=== PATIENT | male | born 1955 | race Caucasian/White ===

== ENCOUNTER 2020-11-07 10:09 | Outpatient (REF) | payer MEDICARE, SELFPAY ==
[2020-11-07 11:04] LABS: Estimated Average Glucose 117 mg/dL; Hemoglobin A1c % 5.7 %
[2020-11-07 11:20] LABS: Alanine Aminotransferase 52 U/L (0-40); Albumin Level 4.5 g/dL (3.5-5.0); Alkaline Phosphatase 103 U/L (39-117); Aspartate Amino Transferase 24 U/L (5-37); Bilirubin Direct 0.4 mg/dL (0.0-0.5); Bilirubin Total 1.2 mg/dL (0.0-1.0); Cholesterol 161 mg/dL; Glucose Fasting 117 mg/dL (60-99); HDL Cholesterol 60 mg/dL; LDL Cholesterol Calculated 69 mg/dl; Total Protein 7.1 g/dL (6.5-8.0); Triglycerides 162 mg/dL
[2020-11-07 11:32] LABS: Reflex LDLD? No
== END 2020-11-07 10:10 | disposition home or self-care (01) ==
LOC: HO.LNP 10:09
PROVIDERS: Visit Provider Internal Medicine
DX: E11.40 Type 2 diabetes mellitus with diabetic neuropathy, unspecified (principal); E78.00 Pure hypercholesterolemia, unspecified; R79.9 Abnormal finding of blood chemistry, unspecified; Z00.00 Encounter for general adult medical examination without abnormal findings
CPT/HCPCS: 80061; 80076; 82947; 83036

== ENCOUNTER 2021-05-09 11:36 | Outpatient (REF) | payer MEDICARE, SELFPAY ==
[2021-05-09 11:41] LABS: MANUAL DIFF FLAG NO
[2021-05-09 11:58] LABS: Basophils Percent Auto 0.5 % (0-2); Eosinophils Absolute Auto 0.2 X10*3/uL (0.0-0.4); Eosinophils Percent Auto 2.4 % (0-4); Hematocrit 41.3 % (42-52); Imm Gran Abs Auto 0.04 X10*3/uL (0.00-0.03); Imm Gran Pct Auto 0.5 % (0.0-0.4); Lymphocytes Absolute Auto 1.7 X10*3/uL (1.2-4.9); Lymphocytes Percent Auto 19.4 % (20-40); Mean Corpuscular HGB Conc 33.9 g/dl (31.0-36.0); Mean Corpuscular Hemoglobin 31.6 pg (27.0-33.0); Mean Corpuscular Volume 93.2 fL (80-98); Monocytes Absolute Auto 0.6 X10*3/uL (0.1-1.2); Monocytes Percent Auto 7.3 % (2-11); Neutrophils Percent Auto 69.9 % (45-73); Platelet Count 291 X10*3/uL (160-400); Red Blood Count 4.43 X10*6/uL (4.60-5.80); Red Cell Distribution Width 12.1 % (11.0-16.0); White Blood Count 8.6 X10*3/uL (4.8-10.8)
[2021-05-09 12:13] LABS: Estimated Average Glucose 114 mg/dL; Hemoglobin A1c % 5.6 %
[2021-05-09 12:24] LABS: Appearance Urine CLEAR; Color Urine YELLOW; Glucose Urine UA NEG (NEG); Leukocyte Esterase Urine NEG (NEG); Nitrite Urine NEG (NEG); Specific Gravity - Urine 1.015 (1.005-1.025); Urine Blood NEG (NEG); Urine Ketones NEG (NEG); Urine Protein NEG (NEG-TRACE)
[2021-05-09 13:35] LABS: Creatinine Urine 61.84 mg/dL; Microalbumin Urine < 5.0 mg/L
[2021-05-09 13:42] LABS: Alanine Aminotransferase 39 U/L (0-40); Albumin Level 4.3 g/dL (3.5-5.0); Alkaline Phosphatase 103 U/L (39-117); Anion Gap 18 (12-20); Aspartate Amino Transferase 21 U/L (5-37); Blood Urea Nitrogen 16 mg/dL (9-16); Calcium 9.2 mg/dL (8.4-10.2); Carbon Dioxide 23 mmol/L (22-29); Chloride 103 mmol/L (96-108); Cholesterol 161 mg/dL; Estimated Glomerular Filt Rate > 60; Glucose Fasting 122 mg/dL (60-99); HDL Cholesterol 58 mg/dL; LDL Cholesterol Calculated 81 mg/dl; Sodium 140 mmol/L (135-145); Total Protein 6.7 g/dL (6.5-8.0); Triglycerides 111 mg/dL
[2021-05-11 12:31] LABS: Free Prostate Spec Ag 1.2 ng/mL; Percent Free Prostate Spec Ag 16 % (calc) (>25); Prostate Specific Ag Total 7.4 ng/mL (< OR = 4.0)
== END 2021-05-09 11:37 | disposition home or self-care (01) ==
LOC: HO.LNP 11:36
PROVIDERS: Visit Provider Internal Medicine
DX: Z12.5 Encounter for screening for malignant neoplasm of prostate (principal); R97.20 Elevated prostate specific antigen [PSA]; I10 Essential (primary) hypertension; R73.03 Prediabetes; E87.6 Hypokalemia
CPT/HCPCS: 80053; 80061; 81003; 82043; 83036; 84153; 84154; 85025

== ENCOUNTER 2021-11-06 10:23 | Outpatient (REF) | payer MEDICARE, SELFPAY ==
[2021-11-06 11:14] LABS: Alanine Aminotransferase 47 U/L (0-40); Albumin Level 4.2 g/dL (3.5-5.0); Alkaline Phosphatase 106 U/L (39-117); Aspartate Amino Transferase 23 U/L (5-37); Bilirubin Direct 0.3 mg/dL (0.0-0.5); Bilirubin Total 0.7 mg/dL (0.0-1.0); Cholesterol 184 mg/dL; Glucose Fasting 117 mg/dL (60-99); HDL Cholesterol 58 mg/dL; LDL Cholesterol Calculated 88 mg/dl; Total Protein 6.8 g/dL (6.5-8.0); Triglycerides 193 mg/dL
[2021-11-06 11:16] LABS: Estimated Average Glucose 120 mg/dL; Hemoglobin A1c % 5.8 %
[2021-11-06 11:32] LABS: Reflex LDLD? No
== END 2021-11-06 10:24 | disposition home or self-care (01) ==
LOC: HO.LNP 10:23
PROVIDERS: PCP Internal Medicine; Visit Provider Internal Medicine
DX: R73.09 Other abnormal glucose (principal); E78.00 Pure hypercholesterolemia, unspecified
CPT/HCPCS: 80061; 80076; 82947; 83036

== ENCOUNTER 2022-04-10 09:43 | Emergency (ER) | payer MEDICARE, SELFPAY ==
--- NOTE | ~2022-04-10 | XR_ITS ---
EXAMINATION: XR FEMUR, RIGHT CLINICAL INFORMATION: Pain and bruising COMPARISON: None TECHNIQUE: AP and lateral views of the right femur were obtained. FINDINGS: No fracture or destructive process. There is degenerative change in the right hip and lateral right knee. XR/XR femur RT 2V IMPRESSION: Intact right femur
--- NOTE | ~2022-04-10 | US_ITS ---
EXAMINATION: US VENOUS ULTRASOUND WITH DOPPLER LOWER EXTREMITY, RIGHT CLINICAL INFORMATION: Atraumatic posterior leg bruising, pain. Assess for occult DVT. COMPARISON: None TECHNIQUE: Ultrasound of the deep veins is performed from the hip to the calf with compression sonography and color and pulse Doppler assessment. Spectral analysis with color-flow imaging is performed. FINDINGS: There is normal venous compression and respiratory variation and augmented flow. The visualized common femoral vein, superficial femoral vein, profunda femoral vein, popliteal vein, and the trifurcation region shows no evidence of deep venous thrombosis. No popliteal fossa cyst. No visible soft tissue hematoma. There is some mild edema in the subcutaneous space in the area of bruising. US/US venous duplex LE RT IMPRESSION: -No DVT demonstrated in the right lower extremity. -No popliteal fossa cyst or soft tissue hematoma.
[2022-04-10 09:51] VITALS: BP 128/77; PULSE 96; RESP 18; TEMP 36.1; O2SAT 98; BMI 29.5
--- NOTE | 2022-04-10 10:21 | PC.NURSE ---
pt c/o large area of bruising on the back of the upper leg that goes past behind the knee; pt denies any pain, pt denies any recent falls or injuries
[2022-04-10 10:31] LABS: MANUAL DIFF FLAG NO
[2022-04-10 10:34] LABS: Basophils Percent Auto 0.3 % (0-2); Eosinophils Absolute Auto 0.2 X10*3/uL (0.0-0.4); Eosinophils Percent Auto 2.2 % (0-4); Hemoglobin 14.4 g/dl (14.0-18.0); Imm Gran Abs Auto 0.05 X10*3/uL (0.00-0.03); Imm Gran Pct Auto 0.5 % (0.0-0.4); Lymphocytes Absolute Auto 1.3 X10*3/uL (1.2-4.9); Lymphocytes Percent Auto 13.9 % (20-40); Mean Corpuscular HGB Conc 34.3 g/dl (31.0-36.0); Mean Corpuscular Hemoglobin 31.6 pg (27.0-33.0); Mean Corpuscular Volume 92.1 fL (80.0-98.0); Mean Platelet Volume 8.8 fL (9.4-12.4); Monocytes Absolute Auto 0.7 X10*3/uL (0.1-1.2); Monocytes Percent Auto 7.6 % (2-11); Neutrophils Percent Auto 75.5 % (45-73); Platelet Count 324 X10*3/uL (160-400); Red Blood Count 4.56 X10*6/uL (4.60-5.80); Red Cell Distribution Width 11.7 % (11.0-16.0); White Blood Count 9.3 X10*3/uL (4.8-10.8)
[2022-04-10 10:42] LABS: Prothrombin Time 11.3 SEC (10.0-13.1)
[2022-04-10 10:53] LABS: Alanine Aminotransferase 57 U/L (0-40); Albumin Level 4.4 g/dL (3.5-5.0); Alkaline Phosphatase 117 U/L (39-117); Anion Gap 16 (12-20); Aspartate Amino Transferase 33 U/L (5-37); Blood Urea Nitrogen 27 mg/dL (9-16); Calcium 9.6 mg/dL (8.4-10.2); Carbon Dioxide 24 mmol/L (22-29); Chloride 100 mmol/L (96-108); Creatinine Clr Calc Pharmacy 62.8; Estimated Glomerular Filt Rate 47; Glucose Random 115 mg/dL (60-115); Magnesium 1.5 mg/dL (1.6-2.6); Potassium 5.2 mmol/L (3.3-5.1); Sodium 135 mmol/L (135-145); Total Protein 7.1 g/dL (6.5-8.0)
--- NOTE | 2022-04-10 11:24 | ED.SKABFB ---
HPI - Skin/Abscess/Foreign Bdy General Chief complaint: Skin/Abscess/Foreign Body Stated complaint: Rash/ bruising on R back leg Time Seen by Provider: 04/10/22 09:57 Source: patient Mode of arrival: ambulatory Limitations: no limitations History of Present Illness HPI narrative: 66-year-old male with a past medical history of hypertension, hyperlipidemia and GERD presenting to the ED with complaints of bruising to his right posterior leg/lower thigh area that he noticed . Reports on Saturday he was doing a lot of heavy lifting and moving things around although he does not recall any specific injury to that site. He reports that his posted the picture on ?[employer] and we got a lot a comments especially from nurses and they told us that we should come to the emergency department to rule out a blood clot?. He denies any fevers, chills, dizziness, headaches, neck pain/stiffness, trouble swallowing or breathing, chest pain or shortness of breath, dyspnea on exertion, orthopnea, palpitations, paresthesias, abdominal pain, nausea/vomiting/diarrhea constipation, black or bloody stools, recent travel or sick contacts, lower extremity edema or calf tenderness, recent falls or trauma that he can recall, history of hypercoagulation disorder, recent immobilization or surgery, any estrogen usage or any other symptoms complaints or concerns at this time. Patient denies being on any blood thinners and denies taking any aspirin. MD complaint: discoloration (bruising) Onset (ago): day(s) (6) Location: RLE (posterior lower thigh area) Severity: mild Quality: aching and constant Pain Consistency: constant Relieving factors: none Exacerbating factors: palpation and movement Context: other (See above) Associated symptoms: denies other symptoms Treatments prior to arrival: none Related Data Allergies Allergy/AdvReac Type Severity Reaction Status Date / Time No Known Allergies Allergy Verified 04/10/22 09:51 Review of Systems Review of Systems: Constitutional : No Weight loss, No Fever, No Chills, No Night Sweats, No Fatigue, No Malaise ENT/Mouth : No Hearing loss, No Ear Pain, No Nasal Congestion, No Sinus Pain, No Hoarseness, No sore throat, No Rhinorrhea, No Swallowing Difficulty Eyes: No Eye Pain, No Swelling, No Redness, No Foreign Body, No Discharge, No Vision Changes Cardiovascular : No Chest Pain, No SOB, No Dyspnea on Exertion, No Orthopnea, No Edema, No Palpitations Respiratory : No Cough, No Sputum, No Wheezing, No Smoke Exposure, No Dyspnea Gastrointestinal : No Nausea, No Vomiting, No Diarrhea, No Constipation, No abdominal Pain, No Hematochezia, No Melena Genitourinary : no irregular bleeding, No Dysuria, No Urinary Frequency, No Hematuria, No Urinary Incontinence, No Urgency, No Flank Pain, No Urinary Flow Changes, No Hesitancy Musculoskeletal : No joint pain, No Myalgias, No Joint Swelling Skin : No Skin Lesions, No rash Neuro : No Weakness, No Numbness, No Paresthesias, No Loss of Consciousness, No Dizziness, No Headache Psych : No Anxiety/Panic, No Depression, No SI/HI/AH/VH, No Social Issues, Heme/Lymph: + Bruising, No Bleeding,No Lymphadenopathy Endocrine : No Polyuria, No Polydipsia, No Temperature Intolerance Yes all other systems are reviewed and are negative [facility] Past Medical History Attestation statement: The following information was validated with the patient. Source: old records reviewed and nursing notes reviewed Surgical History H/O rotator cuff surgery Social History Social History Patient Tobacco Use Status: Never used Tobacco Use of substances other than those prescribed or required for medical reasons: No Advance Directives: Yes Advance Directives Information Provided: Yes Advance Directives on File: No Physical Exam Vital Signs: Vital Signs: Last Vital Signs Temp 98.5 F 04/10/22 11:46 Pulse 73 04/10/22 14:40 Resp 18 04/10/22 14:40 BP 127/56 L 04/10/22 14:40 Pulse Ox 97 04/10/22 14:40 O2 Del Method 04/10/22 14:40 BMI result Body Mass Index 29.5 vital signs have been reviewed as normal and appeared to be correct. Blood pressure normal. Heart rate normal. Respiration rate normal. Temperature normal. Oxygen saturation normal. Appearance: Alert. Oriented X3. No acute distress. Head: Normal external exam. Normocephalic. Atraumatic. Eyes: PERRLA. EOMI. Conjunctiva and sclera normal. Eyelids normal. ENT: Pharynx normal. Uvula midline. Moist mucous membranes. No lesions/ulcerations or masses noted on the tongue. Normal voice. No trismus noted. No drooling noted. No muffled voice noted. Neck: Normal inspection. Neck supple. FROM. No adenopathy. Thyroid Normal. No tracheal deviation noted. No crepitus is noted. No meningeal signs. No neck mass noted. No signs of trauma noted. CVS: Normal heart rate and rhythm. Heart sound normal. Pulses normal throughout. No murmurs/rales/gallops. Respiratory: No respiratory distress. Painless inspiration. Breath sounds normal. No wheezes/rales/rhonchi noted. Chest nontender. No crepitus is noted. No signs of trauma noted. No accessory muscle usage noted or decreased air movement noted. No signs of trauma. Abdomen: Soft and nontender. Bowel sounds normal in all 4 quadrants. No distention noted. No organomegaly noted. No visible injury noted. Back: Full range of motion noted. Skin: Skin warm and dry. Normal skin color. Normal skin turgor. Patient with large ecchymotic area to right posterior distal aspect of thigh with tenderness palpation. He has full range of motion of the right hip/knee joint no obvious ligamentous or tendon injury noted and no tenderness to the hip or knee joint. Otherwise no additional bruising/rashes/lesions/lacerations noted. Extremities: No lower extremity edema. No calf tenderness is noted. Patient only has tenderness to right posterior distal aspect of thigh. Otherwise no other extremity tenderness. In all other extremities exhibit normal range of motion nontender. Neuro: Oriented X 3. No motor deficit. No sensory deficit. Reflexes normal. Normal steady gait. No focal neuro deficits noted. CN's II-XII intact bilaterally? Vascular: + radial pulses/+ 2 distal pedal pulses/+2 dorsalis pedis b/l. Normal cap refill. No cyanosis noted to upper extremity nails and lower extremity toes nails. Course Course Course Narrative: 10:15am - 66-year-old male with a past medical history of hypertension, hyperlipidemia and GERD presenting to the ED with complaints of bruising to his right posterior leg/lower thigh area that he noticed . Reports on Saturday he was doing a lot of heavy lifting and moving things around although he does not recall any specific injury to that site. Requesting an ultrasound to rule out a blood clot. Plan: Will obtain labs, x-ray of right femur and venous duplex ultrasound of right lower extremity re-evaluate Reevaluation(s) Reevaluation #1: - labs return patient with the RBCs of 4.56 which is similar compared to prior. Potassium 5.2. BUN/creatinine 27/1.49 this is new for the patient. Magnesium 1.5. ALT 57. Total CPK 231. Otherwise all other labs are within normal limits. - therefore at this time will replace the patient's magnesium with 2 g of IV magnesium. Place an IV line and give 2 L of IV fluids for the patient BUN/creatinine that he is now and LILY. - still pending x-ray and ultrasound. Will re-evaluate. Time: 11:25 Reevaluation #2: - repeat BUN and creatinine now 23/1.26 which is improved when compared to prior. Therefore at this time will DC home with symptomatic treatment instructions return if any new or worsening symptoms repeat labs within 1 week and to follow up with primary care provider. Patient understands agrees with this plan. Time: 16:28 MDM - Skin/Abscess/Foreign Bdy Medical Records Attestation: I reviewed the patient's medical records. Lab Data Attestation: I reviewed the patient's lab results. Result diagrams: 04/10/22 10:24 04/10/22 15:47 Labs: Lab Results 04/10/22 04/10/22 04/10/22 Range/Units 10:24 10:24 10:24 WBC 9.3 (4.8-10.8) X10*3/uL RBC 4.56 L (4.60-5.80) X10*6/uL Hgb 14.4 (14.0-18.0) g/dl Hct 42.0 (42.0-52.0) % MCV 92.1 (80.0-98.0) fL MCH 31.6 (27.0-33.0) pg MCHC 34.3 (31.0-36.0) g/dl RDW 11.7 (11.0-16.0) % Plt Count 324 (160-400) X10*3/uL MPV 8.8 L (9.4-12.4) fL Immature Gran % (Auto) 0.5 H (0.0-0.4) % Neut % (Auto) 75.5 H (45-73) % Lymph % (Auto) 13.9 L (20-40) % [place] % (Auto) 7.6 (2-11) % Eos % (Auto) 2.2 (0-4) % Baso % (Auto) 0.3 (0-2) % Lymph # (Auto) 1.3 (1.2-4.9) X10*3/uL [place] # (Auto) 0.7 (0.1-1.2) X10*3/uL Eos # (Auto) 0.2 (0.0-0.4) X10*3/uL Baso # (Auto) 0.0 (0.0-0.2) X10*3/uL Abs Immat Gran (auto) 0.05 H (0.00-0.03) X10*3/uL Absolute Neuts (auto) 7.0 (2.0-8.3) x10*3/uL Absolute Nucleated RBC 0.000 (0.0-0.012) X10*3/uL Nucleated RBC % (auto) 0.0 (0.0-0.2) /100WBC PT 11.3 (10.0-13.1) SEC INR 1.0 (0.9-1.1) Sodium 135 (135-145) mmol/L Potassium 5.2 H D (3.3-5.1) mmol/L Chloride 100 (96-108) mmol/L Carbon Dioxide 24 (22-29) mmol/L Anion Gap 16 (12-20) BUN 27 H (9-16) mg/dL Creatinine 1.49 H (0.5-1.4) mg/dL Estim Creat Clear Calc 62.8 Estimated GFR 47 Random Glucose 115 (60-115) mg/dL Calcium 9.6 (8.4-10.2) mg/dL Magnesium 1.5 L (1.6-2.6) mg/dL Total Bilirubin 1.0 (0.0-1.0) mg/dL AST 33 D (5-37) U/L ALT 57 H (0-40) U/L Alkaline Phosphatase 117 (39-117) U/L Total Creatine Kinase 231 H (38-174) U/L Total Protein 7.1 (6.5-8.0) g/dL Albumin 4.4 (3.5-5.0) g/dL Urine Color Urine Appearance Urine pH (5.0-8.0) Ur Specific [place] (1.005-1.025) Urine Protein (Neg-Trace) mg/dL Urine Glucose (UA) (Negative) mg/dL Urine Ketones (Negative) mg/dL Urine Blood (Negative) Urine Nitrite (Negative) Ur Leukocyte Esterase (Negative) 04/10/22 04/10/22 Range/Units 11:54 15:47 WBC (4.8-10.8) X10*3/uL RBC (4.60-5.80) X10*6/uL Hgb (14.0-18.0) g/dl Hct (42.0-52.0) % MCV (80.0-98.0) fL MCH (27.0-33.0) pg MCHC (31.0-36.0) g/dl RDW (11.0-16.0) % Plt Count (160-400) X10*3/uL MPV (9.4-12.4) fL Immature Gran % (Auto) (0.0-0.4) % Neut % (Auto) (45-73) % Lymph % (Auto) (20-40) % [place] % (Auto) (2-11) % Eos % (Auto) (0-4) % Baso % (Auto) (0-2) % Lymph # (Auto) (1.2-4.9) X10*3/uL [place] # (Auto) (0.1-1.2) X10*3/uL Eos # (Auto) (0.0-0.4) X10*3/uL Baso # (Auto) (0.0-0.2) X10*3/uL Abs Immat Gran (auto) (0.00-0.03) X10*3/uL Absolute Neuts (auto) (2.0-8.3) x10*3/uL Absolute Nucleated RBC (0.0-0.012) X10*3/uL Nucleated RBC % (auto) (0.0-0.2) /100WBC PT (10.0-13.1) SEC INR (0.9-1.1) Sodium 136 (135-145) mmol/L Potassium 4.3 (3.3-5.1) mmol/L Chloride 106 (96-108) mmol/L Carbon Dioxide 22 (22-29) mmol/L Anion Gap 12 (12-20) BUN 23 H (9-16) mg/dL Creatinine 1.26 (0.5-1.4) mg/dL Estim Creat Clear Calc 74.2 Estimated GFR 57 Random Glucose 170 H D (60-115) mg/dL Calcium 8.4 D (8.4-10.2) mg/dL Magnesium (1.6-2.6) mg/dL Total Bilirubin (0.0-1.0) mg/dL AST (5-37) U/L ALT (0-40) U/L Alkaline Phosphatase (39-117) U/L Total Creatine Kinase (38-174) U/L Total Protein (6.5-8.0) g/dL Albumin (3.5-5.0) g/dL Urine Color Yellow Urine Appearance Clear Urine pH 5.5 (5.0-8.0) Ur Specific [place] 1.010 (1.005-1.025) Urine Protein Negative (Neg-Trace) mg/dL Urine Glucose (UA) Negative (Negative) mg/dL Urine Ketones Negative (Negative) mg/dL Urine Blood Negative (Negative) Urine Nitrite Negative (Negative) Ur Leukocyte Esterase Negative (Negative) Critical Care Time Critical Care Time Critical Care Time: Yes Total Critical Care Time: 60 Attestation: I personally attest to this time spent taking care of the patient Discharge Plan Discharge Clinical Impression: Traumatic ecchymosis of right thigh, LILY (acute kidney injury), Low blood magnesium level, Acute hyperkalemia Patient Disposition: Home, Self-Care Instructions: Acute Kidney Injury (DC), Hyperkalemia (ED), Contusion in Adults (ED) Referrals: Venancio Betancourt MD [Primary Care Provider] - 3 days (for repeat labs )
[2022-04-10 11:46] VITALS: BP 137/71; PULSE 65; RESP 18; TEMP 36.9; O2SAT 100
[2022-04-10 12:07] LABS: Appearance Urine Clear; Color Urine Yellow; Glucose Urine UA Negative (Negative); Leukocyte Esterase Urine Negative (Negative); Nitrite Urine Negative (Negative); PH 5.5 (5.0-8.0); Urine Blood Negative (Negative); Urine Ketones Negative (Negative); Urine Protein Negative (Neg-Trace)
[2022-04-10] MEDS: 0.9 % Sodium Chloride 1,000 ML 999 ML IVCONT ×2 (13:22→13:23)
[2022-04-10] MEDS: Magnesium Sulfate/H2O 2 GM/50 ML PIGGYBACK IV (13:22)
[2022-04-10 14:40] VITALS: BP 127/56; PULSE 73; RESP 18; O2SAT 97
[2022-04-10 16:15] LABS: Anion Gap 12 (12-20); Blood Urea Nitrogen 23 mg/dL (9-16); Calcium 8.4 mg/dL (8.4-10.2); Carbon Dioxide 22 mmol/L (22-29); Chloride 106 mmol/L (96-108); Creatinine Clr Calc Pharmacy 74.2; Estimated Glomerular Filt Rate 57; Glucose Random 170 mg/dL (60-115); Potassium 4.3 mmol/L (3.3-5.1); Sodium 136 mmol/L (135-145)
== END 2022-04-10 16:55 | disposition home or self-care (01) ==
PROVIDERS: Physician Assistant Medical; Emergency Provider Emergency Medicine; PCP Internal Medicine
DX: R21 Rash and other nonspecific skin eruption (principal); E87.5 Hyperkalemia; M79.651 Pain in right thigh; R79.89 Other specified abnormal findings of blood chemistry; I10 Essential (primary) hypertension; E78.5 Hyperlipidemia, unspecified; R60.0 Localized edema; Z79.899 Other long term (current) drug therapy
CPT/HCPCS: 36415; 73552; 80048; 80053; 81003; 82550; 83735; 85025; 85610; 93971; 96374; 99284; J3475

== ENCOUNTER 2022-04-13 15:54 | Outpatient (REF) | payer MEDICARE, SELFPAY ==
[2022-04-13 16:45] LABS: Blood Urea Nitrogen 23 mg/dL (9-16); Estimated Glomerular Filt Rate 53; Magnesium 1.6 mg/dL (1.6-2.6)
== END 2022-04-13 15:55 | disposition home or self-care (01) ==
LOC: HO.LNP 15:54
PROVIDERS: Visit Provider Internal Medicine
DX: R79.9 Abnormal finding of blood chemistry, unspecified (principal)
CPT/HCPCS: 82565; 83735; 84520

== ENCOUNTER 2022-05-11 06:38 | Outpatient (REF) | payer MEDICARE, SELFPAY ==
[2022-05-11 07:00] LABS: MANUAL DIFF FLAG NO
[2022-05-11 07:27] LABS: Basophils Percent Auto 0.4 % (0-2); Eosinophils Absolute Auto 0.2 X10*3/uL (0.0-0.4); Eosinophils Percent Auto 2.2 % (0-4); Hematocrit 40.1 % (42.0-52.0); Hemoglobin 13.6 g/dl (14.0-18.0); Imm Gran Abs Auto 0.05 X10*3/uL (0.00-0.03); Imm Gran Pct Auto 0.7 % (0.0-0.4); Lymphocytes Absolute Auto 1.3 X10*3/uL (1.2-4.9); Mean Corpuscular HGB Conc 33.9 g/dl (31.0-36.0); Mean Corpuscular Hemoglobin 31.9 pg (27.0-33.0); Mean Corpuscular Volume 94.1 fL (80.0-98.0); Mean Platelet Volume 9.5 fL (9.4-12.4); Monocytes Absolute Auto 0.5 X10*3/uL (0.1-1.2); Neutrophils Absolute Auto 5.5 x10*3/uL (2.0-8.3); Neutrophils Percent Auto 72.7 % (45-73); Platelet Count 258 X10*3/uL (160-400); Red Blood Count 4.26 X10*6/uL (4.60-5.80); Red Cell Distribution Width 12.1 % (11.0-16.0); White Blood Count 7.6 X10*3/uL (4.8-10.8)
[2022-05-11 07:30] LABS: Estimated Average Glucose 120 mg/dL; Hemoglobin A1c % 5.8 %
[2022-05-11 07:31] LABS: Appearance Urine Clear; Color Urine Yellow; Glucose Urine UA Negative (Negative); Leukocyte Esterase Urine Negative (Negative); Nitrite Urine Negative (Negative); PH 5.5 (5.0-9.0); Specific Gravity - Urine 1.015 (1.005-1.025); Urine Blood Negative (Negative); Urine Ketones Negative (Negative); Urine Protein Negative (Neg-Trace)
[2022-05-11 07:48] LABS: Creatinine Urine 102.32 mg/dL; Microalbumin Urine < 5.0 mg/L
[2022-05-11 07:51] LABS: Alanine Aminotransferase 38 U/L (0-40); Alkaline Phosphatase 98 U/L (39-117); Anion Gap 14 (12-20); Aspartate Amino Transferase 21 U/L (5-37); Bilirubin Total 0.6 mg/dL (0.0-1.0); Blood Urea Nitrogen 17 mg/dL (9-16); Calcium 8.7 mg/dL (8.4-10.2); Carbon Dioxide 26 mmol/L (22-29); Chloride 106 mmol/L (96-108); Cholesterol 149 mg/dL; Estimated Glomerular Filt Rate > 60; Glucose Fasting 121 mg/dL (60-99); HDL Cholesterol 49 mg/dL; LDL Cholesterol Calculated 81 mg/dl; Potassium 3.9 mmol/L (3.3-5.1); Sodium 142 mmol/L (135-145); Total Protein 6.4 g/dL (6.5-8.0); Triglycerides 99 mg/dL
[2022-05-11 08:15] LABS: PSA,Total (Free>4and<10) 7.61 ng/mL (0.00-4.00)
[2022-05-14 11:17] LABS: Free Prostate Spec Ag 1.7 ng/mL; Percent Free Prostate Spec Ag 23 % (calc) (>25); Prostate Specific Ag Total 7.4 ng/mL (< OR = 4.0)
== END 2022-05-11 06:39 | disposition home or self-care (01) ==
LOC: HO.LAB 06:38
PROVIDERS: PCP Internal Medicine; Visit Provider Internal Medicine
DX: Z12.5 Encounter for screening for malignant neoplasm of prostate (principal); R73.03 Prediabetes; I10 Essential (primary) hypertension; E87.6 Hypokalemia; E78.00 Pure hypercholesterolemia, unspecified; R97.20 Elevated prostate specific antigen [PSA]
CPT/HCPCS: 36415; 80053; 80061; 81003; 82043; 83036; 84153; 84154; 85025

== ENCOUNTER 2022-11-16 10:55 | Outpatient (REF) | payer MEDICARE, SELFPAY ==
[2022-11-16 12:00] LABS: Alanine Aminotransferase 41 U/L (0-40); Alkaline Phosphatase 106 U/L (39-117); Aspartate Amino Transferase 20 U/L (5-37); Bilirubin Direct 0.3 mg/dL (0.0-0.5); Bilirubin Total 0.9 mg/dL (0.0-1.0); Cholesterol 181 mg/dL; Glucose Fasting 123 mg/dL (60-99); HDL Cholesterol 53 mg/dL; LDL Cholesterol Calculated 96 mg/dl; Total Protein 6.4 g/dL (6.5-8.0); Triglycerides 161 mg/dL
[2022-11-16 12:08] LABS: Estimated Average Glucose 123 mg/dL; Hemoglobin A1C 149.5715 umol/L; Hemoglobin A1c % 5.9 %
== END 2022-11-16 10:56 | disposition home or self-care (01) ==
LOC: HO.LNP 10:55
PROVIDERS: Visit Provider Internal Medicine
DX: R73.09 Other abnormal glucose (principal); E78.00 Pure hypercholesterolemia, unspecified
CPT/HCPCS: 80061; 80076; 82947; 83036

== ENCOUNTER 2023-05-03 11:52 | Outpatient (REF) | payer MEDICARE, SELFPAY ==
[2023-05-03 12:10] LABS: Appearance Urine Clear; Color Urine Yellow; Glucose Urine UA Negative (Negative); Leukocyte Esterase Urine Negative (Negative); Nitrite Urine Negative (Negative); PH 5.5 (5.0-9.0); Specific Gravity - Urine 1.015 (1.005-1.025); Urine Blood Negative (Negative); Urine Ketones Negative (Negative); Urine Protein Negative (Neg-Trace)
[2023-05-03 12:13] LABS: Bacteria Urine None Seen (None Seen); Hyaline Casts Urine 0-2 /LPF (0-2); RBC Urine 0-2 /HPF (0-2); Squamous Epithelial Cell Urine 0-2 /HPF (0-2); WBC Urine 0-5 /HPF (0-5)
[2023-05-03 12:26] LABS: Alanine Aminotransferase 26 U/L (0-40); Albumin Level 3.8 g/dL (3.5-5.0); Alkaline Phosphatase 122 U/L (39-117); Anion Gap 12 (12-20); Aspartate Amino Transferase 23 U/L (5-37); Bilirubin Total 0.6 mg/dL (0.0-1.0); Blood Urea Nitrogen 15 mg/dL (9-16); Calcium 7.7 mg/dL (8.4-10.2); Carbon Dioxide 28 mmol/L (22-29); Chloride 103 mmol/L (96-108); Cholesterol 124 mg/dL (<200); Estimated Glomerular Filt Rate > 60; Glucose Fasting 128 mg/dL (60-99); HDL Cholesterol 44 mg/dL (>40); LDL Cholesterol Calculated 62 mg/dL (<100); Potassium 3.4 mmol/L (3.3-5.1); Sodium 140 mmol/L (135-145); Total Protein 6.5 g/dL (6.5-8.0); Triglycerides 94 mg/dL (<150)
[2023-05-03 12:45] LABS: PSA,Total (Free>4and<10) 15.47 ng/mL (0.00-4.00)
[2023-05-03 12:58] LABS: Creatinine Urine 66.74 mg/dL; Estimated Average Glucose 108 mg/dL; Hemoglobin A1c % 5.4 % (<6.0); Microalbumin Urine < 5.0 mg/L
== END 2023-05-03 11:53 | disposition home or self-care (01) ==
LOC: HO.LNP 11:52
PROVIDERS: Visit Provider Internal Medicine
DX: Z12.5 Encounter for screening for malignant neoplasm of prostate (principal); R73.03 Prediabetes; I10 Essential (primary) hypertension; E87.6 Hypokalemia; E78.00 Pure hypercholesterolemia, unspecified; R97.20 Elevated prostate specific antigen [PSA]
CPT/HCPCS: 80053; 80061; 81001; 82570; 83036; 84153

== ENCOUNTER 2023-06-18 09:04 | Outpatient (REF) | payer MEDICARE, SELFPAY ==
[2023-06-18 11:55] LABS: Albumin Level 4.3 g/dL (3.5-5.0); Calcium 8.2 mg/dL (8.4-10.2); Magnesium 0.8 mg/dL (1.6-2.6); Phosphorus 2.9 mg/dL (2.7-4.5)
[2023-06-22 18:53] LABS: Parathyroid Hormone Related Pr 10 pg/mL (11-20)
== END 2023-06-18 09:05 | disposition home or self-care (01) ==
LOC: HO.10HDL 09:04
PROVIDERS: Visit Provider Internal Medicine
DX: E83.51 Hypocalcemia (principal)
CPT/HCPCS: 36415; 82040; 82310; 83519; 83735; 84100

== ENCOUNTER 2023-08-20 06:39 | Outpatient (REF) | payer MEDICARE, SELFPAY ==
[2023-08-20 08:07] LABS: Calcium 9.7 mg/dL (8.4-10.2); Magnesium 1.5 mg/dL (1.6-2.6)
[2023-08-20 08:10] LABS: Parathyroid Hormone Intact 61.4 pg/mL (8.7-77.1)
== END 2023-08-20 06:40 | disposition home or self-care (01) ==
LOC: HO.LAB 06:39
PROVIDERS: PCP Internal Medicine; Visit Provider Internal Medicine
DX: E83.42 Hypomagnesemia (principal)
CPT/HCPCS: 36415; 82310; 83735; 83970

== ENCOUNTER 2023-11-11 11:09 | Outpatient (REF) | payer MEDICARE, SELFPAY ==
[2023-11-11 11:55] LABS: Estimated Average Glucose 128 mg/dL; Hemoglobin A1c % 6.1 % (<6.0)
[2023-11-11 12:02] LABS: Alanine Aminotransferase 39 U/L (0-40); Alkaline Phosphatase 107 U/L (39-117); Aspartate Amino Transferase 24 U/L (5-37); Bilirubin Direct 0.2 mg/dL (0.0-0.5); Bilirubin Total 0.8 mg/dL (0.0-1.0); Cholesterol 162 mg/dL (<200); Glucose Fasting 124 mg/dL (60-99); HDL Cholesterol 44 mg/dL (>40); LDL Cholesterol Calculated 78 mg/dL (<100); Total Protein 6.7 g/dL (6.5-8.0); Triglycerides 202 mg/dL (<150)
[2023-11-11 12:43] LABS: Reflex LDLD? No
== END 2023-11-11 11:10 | disposition home or self-care (01) ==
LOC: HO.LNP 11:09
PROVIDERS: Visit Provider Internal Medicine
DX: E78.00 Pure hypercholesterolemia, unspecified (principal); R73.09 Other abnormal glucose
CPT/HCPCS: 80061; 80076; 82947; 83036

== ENCOUNTER 2023-11-18 15:22 | Outpatient (REF) | payer MEDICARE, SELFPAY ==
[2023-11-18 15:55] LABS: Magnesium 1.2 mg/dL (1.6-2.6)
== END 2023-11-18 15:23 | disposition home or self-care (01) ==
LOC: HO.LNP 15:22
PROVIDERS: Visit Provider Internal Medicine
DX: E87.6 Hypokalemia (principal)
CPT/HCPCS: 82310; 83735

== ENCOUNTER 2023-12-19 11:54 | Outpatient (REF) | payer MEDICARE, SELFPAY ==
[2023-12-19 12:28] LABS: Magnesium 1.7 mg/dL (1.6-2.6)
== END 2023-12-19 11:55 | disposition home or self-care (01) ==
LOC: HO.LNP 11:54
PROVIDERS: Visit Provider Internal Medicine
DX: E83.42 Hypomagnesemia (principal)
CPT/HCPCS: 83735

== ENCOUNTER 2024-05-06 09:16 | Outpatient (REF) | payer MEDICARE, SELFPAY ==
[2024-05-06 11:06] LABS: Anion Gap 12 (12-20); Blood Urea Nitrogen 25 mg/dL (9-16); Calcium 9.5 mg/dL (8.4-10.2); Carbon Dioxide 25 mmol/L (22-29); Chloride 106 mmol/L (96-108); Estimated Glomerular Filt Rate 46; Potassium 4.4 mmol/L (3.3-5.1); Sodium 139 mmol/L (135-145)
== END 2024-05-06 09:17 | disposition home or self-care (01) ==
LOC: HO.LAB 09:16
PROVIDERS: PCP Internal Medicine; Visit Provider Internal Medicine Nephrology
DX: I10 Essential (primary) hypertension (principal); E87.6 Hypokalemia; I73.00 Raynaud's syndrome without gangrene
CPT/HCPCS: 36415; 80051; 82310; 82565; 84520; 99212

== ENCOUNTER 2024-05-06 09:16 | Outpatient (AMB) | payer MEDICARE, SELFPAY ==
--- NOTE | 2024-05-06 09:30 | HO.NEPHOV ---
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 He had Raynaud's disease without any systemic symptoms. Blood pressure at home is consistently well controlled. He denies any chest pain, shortness of breath, pedal edema, proximal nocturnal dyspnea,, orthostatic symptoms. He is compliant with medications. There were no new active complaints at the time of this office visit. [facility] Medical History (Updated 05/07/24 @ 12:06 by Rafael Crook MD) Hypertension Surgical History H/O rotator cuff surgery Social History Patient Tobacco Use Status: Never used Tobacco Review of Systems Const All systems reviewed & are unremarkable except as noted in HPI and below Physical Exam Vital Signs: Last Vital Signs BP 116/54 L 05/06/24 09:32 BMI result Body Mass Index 29.3 Const General: comfortable and no acute distress Orientation/consciousness: patient oriented x3 HEENT Head: Yes normocephalic Mouth: Normal oral and palatal mucosa present Eyes EOM: EOMs intact bilaterally Neck Neck: Yes supple Resp Auscultation: clear to auscultation bilaterally Cardio Jugular venous distension: no JVD Rate: regular rate GI Palpation (GI): Soft to palpation Auscultation: normal bowel sounds General: Yes no CVA tenderness Back/Spine/Pelvis Back: no CVA tenderness Skin General skin exam: no rashes or lesions noted Neuro General: patient oriented x3 and moves all extremities Extrem General: Yes no pedal edema Results Reviewed Nephrology Results: Hgb 13.6 g/dl (14.0-18.0) L 05/11/22 WBC 7.6 X10*3/uL (4.8-10.8) 05/11/22 Plt Count 258 X10*3/uL (160-400) 09/16/22 Sodium 139 mmol/L (135-145) 05/06/24 Potassium 4.4 mmol/L (3.3-5.1) 05/06/24 Chloride 106 mmol/L (96-108) 05/06/24 Carbon Dioxide 25 mmol/L (22-29) 05/06/24 BUN 25 mg/dL (9-16) H 05/06/24 Creatinine 1.51 mg/dL (0.5-1.4) H 05/06/24 Calcium 9.5 mg/dL (8.4-10.2) 05/06/24 Phosphorus 2.9 mg/dL (2.7-4.5) 06/18/23 PTH Intact 61.4 pg/mL (8.7-77.1) 08/20/23 Urine Protein Negative mg/dL (Neg-Trace) 05/03/23 Urine Creatinine 66.74 mg/dL 05/03/23 Assessment & Plan Assessment & Plan (1) Hypertension: Code(s): I10 - Essential (primary) hypertension Category: Medical Qualifiers: Hypertension type: primary hypertension Qualified Code(s): I10 - Essential (primary) hypertension Plan Jonathan has hypertension long time. He has been having Raynaud's disease without any systemic symptoms. His serum creatinine has gone up from baseline. He is on Irbesartan. I shall back off on ARB if his serum creatinine does not settle down. Doppler of his renal arteries along with extensive workup done in the past to delineate a secondary etiology for his hypertension had been negative. He was encouraged to increase his fluid intake and repeat lab work in 4 weeks. Answered all questions. Follow-up given Orders: Orders Electrolytes 05/06/24 I10 - Essential (primary) hypertension Protein Creatinine Ratio, Ur 05/06/24 I10 - Essential (primary) hypertension Creatinine 05/06/24 I10 - Essential (primary) hypertension Blood Urea Nitrogen 05/06/24 I10 - Essential (primary) hypertension Calcium 05/06/24 I10 - Essential (primary) hypertension Coding Level of Care Code Est Pt Level 4 (89537) Diagnoses Primary hypertension I10 Hypertension type: primary hypertension
[2024-05-06 09:32] VITALS: BP 116/54; BMI 29.3
== END 2024-05-06 09:57 | disposition home or self-care (01) ==
PROVIDERS: PCP Internal Medicine; Visit Provider Internal Medicine Nephrology
DX: I10 Essential (primary) hypertension (principal)
CPT/HCPCS: 99214

== ENCOUNTER 2024-05-14 10:51 | Outpatient (REF) | payer MEDICARE, SELFPAY ==
[2024-05-14 10:57] LABS: MANUAL DIFF FLAG NO
[2024-05-14 11:27] LABS: Appearance Urine Clear; Color Urine Yellow; Glucose Urine UA Negative (Negative); Leukocyte Esterase Urine Negative (Negative); Nitrite Urine Negative (Negative); PH 5.5 (5.0-9.0); Urine Blood Negative (Negative); Urine Ketones Negative (Negative); Urine Protein Negative (Neg-Trace)
[2024-05-14 11:35] LABS: Bacteria Urine None Seen (None Seen); Hyaline Casts Urine 0-2 /LPF (0-2); RBC Urine 0-2 /HPF (0-2); Squamous Epithelial Cell Urine 0-2 /HPF (0-2); WBC Urine 0-5 /HPF (0-5)
[2024-05-14 11:37] LABS: Basophils Percent Auto 0.3 % (0-2); Eosinophils Absolute Auto 0.2 X10*3/uL (0.0-0.4); Eosinophils Percent Auto 2.6 % (0-4); Hematocrit 41.1 % (42.0-52.0); Hemoglobin 13.9 g/dl (14.0-18.0); Imm Gran Abs Auto 0.03 X10*3/uL (0.00-0.03); Imm Gran Pct Auto 0.4 % (0.0-0.4); Lymphocytes Absolute Auto 1.3 X10*3/uL (1.2-4.9); Lymphocytes Percent Auto 16.8 % (20-40); Mean Corpuscular HGB Conc 33.8 g/dl (31.0-36.0); Mean Corpuscular Hemoglobin 32.5 pg (27.0-33.0); Mean Platelet Volume 9.5 fL (9.4-12.4); Monocytes Absolute Auto 0.7 X10*3/uL (0.1-1.2); Monocytes Percent Auto 8.9 % (2-11); Neutrophils Absolute Auto 5.7 x10*3/uL (2.0-8.3); Platelet Count 321 X10*3/uL (160-400); Red Blood Count 4.28 X10*6/uL (4.60-5.80); Red Cell Distribution Width 12.3 % (11.0-16.0)
[2024-05-14 11:47] LABS: Estimated Average Glucose 126 mg/dL
[2024-05-14 12:11] LABS: Alanine Aminotransferase 35 U/L (0-40); Albumin Level 4.3 g/dL (3.5-5.0); Alkaline Phosphatase 104 U/L (39-117); Anion Gap 13 (12-20); Aspartate Amino Transferase 31 U/L (5-37); Bilirubin Total 0.9 mg/dL (0.0-1.0); Blood Urea Nitrogen 18 mg/dL (9-16); Calcium 9.8 mg/dL (8.4-10.2); Carbon Dioxide 26 mmol/L (22-29); Chloride 104 mmol/L (96-108); Cholesterol 142 mg/dL (<200); Estimated Glomerular Filt Rate 52; Glucose Fasting 126 mg/dL (60-99); HDL Cholesterol 57 mg/dL (>40); LDL Cholesterol Calculated 68 mg/dL (<100); Potassium 4.1 mmol/L (3.3-5.1); Sodium 139 mmol/L (135-145); Total Protein 7.2 g/dL (6.5-8.0); Triglycerides 85 mg/dL (<150)
[2024-05-14 12:16] LABS: PSA,Total (Free>4and<10) 13.14 ng/mL (0.00-4.00)
[2024-05-14 12:27] LABS: Creatinine Urine 53.59 mg/dL; Microalbumin Urine < 5.0 mg/L
== END 2024-05-14 10:52 | disposition home or self-care (01) ==
LOC: HO.LNP 10:51
PROVIDERS: Visit Provider Internal Medicine
DX: R73.09 Other abnormal glucose (principal); E87.6 Hypokalemia; E78.00 Pure hypercholesterolemia, unspecified; Z12.5 Encounter for screening for malignant neoplasm of prostate
CPT/HCPCS: 80053; 80061; 81001; 82043; 82570; 83036; 84153; 85025

== ENCOUNTER 2024-05-21 15:39 | Outpatient (REF) | payer MEDICARE, SELFPAY ==
[2024-05-21 16:04] LABS: Magnesium 1.5 mg/dL (1.6-2.6)
== END 2024-05-21 15:40 | disposition home or self-care (01) ==
LOC: HO.LNP 15:39
PROVIDERS: Visit Provider Internal Medicine
DX: M54.50 Low back pain, unspecified (principal)
CPT/HCPCS: 83735

== ENCOUNTER 2024-06-15 06:57 | Outpatient (REF) | payer MEDICARE, SELFPAY ==
[2024-06-15 08:11] LABS: Anion Gap 12 (12-20); Blood Urea Nitrogen 32 mg/dL (9-16); Carbon Dioxide 26 mmol/L (22-29); Chloride 100 mmol/L (96-108); Estimated Glomerular Filt Rate 44; Sodium 133 mmol/L (135-145)
[2024-06-15 08:15] LABS: Creatinine Urine 51.89 mg/dL; Total Protein Urine Random < 7 mg/dL (<12)
== END 2024-06-15 06:58 | disposition home or self-care (01) ==
LOC: HO.LAB 06:57
PROVIDERS: PCP Internal Medicine; Visit Provider Internal Medicine Nephrology
DX: I10 Essential (primary) hypertension (principal)
CPT/HCPCS: 36415; 80051; 82565; 82570; 84156; 84520

== ENCOUNTER 2024-06-22 11:28 | Outpatient (REF) | payer MEDICARE, SELFPAY ==
[2024-06-22 12:30] LABS: Magnesium 1.9 mg/dL (1.6-2.6)
== END 2024-06-22 11:29 | disposition home or self-care (01) ==
LOC: HO.LNP 11:28
PROVIDERS: Visit Provider Internal Medicine
DX: E83.42 Hypomagnesemia (principal)
CPT/HCPCS: 83735

== ENCOUNTER 2024-07-29 09:18 | Outpatient (AMB) | payer MEDICARE, SELFPAY ==
--- NOTE | 2024-07-29 09:52 | HO.NEPHOV ---
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 He had Raynaud's disease without any systemic symptoms. He had been having LILY and low BP's intermittently. He denies any chest pain, shortness of breath, pedal edema, proximal nocturnal dyspnea,, orthostatic symptoms. There were no new active complaints at the time of this office visit. [facility] Medical History (Updated 05/07/24 @ 12:06 by Rafael Crook MD) Hypertension Surgical History H/O rotator cuff surgery Social History Patient Tobacco Use Status: Never used Tobacco Review of Systems Const All systems reviewed & are unremarkable except as noted in HPI and below Physical Exam Vital Signs: Last Vital Signs BP 84/50 L 07/29/24 09:54 BMI result Body Mass Index 29.3 Const General: comfortable and no acute distress Orientation/consciousness: patient oriented x3 HEENT Head: Yes normocephalic Mouth: Normal oral and palatal mucosa present Eyes EOM: EOMs intact bilaterally Neck Neck: Yes supple Resp Auscultation: clear to auscultation bilaterally Cardio Jugular venous distension: no JVD Rate: regular rate GI Palpation (GI): Soft to palpation Auscultation: normal bowel sounds General: Yes no CVA tenderness Back/Spine/Pelvis Back: no CVA tenderness Skin General skin exam: no rashes or lesions noted Neuro General: patient oriented x3 and moves all extremities Extrem General: Yes no pedal edema Results Reviewed Nephrology Results: Hgb 13.9 g/dl (14.0-18.0) L 05/14/24 WBC 8.0 X10*3/uL (4.8-10.8) 05/14/24 Plt Count 321 X10*3/uL (160-400) 05/14/24 Sodium 133 mmol/L (135-145) L 06/15/24 Potassium 5.0 mmol/L (3.3-5.1) 06/15/24 Chloride 100 mmol/L (96-108) 06/15/24 Carbon Dioxide 26 mmol/L (22-29) 06/15/24 BUN 32 mg/dL (9-16) H 06/15/24 Creatinine 1.57 mg/dL (0.5-1.4) H 06/15/24 Calcium 9.8 mg/dL (8.4-10.2) 05/14/24 Phosphorus 2.9 mg/dL (2.7-4.5) 06/18/23 PTH Intact 61.4 pg/mL (8.7-77.1) 08/20/23 Urine Protein Negative mg/dL (Neg-Trace) 05/14/24 Urine Creatinine 51.89 mg/dL 06/15/24 Protein/Creatinin Ratio TNP 06/15/24 Assessment & Plan Assessment & Plan (1) LILY (acute kidney injury): Code(s): N17.9 - Acute kidney failure, unspecified Category: Medical (2) Hypertension: Code(s): I10 - Essential (primary) hypertension Category: Medical Qualifiers: Hypertension type: primary hypertension Qualified Code(s): I10 - Essential (primary) hypertension Plan Jonathan has hypertension long time. He has been having Raynaud's disease without any systemic symptoms. His serum creatinine has gone up likely due to tubular injury from low BP. He is on Irbesartan which I backed off by 50 %. I shall hold off on ARB if his serum creatinine does not settle down. Doppler of his renal arteries along with extensive workup done in the past to delineate a secondary etiology for his hypertension had been negative. He was encouraged to increase his fluid intake. Lab work for today. Answered all questions. Follow-up given Orders: Orders Blood Urea Nitrogen Today N17.9 - Acute kidney failure, unspecified Creatinine Today N17.9 - Acute kidney failure, unspecified Electrolytes Today N17.9 - Acute kidney failure, unspecified Coding Level of Care Code Est Pt Level 4 (21783) Diagnoses LILY (acute kidney injury) N17.9 Primary hypertension I10 Hypertension type: primary hypertension
[2024-07-29 09:54] VITALS: BP 84/50; BMI 29.3
--- OUTSIDE RECORDS SUMMARY | 2024-08-04 17:02 | XMS_ITS ---
Author Organization Venancio Betancourt MD Address [address] [place], [place] [id number] Care Team Providers Care Vineyard Tender Name Role Phone Venancio Betancourt Primary Care Provider [phone] RESULTS Component Value Reference Range Notes Complete Blood Count Auto Di ff Reviewed date:05/14/2024 03:09:06 PM Interpretation: Performing Lab:[facility], [address] [place] [phone] Notes/Report: White Blood Count 8.0 4.8-10.8 X10*3/uL Red Blood Count 4.28 4.60-5.80 X10*6/uL Hemoglobin 13.9 14.0-18.0 g/dl Hematocrit 41.1 42.0-52.0 % Mean Corpuscular Volume 96.0 80.0-98.0 fL Mean Corpuscular Hemoglobin 32.5 27.0-33.0 pg Mean Corpuscular HGB Conc 33.8 31.0-36.0 g/dl Red Cell Distribution Width 12.3 11.0-16.0 % Platelet Count 321 160-400 X10*3/uL Mean Platelet Volume 9.5 9.4-12.4 fL Neutrophils Percent Auto 71.0 45-73 % Imm Gran Pct Auto 0.4 0.0-0.4 % Lymphocytes Percent Auto 16.8 20-40 % Monocytes Percent Auto 8.9 2-11 % Eosinophils Percent Auto 2.6 0-4 % Basophils Percent Auto 0.3 0-2 % NRBC Pct Auto 0.0 0.0-0.2 /100WBC Neutrophils Absolute Auto 5.7 2.0-8.3 x10*3/u L Imm Gran Abs Auto 0.03 0.00-0.03 X10*3/uL Lymphocytes Absolute Auto 1.3 1.2-4.9 X10*3/u L Monocytes Absolute Auto 0.7 0.1-1.2 X10*3/uL Eosinophils Absolute Auto 0.2 0.0-0.4 X10*3/u L Basophils Absolute Auto 0.0 0.0-0.2 X10*3/uL NRBC Abs Auto 0.000 0.0-0.012 X10*3/uL Comprehensive Clarks. Panel Fa st Reviewed date:05/14/2024 12:33:14 PM Interpretation: Performing Lab:[facility], [address] [place] [phone] Notes/Report: Sodium 139 135-145 mmol/L Potassium 4.1 3.3-5.1 mmol/L Chloride 104 96-108 mmol/L Carbon Dioxide 26 22-29 mmol/L Anion Gap 13 12-20 Blood Urea Nitrogen 18 9-16 mg/dL Creatinine 1.37 0.5-1.4 mg/dL Estimated Glomerular Filt Rate 52 NOTE: For -[place] individuals, multiply the result by 1.210. Chronic Kidney Disease: Estimated GFR < 60 mL/min/1.73m2 Severe Kidney Disease: Estimated GFR < 15 mL/min/1.73m2 Glucose Fasting 126 60-99 mg/dL A fasting glucose of 126 mg/dl or greater on more than one occasion is considered diagnostic of diabetes. Calcium 9.8 8.4-10.2 mg/dL Bilirubin Total 0.9 0.0-1.0 mg/dL Aspartate Amino Transferase 31 5-37 U/L Alanine Aminotransferase 35 0-40 U/L Total Protein 7.2 6.5-8.0 g/dL Albumin Level 4.3 3.5-5.0 g/dL Alkaline Phosphatase 104 39-117 U/L Lipid Panel Reviewed date:05/14/2024 12:15:33 PM Interpretation: Performing Lab:[address] [phone] Notes/Report: Triglycerides 85 <150 mg/dL Desirable Triglyceride: less than 150 mg/dL Borderline High Triglyceride 150-199 mg/dL High Triglyceride: 200-499 mg/dL Very High Triglyceride: greater than or equal to 5OO mg/dL Cholesterol 142 <200 mg/dL Desirable Cholesterol: less than 200 mg/dL Borderline High Cholesterol: 200-239 mg/dL High Cholesterol: greater than 239 mg/dL LDL Cholesterol Calculated 68 <100 mg/dL Desirable LDL: less than 100 mg/dL Near Optimal/Above Optimal LDL: 110-129 mg/dL Borderline High LDL: 130-159 mg/dL High LDL: 160-189 mg/dL Very High LDL: greater than or equal to 190 mg/dL HDL Cholesterol 57 >40 mg/dL Desirable HDL: greater than 40 mg/dL Note: This HDL assay may give artificially low results in patients with liver disease. PSA,Total (Free>4and<10) Reviewed date:05/14/2024 12:33:27 PM Interpretation: Performing Lab:[address] [phone] Notes/Report: PSA,Total (Free>4and<10) 13.14 0.00-4.00 ng/mL A Free PSA was not performed: The percentage of Free PSA can be used to enhance the differentiation of prostate cancer from benign prostatic disease in subjects whose PSA levels are between 4.0 and 10.0 ng/mL. For subjects whose PSA levels are below 4.0 or above 10.0 ng/mL, the risk of prostate cancer is determined on the basis of the PSA alone. Therefore the % Free PSA is recommended only for those subjects whose PSA levels are between 4.0 and 10.0 ng/mL. PSA methodology: [place] Alinity i Chemiluminescent Microparticle Immunoassay (CMIA) Microalbumin, Random Reviewed date:05/14/2024 12:32:37 PM Interpretation: Performing Lab:[address] [phone] Notes/Report: Creatinine Urine 53.59 Microalbumin Urine < 5.0 Microalbum/Creatinine Ratio Ur TNP <30 ug/mg cr Unable to calculate albumin/creatinine ratio due to low microalbumin or creatinine result. Hemoglobin A1c Reviewed date:05/14/2024 12:20:56 PM Interpretation: Performing Lab:[facility], [address] [place] [phone] Notes/Report: Hemoglobin A1c % 6.0 <6.0 % Hemoglobin A1C Reference Range Adults: 4.8 - 6.0 % Non diabetic: < 6.0 % Goal: < 7.0 % Additional Action Suggested: > 8.0 % Note: Hemoglobin A1c results are invalid for patients with abnormal amounts of HbF. Blood transfusions may impact the HbA1c concentration in the patient sample. Estimated Average Glucose 126 eAG = Estimated average glucose which is %A1C expressed as average glucose, using the formula of the [id number] Average Glucose study (ADAG), Diabetes Care, Vol.31,#8, Mar. 2007 UA ClnCatch+Micro w/rflx Cul t Reviewed date:05/14/2024 05:02:46 PM Interpretation: Performing Lab:[facility], [address] [place] [phone] Notes/Report: Urine, Clean Catch Color Urine Yellow Appearance Urine Clear PH 5.5 5.0-9.0 Glucose Urine UA Negative Negative mg/dL Urine Blood Negative Negative Specific [place] - Urine 1.010 1.005-1.025 Urine Protein Negative Neg-Trace mg/dL Urine Ketones Negative Negative mg/dL Nitrite Urine Negative Negative Leukocyte Esterase Urine Negative Negative RBC Urine 0-2 0-2 /HPF WBC Urine 0-5 0-5 /HPF Squamous Epithelial Cell Urine 0-2 0-2 /HPF Bacteria Urine None Seen None Seen Hyaline Casts Urine 0-2 0-2 /LPF REASON FOR VISIT fasting yearly labs IMMUNIZATIONS Vaccine Route Administration Date Status Comme nts Fluarix Quadrivalent - 150 IM Intramuscular 05/14/2024 Adm inistered Encounters Encounter Location Date Provider Diagnosis Venancio Betancourt MD [address] [place] [address] Drive [address] [place], [place] [id number] 05/14/2024 Venancio Betancourt Prediabetes R73.09 ; Encounter for immunization Z23 ; Hypokalemia E87.6 ; Pure hypercholesterolemia E78.00 and Elevated PSA R97.20 ASSESSMENTS Encounter Date Diagnosis Assessment Notes Treatment Notes Treatment Clinical Notes 05/14/2024 Prediabetes (ICD-10 - R73.09) 05/14/2024 Encounter for immuni zation (ICD-10 - Z23) 05/14/2024 Hypokalemia (ICD-10 - E87.6) 05/14/2024 Pure hypercholestero lemia (ICD-10 - E78.00) 05/14/2024 Elevated PSA (ICD-10 - R97.20) PLAN OF TREATMENT Next Appt Details Provider Name:Venancio quintana, 11/13/2024 07:00:00 AM, [address] [place] [address], Suite [facility], [place], [place], [phone], Provider Name:Venancio quintana, 11/20/2024 01:30:00 PM, [address] [place] [address], Suite [facility], [place], [place], [phone], Provider Name:Venancio quintana, 05/17/2025 07:00:00 AM, [address] [place] [address], [address], [place], [phone], Provider Name:Venancio quintana, 05/24/2025 03:30:00 PM, [address] [place] [address], Suite [facility], [place], [phone],
--- OUTSIDE RECORDS SUMMARY | 2024-08-04 17:02 | XMS_ITS | Patient Health Record ---
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 Name Role Phone Venancio Betancourt Primary Care Provider ALLERGIES No Known Allergies RESULTS Component Value Reference Range Notes Parathyroid Hormone Intact Reviewed date:08/21/2023 03:49:18 PM Interpretation: Performing Lab:[facility], [address] [place] [phone] Notes/Report: Parathyroid Hormone Intact 61.4 8.7-77.1 pg/mL Magnesium Reviewed date:08/21/2023 03:49:08 PM Interpretation: Performing Lab:[facility], [address] [place] [phone] Notes/Report: Magnesium 1.5 1.6-2.6 mg/dL Calcium Reviewed date:08/21/2023 03:49:00 PM Interpretation: Performing Lab:[facility], [address] [place] [phone] Notes/Report: Calcium 9.7 8.4-10.2 mg/dL Hold Gold Reviewed date:11/11/2023 12:31:18 PM Interpretation: Performing Lab:[facility], [address] [place] [phone] Notes/Report: Hold Gold See Note Specimen held untested for 24 hours; Call to request Chemistry testing. Liver Panel Reviewed date:11/11/2023 02:48:49 PM Interpretation: Performing Lab:[facility], [address] [place] [phone] Notes/Report: Bilirubin Total 0.8 0.0-1.0 mg/dL Bilirubin Direct 0.2 0.0-0.5 mg/dL Aspartate Amino Transferase 24 5-37 U/L Alanine Aminotransferase 39 0-40 U/L Total Protein 6.7 6.5-8.0 g/dL Albumin Level 4.0 3.5-5.0 g/dL Alkaline Phosphatase 107 39-117 U/L Glucose Fasting Reviewed date:11/11/2023 02:47:54 PM Interpretation: Performing Lab:[facility], [address] [place] [phone] Notes/Report: Glucose Fasting 124 60-99 mg/dL A fasting glucose from 100-125 mg/dl is considered impaired (pre-diabetes). Lipid Panel with Reflex Reviewed date:11/11/2023 05:15:19 PM Interpretation: Performing Lab:[facility], [address] [place] [phone] Notes/Report: Triglycerides 202 <150 mg/dL Desirable Triglyceride: less than 150 mg/dL Borderline High Triglyceride 150-199 mg/dL High Triglyceride: 200-499 mg/dL Very High Triglyceride: greater than or equal to 5OO mg/dL Cholesterol 162 <200 mg/dL Desirable Cholesterol: less than 200 mg/dL Borderline High Cholesterol: 200-239 mg/dL High Cholesterol: greater than 239 mg/dL LDL Cholesterol Calculated 78 <100 mg/dL Desirable LDL: less than 100 mg/dL Near Optimal/Above Optimal LDL: 110-129 mg/dL Borderline High LDL: 130-159 mg/dL High LDL: 160-189 mg/dL Very High LDL: greater than or equal to 190 mg/dL HDL Cholesterol 44 >40 mg/dL Desirable HDL: greater than 40 mg/dL Note: This HDL assay may give artificially low results in patients with liver disease. Hemoglobin A1c Reviewed date:11/11/2023 12:31:36 PM Interpretation: Performing Lab:[facility], [address] [place] [phone] Notes/Report: Hemoglobin A1c % 6.1 <6.0 % Hemoglobin A1C Reference Range Adults: 4.8 - 6.0 % Non diabetic: < 6.0 % Goal: < 7.0 % Additional Action Suggested: > 8.0 % Note: Hemoglobin A1c results are invalid for patients with abnormal amounts of HbF. Blood transfusions may impact the HbA1c concentration in the patient sample. Estimated Average Glucose 128 eAG = Estimated average glucose which is %A1C expressed as average glucose, using the formula of the S4Q-Pughpiq Average Glucose study (ADAG), Diabetes Care, Vol.31,#8, 2007 Timbo Lewis Reviewed date:11/18/2023 05:17:06 PM Interpretation: Performing Lab:[facility], [address] [place] [phone] Notes/Report: Timbo Lewis See Note Specimen held untested for 24 hours; Call to request Chemistry testing. Calcium Reviewed date:11/18/2023 05:16:48 PM Interpretation: Performing Lab:[facility], [address] [place] [phone] Notes/Report: Calcium 9.0 8.4-10.2 mg/dL Magnesium Reviewed date:11/18/2023 05:16:57 PM Interpretation: Performing Lab:[facility], [address] [place] [phone] Notes/Report: Magnesium 1.2 1.6-2.6 mg/dL Critical value for test(s): MAGS Results called to and read back by:DARCY Smith calling:IZABELLA Date:11/18/2023 Time:1554 Timbo Lewis Reviewed date:12/19/2023 12:22:44 PM Interpretation: Performing Lab:[facility], [address] [place] [phone] Notes/Report: Timbo Lewis See Note Specimen held untested for 24 hours; Call to request Chemistry testing. Magnesium Reviewed date:12/19/2023 12:55:03 PM Interpretation: Performing Lab:[facility], [address] [place] [phone] Notes/Report: Magnesium 1.7 1.6-2.6 mg/dL Electrolytes Reviewed date:05/06/2024 04:42:14 PM Interpretation: Performing Lab:[facility], [address] [place] [phone] Notes/Report: Sodium 139 135-145 mmol/L Potassium 4.4 3.3-5.1 mmol/L Chloride 106 96-108 mmol/L Carbon Dioxide 25 22-29 mmol/L Anion Gap 12 12-20 Blood Urea Nitrogen Reviewed date:05/06/2024 04:42:24 PM Interpretation: Performing Lab:[facility], [address] [place] [phone] Notes/Report: Blood Urea Nitrogen 25 9-16 mg/dL Creatinine Reviewed date:05/06/2024 04:42:39 PM Interpretation: Performing Lab:[facility], [address] [place] [phone] Notes/Report: Creatinine 1.51 0.5-1.4 mg/dL Estimated Glomerular Filt Rate 46 NOTE: For -Lao individuals, multiply the result by 1.210. Chronic Kidney Disease: Estimated GFR < 60 mL/min/1.73m2 Severe Kidney Disease: Estimated GFR < 15 mL/min/1.73m2 Calcium Reviewed date:05/06/2024 04:42:02 PM Interpretation: Performing Lab:[facility], [address] [place] [phone] Notes/Report: Calcium 9.5 8.4-10.2 mg/dL Complete Blood Count Auto Di ff Reviewed date:05/14/2024 03:09:06 PM Interpretation: Performing Lab:[facility], [address] [place] [phone] Notes/Report: White Blood Count 8.0 4.8-10.8 X10*3/uL [...] NRBC Abs Auto 0.000 0.0-0.012 X10*3/uL Comprehensive [place]. Panel Fa st Reviewed date:05/14/2024 12:33:14 PM Interpretation: Performing Lab:[facility], [address] [place] [phone] Notes/Report: Sodium 139 135-145 mmol/L Potassium 4.1 3.3-5.1 mmol/L Chloride 104 96-108 mmol/L Carbon Dioxide 26 22-29 mmol/L Anion Gap 13 12-20 Blood Urea Nitrogen 18 9-16 mg/dL Creatinine 1.37 0.5-1.4 mg/dL Estimated Glomerular Filt Rate 52 NOTE: For -Lao individuals, multiply the result by 1.210. Chronic [...] Panel Reviewed date:05/14/2024 12:15:33 PM Interpretation: Performing Lab:[address] [phone] Notes/Report: Triglycerides 85 <150 mg/dL Desirable Triglyceride: [...] (Free>4and<10) Reviewed date:05/14/2024 12:33:27 PM Interpretation: Performing Lab:[address] [phone] Notes/Report: PSA,Total (Free>4and<10) 13.14 0.00-4.00 ng/mL A [...] Random Reviewed date:05/14/2024 12:32:37 PM Interpretation: Performing Lab:[facility], [address] [place] [phone] Notes/Report: Creatinine Urine 53.59 Microalbumin Urine < 5.0 Microalbum/Creatinine Ratio Ur TNP <30 ug/mg cr Unable to calculate albumin/creatinine ratio due to low microalbumin or creatinine result. Hemoglobin A1c Reviewed date:05/14/2024 12:20:56 PM Interpretation: Performing Lab:[facility], [address] [place] [phone] Notes/Report: Hemoglobin A1c % 6.0 <6.0 % [...] average glucose, using the formula of the P1Q-Lrjlypy Average Glucose study (ADAG), Diabetes Care, Vol.31,#8, Mar. 2007 UA ClnCatch+Micro w/rflx Cul t Reviewed date:05/14/2024 05:02:46 PM Interpretation: Performing Lab:[facility], [address] [place] [phone] Notes/Report: Urine, Clean Catch Color Urine Yellow Appearance Urine Clear PH 5.5 5.0-9.0 Glucose Urine UA Negative Negative mg/dL Urine Blood Negative Negative Specific [place] - Urine 1.010 1.005-1.025 Urine Protein Negative Neg-Trace mg/dL Urine Ketones Negative Negative mg/dL Nitrite Urine Negative Negative Leukocyte Esterase Urine Negative Negative RBC Urine 0-2 0-2 /HPF WBC Urine 0-5 0-5 /HPF Squamous Epithelial Cell Urine 0-2 0-2 /HPF Bacteria Urine None Seen None Seen Hyaline Casts Urine 0-2 0-2 /LPF Magnesium Reviewed date:05/22/2024 07:28:07 AM Interpretation: Performing Lab:[facility], [address] [place] [phone] Notes/Report: Magnesium 1.5 1.6-2.6 mg/dL Electrolytes Reviewed date:06/15/2024 01:01:08 PM Interpretation: Performing Lab:[facility], [address] [place] [phone] Notes/Report: Sodium 133 135-145 mmol/L Potassium 5.0 3.3-5.1 mmol/L Chloride 100 96-108 mmol/L Carbon Dioxide 26 22-29 mmol/L Anion Gap 12 12-20 Blood Urea Nitrogen Reviewed date:07/21/2024 02:00:20 PM Interpretation:High Performing Lab:[facility], [address] [place] [phone] Notes/Report: Blood Urea Nitrogen 32 9-16 mg/dL Creatinine Reviewed date:06/15/2024 12:58:50 PM Interpretation: Performing Lab:[facility], [address] [place] [phone] Notes/Report: Creatinine 1.57 0.5-1.4 mg/dL Estimated Glomerular Filt Rate 44 NOTE: For -Lao individuals, multiply the result by 1.210. Chronic Kidney Disease: Estimated GFR < 60 mL/min/1.73m2 Severe Kidney Disease: Estimated GFR < 15 mL/min/1.73m2 Protein Creatinine Ratio, Ur Reviewed date:06/15/2024 01:01:53 PM Interpretation: Performing Lab:[facility], [address] [place] [phone] Notes/Report: Creatinine Urine 51.89 Total Protein Urine Random < 7 <12 mg/dL Protein/Creatinine Ratio, Ur TNP <0.2 Unable to calculate urine protein creatinine ratio due to low creatinine or protein result. Magnesium Reviewed date:06/22/2024 12:57:26 PM Interpretation: Performing Lab:[facility], [address] [place] [phone] Notes/Report: Magnesium 1.9 1.6-2.6 mg/dL Electrolytes Reviewed date:07/29/2024 07:16:34 PM Interpretation: Performing Lab:[facility], [address] [place] [phone] Notes/Report: Sodium 134 135-145 mmol/L Potassium 5.3 3.3-5.1 mmol/L Chloride 101 96-108 mmol/L Carbon Dioxide 25 22-29 mmol/L Anion Gap 13 12-20 Blood Urea Nitrogen Reviewed date:07/29/2024 07:16:10 PM Interpretation: Performing Lab:[facility], [address] [place] [phone] Notes/Report: Blood Urea Nitrogen 32 9-16 mg/dL Creatinine Reviewed date:07/29/2024 07:16:00 PM Interpretation: Performing Lab:[facility], [address] [place] [phone] Notes/Report: Creatinine 1.88 0.5-1.4 mg/dL Estimated Glomerular Filt Rate 36 Chronic Kidney Disease: Estimated GFR < 60 mL/min/1.73m2 Severe Kidney Disease: Estimated GFR < 15 mL/min/1.73m2 REASON FOR REFERRAL Reason elevated BUN and cre atine Diagnosis 1 Elevated BUN (R79.9) Referral Organization Venancio Betancourt MD Referring Provider First Name Venancio Referring Provider Last Name [place] Referring Provider Speciality Internal M edicine Referred Provider LILLIAM ANDREWS Referred Provider Specialty Nephrology General Notes Collette Campbell 02:10:30 PM EST > patient is aware of appt Referral Priority Routine Referral Appointment Date 07/29/2024 MEDICATIONS Medication SIG (Take, Route, Frequency, Duration) Notes Start Date End Date Status Omeprazole 20 MG TAKE 1 CAPSULE ONCE DAILY 30 MINUTES BEFORE MORNING MEAL for 90 Active Irbesartan 300 MG 1 tablet Orally Once a day Active Nystatin-Triamcinolone 590700-6.1 UNIT/GM 1 application to affected area Externally Twice a day for 14 days 04/23/2019 Not-Taking amLODIPine Besylate 10 MG 1 tab Orally O nce a day Active LORazepam 0.5 MG 1or 2 tablet Orally once a day for 30 days 06/11/2011 Not-Takin g Spironolactone 50 MG 1tablet Orally Once a day Active Symbicort 160-4.5 MCG/ACT 2 puffs Inhala tion Twice a day for 90 days Not-Taking Atorvastatin Calcium 40 MG TAKE 1 TABLET ONCE DAILY for 90 Active ProAir HFA 108 (90 Base) MCG/ACT INHALE 2 PUFFS ORALLY FOUR TIMES DAILY NEEDED ( EVERY FOUR HOURS ) Inhalation every 6 hrs for 90 Not-Taking EpiPen 2-Epifanio 0.3 MG/0.3ML as directed In jection once for 1 dose 04/12/2017 Active Viagra 100 MG 1 tablet as needed Orally Once a day for 30 days 07/13/2013 Not-Taking Spironolactone 25 MG 1 tablet Orally for 30 day(s) Active valACYclovir HCl 1 GM TAKE 2 TABLETS PARAM RY 12 HOURS FOR 3 DAYS. for 90 Not-Taking Naproxen 500 MG 1 tablet with food o r milk as needed Orally every 12 hrs for 30 days 05/21/2024 Active Fluticasone Propionate 50 MCG/ACT 1 spray in each nostril Nasally Once a day for 30 day(s) 11/22/2022 Not-Taking Cyclobenzaprine HCl 5 MG 1 tablet at bed time as needed Orally Once a day for 30 day(s) 05/20/2023 Active Montelukast Sodium 10 MG TAKE 1 TABLET O NCE DAILY for 90 Active MagOx 400 400 (240 Mg) MG 1 tablet with food Orally twice a day for 30 day(s) 11/18/2023 Active ProAir HFA 90MCG INHALE 2 PUFFS FOUR TIMES DAILY NEEDED Inhalation every 4 hrs for 90 days Not-Taking IMMUNIZATIONS Vaccine Route Administration Date Status Comme nts Flu Vaccine IM Intramuscular 07/26/2014 Administered Fluarix Quadrivalent IM Intramuscular 10/19/2016 Administe red Fluarix Quadrivalent IM Intramuscular 06/17/2017 Administe red PPSV23 (Pnemovax) IM Intramuscular 10/15/2017 Administered TDaP Unknown 08/13/2017 Administered Pharmacy Shingrix IM Intramuscular 05/01/2018 Administered Shingrix IM Intramuscular 09/09/2018 Administered Prevnar 13 IM Intramuscular 10/27/2018 Administered Fluarix Quadrivalent IM Intramuscular 04/28/2019 Administe red Shingles Unknown 09/09/2018 Administered Fluarix Quadrivalent IM Intramuscular 05/11/2020 Administe red Covid Vaccine Unknown 11/08/2020 Administered Pfizer Influenza High Dose IM Intramuscular 05/09/2021 Administer ed SARS-COV-2 Pfizer Unknown 12/02/2020 Administered SARS-COV-2 Pfizer Unknown 08/17/2021 Administered SARS-COV-2 Pfizer IM Intramuscular 04/27/2022 Administered Influenza High Dose Unknown 04/27/2022 Administered PPSV23 (Pnemovax) IM Intramuscular 11/22/2022 Administered Fluarix Quadrivalent IM Intramuscular 05/03/2023 Administe red Fluarix Quadrivalent - 150 IM Intramuscular 05/14/2024 Adm inistered Fluarix Quadrivalent Unknown 10/27/2018 Refused Tetanus Unknown 08/13/2017 Pending SOCIAL HISTORY Tobacco Use: Social History Observation Description Date Details (start date - stop date) Never Smoker NA - NA Sex Assigned At : Social History Observation Description Sex Assigned At Unknown Tobacco Use/Smoking Question Answer Notes Patient is a nonsmoker Additional Findings: Tobacco Non-User Cu rrent non-smoker, currently using no form of tobacco Alcohol Screen Question Answer Notes Did you have a drink contain ing alcohol in the past year? Yes How often did you have a dri nk containing alcohol in the past year? 2 to 3 times a week (3 points) How many drinks did you have on a typical day when you were drinking in the past year? 1 or 2 drinks (0 point) How often did you have 6 or more drinks on one occasion in the past year? Never (0 point) Points 3 Interpretation Negative PROBLEMS Problem Type ICD Code Onset Dates Problem Status W/U Status Risk SNOMED Code Notes Problem Hypokalemia (E87.6) Active confirmed 43 418529 Problem Anxiety (F41.9) Active confirmed 322972 02 Problem Disorder of parathyroid gland, unspecified (E21.5) Active confirmed Disorder of parathyroid gland (51916693) Problem Hypomagnesemia (E83.42) Active confirmed 848722164 Problem Hypocalcemia (E83.51) Active confirmed 4575137 Problem Lumbar disc disease (M51.9) Active confirmed 79672359 Problem Essential hypertensi on (I10) Active confirmed 59932732 Problem Mild intermittent asthma without complication (J45.20) Active confirmed 640371584 Problem Prediabetes (R73.09) Active confirmed 9 415426 Problem Erectile dysfunction , unspecified erectile dysfunction type (N52.9) Active confirmed 254335986 Problem Environmental allergies (Z91.09) Active confirmed 952314118 Problem Carpal tunnel syndro me of left wrist (G56.02) Active confirmed 1475480067593 02 Problem Anxiety disorder, unspecified type (F41.9) Active confirmed 639631828 Problem History of cold sore s (Z86.19) Active confirmed 768355276 Problem Pure hypercholesterolemia (E78.00) Active confirmed 156543256 Problem Elevated PSA (R97.20) Active confirmed 758471753 Problem BMI 30.0-30.9,adult (Z68.30) Active confirmed Body mass index 30+ - obesity (094184346) Problem Low calcium levels (E83.51) Active confirmed Hypocalcemia (3479155) Problem Low blood magnesium (R79.0) Active confirmed Abnormal level of blood mineral (460692255) Problem Bee sting allergy (Z91.030) Active confirmed 349725077 VITAL SIGNS Blood pressure diastolic 60 mm Hg 05/21/2024 qasim ght is down 13 pounds since 11-18-23 Height 73 in 05/21/2024 weight is down 13 pounds since 11-18-23 Blood pressure systolic 118 mm Hg 05/21/2024 weig ht is down 13 pounds since 11-18-23 Weight 224 lbs 05/21/2024 weight is down 13 pounds since 11-18-23 BMI 29.55 kg/m2 05/21/2024 weight is down 13 pounds since 11-18-23 Encounters Encounter Location Date Provider Diagnosis Venancio Betancourt MD [address] [place] [id number] 05/21/2024 Venancio Betancourt Low back pain, unspe cified M54.50 ; Essential hypertension I10 ; Pure hypercholesterolemia E78.00 ; Hypomagnesemia E83.42 ; Prediabetes R73.09 and Elevated PSA R97.20 Venancio Betancourt MD [address] [place] [id number] 11/11/2023 Venancio Betancourt Pure hypercholestero lemia E78.00 and Prediabetes R73.09 Venancio Betancourt MD [address] [place] [id number] 05/14/2024 Venancio Betancourt Prediabetes R73.09 ; Encounter for immunization Z23 ; Hypokalemia E87.6 ; Pure hypercholesterolemia E78.00 and Elevated PSA R97.20 Venancio Betancourt MD [address] [place] [id number] 08/20/2023 Venancio Betancourt MD [address] [place] [id number] 12/19/2023 Venancio Betancourt Hypomagnesemia E83.4 2 Venancio Betancourt MD [address] [place] [id number] 06/22/2024 Venancio Betancourt Hypomagnesemia E83.4 2 Venancio Betancourt MD [address] [place] [id number] 11/18/2023 Venancio Betancourt Hypokalemia E87.6 ; Staph infection B95.8 ; Essential hypertension I10 and Pure hypercholesterolemia E78.00 Venancio Betancourt MD [address] [place] [id number] 09/02/2023 Venancio Betancourt Essential hypertensi on I10 ; Hypocalcemia E83.51 and Hypomagnesemia E83.42 Venancio Betancourt MD [address] [place] [id number] 11/18/2023 Venancio Betancourt MD [address] [id number] 11/19/2023 Venancio Betancourt MD [address] [place] [id number] 01/10/2024 Venancio Betancourt Staph infection B95. 8 ASSESSMENTS Encounter Date Diagnosis Assessment Notes Treatment Notes Treatment Clinical Notes 05/21/2024 Essential hypertensi on (ICD-10 - I10) doing well on meds, will contiue current regiment 05/21/2024 Low back pain, unspecified (ICD-10 - M54.50) patent verbalized understanding og medication and directions for use 11/11/2023 Prediabetes (ICD-10 - R73.09) 11/11/2023 Pure hypercholestero lemia (ICD-10 - E78.00) 05/14/2024 Encounter for immunization (ICD-10 - Z23) 05/14/2024 Prediabetes (ICD-10 - R73.09) 12/19/2023 Hypomagnesemia (ICD- 10 - E83.42) 06/22/2024 Hypomagnesemia (ICD- 10 - E83.42) 11/18/2023 Hypokalemia (ICD-10 - E87.6) pending labs tests, send to [facility] for notes/ REQUEST FAXED TO HIM @ [facility] FOR ENDOCRINE NOTES 11/18/2023 Staph infection (ICD -10 - B95.8) patient verbalized medication and diretions for use. 09/02/2023 Hypocalcemia (ICD-10 - E83.51) going to see endocrine 09/02/2023 Essential hypertensi on (ICD-10 - I10) doing well on meds, will continue current regiment 01/10/2024 Staph infection (ICD -10 - B95.8) 05/21/2024 Pure hypercholestero lemia (ICD-10 - E78.00) doing well on meds, will continue current regiment 05/14/2024 Hypokalemia (ICD-10 - E87.6) 11/18/2023 Essential hypertensi on (ICD-10 - I10) stable, will continue current regiment 09/02/2023 Hypomagnesemia (ICD- 10 - E83.42) doing well, will continue current regiment 05/21/2024 Hypomagnesemia (ICD- 10 - E83.42) 05/14/2024 Pure hypercholestero lemia (ICD-10 - E78.00) 11/18/2023 Pure hypercholestero lemia (ICD-10 - E78.00) stable, will continue current regiment 05/21/2024 Prediabetes (ICD-10 - R73.09) stable, no need for medication at this time 05/14/2024 Elevated PSA (ICD-10 - R97.20) 05/21/2024 Elevated PSA (ICD-10 - R97.20) will continue to monitor, followed bu Urology PLAN OF TREATMENT Pending Test Test Name Order Date Electrocardiogram (EKG) 05/08/2019 Electrocardiogram (EKG) 03/30/2016 Electrocardiogram (EKG) 04/12/2017 Electrocardiogram (EKG) 04/24/2018 [facility]20 [facility] 018 Next Appt Details Provider Name:Venancio quintana, 11/13/2024 07:00:00 AM, [address] [place] [address], [address], [place], [place], [phone], Provider Name:Venancio Ritter ier, 11/20/2024 01:30:00 PM, [address] [place] [address], [address], [place], [place], [phone], Provider Name:Venancio Ritter ier, 05/17/2025 07:00:00 AM, [address] [place] [address], [address], [place], [place], [phone], Provider Name:Venancio Ritter ier, 05/24/2025 03:30:00 PM, [address] [place] [address], [address], [place], [phone], Insurance Providers Payer Name Payer Address Payer Phone Subscriber Number Group Number Insured Name Patient Relationship to Insured Coverage Start Date Coverage End Date MEDICARE NHIC [address] [place] [address] [id number] Floyd Lama Self - patient is the insured MED[employer] BCBS OF [facility] [address] [place] [phone] [id number] Floyd Lama Self - patient is the insured MEDICAL (GENERAL) HISTORY Medical History History ICD Code colonoscopy 2008 due in 10; colonoscopy done 03/02/[address] Avila - repeat due 02/2024
--- OUTSIDE RECORDS SUMMARY | 2024-08-04 17:02 | XMS_ITS ---
Author Organization Venancio Betancourt MD Address [address] [place], [place] [phone] Care Team Providers Care Cartography Teacher Name Role Phone Venancio Betancourt Primary Care Provider ALLERGIES No Known Allergies RESULTS Component Value Reference Range Notes Magnesium Reviewed date:05/22/2024 07:28:07 AM Interpretation: Performing Lab:[facility], [address] [place] [phone] Notes/Report: Magnesium 1.5 1.6-2.6 mg/dL REASON FOR VISIT review labs, would like a refill Naproxen 500mg MEDICATIONS Medication SIG (Take, Route, Frequency, Duration) Notes Start Date End Date Status ProAir HFA 90MCG INHALE 2 PUFFS FOUR TIMES DAILY NEEDED Inhalation every 4 hrs for 90 days Not-Taking Nystatin-Triamcinolone 578882-5.1 UNIT/GM 1 application to affected area Externally Twice a day for 14 days 04/23/2019 Not-Taking LORazepam 0.5 MG 1or 2 tablet Orally once a day for 30 days 06/11/2011 Not-Takin g Naproxen 500 MG 1 tablet with food o r milk as needed Orally every 12 hrs for 30 days 05/21/2024 Active Cyclobenzaprine HCl 5 MG 1 tablet at bed time as needed Orally Once a day for 30 day(s) 05/20/2023 Active Symbicort 160-4.5 MCG/ACT 2 puffs Inhala tion Twice a day for 90 days Not-Taking ProAir HFA 108 (90 Base) MCG/ACT INHALE 2 PUFFS ORALLY FOUR TIMES DAILY NEEDED ( EVERY FOUR HOURS ) Inhalation every 6 hrs for 90 Not-Taking Viagra 100 MG 1 tablet as needed Orally Once a day for 30 days 07/13/2013 Not-Taking valACYclovir HCl 1 GM TAKE 2 TABLETS PARAM RY 12 HOURS FOR 3 DAYS. for 90 Not-Taking Fluticasone Propionate 50 MCG/ACT 1 spray in each nostril Nasally Once a day for 30 day(s) 11/22/2022 Not-Taking Montelukast Sodium 10 MG TAKE 1 TABLET O NCE DAILY for 90 Active MagOx 400 400 (240 Mg) MG 1 tablet with food Orally twice a day for 30 day(s) 11/18/2023 Active Omeprazole 20 MG TAKE 1 CAPSULE ONCE DAILY 30 MINUTES BEFORE MORNING MEAL for 90 Active Irbesartan 300 MG 1 tablet Orally Once a day Active amLODIPine Besylate 10 MG 1 tab Orally O nce a day Active Spironolactone 50 MG 1tablet Orally Once a day Active Atorvastatin Calcium 40 MG TAKE 1 TABLET ONCE DAILY for 90 Active EpiPen 2-Epifanio 0.3 MG/0.3ML as directed In jection once for 1 dose 04/12/2017 Active Spironolactone 25 MG 1 tablet Orally for 30 day(s) Active SOCIAL HISTORY Tobacco Use: Social History Observation [...] Never (0 point) Points 3 Interpretation Negative VITAL SIGNS BMI 29.55 kg/m2 05/21/2024 Blood pressure systolic 118 mm Hg 05/21/20 Blood pressure diastolic 60 mm Hg 024 Height 73 in 05/21/2024 Weight 224 lbs 05/21/2024 weight is down 13 pounds sin ce 11-18-23 Encounters Encounter Location Date Provider Diagnosis Venancio Betancourt MD [address] [place] [address] [place] [phone] 05/21/2024 Venancio Betancourt Low back pain, unspe cified M54.50 ; Essential hypertension I10 ; Pure hypercholesterolemia E78.00 ; Hypomagnesemia E83.42 ; Prediabetes R73.09 and Elevated PSA R97.20 ASSESSMENTS Encounter Date Diagnosis Assessment Notes Treatment Notes Treatment Clinical Notes 05/21/2024 Low back pain, unspecified (ICD-10 - M54.50) patent verbalized understanding og medication and directions for use 05/21/2024 Essential hypertensi on (ICD-10 - I10) doing well on meds, will contiue current regiment 05/21/2024 Pure hypercholestero lemia (ICD-10 - E78.00) doing well on meds, will continue current regiment 05/21/2024 Hypomagnesemia (ICD- 10 - E83.42) 05/21/2024 Prediabetes (ICD-10 - R73.09) stable, no need for medication at this time 05/21/2024 Elevated PSA (ICD-10 - R97.20) will continue to monitor, followed Urology PLAN OF TREATMENT Medication Medication Name Sig Start Date Stop Date Notes Naproxen 500 MG 1 tablet with food o r milk as needed Orally every 12 hrs for 30 days 05/21/2024 Cyclobenzaprine HCl 5 MG 1 tablet at bed time as needed Orally Once a day for 30 day(s) 05/20/2023 Treatment Notes Assessment Notes Low back pain, unspecified patent verbal ized understanding og medication and directions for use Essential hypertension doing well on med s, will contiue current regiment Pure hypercholesterolemia doing well on meds, will continue current regiment Prediabetes stable, no need for medication at this time Elevated PSA will continue to mon itor, followed Urology Next Appt Details Follow Up: 6 Months, Reason: Provider Name:Venancio Ritter beatrizr, 11/13/2024 07:00:00 AM, [address], [address], [place], [phone], Provider Name:Venancio Ritter beatrizr, 11/20/2024 01:30:00 PM, [address] [place] [address] Drive, [address], [place], [place], [phone], Provider Name:Venancio Ritter beatrizr, 05/17/2025 07:00:00 AM, [address], [address], [place], [place], [phone], Provider Name:Venancio Ritter beatrizr, 05/24/2025 03:30:00 PM, [address] [place] [address], [address], [place], [phone], Progress Notes * Examination Category Sub-Category Detail Notes General Examination GENERAL APPEARANCE: alert, w ell hydrated, in no distress , male HEAD: normocephalic EYES: BOTH EYES, normal EARS: BOTH EARS, normal THROAT: no erythema, no exud ate, pharynx normal NECK/THYROID: no cervical lymphade nopathy, no carotid bruit HEART: no murmurs, rubs, ga llops, regular rate and rhythm LUNGS: no wheezes, rales, r honchi, good air movement, clear to auscultation bilaterally ABDOMEN: no hepatosplenomegal y, soft, nontender, nondistended SKIN: no rashes, good turg or, no suspicious lesions, abnormal has a small plaque on upper back about 3/4 inch BREASTS: abnormal bilateral g ynecomastia no masses MALE GENITOURINARY: circumcised, no test icular mass, testes descended bilaterally RECTAL EXAM: no masses palpable, prostate normal, stool guaiac negative ORAL CAVITY: normal History and Physical Notes * HPI (History of Present Illness) Category Sub-Category Detail Notes Depression Screening PHQ-9 Little inte rest or pleasure in doing things: Not at all Feeling down, depressed, or hopeless: No t at all Trouble falling or staying asleep, or sl eeping too much: Not at all Feeling tired or having little energy: N ot at all Poor appetite or overeating: Not at all Feeling bad about yourself o r that you are a failure, or have let yourself or your family down: Not at all Trouble concentrating on thi ngs, such as reading the newspaper or watching television: Not at all Moving or speaking so slowly that other people could have noticed; or the opposite, being so fidgety or restless that you have been moving around a lot more than usual: Not at all Thoughts that you would be b chelsie off or of hurting yourself in some way: Not at all Total Score: 0 Interpretation and Intervention Depression Allan cullen Findings: Negative Follow-Up for Depression: : review of PH Q-9 found negative result, no follow-up needed SDOH Questions SDOH Questions In the past year have you been worried about losing housing?: No In the past year have you or any family members you live with been unable to get any of the following when it was really needed? Check all that apply:: None Fall Risk History Have you had any falls with injury in the past year?: No Have you had two or more falls in the st year?: No Communication Needs Communication Needs Does the patient have a hearing impairment: No Does the patient have a vision impairmen t?: Yes ?If yes, what is the vision impairment?: Glasses Does the patient have a cognition impair ment?: No
--- OUTSIDE RECORDS SUMMARY | 2024-08-04 17:02 | XMS_ITS ---
Author Organization Venancio Betancourt MD Address [address] [place], [place] [phone] Care Team Providers Care Vp Emerging Media Name Role Phone Venancio Betancourt Primary Care Provider RESULTS Component Value Reference Range Notes Magnesium Reviewed date:06/22/2024 12:57:26 PM Interpretation: Performing Lab:[facility], [address] [place] [phone] Notes/Report: Magnesium 1.9 1.6-2.6 mg/dL REASON FOR VISIT Magnesium Encounters Encounter Location Date Provider Diagnosis Venancio Betancourt MD [address] [place] [phone] 06/22/2024 Venancio Betancourt Hypomagnesemia E83.4 2 ASSESSMENTS Encounter Date Diagnosis Assessment Notes Treatment Notes Treatment Clinical Notes 06/22/2024 Hypomagnesemia (ICD-10 - E83.42) PLAN OF TREATMENT Next Appt Details Provider Name:Venancio quintana, 11/13/2024 07:00:00 AM, [address], Suite [facility], [place], [place], [phone], Provider Name:Venancio quintana, 11/20/2024 01:30:00 PM, [address] [place] [address], [address], [place], [phone], Provider Name:Venancio quintana, 05/17/2025 07:00:00 AM, [address] [place] [address], [address], [place], [phone], Provider Name:Venancio quintana, 05/24/2025 03:30:00 PM, [address] [place] [address], [address], [place], [phone],
== END 2024-07-29 10:10 | disposition home or self-care (01) ==
PROVIDERS: PCP Internal Medicine; Visit Provider Internal Medicine Nephrology
DX: N17.9 Acute kidney failure, unspecified (principal); I10 Essential (primary) hypertension
CPT/HCPCS: 99214

== ENCOUNTER 2024-07-29 09:18 | Outpatient (REF) | payer MEDICARE, SELFPAY ==
[2024-07-29 11:58] LABS: Anion Gap 13 (12-20); Blood Urea Nitrogen 32 mg/dL (9-16); Carbon Dioxide 25 mmol/L (22-29); Chloride 101 mmol/L (96-108); Estimated Glomerular Filt Rate 36; Potassium 5.3 mmol/L (3.3-5.1); Sodium 134 mmol/L (135-145)
== END 2024-07-29 09:19 | disposition home or self-care (01) ==
LOC: HO.LAB 09:18
PROVIDERS: PCP Internal Medicine; Visit Provider Internal Medicine Nephrology
DX: N17.9 Acute kidney failure, unspecified (principal); I10 Essential (primary) hypertension
CPT/HCPCS: 36415; 80051; 82565; 84520; 99212

== ENCOUNTER 2024-08-12 06:24 | Outpatient (REF) | payer MEDICARE, SELFPAY ==
--- OUTSIDE RECORDS SUMMARY | 2024-08-12 06:26 | XMS_ITS ---
Author Organization Venancio Betancourt MD Address [address] [place] [phone] Care Team Providers Care Motor Runner Name Role Phone Venancio Betancourt Primary Care Provider RESULTS Component Value Reference Range Notes Magnesium Reviewed date:06/22/2024 12:57:26 PM Interpretation: Performing Lab:[facility], [address] [place] [phone] Notes/Report: Magnesium 1.9 1.6-2.6 mg/dL REASON FOR VISIT Magnesium Encounters Encounter Location Date Provider Diagnosis Venancio Betancourt MD [address] [place] [phone] 06/22/2024 Venancio Betancourt Hypomagnesemia E83.4 2 ASSESSMENTS Encounter Date Diagnosis Assessment Notes Treatment Notes Treatment Clinical Notes 06/22/2024 Hypomagnesemia (ICD-10 - E83.42) PLAN OF TREATMENT Next Appt Details Provider Name:Venancio quintana, 11/13/2024 07:00:00 AM, [address], Suite [facility], [place], [place], [phone], Provider Name:Venancio quintana, 11/20/2024 01:30:00 PM, [address] [place] [address], [address], [place], [phone], Provider Name:Venancio quintana, 05/17/2025 07:00:00 AM, [address] [place] [address], [address], [place], [phone], Provider Name:Venancio quintana, 05/24/2025 03:30:00 PM, [address] [place] [address], [address], [place], [phone],
--- OUTSIDE RECORDS SUMMARY | 2024-08-12 06:26 | XMS_ITS ---
Author Organization Venancio Betancourt MD Address [address] [place], [place] [phone] Care Team Providers Care Tractor Trailer Operator Name Role Phone Venancio Betancourt Primary Care Provider RESULTS Component Value Reference Range Notes Complete Blood Count Auto Di ff Reviewed date:05/14/2024 03:09:06 PM Interpretation: Performing Lab:[facility], [address] [place] [phone] Notes/Report: White Blood Count 8.0 4.8-10.8 X10*3/uL [...] NRBC Abs Auto 0.000 0.0-0.012 X10*3/uL Comprehensive Mcdermitt. Panel Fa st Reviewed date:05/14/2024 12:33:14 PM Interpretation: Performing Lab:[facility], [address] [place] [phone] Notes/Report: Sodium 139 135-145 mmol/L Potassium 4.1 3.3-5.1 mmol/L Chloride 104 96-108 mmol/L Carbon Dioxide 26 22-29 mmol/L Anion Gap 13 12-20 Blood Urea Nitrogen 18 9-16 mg/dL Creatinine 1.37 0.5-1.4 mg/dL Estimated Glomerular Filt Rate 52 NOTE: For -Hungarian individuals, multiply the result by 1.210. Chronic [...] Panel Reviewed date:05/14/2024 12:15:33 PM Interpretation: Performing Lab:[address] [phone] Notes/Report: Triglycerides 85 <150 mg/dL Desirable Triglyceride: [...] (Free>4and<10) Reviewed date:05/14/2024 12:33:27 PM Interpretation: Performing Lab:[address] [phone] Notes/Report: PSA,Total (Free>4and<10) 13.14 0.00-4.00 ng/mL A [...] Random Reviewed date:05/14/2024 12:32:37 PM Interpretation: Performing Lab:[address] [phone] Notes/Report: Creatinine Urine 53.59 Microalbumin Urine < 5.0 Microalbum/Creatinine Ratio Ur TNP <30 ug/mg cr Unable to calculate albumin/creatinine ratio due to low microalbumin or creatinine result. Hemoglobin A1c Reviewed date:05/14/2024 12:20:56 PM Interpretation: Performing Lab:[facility], [address] [place] [phone] Notes/Report: Hemoglobin A1c % 6.0 <6.0 % [...] average glucose, using the formula of the I1Z-[place] Average Glucose study (ADAG), Diabetes Care, Vol.31,#8, Mar. 2007 UA ClnCatch+Micro w/rflx Cul t Reviewed date:05/14/2024 05:02:46 PM Interpretation: Performing Lab:[facility], [address] [place] [phone] Notes/Report: Urine, Clean Catch Color Urine Yellow Appearance Urine Clear PH 5.5 5.0-9.0 Glucose Urine UA Negative Negative mg/dL Urine Blood Negative Negative Specific [place] - Urine 1.010 1.005-1.025 Urine Protein Negative [...] Location Date Provider Diagnosis Venancio Betancourt MD [address] [place] [address] Drive [address] [place], [place] [phone] 05/14/2024 Venancio Betancourt Prediabetes R73.09 ; Encounter [...] Details Provider Name:Venancio quintana, 11/13/2024 07:00:00 AM, [address] [place] [address], Suite [facility], [place], [place], [phone], Provider Name:Venancio quintana, 11/20/2024 01:30:00 PM, [address] [place] [address], Suite [facility], [place], [place], [phone], Provider Name:Venancio quintana, 05/17/2025 07:00:00 AM, [address] [place] [address], [address], [place], [phone], Provider Name:Venancio quintana, 05/24/2025 03:30:00 PM, [address] [place] [address], Suite [facility], [place], [phone],
--- OUTSIDE RECORDS SUMMARY | 2024-08-12 06:26 | XMS_ITS ---
Author Organization Venancio Betancourt MD Address [address] [place], [place] [phone] Care Team Providers Care Clay Hoister Name Role Phone Venancio Betancourt Primary Care Provider [phone] ALLERGIES No Known Allergies RESULTS Component Value Reference Range Notes Magnesium Reviewed date:05/22/2024 07:28:07 AM Interpretation: Performing Lab:[facility], [address] [place] [phone] Notes/Report: Magnesium 1.5 1.6-2.6 mg/dL REASON FOR VISIT review labs, would like a refill Naproxen 500mg MEDICATIONS Medication SIG (Take, Route, Frequency, Duration) Notes Start Date End Date Status ProAir HFA 90MCG INHALE 2 PUFFS FOUR TIMES DAILY NEEDED Inhalation every 4 hrs for 90 days Not-Taking Nystatin-Triamcinolone 194007-2.1 UNIT/GM 1 application to affected area Externally [...] Date Provider Diagnosis Venancio Betancourt MD [address] [place] [address] [place] [phone] 05/21/2024 Venancio Betancourt Low back pain, unspe [...] 07:00:00 AM, [address], [address], [place], [phone], Provider Name:Venancio Ritter beatrizr, 11/20/2024 01:30:00 PM, [address] [place] [address] Drive, [address], [place], [place], [phone], Provider Name:Venancio Ritter beatrizr, 05/17/2025 07:00:00 AM, [address], [address], [place], [place], [phone], Provider Name:Venancio Ritter beatrizr, 05/24/2025 03:30:00 PM, [address] [place] [address], [address], [place], [phone], Progress Notes * Examination Category Sub-Category Detail [...]
--- OUTSIDE RECORDS SUMMARY | 2024-08-12 06:27 | XMS_ITS | Patient Health Record ---
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 Name Role Phone Venancio Betancourt Primary Care Provider [phone] ALLERGIES No Known Allergies RESULTS Component Value Reference Range Notes Parathyroid Hormone Intact Reviewed date:08/21/2023 03:49:18 PM Interpretation: Performing Lab:[facility], [address] [place] [phone] Notes/Report: Parathyroid Hormone Intact 61.4 8.7-77.1 pg/mL Magnesium Reviewed date:08/21/2023 03:49:08 PM Interpretation: Performing Lab:[facility], [address] [place] [phone] Notes/Report: Magnesium 1.5 1.6-2.6 mg/dL Calcium Reviewed date:08/21/2023 03:49:00 PM Interpretation: Performing Lab:[facility], [address] [place] [phone] Notes/Report: Calcium 9.7 8.4-10.2 mg/dL Hold Gold Reviewed date:11/11/2023 12:31:18 PM Interpretation: Performing Lab:[facility], [address] [place] [phone] Notes/Report: Hold Gold See Note Specimen held untested for 24 hours; Call to request Chemistry testing. Liver Panel Reviewed date:11/11/2023 02:48:49 PM Interpretation: Performing Lab:[facility], [address] [place] [phone] Notes/Report: Bilirubin Total 0.8 0.0-1.0 mg/dL Bilirubin Direct 0.2 0.0-0.5 mg/dL Aspartate Amino Transferase 24 5-37 U/L Alanine Aminotransferase 39 0-40 U/L Total Protein 6.7 6.5-8.0 g/dL Albumin Level 4.0 3.5-5.0 g/dL Alkaline Phosphatase 107 39-117 U/L Glucose Fasting Reviewed date:11/11/2023 02:47:54 PM Interpretation: Performing Lab:[facility], [address] [place] [phone] Notes/Report: Glucose Fasting 124 60-99 mg/dL A fasting glucose from 100-125 mg/dl is considered impaired (pre-diabetes). Lipid Panel with Reflex Reviewed date:11/11/2023 05:15:19 PM Interpretation: Performing Lab:[facility], [address] [place] [phone] Notes/Report: Triglycerides 202 <150 mg/dL Desirable Triglyceride: [...] A1c Reviewed date:11/11/2023 12:31:36 PM Interpretation: Performing Lab:[facility], [address] [place] [phone] Notes/Report: Hemoglobin A1c % 6.1 <6.0 % [...] average glucose, using the formula of the T2J-Josyutn Average Glucose study (ADAG), Diabetes Care, Vol.31,#8, 2007 Timbo Lewis Reviewed date:11/18/2023 05:17:06 PM Interpretation: Performing Lab:[facility], [address] [place] [phone] Notes/Report: Timbo Lewis See Note Specimen held untested for 24 hours; Call to request Chemistry testing. Calcium Reviewed date:11/18/2023 05:16:48 PM Interpretation: Performing Lab:[facility], [address] [place] [phone] Notes/Report: Calcium 9.0 8.4-10.2 mg/dL Magnesium Reviewed date:11/18/2023 05:16:57 PM Interpretation: Performing Lab:[facility], [address] [place] [phone] Notes/Report: Magnesium 1.2 1.6-2.6 mg/dL Critical value for test(s): MAGS Results called to and read back by:DARCY Smith calling:[email or web address] Date:11/18/2023 Time:1554 Timbo Lewis Reviewed date:12/19/2023 12:22:44 PM Interpretation: Performing Lab:[facility], [address] [place] [phone] Notes/Report: Timbo Lewis See Note Specimen held untested for 24 hours; Call to request Chemistry testing. Magnesium Reviewed date:12/19/2023 12:55:03 PM Interpretation: Performing Lab:[facility], [address] [place] [phone] Notes/Report: Magnesium 1.7 1.6-2.6 mg/dL Electrolytes Reviewed date:05/06/2024 04:42:14 PM Interpretation: Performing Lab:[facility], [address] [place] [phone] Notes/Report: Sodium 139 135-145 mmol/L Potassium 4.4 3.3-5.1 mmol/L Chloride 106 96-108 mmol/L Carbon Dioxide 25 22-29 mmol/L Anion Gap 12 12-20 Blood Urea Nitrogen Reviewed date:05/06/2024 04:42:24 PM Interpretation: Performing Lab:[facility], [address] [place] [phone] Notes/Report: Blood Urea Nitrogen 25 9-16 mg/dL Creatinine Reviewed date:05/06/2024 04:42:39 PM Interpretation: Performing Lab:[facility], [address] [place] [phone] Notes/Report: Creatinine 1.51 0.5-1.4 mg/dL Estimated Glomerular Filt Rate 46 NOTE: For -[place] individuals, multiply the result by 1.210. Chronic Kidney Disease: Estimated GFR < 60 mL/min/1.73m2 Severe Kidney Disease: Estimated GFR < 15 mL/min/1.73m2 Calcium Reviewed date:05/06/2024 04:42:02 PM Interpretation: Performing Lab:[facility], [address] [place] [phone] Notes/Report: Calcium 9.5 8.4-10.2 mg/dL Complete Blood Count Auto Di ff Reviewed date:05/14/2024 03:09:06 PM Interpretation: Performing Lab:[facility], [address] [place] [phone] Notes/Report: White Blood Count 8.0 4.8-10.8 X10*3/uL [...] NRBC Abs Auto 0.000 0.0-0.012 X10*3/uL Comprehensive [place]. Panel Fa st Reviewed date:05/14/2024 12:33:14 PM Interpretation: Performing Lab:[facility], [address] [place] [phone] Notes/Report: Sodium 139 135-145 mmol/L Potassium 4.1 3.3-5.1 mmol/L Chloride 104 96-108 mmol/L Carbon Dioxide 26 22-29 mmol/L Anion Gap 13 12-20 Blood Urea Nitrogen 18 9-16 mg/dL Creatinine 1.37 0.5-1.4 mg/dL Estimated Glomerular Filt Rate 52 NOTE: For -[place] individuals, multiply the result by 1.210. Chronic [...] Panel Reviewed date:05/14/2024 12:15:33 PM Interpretation: Performing Lab:[address] [phone] Notes/Report: Triglycerides 85 <150 mg/dL Desirable Triglyceride: [...] (Free>4and<10) Reviewed date:05/14/2024 12:33:27 PM Interpretation: Performing Lab:[address] [phone] Notes/Report: PSA,Total (Free>4and<10) 13.14 0.00-4.00 ng/mL A [...] Random Reviewed date:05/14/2024 12:32:37 PM Interpretation: Performing Lab:[facility], [address] [place] [phone] Notes/Report: Creatinine Urine 53.59 Microalbumin Urine < 5.0 Microalbum/Creatinine Ratio Ur TNP <30 ug/mg cr Unable to calculate albumin/creatinine ratio due to low microalbumin or creatinine result. Hemoglobin A1c Reviewed date:05/14/2024 12:20:56 PM Interpretation: Performing Lab:[facility], [address] [place] [phone] Notes/Report: Hemoglobin A1c % 6.0 <6.0 % [...] average glucose, using the formula of the K2G-[place] Average Glucose study (ADAG), Diabetes Care, Vol.31,#8, Mar. 2007 UA ClnCatch+Micro w/rflx Cul t Reviewed date:05/14/2024 05:02:46 PM Interpretation: Performing Lab:[facility], [address] [place] [phone] Notes/Report: Urine, Clean Catch Color Urine Yellow Appearance Urine Clear PH 5.5 5.0-9.0 Glucose Urine UA Negative Negative mg/dL Urine Blood Negative Negative Specific [place] - Urine 1.010 1.005-1.025 Urine Protein Negative Neg-Trace mg/dL Urine Ketones Negative Negative mg/dL Nitrite Urine Negative Negative Leukocyte Esterase Urine Negative Negative RBC Urine 0-2 0-2 /HPF WBC Urine 0-5 0-5 /HPF Squamous Epithelial Cell Urine 0-2 0-2 /HPF Bacteria Urine None Seen None Seen Hyaline Casts Urine 0-2 0-2 /LPF Magnesium Reviewed date:05/22/2024 07:28:07 AM Interpretation: Performing Lab:[facility], [address] [place] [phone] Notes/Report: Magnesium 1.5 1.6-2.6 mg/dL Electrolytes Reviewed date:06/15/2024 01:01:08 PM Interpretation: Performing Lab:[facility], [address] [place] [phone] Notes/Report: Sodium 133 135-145 mmol/L Potassium 5.0 3.3-5.1 mmol/L Chloride 100 96-108 mmol/L Carbon Dioxide 26 22-29 mmol/L Anion Gap 12 12-20 Blood Urea Nitrogen Reviewed date:07/21/2024 02:00:20 PM Interpretation:High Performing Lab:[facility], [address] [place] [phone] Notes/Report: Blood Urea Nitrogen 32 9-16 mg/dL Creatinine Reviewed date:06/15/2024 12:58:50 PM Interpretation: Performing Lab:[facility], [address] [place] [phone] Notes/Report: Creatinine 1.57 0.5-1.4 mg/dL Estimated Glomerular Filt Rate 44 NOTE: For -[place] individuals, multiply the result by 1.210. Chronic Kidney Disease: Estimated GFR < 60 mL/min/1.73m2 Severe Kidney Disease: Estimated GFR < 15 mL/min/1.73m2 Protein Creatinine Ratio, Ur Reviewed date:06/15/2024 01:01:53 PM Interpretation: Performing Lab:[facility], [address] [place] [phone] Notes/Report: Creatinine Urine 51.89 Total Protein Urine Random < 7 <12 mg/dL Protein/Creatinine Ratio, Ur TNP <0.2 Unable to calculate urine protein creatinine ratio due to low creatinine or protein result. Magnesium Reviewed date:06/22/2024 12:57:26 PM Interpretation: Performing Lab:[facility], [address] [place] [phone] Notes/Report: Magnesium 1.9 1.6-2.6 mg/dL Electrolytes Reviewed date:07/29/2024 07:16:34 PM Interpretation: Performing Lab:[facility], [address] [place] [phone] Notes/Report: Sodium 134 135-145 mmol/L Potassium 5.3 3.3-5.1 mmol/L Chloride 101 96-108 mmol/L Carbon Dioxide 25 22-29 mmol/L Anion Gap 13 12-20 Blood Urea Nitrogen Reviewed date:07/29/2024 07:16:10 PM Interpretation: Performing Lab:[facility], [address] [place] [phone] Notes/Report: Blood Urea Nitrogen 32 9-16 mg/dL Creatinine Reviewed date:07/29/2024 07:16:00 PM Interpretation: Performing Lab:[facility], [address] [place] [phone] Notes/Report: Creatinine 1.88 0.5-1.4 mg/dL Estimated Glomerular [...] Duration) Notes Start Date End Date Status Magnesium Oxide -Mg Supplement 400 (240 Mg) MG TAKE 1 TABLET BY MOUTH EVERY DAY WITH FOOD FOR 90 DAYS for 90 Active Atorvastatin Calcium 40 MG TAKE 1 TABLET ONCE DAILY for 90 Active Omeprazole 20 MG TAKE 1 CAPSULE ONCE DAILY 30 MINUTES BEFORE MORNING MEAL for 90 Active Irbesartan 300 MG 1 tablet Orally Once a day Active Nystatin-Triamcinolone 561339-7.1 UNIT/GM 1 application to affected area Externally [...] TABLET O NCE DAILY for 90 Active ProAir HFA 90MCG INHALE 2 PUFFS [...] Notes Problem Hypokalemia (E87.6) Active confirmed 43 744923 Problem Anxiety (F41.9) Active confirmed 251300 02 Problem Disorder of parathyroid gland, unspecified (E21.5) Active confirmed Disorder of parathyroid gland (83620991) Problem Hypomagnesemia (E83.42) Active confirmed 347192301 Problem Hypocalcemia (E83.51) Active confirmed 4852490 Problem Lumbar disc disease (M51.9) Active confirmed 17010971 Problem Essential hypertensi on (I10) Active confirmed 80157083 Problem Mild intermittent asthma without complication (J45.20) Active confirmed 768015818 Problem Prediabetes (R73.09) Active confirmed 9 142962 Problem Erectile dysfunction , unspecified erectile dysfunction type (N52.9) Active confirmed 337563497 Problem Environmental allergies (Z91.09) Active confirmed 949475521 Problem Carpal tunnel syndro me of left wrist (G56.02) Active confirmed 2861993356370 02 Problem Anxiety disorder, unspecified type (F41.9) Active confirmed 067992024 Problem History of cold sore s (Z86.19) Active confirmed 409196446 Problem Pure hypercholesterolemia (E78.00) Active confirmed 571918699 Problem Elevated PSA (R97.20) Active confirmed 422740820 Problem BMI 30.0-30.9,adult (Z68.30) Active confirmed Body mass index 30+ - obesity (688583073) Problem Low calcium levels (E83.51) Active confirmed Hypocalcemia (8027593) Problem Low blood magnesium (R79.0) Active confirmed Abnormal level of blood mineral (970572776) Problem Bee sting allergy (Z91.030) Active confirmed 633062087 VITAL SIGNS Blood pressure diastolic 60 mm [...] Venancio Betancourt MD [address] [place] [id number] 05/21/2024 Venancio Betancourt Low back pain, unspe cified M54.50 ; Essential hypertension I10 ; Pure hypercholesterolemia E78.00 ; Hypomagnesemia E83.42 ; Prediabetes R73.09 and Elevated PSA R97.20 Venancio Betancourt MD [address] [place] [id number] 11/11/2023 Venancio Betancourt Pure hypercholestero lemia E78.00 and Prediabetes R73.09 Venancio Betancourt MD [address] [place] [id number] 05/14/2024 Venancio Betancourt Prediabetes R73.09 ; Encounter for immunization Z23 ; Hypokalemia E87.6 ; Pure hypercholesterolemia E78.00 and Elevated PSA R97.20 Venancio Betancourt MD [address] [place] [id number] 08/20/2023 Venancio Betancourt MD [address] [place] [id number] 12/19/2023 Venancio Bombardier Hypomagnesemia E83.4 2 Venancio Betancourt MD [address] [place] [id number] 06/22/2024 Venancio Betancourt Hypomagnesemia E83.4 2 Venancio Betancourt MD [address] [place] [address] [id number] 11/18/2023 Venancio Betancourt Hypokalemia E87.6 ; Staph infection B95.8 ; Essential hypertension I10 and Pure hypercholesterolemia E78.00 Venancio Betancourt MD [address] [place] [id number] 09/02/2023 Venancio Betancourt Essential hypertensi on I10 ; Hypocalcemia E83.51 and Hypomagnesemia E83.42 Venancio Betancourt MD [address] [place] [address] [id number] 11/18/2023 Venancio Betancourt MD [address] [id number] 11/19/2023 Venancio Betancourt MD [address] [place] [address] [id number] 01/10/2024 Venancio Betancourt Staph infection B95. 8 [...] - E87.6) pending labs tests, send to [facility] for notes/ REQUEST FAXED TO HIM @ [facility] ENDOCRINE NOTES 11/18/2023 Staph infection (ICD [...] Details Provider Name:Venancio quintana, 11/13/2024 07:00:00 AM, [address] [place] [address], [address], [place], [place], [id number], Provider Name:Venancio Ritter ier, 11/20/2024 01:30:00 PM, [address] [place] [address] Drive, [address], [place], [place], [phone], Provider Name:Venancio Ritter ier, 05/17/2025 07:00:00 AM, [address] [facility], [address], [place], [place], [phone], Provider Name:Venancio Ritter ier, 05/24/2025 03:30:00 PM, [address] [place] [address], [address], [place], [place], [id number], Insurance Providers Payer Name Payer Address Payer Phone Subscriber Number Group Number Insured Name Patient Relationship to Insured Coverage Start Date Coverage End Date [employer] [address] [place] [address] [id number] Floyd Lama Self - patient is the insured [employer] [place] [address] [place] [address] [id number] Floyd Lama Self - patient is the insured MEDICAL (GENERAL) HISTORY Medical History History ICD Code colonoscopy 2008 due in 10; colonoscopy done 03/02/[address] Avila - repeat due 02/2024
[2024-08-12 07:39] LABS: Anion Gap 14 (12-20); Blood Urea Nitrogen 27 mg/dL (9-16); Carbon Dioxide 25 mmol/L (22-29); Chloride 101 mmol/L (96-108); Estimated Glomerular Filt Rate 43; Potassium 4.7 mmol/L (3.3-5.1); Sodium 135 mmol/L (135-145)
== END 2024-08-12 06:25 | disposition home or self-care (01) ==
LOC: HO.LAB 06:24
PROVIDERS: PCP Internal Medicine; Visit Provider Internal Medicine Nephrology
DX: N17.9 Acute kidney failure, unspecified (principal)
CPT/HCPCS: 36415; 80051; 82565; 84520

== ENCOUNTER 2024-08-14 15:24 | Outpatient (AMB) | payer MEDICARE, SELFPAY ==
--- OUTSIDE RECORDS SUMMARY | 2024-08-14 15:27 | XMS_ITS | Patient Health Record ---
Author Organization Venancio Betancourt MD Address [address] [place], [place] [id number] Care Team Providers Care Gear Keeper Name Role Phone Venancio Betancourt Primary Care Provider ALLERGIES No Known Allergies RESULTS Component Value Reference Range Notes Parathyroid Hormone Intact Reviewed date:08/21/2023 03:49:18 PM Interpretation: Performing Lab:[facility], [address] [place] [phone] Notes/Report: Parathyroid Hormone Intact 61.4 8.7-77.1 pg/mL Magnesium Reviewed date:08/21/2023 03:49:08 PM Interpretation: Performing Lab:[facility], [address] [place] [phone] Notes/Report: Magnesium 1.5 1.6-2.6 mg/dL Calcium Reviewed date:08/21/2023 03:49:00 PM Interpretation: Performing Lab:[facility], [address] [place] [phone] Notes/Report: Calcium 9.7 8.4-10.2 mg/dL Hold Gold Reviewed date:11/11/2023 12:31:18 PM Interpretation: Performing Lab:[facility], [address] [place] [phone] Notes/Report: Hold Gold See Note Specimen held untested for 24 hours; Call to request Chemistry testing. Liver Panel Reviewed date:11/11/2023 02:48:49 PM Interpretation: Performing Lab:[facility], [address] [place] [phone] Notes/Report: Bilirubin Total 0.8 0.0-1.0 mg/dL Bilirubin Direct 0.2 0.0-0.5 mg/dL Aspartate Amino Transferase 24 5-37 U/L Alanine Aminotransferase 39 0-40 U/L Total Protein 6.7 6.5-8.0 g/dL Albumin Level 4.0 3.5-5.0 g/dL Alkaline Phosphatase 107 39-117 U/L Glucose Fasting Reviewed date:11/11/2023 02:47:54 PM Interpretation: Performing Lab:[facility], [address] [place] [phone] Notes/Report: Glucose Fasting 124 60-99 mg/dL A fasting glucose from 100-125 mg/dl is considered impaired (pre-diabetes). Lipid Panel with Reflex Reviewed date:11/11/2023 05:15:19 PM Interpretation: Performing Lab:[facility], [address] [place] [phone] Notes/Report: Triglycerides 202 <150 mg/dL Desirable Triglyceride: [...] A1c Reviewed date:11/11/2023 12:31:36 PM Interpretation: Performing Lab:[facility], [address] [place] [phone] Notes/Report: Hemoglobin A1c % 6.1 <6.0 % [...] average glucose, using the formula of the D3H-Ackbotp Average Glucose study (ADAG), Diabetes Care, Vol.31,#8, 2007 Timbo Lewis Reviewed date:11/18/2023 05:17:06 PM Interpretation: Performing Lab:[facility], [address] [place] [phone] Notes/Report: Timbo Lewis See Note Specimen held untested for 24 hours; Call to request Chemistry testing. Calcium Reviewed date:11/18/2023 05:16:48 PM Interpretation: Performing Lab:[facility], [address] [place] [phone] Notes/Report: Calcium 9.0 8.4-10.2 mg/dL Magnesium Reviewed date:11/18/2023 05:16:57 PM Interpretation: Performing Lab:[facility], [address] [place] [phone] Notes/Report: Magnesium 1.2 1.6-2.6 mg/dL Critical value for test(s): MAGS Results called to and read back by:DARCY Smith calling:IZABELLA Date:11/18/2023 Time:1554 Timbo Lewis Reviewed date:12/19/2023 12:22:44 PM Interpretation: Performing Lab:[facility], [address] [place] [phone] Notes/Report: Timbo Lewis See Note Specimen held untested for 24 hours; Call to request Chemistry testing. Magnesium Reviewed date:12/19/2023 12:55:03 PM Interpretation: Performing Lab:[facility], [address] [place] [phone] Notes/Report: Magnesium 1.7 1.6-2.6 mg/dL Electrolytes Reviewed date:05/06/2024 04:42:14 PM Interpretation: Performing Lab:[facility], [address] [place] [phone] Notes/Report: Sodium 139 135-145 mmol/L Potassium 4.4 3.3-5.1 mmol/L Chloride 106 96-108 mmol/L Carbon Dioxide 25 22-29 mmol/L Anion Gap 12 12-20 Blood Urea Nitrogen Reviewed date:05/06/2024 04:42:24 PM Interpretation: Performing Lab:[facility], [address] [place] [phone] Notes/Report: Blood Urea Nitrogen 25 9-16 mg/dL Creatinine Reviewed date:05/06/2024 04:42:39 PM Interpretation: Performing Lab:[facility], [address] [place] [phone] Notes/Report: Creatinine 1.51 0.5-1.4 mg/dL Estimated Glomerular Filt Rate 46 NOTE: For -[place] individuals, multiply the result by 1.210. Chronic Kidney Disease: Estimated GFR < 60 mL/min/1.73m2 Severe Kidney Disease: Estimated GFR < 15 mL/min/1.73m2 Calcium Reviewed date:05/06/2024 04:42:02 PM Interpretation: Performing Lab:[facility], [address] [place] [phone] Notes/Report: Calcium 9.5 8.4-10.2 mg/dL Complete Blood Count Auto Di ff Reviewed date:05/14/2024 03:09:06 PM Interpretation: Performing Lab:[facility], [address] [place] [phone] Notes/Report: White Blood Count 8.0 4.8-10.8 X10*3/uL [...] NRBC Abs Auto 0.000 0.0-0.012 X10*3/uL Comprehensive [place]. Panel Fa st Reviewed date:05/14/2024 12:33:14 PM Interpretation: Performing Lab:[facility], [address] [place] [phone] Notes/Report: Sodium 139 135-145 mmol/L Potassium 4.1 3.3-5.1 mmol/L Chloride 104 96-108 mmol/L Carbon Dioxide 26 22-29 mmol/L Anion Gap 13 12-20 Blood Urea Nitrogen 18 9-16 mg/dL Creatinine 1.37 0.5-1.4 mg/dL Estimated Glomerular Filt Rate 52 NOTE: For -[place] individuals, multiply the result by 1.210. Chronic [...] Panel Reviewed date:05/14/2024 12:15:33 PM Interpretation: Performing Lab:[address] [phone] Notes/Report: Triglycerides 85 <150 mg/dL Desirable Triglyceride: [...] (Free>4and<10) Reviewed date:05/14/2024 12:33:27 PM Interpretation: Performing Lab:[address] [phone] Notes/Report: PSA,Total (Free>4and<10) 13.14 0.00-4.00 ng/mL A [...] Random Reviewed date:05/14/2024 12:32:37 PM Interpretation: Performing Lab:[facility], [address] [place] [phone] Notes/Report: Creatinine Urine 53.59 Microalbumin Urine < 5.0 Microalbum/Creatinine Ratio Ur TNP <30 ug/mg cr Unable to calculate albumin/creatinine ratio due to low microalbumin or creatinine result. Hemoglobin A1c Reviewed date:05/14/2024 12:20:56 PM Interpretation: Performing Lab:[facility], [address] [place] [phone] Notes/Report: Hemoglobin A1c % 6.0 <6.0 % [...] average glucose, using the formula of the Y1F-Qhaljic Average Glucose study (ADAG), Diabetes Care, Vol.31,#8, Mar. 2007 UA ClnCatch+Micro w/rflx Cul t Reviewed date:05/14/2024 05:02:46 PM Interpretation: Performing Lab:[facility], [address] [place] [phone] Notes/Report: Urine, Clean Catch Color Urine Yellow Appearance Urine Clear PH 5.5 5.0-9.0 Glucose Urine UA Negative Negative mg/dL Urine Blood Negative Negative Specific [place] - Urine 1.010 1.005-1.025 Urine Protein Negative Neg-Trace mg/dL Urine Ketones Negative Negative mg/dL Nitrite Urine Negative Negative Leukocyte Esterase Urine Negative Negative RBC Urine 0-2 0-2 /HPF WBC Urine 0-5 0-5 /HPF Squamous Epithelial Cell Urine 0-2 0-2 /HPF Bacteria Urine None Seen None Seen Hyaline Casts Urine 0-2 0-2 /LPF Magnesium Reviewed date:05/22/2024 07:28:07 AM Interpretation: Performing Lab:[facility], [address] [place] [phone] Notes/Report: Magnesium 1.5 1.6-2.6 mg/dL Electrolytes Reviewed date:06/15/2024 01:01:08 PM Interpretation: Performing Lab:[facility], [address] [place] [phone] Notes/Report: Sodium 133 135-145 mmol/L Potassium 5.0 3.3-5.1 mmol/L Chloride 100 96-108 mmol/L Carbon Dioxide 26 22-29 mmol/L Anion Gap 12 12-20 Blood Urea Nitrogen Reviewed date:07/21/2024 02:00:20 PM Interpretation:High Performing Lab:[facility], [address] [place] [phone] Notes/Report: Blood Urea Nitrogen 32 9-16 mg/dL Creatinine Reviewed date:06/15/2024 12:58:50 PM Interpretation: Performing Lab:[facility], [address] [place] [phone] Notes/Report: Creatinine 1.57 0.5-1.4 mg/dL Estimated Glomerular Filt Rate 44 NOTE: For -[place] individuals, multiply the result by 1.210. Chronic Kidney Disease: Estimated GFR < 60 mL/min/1.73m2 Severe Kidney Disease: Estimated GFR < 15 mL/min/1.73m2 Protein Creatinine Ratio, Ur Reviewed date:06/15/2024 01:01:53 PM Interpretation: Performing Lab:[facility], [address] [place] [phone] Notes/Report: Creatinine Urine 51.89 Total Protein Urine Random < 7 <12 mg/dL Protein/Creatinine Ratio, Ur TNP <0.2 Unable to calculate urine protein creatinine ratio due to low creatinine or protein result. Magnesium Reviewed date:06/22/2024 12:57:26 PM Interpretation: Performing Lab:[facility], [address] [place] [phone] Notes/Report: Magnesium 1.9 1.6-2.6 mg/dL Electrolytes Reviewed date:07/29/2024 07:16:34 PM Interpretation: Performing Lab:[facility], [address] [place] [phone] Notes/Report: Sodium 134 135-145 mmol/L Potassium 5.3 3.3-5.1 mmol/L Chloride 101 96-108 mmol/L Carbon Dioxide 25 22-29 mmol/L Anion Gap 13 12-20 Blood Urea Nitrogen Reviewed date:07/29/2024 07:16:10 PM Interpretation: Performing Lab:[facility], [address] [place] [phone] Notes/Report: Blood Urea Nitrogen 32 9-16 mg/dL Creatinine Reviewed date:07/29/2024 07:16:00 PM Interpretation: Performing Lab:[facility], [address] [place] [phone] Notes/Report: Creatinine 1.88 0.5-1.4 mg/dL Estimated Glomerular Filt Rate 36 Chronic Kidney Disease: Estimated GFR < 60 mL/min/1.73m2 Severe Kidney Disease: Estimated GFR < 15 mL/min/1.73m2 Electrolytes Reviewed date:08/13/2024 12:21:46 PM Interpretation: Performing Lab:[facility], [address] [place] [phone] Notes/Report: Sodium 135 135-145 mmol/L Potassium 4.7 3.3-5.1 mmol/L Chloride 101 96-108 mmol/L Carbon Dioxide 25 22-29 mmol/L Anion Gap 14 12-20 Blood Urea Nitrogen Reviewed date:08/13/2024 12:21:11 PM Interpretation: Performing Lab:[facility], [address] [place] [phone] Notes/Report: Blood Urea Nitrogen 27 9-16 mg/dL Creatinine Reviewed date:08/13/2024 12:21:23 PM Interpretation: Performing Lab:[facility], [address] [place] [phone] Notes/Report: Creatinine 1.62 0.5-1.4 mg/dL Estimated Glomerular Filt Rate 43 Chronic Kidney Disease: Estimated GFR < 60 [...] tablet Orally Once a day Active Nystatin-Triamcinolone 347033-6.1 UNIT/GM 1 application to affected area Externally [...] Notes Problem Hypokalemia (E87.6) Active confirmed 43 531110 Problem Anxiety (F41.9) Active confirmed 029263 02 Problem Disorder of parathyroid gland, unspecified (E21.5) Active confirmed Disorder of parathyroid gland (76330417) Problem Hypomagnesemia (E83.42) Active confirmed 958185778 Problem Hypocalcemia (E83.51) Active confirmed 9639289 Problem Lumbar disc disease (M51.9) Active confirmed 24199077 Problem Essential hypertensi on (I10) Active confirmed 75544294 Problem Mild intermittent asthma without complication (J45.20) Active confirmed 454820547 Problem Prediabetes (R73.09) Active confirmed 9 589422 Problem Erectile dysfunction , unspecified erectile dysfunction type (N52.9) Active confirmed 571088853 Problem Environmental allergies (Z91.09) Active confirmed 116571389 Problem Carpal tunnel syndro me of left wrist (G56.02) Active confirmed 3429127322673 02 Problem Anxiety disorder, unspecified type (F41.9) Active confirmed 550083852 Problem History of cold sore s (Z86.19) Active confirmed 900885449 Problem Pure hypercholesterolemia (E78.00) Active confirmed 442795565 Problem Elevated PSA (R97.20) Active confirmed 620013006 Problem BMI 30.0-30.9,adult (Z68.30) Active confirmed Body mass index 30+ - obesity (955584283) Problem Low calcium levels (E83.51) Active confirmed Hypocalcemia (2210315) Problem Low blood magnesium (R79.0) Active confirmed Abnormal level of blood mineral (981772287) Problem Bee sting allergy (Z91.030) Active confirmed 763762709 VITAL SIGNS Blood pressure diastolic 60 mm [...] Venancio Betancourt MD [address] [place] [id number] 05/21/2024 Venancio Betancourt Low back pain, unspe cified M54.50 ; Essential hypertension I10 ; Pure hypercholesterolemia E78.00 ; Hypomagnesemia E83.42 ; Prediabetes R73.09 and Elevated PSA R97.20 Venancio Betancourt MD [address] [place] [id number] 11/11/2023 Venancio Betancourt Pure hypercholestero lemia E78.00 and Prediabetes R73.09 Venancio Betancourt MD [address] [place] [id number] 05/14/2024 Venancio Betancourt Prediabetes R73.09 ; Encounter for immunization Z23 ; Hypokalemia E87.6 ; Pure hypercholesterolemia E78.00 and Elevated PSA R97.20 Venancio Betancourt MD [address] [place] [id number] 08/20/2023 Venancio Betancourt MD [address] [place] [address] [id number] 12/19/2023 Venancio Betancourt Hypomagnesemia E83.4 2 Venancio Betancourt MD [address] [place] [address] [id number] 06/22/2024 Venancio Betancourt Hypomagnesemia E83.4 2 Venancio Betancourt MD [address] [place] [id number] 11/18/2023 Venancio Betancourt Hypokalemia E87.6 ; Staph infection B95.8 ; Essential hypertension I10 and Pure hypercholesterolemia E78.00 Venancio Betancourt MD [address] [place] [address] [id number] 09/02/2023 Vneancio Betancourt Essential hypertensi on I10 ; Hypocalcemia E83.51 and Hypomagnesemia E83.42 Venancio Betancourt MD [address] [place] [address] [id number] 11/18/2023 Venancio Betancourt MD [address] [place] [address] [id number] 11/19/2023 Venancio Betancourt MD [address] [place] [address] [id number] 01/10/2024 Venancio Betancourt Staph infection B95. 8 [...] for notes/ REQUEST FAXED TO HIM @ [facility] FOR ENDOCRINE NOTES 11/18/2023 Staph infection (ICD [...] 04/12/2017 Electrocardiogram (EKG) 04/24/2018 US BREAST LEFT ([facility] [place]) 02/11/20 18 US BREAST RIGHT ([facility] [place]) 018 Next Appt Details Provider Name:Venancio Ritter ier, 11/13/2024 07:00:00 AM, [address] [place] [address], [address], [phone], Provider Name:Venancio Ritter ier, 11/20/2024 01:30:00 PM, [address] [place] [address], [address], [phone], Provider Name:Venancio Ritter ier, 05/17/2025 07:00:00 AM, [address] [place] [address], [address], [phone], Provider Name:Venancio Ritter ier, 05/24/2025 03:30:00 PM, [address] [place] [address], [address], [phone], Insurance Providers Payer Name Payer Address Payer Phone Subscriber Number Group Number Insured Name Patient Relationship to Insured Coverage Start Date Coverage End Date [employer] [address] [place] [address] [id number] Floyd Lama Self - patient is the insured MEDEX BC OF [facility] [address] [place] [address] [phone] [id number] Floyd Lama Self - patient is the insured MEDICAL (GENERAL) HISTORY Medical History History ICD Code colonoscopy 2008 due in 10; colonoscopy done 03/02/[address] Avila - repeat due 02/2024
--- OUTSIDE RECORDS SUMMARY | 2024-08-14 15:27 | XMS_ITS ---
Author Organization Venancio Betancourt MD Address [address] [place], [place] [id number] Care Team Providers Care Cnc Milling Machine Operator Name Role Phone Venancio Betancourt Primary Care Provider RESULTS Component Value Reference Range Notes Complete Blood Count Auto Di ff Reviewed date:05/14/2024 03:09:06 PM Interpretation: Performing Lab:, [address] [place] [phone] Notes/Report: White Blood Count 8.0 4.8-10.8 X10*3/uL [...] NRBC Abs Auto 0.000 0.0-0.012 X10*3/uL Comprehensive [place]. Panel Fa st Reviewed date:05/14/2024 12:33:14 PM Interpretation: Performing Lab:, [address] [place] [phone] Notes/Report: Sodium 139 135-145 mmol/L Potassium 4.1 3.3-5.1 mmol/L Chloride 104 96-108 mmol/L Carbon Dioxide 26 22-29 mmol/L Anion Gap 13 12-20 Blood Urea Nitrogen 18 9-16 mg/dL Creatinine 1.37 0.5-1.4 mg/dL Estimated Glomerular Filt Rate 52 NOTE: For -[place] individuals, multiply the result by 1.210. Chronic [...] Panel Reviewed date:05/14/2024 12:15:33 PM Interpretation: Performing Lab:[address] [phone] Notes/Report: Triglycerides 85 <150 mg/dL Desirable Triglyceride: [...] (Free>4and<10) Reviewed date:05/14/2024 12:33:27 PM Interpretation: Performing Lab:[address] [phone] Notes/Report: PSA,Total (Free>4and<10) 13.14 0.00-4.00 ng/mL A [...] Random Reviewed date:05/14/2024 12:32:37 PM Interpretation: Performing Lab:[address] [phone] Notes/Report: Creatinine Urine 53.59 Microalbumin Urine < 5.0 Microalbum/Creatinine Ratio Ur TNP <30 ug/mg cr Unable to calculate albumin/creatinine ratio due to low microalbumin or creatinine result. Hemoglobin A1c Reviewed date:05/14/2024 12:20:56 PM Interpretation: Performing Lab:, [address] [place] [phone] Notes/Report: Hemoglobin A1c % 6.0 <6.0 % [...] average glucose, using the formula of the L6I-Alcjsdi Average Glucose study (ADAG), Diabetes Care, Vol.31,#8, Mar. 2007 UA ClnCatch+Micro w/rflx Cul t Reviewed date:05/14/2024 05:02:46 PM Interpretation: Performing Lab:, [address] [place] [phone] Notes/Report: Urine, Clean Catch Color Urine Yellow Appearance Urine Clear PH 5.5 5.0-9.0 Glucose Urine UA Negative Negative mg/dL Urine Blood Negative Negative Specific [place] - Urine 1.010 1.005-1.025 Urine Protein Negative [...] Location Date Provider Diagnosis Venancio Betancourt MD [address] [place] [address] Drive [address] [place], [place] [id number] 05/14/2024 Venancio Betancourt Prediabetes R73.09 ; Encounter [...] Details Provider Name:Venancio quintana, 11/13/2024 07:00:00 AM, [address] [place] [address], Suite [facility], [place], [place], [phone], Provider Name:Venancio quintana, 11/20/2024 01:30:00 PM, [address] [place] [address], Suite [facility], [place], [place], [phone], Provider Name:Venancio quintana, 05/17/2025 07:00:00 AM, [address] [place] [address], [address], [place], [phone], Provider Name:Venancio quintana, 05/24/2025 03:30:00 PM, [address] [place] [address], Suite [facility], [place], [phone],
--- OUTSIDE RECORDS SUMMARY | 2024-08-14 15:27 | XMS_ITS ---
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 Generator Brush Maker Name Role Phone Venancio Betancourt Primary Care Provider [phone] ALLERGIES No Known Allergies RESULTS Component Value Reference Range Notes Magnesium Reviewed date:05/22/2024 07:28:07 AM Interpretation: Performing Lab:[facility], [address] [place] [phone] Notes/Report: Magnesium 1.5 1.6-2.6 mg/dL REASON FOR VISIT review labs, would like a refill Naproxen 500mg MEDICATIONS Medication SIG (Take, Route, Frequency, Duration) Notes Start Date End Date Status ProAir HFA 90MCG INHALE 2 PUFFS FOUR TIMES DAILY NEEDED Inhalation every 4 hrs for 90 days Not-Taking Nystatin-Triamcinolone 962537-8.1 UNIT/GM 1 application to affected area Externally [...] Location Date Provider Diagnosis Venancio Betancourt MD [address] [place] [address] [place] [phone] 05/21/2024 Venancio Betancourt Low back pain, unspe [...] 07:00:00 AM, [address], [address], [place], [phone], Provider Name:Venancio Ritter beatrizr, 11/20/2024 01:30:00 PM, [address] [place] [address] Drive, [address], [place], [place], [phone], Provider Name:Venancio Ritter beatrizr, 05/17/2025 07:00:00 AM, [address], [address], [place], [place], [phone], Provider Name:Venancio Ritter beatrizr, 05/24/2025 03:30:00 PM, [address] [place] [address], [address], [place], [phone], Progress Notes * Examination Category Sub-Category Detail [...]
--- NOTE | 2024-08-14 15:29 | HO.NEPHOV ---
Vital Signs 08/14/24 15:30 Height 6 ft 1 in Weight 227 lb 4 oz BMI 30.0 BP 128/70 Blood Pressure Location Rt brachial Position Sitting Pulse 85 Pulse Source Pulse Oximeter Pulse Oximetry (%) 98 Oxygen Delivery Method Room Air Intake Visit Reasons: LILY Proof Coins Inspector Required: No Accompanied by: Self / Same As Patient Allergies No Known Allergies Allergy (Verified 08/14/24 15:30) HPI Comments Details: Jonathan was seen in follow-up of his recent LILY as well as hypertension and hypokalemia. He had Raynaud's disease without any systemic symptoms. His ARB has been on hold since last visit. He does not have any orthostatic symptoms. He denies any chest pain, shortness of breath, pedal edema, proximal nocturnal dyspnea or urinary symptoms. There were no new active complaints at the time of this office visit [facility] Medical History (Updated 05/07/24 @ 12:06 by Rafael Crook MD) Hypertension Surgical History H/O rotator cuff surgery Social History Patient Tobacco Use Status: Never used Tobacco Review of Systems Const All systems reviewed & are unremarkable except as noted in HPI and below Physical Exam Vital Signs: Last Vital Signs Pulse 85 08/14/24 15:30 BP 128/70 08/14/24 15:30 Pulse Ox 98 08/14/24 15:30 Oxygen Delivery Method Room Air 08/14/24 15:30 BMI result Body Mass Index 30.0 Const General: comfortable and no acute distress Orientation/consciousness: patient oriented x3 HEENT Head: Yes normocephalic Mouth: Normal oral and palatal mucosa present Eyes EOM: EOMs intact bilaterally Neck Neck: Yes supple Resp Auscultation: clear to auscultation bilaterally Cardio Jugular venous distension: no JVD Rate: regular rate GI Palpation (GI): Soft to palpation Auscultation: normal bowel sounds General: Yes no CVA tenderness Back/Spine/Pelvis Back: no CVA tenderness Skin General skin exam: no rashes or lesions noted Neuro General: patient oriented x3 and moves all extremities Extrem General: Yes no pedal edema Results Reviewed Nephrology Results: Hgb 13.9 g/dl (14.0-18.0) L 05/14/24 WBC 8.0 X10*3/uL (4.8-10.8) 05/14/24 Plt Count 321 X10*3/uL (160-400) 05/14/24 Sodium 135 mmol/L (135-145) 08/12/24 Potassium 4.7 mmol/L (3.3-5.1) 08/12/24 Chloride 101 mmol/L (96-108) 08/12/24 Carbon Dioxide 25 mmol/L (22-29) 08/12/24 BUN 27 mg/dL (9-16) H 08/12/24 Creatinine 1.62 mg/dL (0.5-1.4) H 08/12/24 Calcium 9.8 mg/dL (8.4-10.2) 05/14/24 PTH Intact 61.4 pg/mL (8.7-77.1) 08/20/23 Urine Protein Negative mg/dL (Neg-Trace) 05/14/24 Urine Creatinine 51.89 mg/dL 06/15/24 Protein/Creatinin Ratio TNP 06/15/24 Assessment & Plan Assessment & Plan (1) LILY (acute kidney injury): Code(s): N17.9 - Acute kidney failure, unspecified Category: Medical (2) Hypertension: Code(s): I10 - Essential (primary) hypertension Category: Medical Qualifiers: Hypertension type: primary hypertension Qualified Code(s): I10 - Essential (primary) hypertension Plan Jonathan has hypertension long time. He has been having Raynaud's disease without any systemic symptoms. His serum creatinine has gone up likely due to tubular injury from low BP. His BP and serum creatinine is better after holding Irbesartan. Doppler of his renal arteries along with extensive workup done in the past to delineate a secondary etiology for his hypertension had been negative. He was encouraged to increase his fluid intake.Answered all questions. Follow-up given Orders: Orders Creatinine 08/12/24 N17.9 - Acute kidney failure, unspecified Electrolytes 1 Month N17.9 - Acute kidney failure, unspecified Blood Urea Nitrogen 08/12/24 N17.9 - Acute kidney failure, unspecified Electrolytes 08/12/24 N17.9 - Acute kidney failure, unspecified Creatinine 1 Month N17.9 - Acute kidney failure, unspecified Blood Urea Nitrogen 1 Month N17.9 - Acute kidney failure, unspecified Medications: Discontinued irbesartan Discontinued Reason: Doctor's Order 300 mg PO DAILY 90 tabs 3RF Coding Level of Care Code Est Pt Level 4 (38117) Diagnoses LILY (acute kidney injury) N17.9 Primary hypertension I10 Hypertension type: primary hypertension
[2024-08-14 15:30] VITALS: BP 128/70; PULSE 85; O2SAT 98
== END 2024-08-14 15:53 | disposition home or self-care (01) ==
PROVIDERS: PCP Internal Medicine; Visit Provider Internal Medicine Nephrology
DX: N17.9 Acute kidney failure, unspecified (principal); I10 Essential (primary) hypertension; I73.00 Raynaud's syndrome without gangrene
CPT/HCPCS: 99214

== ENCOUNTER → 2024-08-14 15:24 | Outpatient (BNVA) | payer MEDICARE, SELFPAY | PROVIDERS: PCP Internal Medicine; Visit Provider Internal Medicine Nephrology | DX: I10 Essential (primary) hypertension (principal); N17.9 Acute kidney failure, unspecified; E87.6 Hypokalemia | CPT/HCPCS: 99212 ==

== ENCOUNTER 2024-09-22 12:43 | Outpatient (REF) | payer MEDICARE, SELFPAY ==
--- OUTSIDE RECORDS SUMMARY | 2024-09-22 13:34 | XMS_ITS ---
Author Organization Venancio Betancourt MD Address [address] [place] [phone] Care Team Providers Care Trauma Director Name Role Phone Venancio Betancourt Primary Care Provider REASON FOR VISIT RF Medications Medication SIG (Take, Route, Frequency, Duration) Notes Start Date End Date Status Magnesium Oxide -Mg Supplement 400 (240 Mg) MG TAKE 1 TABLET BY MOUTH EVERY DAY WITH FOOD FOR 90 DAYS Orally twice a day for 90 days Active Encounters Encounter Location Date Provider Diagnosis Venancio Betancourt MD [address] [place], [place] [phone] 08/28/2024 Venancio Betancourt Plan Of Treatment Medication Medication Name Sig Start Date Stop Date Notes Magnesium Oxide -Mg Suppleme nt 400 (240 Mg) MG TAKE 1 TABLET BY MOUTH EVERY DAY WITH FOOD FOR 90 DAYS Orally twice a day for 90 days Next Appt Details Provider Name:Venancio quintana, 11/13/2024 07:00:00 AM, [address], [address], [place], [place], [phone], Provider Name:Venancio Ritter ier, 11/20/2024 01:30:00 PM, [address], [address], [place], [place], [phone], Provider Name:Venancio Ritter ier, 05/17/2025 07:00:00 AM, [address], [address], [place], [place], [phone], Provider Name:Venancio Ritter ier, 05/24/2025 03:30:00 PM, [address] [place] [address] Drive, [address], [place], [phone], Progress Notes * Floyd WILLIAM SDOB:1955 (68 yo M)Acc No.[id number]:08/28/2024 Patient:?Floyd William S :1955???Age:68 Y???Sex:Male Address:[address] [place] [phone] * Refills? Refill Magnesium Oxide -Mg Supplement Tablet, 400 (240 Mg) MG, Orally, 180, TAKE 1 TABLET BY MOUTH EVERY DAY WITH FOOD FOR 90 DAYS, twice a day, 90 days, Refills=4 * true * Date:? Generated for Reilly guerra/Aston/Sumeetsmitting on:?09/22/2024 01:33 PM EST
--- OUTSIDE RECORDS SUMMARY | 2024-09-22 13:34 | XMS_ITS | Clinical Summary ---
Author Organization [facility] Address [address] [facility] [address] [place] [address] Phone Care Team Providers Care Ui Programmer Name Role Phone Venancio Betancourt MD Primary Care Provider Allergies No known active allergies Medications atorvastatin (LIPITOR) 40 MG tablet Take 1 tablet by mouth 1 (one) time each day Active loratadine (CLARITIN) 10 MG tablet Take 1 tablet by mouth 1 (one) time each day Active omeprazole (PriLOSEC) [address] capsule Take 1 capsule by mouth 1 (one) time each day Active montelukast (SINGULAIR) 10 MG tablet Take 1 tablet by mouth 1 (one) time each day 06/11/2022 Active amLODIPine (NORVASC) 10 MG tablet Take 0.5 tablets (5 mg total) by mouth 1 (one) time each day 90 tablet 3 08/02/2022 Active irbesartan (AVAPRO) 300 MG tablet TAKE 1 TABLET ONCE DAILY 90 tablet 3 08/22/2022 Active spironolactone (ALDACTONE) 25 MG tablet TAKE 1 TABLET ONCE DAILY 90 tablet 3 08/22/2022 Active spironolactone (ALDACTONE) 50 MG tablet TAKE 1 TABLET ONCE DAILY 90 tablet 3 08/22/2022 Active Active Problems Problem Noted Date Diagnosed Date Allergic reaction to bee sting 11/05/2022 Anxiety state 11/05/2022 Body mass index 30+ - obesity 11/05/2022 Disorder of lumbar disc 11/05/2022 Environmental allergy 11/05/2022 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/05/2022 H/O: infectious disease 11/05/2022 Mild intermittent asthma 11/05/2022 Prediabetes 11/05/2022 Pure hypercholesterolemia 11/05/2022 Prostate specific antigen above reference range 11/05/2022 Other acute kidney failure 08/02/2022 Hypertension 07/24/2021 Benign essential hypertension 10/05/2020 Hypokalemia 10/05/2020 Immunizations Name Administration Dates Next Due Influenza (IM) Preservative Free 020,04/28/2019,06/17/2017,10/19 Influenza Split 07/26/2014 Influenza Split High Dose Pr eservative Free IM 04/27/2022,05/09/2021 Pfizer SARS-COV-2 04/27/2022,,12/02/2020,11/08 Pneumococcal Conjugate 13-Valent 10/27/2018 Pneumococcal Polysaccharide 10/15/2017 Shingrix 09/09/2018,05/01/2018 Tdap 08/13/2017 Family History Medical History Relation Comments Cancer Father Prostate Cancer Dementia Father Heart disease Father Hypertension Father Cancer Mother Breast Cancer Hypertension Mother Relation Status Comments Father Alive Mother Alive Social History Tobacco Use Types Packs/Day Years Used Date Smoking Tobacco: Never Smokeless Tobacco: Never Tobacco Cessation:Counseling Given: Not Answered Alcohol Use Standard Drinks/Week Comments Yes 0 (1 standard drink = 0.6 oz pure alcohol) Alcoholic Drinks/day: Occasional social drink Sex and Gender Information Value Date Recorded Sex Assigned at Not on file Legal Sex Male 5:11 PM EST Gender Identity Not on file Sexual Orientation Not on file Last Filed Vital Signs Vital Sign Reading Time Taken Comments Blood Pressure 150/80 05/02/2023 3:20 PM EDT Pulse 79 05/02/2023 3:20 PM EDT Temperature - - Respiratory Rate - - Oxygen Saturation - - Inhaled Oxygen Concentration - - Weight 102 kg (225 lb 6.4 oz) 05/02/2023 3:20 PM EDT Height 188 cm (6' 2 ) 04/18/2020 12:00 PM EDT Body Mass Index 28.94 04/18/2020 12:00 PM EDT Plan of Treatment Health Maintenance Due Date Last Done Comments Colorectal Cancer Screening: Annual FOBT 2004 Colorectal Cancer Screening: Colonoscopy 2004 Colorectal Cancer Screening: Sigmoidoscopy 2004 Pneumococcal Vaccine: 65+ Years (3 of 3 - PPSV23 or PCV20) 10/15/2022 10/27/2018, 10/15/2017 Influenza Vaccine (#1) 2024 2, 05/09/2021, 05/11/2020, Additional history exists Hepatitis B Vaccine Aged Out No longe r eligible based on patient's age to complete this topic Insurance MEDICARE [facility] MEDICARE [facility] Care Teams Ui Programmer Relationship Specialty Start Date End Date Venancio Betancourt MD [address] [place] [address] [address] [place], [place] PCP - General 09/05/20
--- OUTSIDE RECORDS SUMMARY | 2024-09-22 13:34 | XMS_ITS ---
Author Organization Venancio Betancourt MD Address [address] [place] [phone] Care Team Providers Care Licensed Investment Sales Assistant Name Role Phone Venancio Betancourt Primary Care Provider Medications Medication SIG (Take, Route, Frequency, Duration) Notes Start Date End Date Status Magnesium Oxide -Mg Supplement 400 (240 Mg) MG 1 tablet with food Orally twice a day for 90 days Active Encounters Encounter Location Date Provider Diagnosis Venancio Betancourt MD [address] [place] [phone] 09/07/2024 Venancio Betancourt Plan Of Treatment Medication Medication Name Sig Start Date Stop Date Notes Magnesium Oxide -Mg Suppleme nt 400 (240 Mg) MG 1 tablet with food Orally twice a day for 90 days Next Appt Details Provider Name:Venancio quintana, 11/13/2024 07:00:00 AM, [address], Suite [facility], [place], [place], [phone], Provider Name:Venancio quintana, 11/20/2024 01:30:00 PM, [address], [address], [place], [place], [phone], Provider Name:Venancio Ritter ier, 05/17/2025 07:00:00 AM, [address], [address], [place], [phone], Provider Name:Venancio Ritter ier, 05/24/2025 03:30:00 PM, [address] [facility], [address], [place], [phone], Progress Notes * Floyd WILLIAM SDOB:1955 (68 yo M)Acc No.[id number]:09/07/2024 Patient:?Floyd William S :1955???Age:68 Y???Sex:Male Address:[address] [place] [phone] * Refills? Refill Magnesium Oxide -Mg Supplement Tablet, 400 (240 Mg) MG, Orally, 180, 1 tablet with food, twice a day, 90 days, Refills=0 * true * Date:? Generated for Reilly guerra/Aston/Sumeetsmitting on:?09/22/2024 01:34 PM EST
--- OUTSIDE RECORDS SUMMARY | 2024-09-22 13:34 | XMS_ITS ---
Author Organization Venancio Betancourt MD Address [address] [place] [phone] Care Team Providers Care Nail Technician Teacher Name Role Phone Venancio Betancourt Primary Care Provider REASON FOR VISIT medication directions Medications Medication SIG (Take, Route, Frequency, Duration) Notes Start Date End Date Status Magnesium Oxide -Mg Supplement 400 (240 Mg) MG 1 tablet with food Orally twice a day for 90 days Active Encounters Encounter Location Date Provider Diagnosis Venancio Betancourt MD [address] [facility] [address] [place] [phone] 09/03/2024 Venancio Betancuort Plan Of Treatment Medication Medication Name Sig Start Date Stop Date Notes Magnesium Oxide -Mg Suppleme nt 400 (240 Mg) MG 1 tablet with food Orally twice a day for 90 days Next Appt Details Provider Name:Venancio quintana, 11/13/2024 07:00:00 AM, [address] [facility], [address], [place], [place], [phone], Provider Name:Venancio quintana, 11/20/2024 01:30:00 PM, [address] [facility] [address], [address], [place], [place], [phone], Provider Name:Venancio Ritter mariano, 05/17/2025 07:00:00 AM, [address] [facility], [address], [place], [phone], Provider Name:Venancio Ritter beatrizr, 05/24/2025 03:30:00 PM, [address] [facility], [address], [place], [phone], Progress Notes * Floyd WILLIAM SDOB:1955 (68 yo M)Acc No.[id number]:09/03/2024 Patient:?Floyd William S :1955???Age:68 Y???Sex:Male Address:[address] [place] [phone] * Refills? Continue Magnesium Oxide -Mg Supplement Tablet, 400 (240 Mg) MG, Orally, 180 Tablet, 1 tablet with food, twice a day, 90 days, Refills=4 * true * Date:? Generated for Reilly guerra/Aston/Kierraitting on:?09/22/2024 01:34 PM EST
[2024-09-22 13:54] LABS: Anion Gap 14 (12-20); Blood Urea Nitrogen 23 mg/dL (9-16); Carbon Dioxide 25 mmol/L (22-29); Chloride 102 mmol/L (96-108); Estimated Glomerular Filt Rate 49; Potassium 4.9 mmol/L (3.3-5.1); Sodium 136 mmol/L (135-145)
== END 2024-09-22 12:44 | disposition home or self-care (01) ==
LOC: HO.LAB 12:43
PROVIDERS: PCP Internal Medicine; Visit Provider Internal Medicine Nephrology
DX: N17.9 Acute kidney failure, unspecified (principal)
CPT/HCPCS: 36415; 80051; 82565; 84520

== ENCOUNTER 2024-09-30 14:33 | Outpatient (AMB) | payer MEDICARE, SELFPAY ==
--- NOTE | 2024-09-30 14:43 | HO.NEPHOV_ITS ---
Vital Signs 09/30/24 14:44 Height 6 ft 1 in Weight 227 lb 2 oz BMI 30.0 BP 124/62 Blood Pressure Location Rt brachial Position Sitting Pulse 83 Pulse Source Pulse Oximeter Pulse Oximetry (%) 96 Oxygen Delivery Method Room Air Intake Visit Reasons: LILY-Conf Mortgage Consultant Required: No Accompanied by: Self / Same As Patient Allergies No Known Allergies Allergy (Verified 09/30/24 14:43) HPI Comments Details: Jonathan was seen in follow-up of his recent LILY as well as hypertension and hypokalemia. He had Raynaud's disease without any systemic symptoms. His ARB has been on hold . He does not have any orthostatic symptoms. He denies any chest pain, shortness of breath, pedal edema, proximal nocturnal dyspnea or urinary symptoms. There were no new active complaints at the time of this office visit [facility] Medical History (Updated 05/07/24 @ 12:06 by Rafael Crook MD) Hypertension Surgical History H/O rotator cuff surgery Social History Patient Tobacco Use Status: Never used Tobacco Review of Systems Const All systems reviewed & are unremarkable except as noted in HPI and below Physical Exam Vital Signs: Last Vital Signs Pulse 83 09/30/24 14:44 BP 124/62 09/30/24 14:44 Pulse Ox 96 09/30/24 14:44 Oxygen Delivery Method Room Air 09/30/24 14:44 BMI result Body Mass Index 30.0 Const General: comfortable and no acute distress Orientation/consciousness: patient oriented x3 HEENT Head: Yes normocephalic Mouth: Normal oral and palatal mucosa present Eyes EOM: EOMs intact bilaterally Neck Neck: Yes supple Resp Auscultation: clear to auscultation bilaterally Cardio Jugular venous distension: no JVD Rate: regular rate GI Palpation (GI): Soft to palpation Auscultation: normal bowel sounds General: Yes no CVA tenderness Back/Spine/Pelvis Back: no CVA tenderness Skin General skin exam: no rashes or lesions noted Neuro General: patient oriented x3 and moves all extremities Extrem General: Yes no pedal edema Results Reviewed Nephrology Results: Hgb 13.9 g/dl (14.0-18.0) L 05/14/24 WBC 8.0 X10*3/uL (4.8-10.8) 05/14/24 Plt Count 321 X10*3/uL (160-400) 05/14/24 Sodium 136 mmol/L (135-145) 09/22/24 Potassium 4.9 mmol/L (3.3-5.1) 09/22/24 Chloride 102 mmol/L (96-108) 09/22/24 Carbon Dioxide 25 mmol/L (22-29) 09/22/24 BUN 23 mg/dL (9-16) H 09/22/24 Creatinine 1.43 mg/dL (0.5-1.4) H 09/22/24 Calcium 9.8 mg/dL (8.4-10.2) 05/14/24 Urine Protein Negative mg/dL (Neg-Trace) 05/14/24 Urine Creatinine 51.89 mg/dL 06/15/24 Protein/Creatinin Ratio TNP 06/15/24 Assessment & Plan Assessment & Plan (1) LILY (acute kidney injury): Code(s): N17.9 - Acute kidney failure, unspecified Category: Medical (2) Hypertension: Code(s): I10 - Essential (primary) hypertension Category: Medical Qualifiers: Hypertension type: primary hypertension Qualified Code(s): I10 - Essential (primary) hypertension Plan Jonathan has hypertension long time. He has been having Raynaud's disease without any systemic symptoms. His serum creatinine had gone up likely due to tubular injury from low BP which has improved . (His BP and serum creatinine is better after holding Irbesartan). Doppler of his renal arteries along with extensive workup done in the past to delineate a secondary etiology for his hypertension had been negative. He was encouraged to increase his fluid intake.Answered all questions. Follow-up given Orders: Orders Electrolytes 3 Months I10 - Essential (primary) hypertension Creatinine 3 Months I10 - Essential (primary) hypertension Blood Urea Nitrogen 3 Months I10 - Essential (primary) hypertension Coding Level of Care Code Est Pt Level 4 (51665) Diagnoses LILY (acute kidney injury) N17.9 Primary hypertension I10 Hypertension type: primary hypertension
[2024-09-30 14:44] VITALS: BP 124/62; PULSE 83; O2SAT 96
--- OUTSIDE RECORDS SUMMARY | 2024-09-30 15:44 | XMS_ITS | Clinical Summary ---
Author Organization [facility] Address [address] [facility] [address] [place] [phone] Phone Care Team Providers Care Beamer Helper Name Role Phone Venancio Betancourt MD Primary [...] age to complete this topic Insurance MEDICARE [facility] MEDICARE [facility] Care Teams Beamer Helper Relationship Specialty Start Date End Date Venancio Betancourt MD [address] [place] [address] [address] [place], [place] PCP - General 09/05/20
== END 2024-09-30 15:03 | disposition home or self-care (01) ==
PROVIDERS: PCP Internal Medicine; Visit Provider Internal Medicine Nephrology
DX: N17.9 Acute kidney failure, unspecified (principal); I10 Essential (primary) hypertension
CPT/HCPCS: 99214

== ENCOUNTER → 2024-09-30 14:33 | Outpatient (BNVA) | payer MEDICARE, SELFPAY | PROVIDERS: PCP Internal Medicine; Visit Provider Internal Medicine Nephrology | DX: N17.9 Acute kidney failure, unspecified (principal); I10 Essential (primary) hypertension | CPT/HCPCS: 99212 ==

== ENCOUNTER 2024-10-29 08:52 | Outpatient (REF) | payer MEDICARE, SELFPAY ==
--- OUTSIDE RECORDS SUMMARY | 2024-10-29 09:41 | XMS_ITS ---
Author Organization Venancio Betancourt MD Address [address] [place] [phone] Care Team Providers Care Envelope Press Operator Name Role Phone Venancio Betancourt Primary Care Provider Medications Medication SIG (Take, Route, Frequency, Duration) Notes Start Date End Date Status Magnesium Oxide -Mg Supplement 400 (240 Mg) MG 1 tablet with food Orally twice a day for 90 days Active Encounters Encounter Location Date Provider Diagnosis Venancio Betancourt MD [address] [facility] [address] [place] [phone] 09/07/2024 Venancio Betancourt Plan Of Treatment Medication Medication Name Sig Start Date Stop Date Notes Magnesium Oxide -Mg Suppleme nt 400 (240 Mg) MG 1 tablet with food Orally twice a day for 90 days Next Appt Details Provider Name:Venancio quintana, 11/13/2024 07:00:00 AM, [address] [facility] [address], Suite [facility], [place], [place], [phone], Provider Name:Venancio quintana, 11/20/2024 09:00:00 AM, [address] [facility], [address], [place], [place], [phone], Provider Name:Venancio Ritter ier, 05/17/2025 07:00:00 AM, [address] [facility], [address], [place], [place], [phone], Provider Name:Venancio Ritter ier, 05/24/2025 03:30:00 PM, [address] [place] [address], [address], [place], [phone], Progress Notes * Floyd WILLIAM SDOB:1955 (68 yo M)Acc No.[id number]:09/07/2024 Patient:?Floyd William S :1955???Age:68 Y???Sex:Male Address:[address] [place] [phone] * Refills? Refill Magnesium Oxide -Mg Supplement Tablet, 400 (240 Mg) MG, Orally, 180, 1 tablet with food, twice a day, 90 days, Refills=0 * true * Date:? Generated for Reilly guerra/Aston/Sumeetsmitting on:?10/29/2024 09:40 AM EST
--- OUTSIDE RECORDS SUMMARY | 2024-10-29 09:41 | XMS_ITS ---
Author Organization Venancio Betancourt MD Address [address] [place] [phone] Care Team Providers Care Forestry Supervisor Name Role Phone Venancio Betancourt Primary Care Provider REASON FOR VISIT RF Medications Medication SIG (Take, Route, Frequency, Duration) Notes Start Date End Date Status Magnesium Oxide -Mg Supplement 400 (240 Mg) MG TAKE 1 TABLET BY MOUTH EVERY DAY WITH FOOD FOR 90 DAYS Orally twice a day for 90 days Active Encounters Encounter Location Date Provider Diagnosis Venancio Betancourt MD [address] [facility] [address] [place], [place] [phone] 08/28/2024 Venancio Betancourt Plan Of Treatment Medication Medication Name Sig Start Date Stop Date Notes Magnesium Oxide -Mg Suppleme nt 400 (240 Mg) MG TAKE 1 TABLET BY MOUTH EVERY DAY WITH FOOD FOR 90 DAYS Orally twice a day for 90 days Next Appt Details Provider Name:Venancio quintana, 11/13/2024 07:00:00 AM, [address] [facility] [address], [address], [place], [place], [phone], Provider Name:Venancio Ritter ier, 11/20/2024 09:00:00 AM, [address] [facility], [address], [place], [phone], Provider Name:Venancio Ritter ier, 05/17/2025 07:00:00 AM, [address] [facility], [address], [place], [place], [phone], Provider Name:Venancio Ritter ier, 05/24/2025 03:30:00 PM, [address] [place] [address] Drive, [address], [place], [phone], Progress Notes * Floyd WILLIAM SDOB:1955 (68 yo M)Acc No.[id number]:08/28/2024 Patient:?Floyd William S :1955???Age:68 Y???Sex:Male Address:[address] [place] [phone] * Refills? Refill Magnesium Oxide -Mg Supplement Tablet, 400 (240 Mg) MG, Orally, 180, TAKE 1 TABLET BY MOUTH EVERY DAY WITH FOOD FOR 90 DAYS, twice a day, 90 days, Refills=4 * true * Date:? Generated for Reilly guerra/Aston/Sumeetsmitting on:?10/29/2024 09:40 AM EST
--- OUTSIDE RECORDS SUMMARY | 2024-10-29 09:41 | XMS_ITS | Patient Health Record ---
Author Organization [facility] Address [address] [place] [address] Care Team Providers Care Group Fitness Manager Name Role Phone Asia RODRIGUEZ, Venancio Primary Care Provider Juan Daniel Rdz Unavailable [phone] Allergies Allergen (clinical drug ingredient) Drug/Non Drug Allergy documented on EMR Reaction Allergy Type Onset Date Status pets,perfumes,pollen s, dust,grasses,arias hayfever (uncoded) Unknown Allergy Active Reason For Referral No Information Medications Medication SIG (Take, Route, Frequency, Duration) Notes Start Date End Date Status Osteo Bi-Flex Adv Double St - as directed Orally Active Saw [place] 450 MG as directed Orally Active Singulair 10 MG 1 tablet Orally Once a day for 30 day(s) Active Atorvastatin Calcium 40 MG 1 tablet Oral ly Once a day for 30 day(s) Active Symbicort 160-4.5 MCG/ACT 2 puffs Inhala tion Twice a day Active amLODIPine Besylate 10 MG 1 tablet Orall y Once a day for 30 day(s) Active ProAir HFA 108 (90 Base) MCG/ACT 2 puffs as needed Inhalation every 6 hrs Active Viagra 100 MG 1 tablet as needed Orally Once a day for 30 day(s) Active Valsartan 320 MG 1 tablet Orally Once a day for 30 day(s) Active Omeprazole 20 MG 1 capsule Orally Onc e a day for 30 day(s) Active Omeprazole 20 MG 1 capsule Orally Onc e a day Active Spironolactone 7 mg 1 tablet Orally Once a day Active Mens 50+ Advanced - as directed Orally Active Immunizations Vaccine Route Administration Date Status Comme nts Influenza Unknown 01/16/2019 Administered Social History Tobacco Use: Social History Observation Description Date Details (start date - stop date) Never Smoker NA - NA Tobacco Use/Smoking Question Answer Notes Patient is a nonsmoker Alcohol Screen Question Answer Notes Did you have a drink contain ing alcohol in the past year? Yes How often did you have a dri nk containing alcohol in the past year? 2 to 3 times a week (3 points) How many drinks did you have on a typical day when you were drinking in the past year? 3 or 4 drinks (1 point) Points 4 Interpretation Positive Section Notes: Nonsmoker; no sig alcohol Problems Problem Type SNOMED Code ICD Code Onset Dates Problem Status W/U Status Risk Notes Problem 221127410 Encounter for screening for malignant neoplasm of colon (Z12.11) Active confirmed Problem 847834210671859 Pre-procedural examination (Z01.818) Active confirmed Plan Of Treatment Future Test Test Name Order Date COLONOSCOPY 01/16/2019 Next Appt Details Provider Name:Juan Daniel Avila , 11/03/2024 09:30:00 AM, [address] [place] [address], [facility] [address], [place], [address], Insurance Providers Payer Name Payer Address Payer Phone Subscriber Number Group Number Insured Name Patient Relationship to Insured Coverage Start Date Coverage End Date MEDICARE OF [place] [address] [facility] [address] [id number] PRETTY WILLIAM Self - patient is the insured MED[employer] ATT[employer] CLAIMS [address] [place] [address] [id number] PRETTY WILLIAM Self - patient is the insured Medical (General) History Medical History History ICD Code Asthma Hypertension Hypercholesterolemia Anxiety Denies [place],DM,CVA,,renal disease Neg. colonoscopy in 08/2008 except for an inflammatory polyp GERD-Neg. EGD in 08/2008 except for gastr itis-bx neg for Hpylori Surgical History Surgery Date(Month/Year) Left shoulder
--- OUTSIDE RECORDS SUMMARY | 2024-10-29 09:41 | XMS_ITS | Clinical Summary ---
Author Organization [facility] Address [address] [facility] [address] [place] [address] Phone Care Team Providers Care Booking Supervisor Name Role Phone Venancio Betancourt MD Primary Care Provider [phone] Allergies No known active allergies Medications atorvastatin [...] age to complete this topic Insurance MEDICARE [facility]ICARE [facility] Care Teams Booking Supervisor Relationship Specialty Start Date End Date Venancio Betancourt MD [address] [place] [address] [address] [place], [place] PCP - General 09/05/20
--- OUTSIDE RECORDS SUMMARY | 2024-10-29 09:41 | XMS_ITS ---
Author Organization Venancio Betancourt MD Address [address] [place] [phone] Care Team Providers Care Printed Forms Proofreader Name Role Phone Venancio Betancourt Primary Care Provider REASON FOR VISIT medication directions Medications Medication SIG (Take, Route, Frequency, Duration) Notes Start Date End Date Status Magnesium Oxide -Mg Supplement 400 (240 Mg) MG 1 tablet with food Orally twice a day for 90 days Active Encounters Encounter Location Date Provider Diagnosis Venancio Betancourt MD [address] [facility] [address] [place] [phone] 09/03/2024 Venancio Betancourt Plan Of Treatment Medication Medication Name Sig Start Date Stop Date Notes Magnesium Oxide -Mg Suppleme nt 400 (240 Mg) MG 1 tablet with food Orally twice a day for 90 days Next Appt Details Provider Name:Venancio quintana, 11/13/2024 07:00:00 AM, [address] [facility], [address], [place], [place], [phone], Provider Name:Venancio quintana, 11/20/2024 09:00:00 AM, [address], [address], [place], [place], [phone], Provider Name:Venancio Ritter mariano, 05/17/2025 07:00:00 AM, [address] [facility], [address], [place], [phone], Provider Name:Venancio Ritter mariano, 05/24/2025 03:30:00 PM, [address] [facility], [address], [place], [phone], Progress Notes * Floyd WILLIAM SDOB:1955 (68 yo M)Acc No.[id number]:09/03/2024 Patient:?Floyd William S :1955???Age:68 Y???Sex:Male Address:[address] [place] [address] * Refills? Continue Magnesium Oxide -Mg Supplement Tablet, 400 (240 Mg) MG, Orally, 180 Tablet, 1 tablet with food, twice a day, 90 days, Refills=4 * true * Date:? Generated for Reilly guerra/Aston/Kierraitting on:?10/29/2024 09:40 AM EST
[2024-10-29 11:02] LABS: Anion Gap 15 (12-20); Blood Urea Nitrogen 24 mg/dL (9-16); Carbon Dioxide 23 mmol/L (22-29); Chloride 102 mmol/L (96-108); Estimated Glomerular Filt Rate 47; Sodium 135 mmol/L (135-145)
== END 2024-10-29 08:53 | disposition home or self-care (01) ==
LOC: HO.LAB 08:52
PROVIDERS: PCP Internal Medicine; Visit Provider Internal Medicine Nephrology
DX: I10 Essential (primary) hypertension (principal)
CPT/HCPCS: 36415; 80051; 82565; 84520

== ENCOUNTER 2024-11-06 10:31 | Outpatient (AMB) | payer MEDICARE, SELFPAY ==
--- NOTE | 2024-11-06 10:56 | HO.NEPHOV ---
Vital Signs 11/06/24 10:57 Height 6 ft 1 in Weight 229 lb 8 oz BMI 30.3 BP 126/80 Blood Pressure Location Lt brachial Position Sitting Pulse 76 Pulse Source Pulse Oximeter Pulse Oximetry (%) 96 Oxygen Delivery Method Room Air Intake Visit Reasons: CKD-Conf Extension Service Specialist Required: No Accompanied by: Self / Same As Patient Allergies No Known Allergies Allergy (Verified 11/06/24 10:57) HPI Comments Details: Jonathan was seen in follow-up of his CKD as well as hypertension. He had Raynaud's disease without any systemic symptoms. His ARB has been on hold . He does not have any orthostatic symptoms. He denies any chest pain, shortness of breath, pedal edema, proximal nocturnal dyspnea or urinary symptoms. There were no new active complaints at the time of this office visit [facility], [facility] Medical History (Updated 11/06/24 @ 14:10 by Rafael Crook MD) Hypertension Surgical History H/O rotator cuff surgery Social History Patient Tobacco Use Status: Never used Tobacco Review of Systems Const All systems reviewed & are unremarkable except as noted in HPI and below Physical Exam Vital Signs: Last Vital Signs Pulse 76 11/06/24 10:57 BP 126/80 11/06/24 10:57 Pulse Ox 96 11/06/24 10:57 Oxygen Delivery Method Room Air 11/06/24 10:57 BMI result Body Mass Index 30.3 Const General: comfortable and no acute distress Orientation/consciousness: patient oriented x3 HEENT Head: Yes normocephalic Mouth: Normal oral and palatal mucosa present Eyes EOM: EOMs intact bilaterally Neck Neck: Yes supple Resp Auscultation: clear to auscultation bilaterally Cardio Jugular venous distension: no JVD Rate: regular rate GI Palpation (GI): Soft to palpation Auscultation: normal bowel sounds Skin General skin exam: no rashes or lesions noted Neuro General: patient oriented x3 and moves all extremities Extrem General: Yes no pedal edema Results Reviewed Nephrology Results: Hgb 13.9 g/dl (14.0-18.0) L 05/14/24 WBC 8.0 X10*3/uL (4.8-10.8) 05/14/24 Plt Count 321 X10*3/uL (160-400) 05/14/24 Sodium 135 mmol/L (135-145) 10/29/24 Potassium 5.0 mmol/L (3.3-5.1) 10/29/24 Chloride 102 mmol/L (96-108) 10/29/24 Carbon Dioxide 23 mmol/L (22-29) 10/29/24 BUN 24 mg/dL (9-16) H 10/29/24 Creatinine 1.48 mg/dL (0.5-1.4) H 10/29/24 Calcium 9.8 mg/dL (8.4-10.2) 05/14/24 Urine Protein Negative mg/dL (Neg-Trace) 05/14/24 Urine Creatinine 51.89 mg/dL 06/15/24 Protein/Creatinin Ratio TNP 06/15/24 Assessment & Plan Assessment & Plan (1) Hypertension: Code(s): I10 - Essential (primary) hypertension Category: Medical Qualifiers: Hypertension type: primary hypertension Qualified Code(s): I10 - Essential (primary) hypertension (2) CKD stage 3a, GFR 45-59 ml/min: Code(s): N18.31 - Chronic kidney disease, stage 3a Category: Medical Plan Jonathan has hypertension long time. He has been having Raynaud's disease without any systemic symptoms. His serum creatinine had gone up likely due to tubular injury from low BP which has improved . (His BP and serum creatinine is better after holding Irbesartan). Doppler of his renal arteries along with extensive workup done in the past to delineate a secondary etiology for his hypertension had been negative. He was encouraged to increase his fluid intake.Answered all questions. Follow-up given Orders: Orders Blood Urea Nitrogen 6 Months I10 - Essential (primary) hypertension Creatinine 6 Months I10 - Essential (primary) hypertension Electrolytes 6 Months I10 - Essential (primary) hypertension Coding Level of Care Code Est Pt Level 4 (10660) Diagnoses Primary hypertension I10 Hypertension type: primary hypertension CKD stage 3a, GFR 45-59 ml/min N18.31
[2024-11-06 10:57] VITALS: BP 126/80; PULSE 76; O2SAT 96; BMI 30.3
--- OUTSIDE RECORDS SUMMARY | 2024-11-06 11:56 | XMS_ITS ---
Author Organization Venancio Betancourt MD Address [address] [place] [phone] Care Team Providers Care Solutions Sales Consultant Name Role Phone Venancio Betancourt Primary Care Provider REASON FOR VISIT RF Medications Medication SIG (Take, Route, Frequency, Duration) Notes Start Date End Date Status Magnesium Oxide -Mg Supplement 400 (240 Mg) MG TAKE 1 TABLET BY MOUTH EVERY DAY WITH FOOD FOR 90 DAYS Orally twice a day for 90 days Active Encounters Encounter Location Date Provider Diagnosis Venancio Betancourt MD [address] [place], [place] [phone] 08/28/2024 Venancio Betancourt Plan Of Treatment Medication Medication Name Sig Start Date Stop Date Notes Magnesium Oxide -Mg Suppleme nt 400 (240 Mg) MG TAKE 1 TABLET BY MOUTH EVERY DAY WITH FOOD FOR 90 DAYS Orally twice a day for 90 days Next Appt Details Provider Name:Venancio quintana, 11/13/2024 07:00:00 AM, [address], [address], [place], [place], [phone], Provider Name:Venancio Ritter ier, 11/20/2024 09:00:00 AM, [address], [address], [place], [phone], Provider Name:Venancio Ritter ier, 05/17/2025 07:00:00 AM, [address] [place] [address], [address], [place], [phone], Provider Name:Venancio Ritter ier, 05/24/2025 03:30:00 PM, [address] [place] [address], [address], [place], [phone], Progress Notes * Floyd WILLIAM SDOB:1955 (68 yo M)Acc No.[id number]:08/28/2024 Patient:?Floyd William S :1955???Age:68 Y???Sex:Male Address:[address] [place] [id number] * Refills? Refill Magnesium Oxide -Mg Supplement Tablet, 400 (240 Mg) MG, Orally, 180, TAKE 1 TABLET BY MOUTH EVERY DAY WITH FOOD FOR 90 DAYS, twice a day, 90 days, Refills=4 * true * Date:? Generated for Reilly guerra/Aston/Sumeetsmitting on:?11/06/2024 11:55 AM EDT
--- OUTSIDE RECORDS SUMMARY | 2024-11-06 11:56 | XMS_ITS | Clinical Summary ---
Author Organization [facility] Address [address] [facility] [address] [place] [address] Phone Care Team Providers Care Pot Reliner Name Role Phone Venancio Betancourt MD Primary Care Provider [phone] Allergies No known active allergies Medications atorvastatin [...] age to complete this topic Insurance MEDICARE [facility] MEDICARE [facility] Care Teams Pot Reliner Relationship Specialty Start Date End Date Venancio Betancourt MD [address] [place] [address] [address] [place], [place] PCP - General 09/05/20
--- OUTSIDE RECORDS SUMMARY | 2024-11-06 11:56 | XMS_ITS ---
Author Organization [facility] Address [address] [place] [address] Care Team Providers Care General Production Worker Name Role Phone Venancio Betancourt MD Primary Care Provider Juan Daniel Rdz Unavailable [phone] Allergies Allergen (clinical drug ingredient) Drug/Non Drug Allergy documented on EMR Reaction Allergy Type Onset Date Status pets,perfumes,pollen s, dust,grasses,arias hayfever (uncoded) Unknown Allergy Active REASON FOR [...] St - as directed Orally Active Saw [place] 450 MG as directed Orally Active Mens [...] Problem History of polyp of colon (situation) (027378172) Personal history of colonic polyps (Z86.010) Active confirmed Problem Colon cancer screening (001716465) Colon cancer screening (Z12.11) Active confirmed Problem Gastroesophageal reflux disease (577261009) GERD (gastroesopha geal reflux disease) (K21.9) Active confirmed Vital Signs Blood pressure systolic 111 mm Hg 11/04/19 25 Blood pressure diastolic 11 mm Hg 025 Height 73 in 11/03/2024 Weight 223 lbs 11/03/2024 BMI 29.42 kg/m2 11/03/2024 Procedures Procedure Date Ordered Date Performed Result Body Sit e COLONOSCOPY 11/03/2024 N/A Encounters Encounter Location Date Provider Diagnosis [facility] [address] [place] [address] 11/03/2024 Juan Daniel Avila Personal history of [...] Daniel Duarte Margarita , 12/07/2024 02:40:00 PM, [address] [place] [address] , [place], [place], [phone], Progress Notes * BUDDYPRETTY SANTOS SCOTTDOB: (69 yo M)Acc No.[id number]:11/03/2024 Progress Notes Patient:?[facility] Provider:?Juan Daniel Avila MD :1955???Age:69 Y???Sex:Male Bayron e:11/03/2024 Address:[address] [place], [place] [phone] Pcp:Venancio Betancourt MD Subjective: * Chief Complaints: [...] Medical History:?Asthma, Hyp ertension, Hypercholesterolemia, Anxiety, Denies NH,DM,CVA,,renal disease, Neg. colonoscopy in 08/2008 except for [...] 4 drinks (1 point),?Points?4,?Interpretation?Positive.?Miscellaneous:?Marital status: . 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 ???Nonsmoker; no sig alcohol. * [...] Capsule as directed Orally , Taking Saw [place] 450 MG Capsule as directed Orally , [...] for 12/07/24 at 2:40 pmmiralax * Procedure Codes:?61441 DIAGN OSTIC COLONOSCOPY * Preventive Medicine:? ??Counseling:?Care [...] MD Date:? 025 Generated for Reilly guerra/Aston/Ronan on:?11/06/2024 11:56 AM EDT
--- OUTSIDE RECORDS SUMMARY | 2024-11-06 11:56 | XMS_ITS ---
Author Organization Venancio Betancourt MD Address [address] [place] [phone] Care Team Providers Care Maintenance Construction Helper Name Role Phone Venancio Betancourt Primary Care Provider Medications Medication SIG (Take, Route, Frequency, Duration) Notes Start Date End Date Status Magnesium Oxide -Mg Supplement 400 (240 Mg) MG 1 tablet with food Orally twice a day for 90 days Active Encounters Encounter Location Date Provider Diagnosis Venancio Betancourt MD [address] [place] [phone] 09/07/2024 Venancio Betancourt Plan Of Treatment Medication Medication Name Sig Start Date Stop Date Notes Magnesium Oxide -Mg Suppleme nt 400 (240 Mg) MG 1 tablet with food Orally twice a day for 90 days Next Appt Details Provider Name:Venancio quintana, 11/13/2024 07:00:00 AM, [address], [address] [facility], [place], [place], [phone], Provider Name:Venancio quintana, 11/20/2024 09:00:00 AM, [address] [facility], [address], [place], [place], [phone], Provider Name:Venancio Ritter ier, 05/17/2025 07:00:00 AM, [address] [facility], [address], [place], [place], [phone], Provider Name:Venancio Ritter ier, 05/24/2025 03:30:00 PM, [address] [place] [address], [address], [place], [phone], Progress Notes * Floyd WILLIAM SDOB:1955 (68 yo M)Acc No.[id number]:09/07/2024 Patient:?Floyd William S :1955???Age:68 Y???Sex:Male Address:[address] [place] [phone] * Refills? Refill Magnesium Oxide -Mg Supplement Tablet, 400 (240 Mg) MG, Orally, 180, 1 tablet with food, twice a day, 90 days, Refills=0 * true * Date:? Generated for Reilly guerra/Aston/Sumeetsmitting on:?11/06/2024 11:56 AM EDT
--- OUTSIDE RECORDS SUMMARY | 2024-11-06 11:56 | XMS_ITS ---
Author Organization Venancio Betancourt MD Address [address] [place] [phone] Care Team Providers Care It Program Manager Name Role Phone Venancio Betancourt Primary Care Provider [phone] REASON FOR VISIT medication directions Medications Medication SIG (Take, Route, Frequency, Duration) Notes Start Date End Date Status Magnesium Oxide -Mg Supplement 400 (240 Mg) MG 1 tablet with food Orally twice a day for 90 days Active Encounters Encounter Location Date Provider Diagnosis Venancio Betancourt MD [address] [facility] [address] [place] [phone] 09/03/2024 Venancio Betancourt Plan Of Treatment Medication Medication Name Sig Start Date Stop Date Notes Magnesium Oxide -Mg Suppleme nt 400 (240 Mg) MG 1 tablet with food Orally twice a day for 90 days Next Appt Details Provider Name:Venancio quintana, 11/13/2024 07:00:00 AM, [address] [facility], [address], [place], [place], [phone], Provider Name:Venancio quintana, 11/20/2024 09:00:00 AM, [address], [address], [place], [place], [phone], Provider Name:Venancio Ritter mariano, 05/17/2025 07:00:00 AM, [address] [facility], [address], [place], [phone], Provider Name:Venancio Ritter mraiano, 05/24/2025 03:30:00 PM, [address] [place] [address], [address], [place], [place], [phone], Progress Notes * Floyd WILLIAM SDOB:1955 (68 yo M)Acc No.[id number]:09/03/2024 Patient:?Floyd William S :1955???Age:68 Y???Sex:Male Address:[address] [place] [phone] * Refills? Continue Magnesium Oxide -Mg Supplement Tablet, 400 (240 Mg) MG, Orally, 180 Tablet, 1 tablet with food, twice a day, 90 days, Refills=4 * true * Date:? Generated for Reilly guerra/Aston/Kierraitting on:?11/06/2024 11:56 AM EDT
--- OUTSIDE RECORDS SUMMARY | 2024-11-06 11:56 | XMS_ITS | Patient Health Record ---
Author Organization [facility] Address [address] [place] [address] Care Team Providers Care Mold Maintenance Technician Name Role Phone Venancio Betancourt MD Primary Care Provider Juan Daniel Rdz Unavailable [phone] Allergies Allergen (clinical drug ingredient) Drug/Non Drug [...] St - as directed Orally Active Saw [place] 450 MG as directed Orally Active Mens [...] Status Risk Notes Problem Colon cancer screening (370034102) Colon cancer screening (Z12.11) Active confirmed Problem 247610963 Encounter for screening for malignant neoplasm of colon (Z12.11) Active confirmed Problem History of polyp of colon (situation) (877627250) Personal history of colonic polyps (Z86.010) Active confirmed Problem Gastroesophageal reflux disease (014677705) GERD (gastroesophag eal reflux disease) (K21.9) Active confirmed Problem 302226043137709 Pre-procedural examination (Z01.818) Active confirmed Vital Signs Blood pressure diastolic 11 mm Hg 11/03/2024 Height 73 in 11/03/2024 Blood pressure systolic 111 mm Hg 11/03/2024 Weight 223 lbs 11/03/2024 BMI 29.42 kg/m2 11/03/2024 Procedures Procedure Date Ordered Date Performed Result Body Sit e COLONOSCOPY 11/03/2024 N/A Encounters Encounter Location Date Provider Diagnosis [facility] [address] [place] [address] 11/03/2024 Juan Daniel Avila Personal history of [...] Name:Juan Daniel Avila , 12/07/2024 02:40:00 PM, [address] [place] [address], [phone], Insurance Providers Payer Name Payer Address Payer Phone Subscriber Number Group Number Insured Name Patient Relationship to Insured Coverage Start Date Coverage End Date MEDICARE OF [place] [address] [place] [address] [phone] [id number] PRETTY WILLIAM Self - patient is the insured 1 [employer] ATT[employer] CLAIMS [address] [place] [address] [id number] PRETTY WILLIAM Self - patient is the insured Medical (General) History Medical History History ICD Code Asthma Hypertension Hypercholesterolemia Anxiety Denies ID,DM,CVA,,renal disease Neg. colonoscopy in 08/2008 except for an inflammatory polyp GERD-Neg. EGD in 08/2008 except for gastr itis-bx neg for Hpylori Screening colonoscopy 2018 with removal of a small tubular adenoma Surgical History Surgery Date(Month/Year) Left shoulder
== END 2024-11-06 11:17 | disposition home or self-care (01) ==
LOC: HO.HKA 10:31
PROVIDERS: PCP Internal Medicine; Visit Provider Internal Medicine Nephrology
DX: I10 Essential (primary) hypertension (principal); N18.31 Chronic kidney disease, stage 3a
CPT/HCPCS: 99214

== ENCOUNTER → 2024-11-06 10:31 | Outpatient (BNVA) | payer MEDICARE, SELFPAY | PROVIDERS: PCP Internal Medicine; Visit Provider Internal Medicine Nephrology | DX: I12.9 Hypertensive chronic kidney disease with stage 1 through stage 4 chronic kidney disease, or unspecified chronic kidney disease (principal); I73.00 Raynaud's syndrome without gangrene; N18.31 Chronic kidney disease, stage 3a | CPT/HCPCS: 99212 ==

== ENCOUNTER 2024-11-13 11:43 | Outpatient (REF) | payer MEDICARE, SELFPAY ==
[2024-11-13 12:37] LABS: Alanine Aminotransferase 67 U/L (0-40); Albumin Level 4.4 g/dL (3.5-5.0); Alkaline Phosphatase 134 U/L (39-117); Aspartate Amino Transferase 31 U/L (5-37); Bilirubin Direct 0.2 mg/dL (0.0-0.5); Bilirubin Total 0.6 mg/dL (0.0-1.0); Cholesterol 178 mg/dL (<200); Glucose Fasting 131 mg/dL (60-99); HDL Cholesterol 56 mg/dL (>40); LDL Cholesterol Calculated 87 mg/dL (<100); Total Protein 7.8 g/dL (6.5-8.0); Triglycerides 179 mg/dL (<150)
[2024-11-13 13:23] LABS: Estimated Average Glucose 140 mg/dL; Hemoglobin A1c % 6.5 % (<6.0); Total Hemoglobin (HGBA1C) 4196.4341 umol/L
[2024-11-13 14:46] LABS: Reflex LDLD? No
== END 2024-11-13 11:44 | disposition home or self-care (01) ==
LOC: HO.LNP 11:43
PROVIDERS: Visit Provider Internal Medicine
DX: R73.03 Prediabetes (principal); E78.00 Pure hypercholesterolemia, unspecified
CPT/HCPCS: 80061; 80076; 82947; 83036

== ENCOUNTER 2024-12-07 12:37 | Day surgery (SDC) | payer MEDICARE, SELFPAY ==
--- OUTSIDE RECORDS SUMMARY | 2024-11-03 13:25 | XMS_ITS | Patient Health Record ---
Author Organization [facility] Address [address] [place] [address] Care Team Providers Care Software Deployment Engineer Name Role Phone Venancio Betancourt MD Primary Care Provider Juan Daniel Rdz Unavailable [phone] Allergies Allergen (clinical drug ingredient) Drug/Non Drug Allergy documented on EMR Reaction Allergy Type Onset Date Status pets,perfumes,pollen s, dust,grasses,arias hayfever (uncoded) Unknown Allergy Active Reason For Referral No Information Medications Medication SIG (Take, Route, Frequency, Duration) Notes Start Date End Date Status Atorvastatin Calcium 40 MG 1 tablet Oral ly Once a day for 30 day(s) Active amLODIPine Besylate 10 MG 1 tablet Orall y Once a day for 30 day(s) Active Symbicort 160-4.5 MCG/ACT 2 puffs Inhala tion Twice a day Not-Taking ProAir HFA 108 (90 Base) MCG/ACT 2 puffs as needed Inhalation every 6 hrs Not-Takin g Viagra 100 MG 1 tablet as needed Orally Once a day for 30 day(s) Active Osteo Bi-Flex Adv Double St - as directed Orally Active Saw Happy 450 MG as directed Orally Active Mens 50+ Advanced - as directed Orally Active Omeprazole 20 MG 1 capsule Orally Onc e a day Active Spironolactone 50 MG Takes 75 mg Orally Once a day Active Singulair 10 MG 1 tablet Orally Once a day for 30 day(s) Active Immunizations Vaccine Route Administration Date Status [...] Positive Section Notes: Nonsmoker; no sig alcohol Nonsmoker; no sig alcohol Problems Problem Type SNOMED Code ICD Code Onset Dates Problem Status W/U Status Risk Notes Problem Colon cancer screening (597509266) Colon cancer screening (Z12.11) Active confirmed Problem 996694886 Encounter for screening for malignant neoplasm of colon (Z12.11) Active confirmed Problem History of polyp of colon (situation) (723390644) Personal history of colonic polyps (Z86.010) Active confirmed Problem Gastroesophageal reflux disease (464974772) GERD (gastroesophag eal reflux disease) (K21.9) Active confirmed Problem 914480781223755 Pre-procedural examination (Z01.818) Active confirmed Vital Signs Blood pressure diastolic 11 mm Hg 11/03/2024 Height 73 in 11/03/2024 Blood pressure systolic 111 mm Hg 11/03/2024 Weight 223 lbs 11/03/2024 BMI 29.42 kg/m2 11/03/2024 Procedures Procedure Date Ordered Date Performed Result Body Sit e COLONOSCOPY 11/03/2024 N/A Encounters Encounter Location Date Provider Diagnosis [facility] [address] [place] [address] 11/03/2024 Juan Daniel Avila Personal history of colonic polyps Z86.010 ; Colon cancer screening Z12.11 and GERD (gastroesophageal reflux disease) K21.9 Assessments Encounter Date Diagnosis (ICD Code) Assessment Notes Treatment Notes Treatment Clinical Notes Section Notes 11/03/2024 Personal history of colonic polyps (ICD-10 - Z86.010) Overall, Jonathan appears quite well. I did recommend a follow-up colonoscopy for further screening purposes given the history of a tubular adenoma removed over 5 years ago. We did review the rationale for this in regard to colorectal cancer prevention. Full consent has been obtained for this, including risks of bleeding and perforation. The procedure will be done with monitored anesthesia care. He was given the below instructions regarding adjustment of his medication for the procedure. In regard to his reflux this seems to be quite stable on his omeprazole. However, I did advise him that he can certainly try to use the omeprazole on a as needed basis or perhaps just every other day rather than daily. However, I did advise him that he could certainly go back to a daily regimen if his symptoms require. Given his negative upper endoscopy in the past and his current clinical history I do not think a repeat upper endoscopy is required. Jonathan was comfortable with this plan. Thank you again for allowing me to participate in Jonathan's care. I shall continue to keep you advised of his progress. 11/03/2024 Colon cancer screening (ICD-10 - Z12.11) Overall, Jonathan appears quite well. I did recommend a follow-up colonoscopy for further screening purposes given the history of a tubular adenoma removed over 5 years ago. We did review the rationale for this in regard to colorectal cancer prevention. Full consent has been obtained for this, including risks of bleeding and perforation. The procedure will be done with monitored anesthesia care. He was given the below instructions regarding adjustment of his medication for the procedure. In regard to his reflux this seems to be quite stable on his omeprazole. However, I did advise him that he can certainly try to use the omeprazole on a as needed basis or perhaps just every other day rather than daily. However, I did advise him that he could certainly go back to a daily regimen if his symptoms require. Given his negative upper endoscopy in the past and his current clinical history I do not think a repeat upper endoscopy is required. Jonathan was comfortable with this plan. Thank you again for allowing me to participate in Jonathan's care. I shall continue to keep you advised of his progress. 11/03/2024 GERD (gastroesophag eal reflux disease) (ICD-10 - K21.9) Overall, Jonathan appears quite well. I did recommend a follow-up colonoscopy for further screening purposes given the history of a tubular adenoma removed over 5 years ago. We did review the rationale for this in regard to colorectal cancer prevention. Full consent has been obtained for this, including risks of bleeding and perforation. The procedure will be done with monitored anesthesia care. He was given the below instructions regarding adjustment of his medication for the procedure. In regard to his reflux this seems to be quite stable on his omeprazole. However, I did advise him that he can certainly try to use the omeprazole on a as needed basis or perhaps just every other day rather than daily. However, I did advise him that he could certainly go back to a daily regimen if his symptoms require. Given his negative upper endoscopy in the past and his current clinical history I do not think a repeat upper endoscopy is required. Jonathan was comfortable with this plan. Thank you again for allowing me to participate in Jonathan's care. I shall continue to keep you advised of his progress. Plan Of Treatment Pending Test Test Name Order Date COLONOSCOPY 11/03/2024 Future Test Test Name Order Date COLONOSCOPY 01/16/2019 Next Appt Details Provider Name:Juan Daniel Avila , 12/07/2024 02:40:00 PM, [address] [place] [address], [phone], Insurance Providers Payer Name Payer Address Payer Phone Subscriber Number Group Number Insured Name Patient Relationship to Insured Coverage Start Date Coverage End Date MEDICARE OF [place] [address] [place] [address] [phone] [id number] PRETTY WILLIAM Self - patient is the insured 1 MEDEX ATTN CLAIMS [address] [place] [address] [id number] PRETTY WILLIAM Self - patient is the insured Medical (General) History Medical History History ICD Code Asthma Hypertension Hypercholesterolemia Anxiety Denies [place],DM,CVA,,renal disease Neg. colonoscopy in 08/2008 except for an inflammatory polyp GERD-Neg. EGD in 08/2008 except for gastr itis-bx neg for Hpylori Screening colonoscopy 2018 with removal of a small tubular adenoma Surgical History Surgery Date(Month/Year) Left shoulder
--- OUTSIDE RECORDS SUMMARY | 2024-11-03 13:25 | XMS_ITS ---
Author Organization Venancio Betancourt MD Address [address] [place] [phone] Care Team Providers Care City Controller Name Role Phone Venancio Betancourt Primary Care Provider REASON FOR VISIT medication directions Medications Medication SIG (Take, Route, Frequency, Duration) Notes Start Date End Date Status Magnesium Oxide -Mg Supplement 400 (240 Mg) MG 1 tablet with food Orally twice a day for 90 days Active Encounters Encounter Location Date Provider Diagnosis Venancio Betancourt MD 10 [facility] [address] [place] [phone] 09/03/2024 Venancio Betancourt Plan Of Treatment Medication Medication Name Sig Start Date Stop Date Notes Magnesium Oxide -Mg Suppleme nt 400 (240 Mg) MG 1 tablet with food Orally twice a day for 90 days Next Appt Details Provider Name:Venancio quintana, 11/13/2024 07:00:00 AM, [address], [address], [place], [place], [phone], Provider Name:Venancio quintana, 11/20/2024 09:00:00 AM, [address], [address], [place], [place], [phone], Provider Name:Venancio Ritter mariano, 05/17/2025 07:00:00 AM, [address] [facility], [address], [place], [place], [phone], Provider Name:Venancio Ritter mariano, 05/24/2025 03:30:00 PM, [address], [address], [place], [place], [phone], Progress Notes * Floyd WILLIAM SDOB:1955 (68 yo M)Acc No.[id number]:09/03/2024 Patient:?Floyd William S :1955???Age:68 Y???Sex:Male Address:[address] [place] [address] * Refills? Continue Magnesium Oxide -Mg Supplement Tablet, 400 (240 Mg) MG, Orally, 180 Tablet, 1 tablet with food, twice a day, 90 days, Refills=4 * true * Date:? Generated for Reilly guerra/Aston/Kierraitting on:?11/03/2024 01:25 PM EDT
--- OUTSIDE RECORDS SUMMARY | 2024-11-03 13:25 | XMS_ITS ---
Author Organization Venancio Betancourt MD Address [address] [place] [phone] Care Team Providers Care Warp Drawer Name Role Phone Venancio Betancourt Primary Care Provider Medications Medication SIG (Take, Route, Frequency, Duration) Notes Start Date End Date Status Magnesium Oxide -Mg Supplement 400 (240 Mg) MG 1 tablet with food Orally twice a day for 90 days Active Encounters Encounter Location Date Provider Diagnosis Venancio Betancourt MD [address] [facility] [address] [place] [phone] 09/07/2024 Venancio Betancourt Plan Of Treatment Medication Medication Name Sig Start Date Stop Date Notes Magnesium Oxide -Mg Suppleme nt 400 (240 Mg) MG 1 tablet with food Orally twice a day for 90 days Next Appt Details Provider Name:Venancio quintana, 11/13/2024 07:00:00 AM, [address] [facility] [address], [address] [facility], [place], [place], [phone], Provider Name:Venancio quintana, 11/20/2024 09:00:00 AM, [address] [facility], [address], [place], [place], [phone], Provider Name:Venancio Ritter ier, 05/17/2025 07:00:00 AM, [address] [facility], [address], [place], [place], [phone], Provider Name:Venancio Ritter ier, 05/24/2025 03:30:00 PM, [address] [facility], [address], [place], [phone], Progress Notes * Floyd WILLIAM SDOB:1955 (68 yo M)Acc No.[id number]:09/07/2024 Patient:?Floyd William S :1955???Age:68 Y???Sex:Male Address:[address] [place] [phone] * Refills? Refill Magnesium Oxide -Mg Supplement Tablet, 400 (240 Mg) MG, Orally, 180, 1 tablet with food, twice a day, 90 days, Refills=0 * true * Date:? Generated for Reilly guerra/Aston/Sumeetsmitting on:?11/03/2024 01:25 PM EDT
--- OUTSIDE RECORDS SUMMARY | 2024-11-03 13:25 | XMS_ITS | Clinical Summary ---
Author Organization [facility] Address [address] [facility] [address] [place] [address] Phone Care Team Providers Care Life Trainer Name Role Phone Venancio Betancourt MD Primary [...] age to complete this topic Insurance MEDICARE [facility] MEDICARE [facility] Care Teams Life Trainer Relationship Specialty Start Date End Date Venancio Betancourt MD [address] [place] [address] [address] [place], [place] PCP - General 09/05/20
--- OUTSIDE RECORDS SUMMARY | 2024-11-03 13:25 | XMS_ITS ---
Author Organization Venancio Betancourt MD Address [address] [place] [phone] Care Team Providers Care Probation Worker Name Role Phone Venancio Betancourt Primary Care Provider [phone] REASON FOR VISIT RF Medications Medication SIG (Take, Route, Frequency, Duration) Notes Start Date End Date Status Magnesium Oxide -Mg Supplement 400 (240 Mg) MG TAKE 1 TABLET BY MOUTH EVERY DAY WITH FOOD FOR 90 DAYS Orally twice a day for 90 days Active Encounters Encounter Location Date Provider Diagnosis Venancio Betancourt MD [address] [facility] [address] [place], [place] [phone] 08/28/2024 Venancio Betancourt Plan Of Treatment Medication Medication Name Sig Start Date Stop Date Notes Magnesium Oxide -Mg Suppleme nt 400 (240 Mg) MG TAKE 1 TABLET BY MOUTH EVERY DAY WITH FOOD FOR 90 DAYS Orally twice a day for 90 days Next Appt Details Provider Name:Venancio quintana, 11/13/2024 07:00:00 AM, [address], [address], [place], [place], [phone], Provider Name:Venancio Ritter ier, 11/20/2024 09:00:00 AM, [address] [facility], [address], [place], [phone], Provider Name:Venancio Ritter ier, 05/17/2025 07:00:00 AM, [address] [facility], [address], [place], [phone], Provider Name:Venancio Ritter ier, 05/24/2025 03:30:00 PM, [address] [place] [address] Drive, [address], [place], [place], [phone], Progress Notes * Floyd WILLIAM SDOB:1955 (68 yo M)Acc No.[id number]:08/28/2024 Patient:?Floyd William S :1955???Age:68 Y???Sex:Male Address:[address] [place] [phone] * Refills? Refill Magnesium Oxide -Mg Supplement Tablet, 400 (240 Mg) MG, Orally, 180, TAKE 1 TABLET BY MOUTH EVERY DAY WITH FOOD FOR 90 DAYS, twice a day, 90 days, Refills=4 * true * Date:? Generated for Reilly guerra/Aston/Sumeetsmitting on:?11/03/2024 01:25 PM EDT
--- OUTSIDE RECORDS SUMMARY | 2024-11-03 13:26 | XMS_ITS ---
Author Organization [facility] Address [address] [place] [address] Care Team Providers Care Milk Inspector Name Role Phone Venancio Betancourt MD Primary Care Provider Juan Daniel Rdz Unavailable [phone] Allergies Allergen (clinical drug ingredient) Drug/Non Drug Allergy documented on EMR Reaction Allergy Type Onset Date Status pets,perfumes,pollen s, dust,grasses,airas hayfever (uncoded) Unknown Allergy Active REASON FOR VISIT Patient presents today for a COLON SCREENING Medications Medication SIG (Take, Route, Frequency, Duration) Notes Start Date End Date Status Symbicort 160-4.5 MCG/ACT 2 puffs Inhala tion Twice a day Not-Taking ProAir HFA 108 (90 Base) MCG/ACT 2 puffs as needed Inhalation every 6 hrs Not-Takin g Viagra 100 MG 1 tablet as needed Orally Once a day for 30 day(s) Active Osteo Bi-Flex Adv Double St - as directed Orally Active Saw [place] 450 MG as directed Orally Active Mens 50+ Advanced - as directed Orally Active Omeprazole 20 MG 1 capsule Orally Onc e a day Active Spironolactone 50 MG Takes 75 mg Orally Once a day Active Atorvastatin Calcium 40 MG 1 tablet Oral ly Once a day for 30 day(s) Active amLODIPine Besylate 10 MG 1 tablet Orall y Once a day for 30 day(s) Active Singulair 10 MG 1 tablet Orally Once a day for 30 day(s) Active Social History Tobacco Use: Social History Observation [...] Problem Status W/U Status Risk Notes Problem History of polyp of colon (situation) (117504700) Personal history of colonic polyps (Z86.010) Active confirmed Problem Colon cancer screening (599342998) Colon cancer screening (Z12.11) Active confirmed Problem Gastroesophageal reflux disease (612777129) GERD (gastroesopha geal reflux disease) (K21.9) Active confirmed Vital Signs Blood pressure systolic 111 mm Hg 11/04/19 25 Blood pressure diastolic 11 mm Hg 025 Height 73 in 11/03/2024 Weight 223 lbs 11/03/2024 BMI 29.42 kg/m2 11/03/2024 Procedures Procedure Date Ordered Date Performed Result Body Sit e COLONOSCOPY 11/03/2024 N/A Encounters Encounter Location Date Provider Diagnosis [facility] [address] [place] [address] 11/03/2024 Juan Daniel Avila Personal history of [...] Test Test Name Order Date COLONOSCOPY 11/03/2024 Next Appt Details Provider Name:Juan Daniel Duarte Margarita , 12/07/2024 02:40:00 PM, [address] [place] [address] , [place], [place], [phone], Progress Notes * BUDDYPRETTY SANTOS SCOTTDOB: (69 yo M)Acc No.[id number]:11/03/2024 Progress Notes Patient:?[facility] Provider:?Juan Daniel Avila MD :1955???Age:69 Y???Sex:Male Bayron e:11/03/2024 Address:[address] [place], [place] [phone] Pcp:Venancio Betancourt MD Subjective: * Chief Complaints: * ???1. Patient presents today for a COLON SCREENING. * HPI: ???incontinence:? I saw Jonathan in consultation today to further evaluation of his gastroesophageal reflux, personal history of a tubular adenoma of the colon, and need for colorectal cancer screening. I last saw in 2018, at which time he underwent a follow-up screening colonoscopy with removal of a small tubular adenoma. Presently feels well. His bowel movements been regular and without any signs of bleeding. He denies any abdominal pain, jaundice, nor unintentional weight loss. He denies any known family history of colorectal cancer. He has been on omeprazole for many years in relation to reflux symptoms. He did have an upper endoscopy with me in 2008 which did not reveal any significant esophagitis nor Herrera's esophagus. He has remained on daily omeprazole and has not tried to stop it. He denies any current symptoms of significant heartburn, dysphagia, anorexia, early satiety, nausea, nor vomiting. * Medical History:?Asthma, Hyp ertension, Hypercholesterolemia, Anxiety, Denies SD,DM,CVA,,renal disease, Neg. colonoscopy in 08/2008 except for an inflammatory polyp, GERD-Neg. EGD in 08/2008 except for gastritis-bx neg for Hpylori, Screening colonoscopy 2019 with removal of a small tubular adenoma. * Surgical History:?Left shoul francis . * Family History:?Father: dece ased, diagnosed with HTN (hypertension), Heart disease.?Mother: , diagnosed with HTN (hypertension).? No known hx of colorectal cancer. * Social History:?Tobacco Use:?Tobacco Use/Smoking?Patient is a?nonsmoker.?Drugs/Alcohol:?Alcohol Screen?Did you have a drink containing alcohol in the past year??Yes,?How often did you have a drink containing alcohol in the past year??2 to 3 times a week (3 points),?How many drinks did you have on a typical day when you were drinking in the past year??3 or 4 drinks (1 point),?Points?4,?Interpretation?Positive.?Miscellaneous:?Marital status: . 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 ???Nonsmoker; no sig alcohol. * Medications:?Taking amLODIPi ne Besylate 10 MG Tablet 1 tablet Orally Once a day , Taking Atorvastatin Calcium 40 MG Tablet 1 tablet Orally Once a day , Taking Singulair 10 MG Tablet 1 tablet Orally Once a day , Taking Spironolactone 50 MG Tablet Takes 75 mg Orally Once a day , Taking Omeprazole 20 MG Capsule Delayed Release 1 capsule Orally Once a day , Taking Mens 50+ Advanced - Capsule as directed Orally , Taking Saw [place] 450 MG Capsule as directed Orally , Taking Osteo Bi-Flex Adv Double St - Tablet as directed Orally , Taking Viagra 100 MG Tablet 1 tablet as needed Orally Once a day , Not-Taking/PRN ProAir HFA 108 (90 Base) MCG/ACT Aerosol Solution 2 puffs as needed Inhalation every 6 hrs , Not-Taking/PRN Symbicort 160-4.5 MCG/ACT Aerosol 2 puffs Inhalation Twice a day , Discontinued Omeprazole 20 MG Capsule Delayed Release 1 capsule Orally Once a day , Discontinued Valsartan 320 MG Tablet 1 tablet Orally Once a day * Allergies:?Pets,perfumes,malorie lens,dust,grasses,arias Hayfever. Objective: * Vitals:?Wt:223lbs, Ht: 73 in , BMI:29.42Index, BP:111/11mm Hg, Wt-k.15. Assessment: * Assessment: 1.?Personal history of colon ic polyps - Z86.010???2.?Colon cancer screening - Z12.11???3.?GERD (gastroesophageal reflux disease) - K21.9??? Overall, Jonathan appears quite w ell. I did recommend a follow-up colonoscopy for [...] to keep you advised of his progress. Plan: * Treatment: 2.?Colon cancer screening?Procedure: COLONOSCOPY* With MAC. Do not take the Sp ironolactone the day before nor on the day of the Colonoscopy.You can adjust the omeprazole to just as needed or daily based on your symptomssched for 12/07/24 at 2:40 pmmiralax 3.?GERD (gastroesophageal reflux disease)?Procedure: COLONOSCOPY* With MAC. Do not take the Sp ironolactone the day before nor on the day of the Colonoscopy.You can adjust the omeprazole to just as needed or daily based on your symptomssched for 12/07/24 at 2:40 pmmiralax * Procedure Codes:?10182 DIAGN OSTIC COLONOSCOPY * Preventive Medicine:? ??Counseling:?Care goal follow-up plan:?Above Normal BMI Follow-up?Giving encouragement to exercise,?BMI management provided?Yes.? * * The named appointment provid er may or may not be the originator of this progress note, and it is not deemed complete until electronically signed by the appointment provider. Sign off status: Pending * Provider:?Juan Daniel Avila MD Date:? 025 Generated for Reilly guerra/Aston/Ronan on:?11/03/2024 01:25 PM EDT
[2024-12-03 14:41] VITALS: BMI 29.4
[2024-12-07 13:15] VITALS: BMI 28.2
[2024-12-07] MEDS: Lactated Ringers 1,000 ML 50 ML IVCONT (13:21)
[2024-12-07 13:28] VITALS: BP 142/92; PULSE 91; RESP 18; TEMP 36.7; O2SAT 98
--- NOTE | 2024-12-07 13:54 | HO.ANESPROP2 ---
FORM[facility]LY [facility] Active Problems Active Problems: All Active Problems CKD stage 3a, GFR 45-59 ml/min (Acute) GERD (gastroesophageal reflux disease) (Acute) Hyperlipidemia (Acute) Hypertension (Acute) Past Medical History Medical History Raynaud's disease Anxiety Asthma Hyperlipidemia Chronic renal insufficiency GERD (gastroesophageal reflux disease) Hypertension Family History Family history of problems with anesthesia: No Surgical History Surgical History History of esophagogastroduodenoscopy (EGD) H/O colonoscopy H/O rotator cuff surgery History of Problems with Anesthesia: No Social History Social History (Updated 12/03/24 @ 14:49 by Shima Kruger RN) Are you a primary ambulatory care to a significant other at home: No Do you presently have visiting nurse or other home services: No Patient Tobacco Use Status: Never used Tobacco Have you been hit, kicked, punched, or otherwise hurt by someone within the past year? If so, by whom?: No Are you DNR?: No Advance Directives: No Advance Directives Information Provided: Yes Poor oral hygiene: No Meds Allergies Allergy/AdvReac Type Severity Reaction Status Date / Time environmental allergies Allergy Intermediate hayfever Verified 12/07/24 13:16 symptoms Active Medications: Current Medications Lactated Ringer's (Lr) 1,000 mls @ 50 mls/hr IVCONT .Q20H BINA Last Admin: 12/07/24 13:21 Dose: 50 mls/hr Sodium Biphosphate/Sodium Phosphate (Sodium Phosphate,[place]-Dibasic 133 Ml Enema) 133 ml OK ONCE PRN PRN Reason: Poor Colonoscopy Prep Results Home Medications ?Medication ?Instructions ?Recorded ?Confirmed ?Last Taken ?Type atorvastatin 40 mg tablet 40 mg PO DAILY 07/15/23 12/03/24 Unknown History cyclobenzaprine 5 mg tablet 5 mg PO BEDTIME PRN Muscle Spasm 07/15/23 12/07/24 Unknown History epinephrine 0.3 mg/0.3 mL ml IM 07/15/23 Unknown History injection, auto-injector fluticasone propionate 50 1 spray intranasal DAILY 07/15/23 12/07/24 Unknown History mcg/actuation nasal spray,suspension montelukast 10 mg tablet 10 mg PO DAILY 07/15/23 12/03/24 Unknown History omeprazole 20 mg capsule,delayed 20 mg PO DAILY 07/15/23 12/03/24 Unknown History release magnesium oxide 400 mg (241.3 mg 400 mg PO BID 05/06/24 12/07/24 Unknown History magnesium) tablet multivitamin 1 tab PO DAILY 05/06/24 12/03/24 Unknown History valacyclovir 1 gram tablet 1,000 mg PO DAILY PRN outbreaks 05/06/24 12/03/24 Unknown History glucosamine 750 el-cwwccgomfjt-pyq 2 tab PO DAILY 12/03/24 12/03/24 Unknown History no1 644 mg-C 30 mg-aldo 1 mg tablet (Osteo Bi-Flex Triple Strength) saw palmetto 450 mg capsule 450 mg PO DAILY 12/03/24 12/03/24 Unknown History Exam Height,Weight and Vital Signs: Height 6 ft 1 in Weight 97 kg Last Vital Signs Temp 98.0 F 12/07/24 13:28 Pulse 91 12/07/24 13:28 Resp 18 12/07/24 13:28 BP 142/92 H 12/07/24 13:28 Pulse Ox 98 12/07/24 13:28 O2 Del Method Room Air 12/07/24 13:28 Airway Mallampati Class: III (cap lateral right top) TM Dist: >3cm Neck ROM: Full Heart: rrr Lungs: cta Assessment and Plan Assessment Anesthesia Assessment: Anesthesia Plan Discussed Final Anesthetic Review Family History of Problems with Anesthesia: No History of Problems with Anesthesia: No NPO: Yes ASA Class: III Final Preanesthetic Review: No Changes in Pt Med Stat, Meds/Allgs Chart Reviewed and Consent Obtained/Reviewed Patient Risk: Low Procedure Risk: Low Anesthetic Plan Anesthetic Plan: MAC: Disposition: Standard PACU
[2024-12-07 15:20] VITALS: BP 130/84; PULSE 83; RESP 16; TEMP 36.3; O2SAT 96
--- NOTE | 2024-12-07 15:24 | P.BOP_ITS ---
Brief Operative Note Date of Service: 12/07/24 Pre-op diagnosis: Screening Post-op diagnosis: other (Diverticulosis) Procedure: Colonoscopy to the cecum and TI Surgeon: Juan Daniel Avila MD Anesthesia: MAC Was an Computer Information Science Professor used for this Procedure?: No Estimated blood loss (mL): 0 Pathology: none sent Condition: stable Disposition: PACU
[2024-12-07 15:33] VITALS: BP 135/84; PULSE 87; RESP 16; TEMP 36.1; O2SAT 96
--- NOTE | 2024-12-07 23:12 | OP_ITS ---
DATE OF SERVICE: 12/07/2024 SURGEON: Juan Daniel Avila MD INDICATIONS: The patient presents for evaluation of personal history of tubular adenoma of the colon and colorectal cancer screening. Full consent obtained from him for this, including risks of bleeding and perforation. PREOPERATIVE DIAGNOSIS: POSTOPERATIVE DIAGNOSIS: PROCEDURE PERFORMED: Colonoscopy to cecum and terminal ileum. ESTIMATED BLOOD LOSS: COMPLICATIONS: ANESTHESIA: Monitored anesthesia care. ASSISTANTS: SPECIMENS: PREOPERATIVE DIAGNOSES: Personal history of tubular adenoma of the colon and colorectal cancer screening. POSTOPERATIVE DIAGNOSES: Personal history of tubular adenoma of the colon and colorectal cancer screening, diverticulosis, and internal hemorrhoids. DESCRIPTION OF PROCEDURE: The patient was placed in left lateral decubitus position. The digital rectal exam revealed no abnormalities. The Olympus video pediatric colonoscope was entered into the rectum and advanced easily to the cecum. Once in the cecum, I did identify normal-appearing cecal pouch with appendiceal orifice and normal-appearing ileocecal valve. The terminal ileum was cannulated and appeared normal. Scope withdrawn back in the colon. The entire cecum and ileocecal valve appeared normal. The scope was slowly withdrawn, assessing all mucosal surfaces carefully. Preparation was excellent. I did not visualize any sign of polyps, colitis, nor angiodysplasia. There was a mild amount of sigmoid diverticulosis. In the rectum, scope was retroflexed, visualizing internal hemorrhoids, but no other pathology. The rectal mucosa appeared normal. The scope was straightened and withdrawn from the patient. He tolerated the procedure well and was returned to the recovery area in stable condition. IMPRESSION: 1. Diverticulosis. 2. Internal hemorrhoids. PLAN: I would recommend a repeat colonoscopy in 5 years for further screening. He will otherwise see me on a p.r.n. basis. MD ANDIE Napier/ALEXANDRE / [phone]
== END 2024-12-07 15:50 | disposition home or self-care (01) ==
PROVIDERS: PCP Internal Medicine; Visit Provider Internal Medicine
PROC: 0DJD8ZZ Inspection of Lower Intestinal Tract, Via Natural or Artificial Opening Endoscopic (ICD-10-PCS; CPT 45378; principal; 2024-12-07 14:40)
DX: Z12.11 Encounter for screening for malignant neoplasm of colon (principal); K57.30 Diverticulosis of large intestine without perforation or abscess without bleeding; K64.8 Other hemorrhoids; Z86.0100 Personal history of colon polyps, unspecified; I12.9 Hypertensive chronic kidney disease with stage 1 through stage 4 chronic kidney disease, or unspecified chronic kidney disease; N18.31 Chronic kidney disease, stage 3a; E78.5 Hyperlipidemia, unspecified; K21.9 Gastro-esophageal reflux disease without esophagitis; J45.909 Unspecified asthma, uncomplicated; Z79.899 Other long term (current) drug therapy
CPT/HCPCS: G0105; J2704

== ENCOUNTER 2025-01-12 06:58 | Outpatient (REF) | payer MEDICARE, SELFPAY ==
[2025-01-12 08:12] LABS: Anion Gap 15 (12-20); Blood Urea Nitrogen 23 mg/dL (9-16); Carbon Dioxide 24 mmol/L (22-29); Chloride 100 mmol/L (96-108); Estimated Glomerular Filt Rate 53; Potassium 4.6 mmol/L (3.3-5.1); Sodium 134 mmol/L (135-145)
== END 2025-01-12 06:59 | disposition home or self-care (01) ==
LOC: HO.LAB 06:58
PROVIDERS: PCP Internal Medicine; Visit Provider Internal Medicine Nephrology
DX: I10 Essential (primary) hypertension (principal)
CPT/HCPCS: 36415; 80051; 82565; 84520

== ENCOUNTER 2025-01-22 09:11 | Outpatient (AMB) | payer MEDICARE, SELFPAY ==
--- OUTSIDE RECORDS SUMMARY | 2025-01-22 09:24 | XMS_ITS | Patient Health Record ---
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 Panel Fa st Reviewed date:05/14/2024 12:33:14 PM Interpretation: Performing Lab:[facility], [address] [place] [phone] Notes/Report: Sodium 139 135-145 mmol/L Potassium 4.1 3.3-5.1 mmol/L Chloride 104 96-108 mmol/L Carbon Dioxide 26 22-29 mmol/L Anion Gap 13 12-20 Blood Urea Nitrogen 18 9-16 mg/dL Creatinine 1.37 0.5-1.4 mg/dL Estimated Glomerular Filt Rate 52 NOTE: For -[place] individuals, multiply the result by 1.210. Chronic [...] Panel Reviewed date:05/14/2024 12:15:33 PM Interpretation: Performing Lab:[facility], [address] [place] [phone] Notes/Report: Triglycerides 85 <150 mg/dL Desirable Triglyceride: [...] (Free>4and<10) Reviewed date:05/14/2024 12:33:27 PM Interpretation: Performing Lab:[facility], [address] [place] [phone] Notes/Report: PSA,Total (Free>4and<10) 13.14 0.00-4.00 ng/mL A [...] Random Reviewed date:05/14/2024 12:32:37 PM Interpretation: Performing Lab:[facility], [address] [place] [phone] Notes/Report: Creatinine Urine 53.59 Microalbumin Urine < 5.0 Microalbum/Creatinine Ratio Ur TNP <30 ug/mg cr Unable to calculate albumin/creatinine ratio due to low microalbumin or creatinine result. Hemoglobin A1c Reviewed date:05/14/2024 12:20:56 PM Interpretation: Performing Lab:[address] [phone] Notes/Report: Hemoglobin A1c % 6.0 <6.0 % [...] average glucose, using the formula of the K9U-Phphmll Average Glucose study (ADAG), Diabetes Care, Vol.31,#8, Mar. 2007 UA ClnCatch+Micro w/rflx Cul t Reviewed date:05/14/2024 05:02:46 PM Interpretation: Performing Lab:[address] [phone] Notes/Report: Urine, Clean Catch Color Urine Yellow Appearance Urine Clear PH 5.5 5.0-9.0 Glucose Urine UA Negative Negative mg/dL Urine Blood Negative Negative Specific [place] - Urine 1.010 1.005-1.025 Urine Protein Negative Neg-Trace mg/dL Urine Ketones Negative Negative mg/dL Nitrite Urine Negative Negative Leukocyte Esterase Urine Negative Negative RBC Urine 0-2 0-2 /HPF WBC Urine 0-5 0-5 /HPF Squamous Epithelial Cell Urine 0-2 0-2 /HPF Bacteria Urine None Seen None Seen Hyaline Casts Urine 0-2 0-2 /LPF Liver Panel Reviewed date:11/16/2024 12:55:07 PM Interpretation: Performing Lab:[facility], [address] [place] [phone] Notes/Report: Bilirubin Total 0.6 0.0-1.0 mg/dL Bilirubin Direct 0.2 0.0-0.5 mg/dL Aspartate Amino Transferase 31 5-37 U/L Alanine Aminotransferase 67 0-40 U/L Total Protein 7.8 6.5-8.0 g/dL Albumin Level 4.4 3.5-5.0 g/dL Alkaline Phosphatase 134 39-117 U/L Glucose Fasting Reviewed date:11/14/2024 06:17:01 PM Interpretation: Performing Lab:[facility], [address] [place] [phone] Notes/Report: Glucose Fasting 131 60-99 mg/dL A fasting glucose of 126 mg/dl or greater on more than one occasion is considered diagnostic of diabetes. Lipid Panel with Reflex Reviewed date:11/16/2024 12:54:57 PM Interpretation: Performing Lab:[facility], [address] [place] [phone] Notes/Report: Triglycerides 179 <150 mg/dL Desirable Triglyceride: [...] A1c Reviewed date:11/14/2024 06:16:54 PM Interpretation: Performing Lab:[address] [phone] Notes/Report: Hemoglobin A1c % 6.5 <6.0 % [...] average glucose, using the formula of the [id number]-Jlxqhjp Average Glucose study (ADAG), Diabetes Care, Vol.31,#8, 2007 Magnesium Reviewed date:05/22/2024 07:28:07 AM Interpretation: Performing Lab:[facility], [address] [place] [phone] Notes/Report: Magnesium 1.5 1.6-2.6 mg/dL Magnesium Reviewed date:06/22/2024 12:57:26 PM Interpretation: Performing Lab:[facility], [address] [place] [phone] Notes/Report: Magnesium 1.9 1.6-2.6 mg/dL Electrolytes Reviewed date:05/06/2024 04:42:14 PM Interpretation: Performing Lab:[facility], [address] [place] [phone] Notes/Report: Sodium 139 135-145 mmol/L Potassium 4.4 3.3-5.1 mmol/L Chloride 106 96-108 mmol/L Carbon Dioxide 25 22-29 mmol/L Anion Gap 12 12-20 Blood Urea Nitrogen Reviewed date:05/06/2024 04:42:24 PM Interpretation: Performing Lab:[facility], [address] [place] [phone] Notes/Report: Blood Urea Nitrogen 25 9-16 mg/dL Creatinine Reviewed date:05/06/2024 04:42:39 PM Interpretation: Performing Lab:[facility], [address] [place] [phone] Notes/Report: Creatinine 1.51 0.5-1.4 mg/dL Estimated Glomerular Filt Rate 46 NOTE: For -[place] individuals, multiply the result by 1.210. Chronic Kidney Disease: Estimated GFR < 60 mL/min/1.73m2 Severe Kidney Disease: Estimated GFR < 15 mL/min/1.73m2 Calcium Reviewed date:05/06/2024 04:42:02 PM Interpretation: Performing Lab:[facility], [address] [place] [phone] Notes/Report: Calcium 9.5 8.4-10.2 mg/dL Electrolytes Reviewed date:06/15/2024 01:01:08 PM Interpretation: Performing Lab:[facility], [address] [place] [phone] Notes/Report: Sodium 133 135-145 mmol/L Potassium 5.0 3.3-5.1 mmol/L Chloride 100 96-108 mmol/L Carbon Dioxide 26 22-29 mmol/L Anion Gap 12 12-20 Blood Urea Nitrogen Reviewed date:07/21/2024 02:00:20 PM Interpretation:High Performing Lab:[facility], [address] [place] [phone] Notes/Report: Blood Urea Nitrogen 32 9-16 mg/dL Creatinine Reviewed date:06/15/2024 12:58:50 PM Interpretation: Performing Lab:[facility], [address] [place] [phone] Notes/Report: Creatinine 1.57 0.5-1.4 mg/dL Estimated Glomerular Filt Rate 44 NOTE: For -[place] individuals, multiply the result by 1.210. Chronic Kidney Disease: Estimated GFR < 60 mL/min/1.73m2 Severe Kidney Disease: Estimated GFR < 15 mL/min/1.73m2 Protein Creatinine Ratio, Ur Reviewed date:06/15/2024 01:01:53 PM Interpretation: Performing Lab:[facility], [address] [place] [phone] Notes/Report: Creatinine Urine 51.89 Total Protein Urine Random < 7 <12 mg/dL Protein/Creatinine Ratio, Ur TNP <0.2 Unable to calculate urine protein creatinine ratio due to low creatinine or protein result. Electrolytes Reviewed date:07/29/2024 07:16:34 PM Interpretation: Performing Lab:[facility], [address] [place] [phone] Notes/Report: Sodium 134 135-145 mmol/L Potassium 5.3 3.3-5.1 mmol/L Chloride 101 96-108 mmol/L Carbon Dioxide 25 22-29 mmol/L Anion Gap 13 12-20 Blood Urea Nitrogen Reviewed date:07/29/2024 07:16:10 PM Interpretation: Performing Lab:[facility], [address] [place] [phone] Notes/Report: Blood Urea Nitrogen 32 9-16 mg/dL Creatinine Reviewed date:07/29/2024 07:16:00 PM Interpretation: Performing Lab:[facility], [address] [place] [phone] Notes/Report: Creatinine 1.88 0.5-1.4 mg/dL Estimated Glomerular Filt Rate 36 Chronic Kidney Disease: Estimated GFR < 60 mL/min/1.73m2 Severe Kidney Disease: Estimated GFR < 15 mL/min/1.73m2 Electrolytes Reviewed date:08/13/2024 12:21:46 PM Interpretation: Performing Lab:[facility], [address] [place] [phone] Notes/Report: Sodium 135 135-145 mmol/L Potassium 4.7 3.3-5.1 mmol/L Chloride 101 96-108 mmol/L Carbon Dioxide 25 22-29 mmol/L Anion Gap 14 12-20 Blood Urea Nitrogen Reviewed date:08/13/2024 12:21:11 PM Interpretation: Performing Lab:[facility], [address] [place] [phone] Notes/Report: Blood Urea Nitrogen 27 9-16 mg/dL Creatinine Reviewed date:08/13/2024 12:21:23 PM Interpretation: Performing Lab:[facility], [address] [place] [phone] Notes/Report: Creatinine 1.62 0.5-1.4 mg/dL Estimated Glomerular Filt Rate 43 Chronic Kidney Disease: Estimated GFR < 60 mL/min/1.73m2 Severe Kidney Disease: Estimated GFR < 15 mL/min/1.73m2 Electrolytes Reviewed date:09/22/2024 02:30:55 PM Interpretation: Performing Lab:[facility], [address] [place] [phone] Notes/Report: Sodium 136 135-145 mmol/L Potassium 4.9 3.3-5.1 mmol/L Chloride 102 96-108 mmol/L Carbon Dioxide 25 22-29 mmol/L Anion Gap 14 12-20 Blood Urea Nitrogen Reviewed date:09/22/2024 02:30:45 PM Interpretation: Performing Lab:[facility], [address] [place] [phone] Notes/Report: Blood Urea Nitrogen 23 9-16 mg/dL Creatinine Reviewed date:09/22/2024 02:30:37 PM Interpretation: Performing Lab:[facility], [address] [place] [phone] Notes/Report: Creatinine 1.43 0.5-1.4 mg/dL Estimated Glomerular Filt Rate 49 Chronic Kidney Disease: Estimated GFR < 60 mL/min/1.73m2 Severe Kidney Disease: Estimated GFR < 15 mL/min/1.73m2 Electrolytes Reviewed date:10/29/2024 12:16:19 PM Interpretation: Performing Lab:[facility], [address] [place] [phone] Notes/Report: Sodium 135 135-145 mmol/L Potassium 5.0 3.3-5.1 mmol/L Chloride 102 96-108 mmol/L Carbon Dioxide 23 22-29 mmol/L Anion Gap 15 12-20 Blood Urea Nitrogen Reviewed date:10/29/2024 12:13:46 PM Interpretation: Performing Lab:[facility], [address] [place] [phone] Notes/Report: Blood Urea Nitrogen 24 9-16 mg/dL Creatinine Reviewed date:10/29/2024 12:13:35 PM Interpretation: Performing Lab:[facility], [address] [place] [phone] Notes/Report: Creatinine 1.48 0.5-1.4 mg/dL Estimated Glomerular Filt Rate 47 Chronic Kidney Disease: Estimated GFR < 60 mL/min/1.73m2 Severe Kidney Disease: Estimated GFR < 15 mL/min/1.73m2 Hold Gold Reviewed date:11/13/2024 12:29:30 PM Interpretation: Performing Lab:[facility], [address] [place] [phone] Notes/Report: Hold Gold See Note Specimen held untested for 24 hours; Call to request Chemistry testing. Electrolytes Reviewed date:01/12/2025 12:33:00 PM Interpretation: Performing Lab:[facility], [address] [place] [phone] Notes/Report: Sodium 134 135-145 mmol/L Potassium 4.6 3.3-5.1 mmol/L Chloride 100 96-108 mmol/L Carbon Dioxide 24 22-29 mmol/L Anion Gap 15 12-20 Blood Urea Nitrogen Reviewed date:01/12/2025 12:33:08 PM Interpretation: Performing Lab:[facility], [address] [place] [phone] Notes/Report: Blood Urea Nitrogen 23 9-16 mg/dL Creatinine Reviewed date:01/12/2025 12:32:50 PM Interpretation: Performing Lab:[facility], [address] [place] [phone] Notes/Report: Creatinine 1.34 0.5-1.4 mg/dL Estimated Glomerular Filt Rate 53 Chronic Kidney Disease: Estimated GFR < 60 mL/min/1.73m2 Severe Kidney Disease: Estimated GFR < 15 mL/min/1.73m2 Reason For Referral Reason elevated BUN and cre atine Diagnosis 1 Elevated BUN (R79.9) Referral Organization Venancio Betancourt MD Referring Provider First Name Venancio Referring Provider Last Name [place] Referring Provider Speciality Internal M edicine Referred Provider LILLIAM ANDREWS Referred Provider Specialty Nephrology General Notes Collette Campbell 02:10:30 PM EST > patient is aware of appt Referral Priority Routine Referral Appointment Date 07/29/2024 Medications Medication SIG (Take, Route, Frequency, Duration) Notes Start Date End Date Status Omeprazole 20 MG TAKE 1 CAPSULE ONCE DAILY 30 MINUTES BEFORE MORNING MEAL for 90 Active Atorvastatin Calcium 40 MG TAKE 1 TABLET ONCE DAILY for 90 Active Magnesium Oxide -Mg Supplement 400 (240 Mg) MG TAKE 1 TABLET BY MOUTH TWICE A DAY WITH FOOD FOR 90 DAYS for 90 Active Symbicort 160-4.5 MCG/ACT 2 puffs Inhala tion Twice a day for 90 days Not-Taking EpiPen 2-Epifanio 0.3 MG/0.3ML as directed In jection once for 1 dose 04/12/2017 Active Montelukast Sodium 10 MG TAKE 1 TABLET O NCE DAILY for 90 Active Spironolactone 25 MG 1 tablet Orally Active ProAir HFA 108 (90 Base) MCG/ACT INHALE 2 PUFFS ORALLY FOUR TIMES DAILY NEEDED ( EVERY FOUR HOURS ) Inhalation every 6 hrs for 90 Not-Taking amLODIPine Besylate 10 MG 1 tab Orally O nce a day Active Fluticasone Propionate 50 MCG/ACT 1 spray in each nostril Nasally Once a day for 30 day(s) 11/22/2022 Not-Taking Spironolactone 50 MG 1tablet Orally Once a day Active valACYclovir HCl 1 GM TAKE 2 TABLETS PARAM RY 12 HOURS FOR 3 DAYS. for 90 Not-Taking Immunizations Vaccine Route Administration Date Status Comme [...] Unknown 10/27/2018 Refused Tetanus Unknown 08/13/2017 Pending Social History Tobacco Use: Social History Observation [...] Never (0 point) Points 3 Interpretation Negative Problems Problem Type SNOMED Code ICD Code Onset Dates Problem Status W/U Status Risk Notes Problem Type II diabetes mellitus without complication (730219558) Type 2 diabetes mellitus without complications (E11.9) Active confirmed Problem 29048764 Hypokalemia (E87.6) Active confirmed Problem 52085869 Anxiety (F41.9) Active confirmed Problem Disorder of parathyroid gland (61348496) Disorder of parathyroid gland, unspecified (E21.5) Active confirmed Problem 569723842 Hypomagnesemia (E83.42) Active confirmed Problem 2170783 Hypocalcemia (E83.51) Active confirmed Problem 72723669 Lumbar disc dise ase (M51.9) Active confirmed Problem 73239340 Essential hypert ension (I10) Active confirmed Problem 454603853 Mild intermitten t asthma without complication (J45.20) Active confirmed Problem 1262844 Prediabetes (R73.09) Active confirmed Problem 885767731 Erectile dysfunc tion, unspecified erectile dysfunction type (N52.9) Active confirmed Problem 285258956 Environmental allergies (Z91.09) Active confirmed Problem 891522339247212 Carpal tunnel sy ndrome of left wrist (G56.02) Active confirmed Problem 302652266 Anxiety disorder , unspecified type (F41.9) Active confirmed Problem 591154891 History of cold sores (Z86.19) Active confirmed Problem 500041624 Pure hypercholesterolemia (E78.00) Active confirmed Problem 351411679 Elevated PSA (R97.20) Active confirme d Problem Body mass index 30+ - obesity (534874199) BMI 30.0-30.9,adult (Z68.30) Active confirmed Problem Hypocalcemia (7594743) Low calcium levels (E83.51) Active confirmed Problem Abnormal level of blood mineral (332136578) Low blood magnesium (R79.0) Active confirmed Problem 636247527 Bee sting allerg y (Z91.030) Active confirmed Vital Signs Blood pressure diastolic 76 mm Hg 11/20/2024 Height 73 in 11/20/2024 Blood pressure systolic 152 mm Hg 11/20/2024 Weight 225 lbs 11/20/2024 BMI 29.68 kg/m2 11/20/2024 Encounters Encounter Location Date Provider Diagnosis Venancio Betancourt MD [address] [place] [address] [place] [id number] 05/14/2024 Venancio Betancourt Prediabetes R73.09 ; Encounter for immunization Z23 ; Hypokalemia E87.6 ; Pure hypercholesterolemia E78.00 and Elevated PSA R97.20 Venancio Betancourt MD [address] [id number] 11/13/2024 Venancio Betancourt Prediabetes R73.09 a nd Pure hypercholesterolemia E78.00 Venancio Betancourt MD [address] [facility] [address] [place] [id number] 05/21/2024 Venancio Betancourt Low back pain, unspe cified M54.50 ; Essential hypertension I10 ; Pure hypercholesterolemia E78.00 ; Hypomagnesemia E83.42 ; Prediabetes R73.09 and Elevated PSA R97.20 Venancio Betancourt MD [address] [id number] 06/22/2024 Venancio Betancourt Hypomagnesemia E83.4 2 Venancio Betancourt MD [address] [place] [id number] 11/20/2024 Venancio Betancourt Type 2 diabetes bia itus without complications E11.9 ; Mild intermittent asthma without complication J45.20 and Essential hypertension I10 Venancio Betancourt MD [address] [id number] 08/28/2024 Venancio Betancourt MD [address] [place] [id number] 09/03/2024 Venancio Betancourt MD [address] [place] [address] Drive [address] [place] [id number] 09/07/2024 Venancio Betancourt Assessments Encounter Date Diagnosis (ICD Code) Assessment Notes Treatment Notes Treatment Clinical Notes Section Notes 05/14/2024 Prediabetes (ICD-10 - R73.09) 05/14/2024 Encounter for immunization (ICD-10 - Z23) 11/13/2024 Prediabetes (ICD-10 - R73.09) 05/21/2024 Low back pain, unspecified (ICD-10 - M54.50) patent verbalized understanding og medication and directions for use 05/21/2024 Essential hypertensi on (ICD-10 - I10) doing well on meds, will contiue current regiment 06/22/2024 Hypomagnesemia (ICD- 10 - E83.42) 11/20/2024 Type 2 diabetes mellitus without complications (ICD-10 - E11.9) discussed diet , will continue to monitor 11/20/2024 Mild intermittent asthma without complication (ICD-10 - J45.20) to use symbicort 05/14/2024 Hypokalemia (ICD-10 - E87.6) 11/13/2024 Pure hypercholesterolemia (ICD-10 - E78.00) 05/21/2024 Pure hypercholesterolemia (ICD-10 - E78.00) doing well on meds, will continue current regiment 11/20/2024 Essential hypertensi on (ICD-10 - I10) stable, will continue current regiment 05/14/2024 Pure hypercholesterolemia (ICD-10 - E78.00) 05/21/2024 Hypomagnesemia (ICD- 10 - E83.42) 05/14/2024 Elevated PSA (ICD-10 - R97.20) 05/21/2024 Prediabetes (ICD-10 - R73.09) stable, no need for medication at this time 05/21/2024 Elevated PSA (ICD-10 - R97.20) will continue to monitor, followed bu Urology Plan Of Treatment Pending Test Test Name Order Date Electrocardiogram (EKG) 04/24/2018 Electrocardiogram (EKG) 03/30/2016 Electrocardiogram (EKG) 05/08/2019 Electrocardiogram (EKG) 04/12/2017 [facility]11[facility]20 [facility] 018 Next Appt Details Provider Name:Venancio quintana, 02/18/2025 09:00:00 AM, [address] [place] [address] Drive, [address], [place], [place], [phone], Provider Name:Venancio quintana, 05/17/2025 07:00:00 AM, [address] [place] [address], [address], [place], [place], [phone], Provider Name:Venancio quintana, 05/24/2025 03:30:00 PM, [address], [address], [place], [place], [phone], Insurance Providers Payer Name Payer Address Payer Phone Subscriber Number Group Number Insured Name Patient Relationship to Insured Coverage Start Date Coverage End Date [employer] [address] [place] [address] [id number] Floyd Lama Self - patient is the insured [employer] [facility] [address] [place] [address] [id number] Floyd Lama Self - patient is the insured Medical (General) History Medical History History ICD Code colonoscopy 2008 due in 10; colonoscopy done 03/02/[address] Avila - repeat due 02/2024: 12/07/24 Colonoscopy repeat 5y
--- NOTE | 2025-01-22 09:43 | HO.NEPHOV ---
Vital Signs 01/22/25 09:44 Height 6 ft 1 in Weight 224 lb 8 oz BMI 29.6 BP 140/80 H Blood Pressure Location Rt brachial Position Sitting Pulse 84 Pulse Source Pulse Oximeter Pulse Oximetry (%) 98 Oxygen Delivery Method Room Air Intake Visit Reasons: LILY-Conf Liquid Flavor Compounder Required: No Accompanied by: Self / Same As Patient Allergies environmental allergies Allergy (Intermediate, Verified 01/22/25 09:44) hayfever symptoms HPI Comments Details: Jonathan was seen in follow-up of his CKD as well as hypertension. He had Raynaud's disease without any systemic symptoms. His ARB has been on hold . He does not have any orthostatic symptoms. He denies any chest pain, shortness of breath, pedal edema, proximal nocturnal dyspnea or urinary symptoms. There were no new active complaints at the time of this office visit [facility] Medical History Raynaud's disease Anxiety Asthma Hyperlipidemia Chronic renal insufficiency GERD (gastroesophageal reflux disease) Hypertension Surgical History History of esophagogastroduodenoscopy (EGD) H/O colonoscopy H/O rotator cuff surgery Social History Are you a primary pet caretaker to a significant other at home: No Do you presently have visiting nurse or other home services: No Patient Tobacco Use Status: Never used Tobacco Review of Systems Const All systems reviewed & are unremarkable except as noted in HPI and below Physical Exam Vital Signs: Last Vital Signs Pulse 84 01/22/25 09:44 BP 140/80 H 01/22/25 09:44 Pulse Ox 98 01/22/25 09:44 Oxygen Delivery Method Room Air 01/22/25 09:44 BMI result Body Mass Index 29.6 Const General: comfortable and no acute distress Orientation/consciousness: patient oriented x3 HEENT Head: Yes normocephalic Mouth: Normal oral and palatal mucosa present Eyes EOM: EOMs intact bilaterally Neck Neck: Yes supple Resp Auscultation: clear to auscultation bilaterally Cardio Jugular venous distension: no JVD Rate: regular rate GI Palpation (GI): Soft to palpation Auscultation: normal bowel sounds General: Yes no CVA tenderness Back/Spine/Pelvis Back: no CVA tenderness Skin General skin exam: no rashes or lesions noted Neuro General: patient oriented x3 and moves all extremities Extrem General: Yes no pedal edema Results Reviewed Nephrology Results: Sodium 134 mmol/L (135-145) L 01/12/25 Potassium 4.6 mmol/L (3.3-5.1) 01/12/25 Chloride 100 mmol/L (96-108) 01/12/25 Carbon Dioxide 24 mmol/L (22-29) 01/12/25 BUN 23 mg/dL (9-16) H 01/12/25 Creatinine 1.34 mg/dL (0.5-1.4) 01/12/25 Assessment & Plan Assessment & Plan (1) CKD stage 3a, GFR 45-59 ml/min: Code(s): N18.31 - Chronic kidney disease, stage 3a Category: Medical (2) Hypertension: Code(s): I10 - Essential (primary) hypertension Category: Medical Qualifiers: Hypertension type: primary hypertension Qualified Code(s): I10 - Essential (primary) hypertension Plan Jonathan has hypertension long time. He has been having Raynaud's disease without any systemic symptoms. His serum creatinine had gone up likely due to tubular injury from low BP which has improved to baseline . (His BP and serum creatinine is better after holding Irbesartan). Doppler of his renal arteries along with extensive workup done in the past to delineate a secondary etiology for his hypertension had been negative. His BP is at goal at home. He was encouraged to increase his fluid intake.Answered all questions. Follow-up given Orders: Orders Creatinine 6 Months I10 - Essential (primary) hypertension, N18.31 - Chronic kidney disease, stage 3a Blood Urea Nitrogen 6 Months I10 - Essential (primary) hypertension, N18.31 - Chronic kidney disease, stage 3a Electrolytes 6 Months I10 - Essential (primary) hypertension, N18.31 - Chronic kidney disease, stage 3a Coding Level of Care Code Est Pt Level 4 (68119) Diagnoses CKD stage 3a, GFR 45-59 ml/min N18.31 Primary hypertension I10 Hypertension type: primary hypertension
[2025-01-22 09:44] VITALS: BP 140/80; PULSE 84; O2SAT 98; BMI 29.6
== END 2025-01-22 10:03 | disposition home or self-care (01) ==
LOC: HO.HKA 09:11
PROVIDERS: PCP Internal Medicine; Visit Provider Internal Medicine Nephrology
DX: N18.31 Chronic kidney disease, stage 3a (principal); I10 Essential (primary) hypertension
CPT/HCPCS: 99214

== ENCOUNTER → 2025-01-22 09:11 | Outpatient (BNVA) | payer MEDICARE, SELFPAY | PROVIDERS: PCP Internal Medicine; Visit Provider Internal Medicine Nephrology | DX: I12.9 Hypertensive chronic kidney disease with stage 1 through stage 4 chronic kidney disease, or unspecified chronic kidney disease (principal); N18.31 Chronic kidney disease, stage 3a | CPT/HCPCS: 99212 ==

== ENCOUNTER 2025-05-17 07:00 | Outpatient (REF) | payer MEDICARE, SELFPAY ==
--- OUTSIDE RECORDS SUMMARY | 2024-09-07 05:30 | XMS_ITS ---
Author Organization Venancio Betancourt MD Address [address] [place] [phone] Care Team Providers Care Front End Manager Name Role Phone Venancio Betancourt Primary Care Provider [phone] Medications Medication SIG (Take, Route, Frequency, Duration) Notes Start Date End Date Status Magnesium Oxide -Mg Supplement 400 (240 Mg) MG 1 tablet with food Orally twice a day for 90 days Active Encounters Encounter Location Date Provider Diagnosis Venancio Betancourt MD [address] [facility] [address] [place] [phone] 09/07/2024 Venancio Betancourt Plan Of Treatment Medication Medication Name Sig Start Date Stop Date Notes Magnesium Oxide -Mg Suppleme nt 400 (240 Mg) MG 1 tablet with food Orally twice a day for 90 days Next Appt Details Provider Name:Venancio quintana, 05/24/2025 09:30:00 AM, [address] [facility] [address], Suite [facility], [place], [place], [phone], Progress Notes * Floyd WILLIAM SDOB:1955 (68 yo M)Acc No.[id number]:09/07/2024 Patient: Floyd Graves :1955 A ge:68 Y S ex:Male Address:[address] [place] [address], [place] [address] * Refills Refill Magnesium Oxide -Mg Supplement Tablet, 400 (240 Mg) MG, Orally, 180, 1 tablet with food, twice a day, 90 days, Refills=0 * true * Date: Generated for Reilly guerra/Aston/Sumeetsmitting on: 0 05/17/2025 12:46 PM EDT
--- OUTSIDE RECORDS SUMMARY | 2024-11-13 03:00 | XMS_ITS ---
Author Organization Venancio Betancourt MD Address [address] [place], [place] [phone] Care Team Providers Care Case Management Rn Name Role Phone Venancio Betancourt Primary Care Provider [phone] Results Component Value Reference Range Notes Liver Panel Reviewed date:11/16/2024 12:55:07 PM Interpretation: Performing Lab:[facility], [address] [place] [id number] Notes/Report: Bilirubin Total 0.6 0.0-1.0 mg/dL Bilirubin Direct 0.2 0.0-0.5 mg/dL Aspartate Amino Transferase 31 5-37 U/L Alanine Aminotransferase 67 0-40 U/L Total Protein 7.8 6.5-8.0 g/dL Albumin Level 4.4 3.5-5.0 g/dL Alkaline Phosphatase 134 39-117 U/L Glucose Fasting Reviewed date:11/14/2024 06:17:01 PM Interpretation: Performing Lab:[facility], [address] [place] [phone] Notes/Report: Glucose Fasting 131 60-99 mg/dL A fasting glucose of 126 mg/dl or greater on more than one occasion is considered diagnostic of diabetes. Lipid Panel with Reflex Reviewed date:11/16/2024 12:54:57 PM Interpretation: Performing Lab:[address] [phone] Notes/Report: Triglycerides 179 <150 mg/dL Desirable Triglyceride: less than 150 mg/dL Borderline High Triglyceride 150-199 mg/dL High Triglyceride: 200-499 mg/dL Very High Triglyceride: greater than or equal to 5OO mg/dL Cholesterol 178 <200 mg/dL Desirable Cholesterol: less than 200 mg/dL Borderline High Cholesterol: 200-239 mg/dL High Cholesterol: greater than 239 mg/dL LDL Cholesterol Calculated 87 <100 mg/dL Desirable LDL: less than 100 mg/dL Near Optimal/Above Optimal LDL: 110-129 mg/dL Borderline High LDL: 130-159 mg/dL High LDL: 160-189 mg/dL Very High LDL: greater than or equal to 190 mg/dL HDL Cholesterol 56 >40 mg/dL Desirable HDL: greater than 40 mg/dL Note: This HDL assay may give artificially low results in patients with liver disease. Hemoglobin A1c Reviewed date:11/14/2024 06:16:54 PM Interpretation: Performing Lab:[address] [phone] Notes/Report: Hemoglobin A1c % 6.5 <6.0 % Hemoglobin A1C Reference Range Adults: 4.8 - 6.0 % Non diabetic: < 6.0 % Goal: < 7.0 % Additional Action Suggested: > 8.0 % Note: Hemoglobin A1c results are invalid for patients with abnormal amounts of HbF. Blood transfusions may impact the HbA1c concentration in the patient sample. Estimated Average Glucose 140 eAG = Estimated average glucose which is %A1C expressed as average glucose, using the formula of the G5Y-[id number] Average Glucose study (ADAG), Diabetes Care, Vol.31,#8, 2007 REASON FOR VISIT FASTING LIPIDS Encounters Encounter Location Date Provider Diagnosis Venancio Betancourt MD [address] [place] [address] [address] [place], [place] [phone] 11/13/2024 Venancio Betancourt Prediabetes R73.09 a nd Pure hypercholesterolemia E78.00 Assessments Encounter Date Diagnosis (ICD Code) Assessment Notes Treatment Notes Treatment Clinical Notes Section Notes 11/13/2024 Prediabetes (ICD-10 - R73.09) 11/13/2024 Pure hypercholesterolemia (ICD-10 - E78.00) Plan Of Treatment Next Appt Details Provider Name:Venancio Ritter ier, 05/24/2025 09:30:00 AM, [address] [facility], Suite [facility], [place], [place], [phone], Progress Notes * Floyd WILLIAM SDOB:1955 (69 yo M)Acc No.[id number]:11/13/2024 Progress Note Patient: Floyd PRIEST Provider: Shyann Betancourt MD :1955 A ge:69 Y S ex:Male Date:11/13/2024 Address:[address] [place], [place] [id number] Subjective: * Chief Complaints: * 1 . FASTING LIPIDS. * Medical History: Objective: * Vitals: Assessment: * Assessment: 1. P rediabetes - R73.09 (Primary) 2 . P ure hypercholesterolemia - E78.00? Plan: * Treatment: 2. P ure hypercholesterolemia L AB: Liver Panel (Collection Date & Time - 11/13/2024 07:00 AM) L AB: Glucose Fasting (Collection Date & Time - 11/13/2024 07:00 AM) L AB: Lipid Panel with Reflex (Collection Date & Time - 11/13/2024 07:00 AM) L AB: Hemoglobin A1c (Collection Date & Time - 11/13/2024 07:00 AM) * Procedure Codes: 3 6415 VENIPUNCT, ROUTINE* * * The named appointment provid er may or may not be the originator of this progress note, and it is not deemed complete until electronically signed by the appointment provider. Sign off status: Pending * Provider: Shyann Betancourt MD Date: 0 11/13/2024 Generated for Reilly guerra/Aston/eTransmitting on: 0 05/17/2025 12:46 PM EDT
--- OUTSIDE RECORDS SUMMARY | 2024-11-20 05:00 | XMS_ITS ---
Author Organization Venancio Betancourt MD Address [address] [place], [place] [phone] Care Team Providers Care Business Manager Name Role Phone Venancio Betancourt Primary Care Provider Allergies No Known Allergies REASON FOR VISIT 6 MO F/U Medications Medication SIG (Take, Route, Frequency, Duration) Notes Start Date End Date Status Symbicort 160-4.5 MCG/ACT 2 puffs Inhala tion Twice a day for 90 days Not-Taking Spironolactone 25 MG 1 tablet Orally Active amLODIPine Besylate 10 MG 1 tab Orally O nce a day Active Spironolactone 50 MG 1tablet Orally Once a day Active Magnesium Oxide -Mg Supplement 400 (240 Mg) MG 1 tablet with food Orally twice a day for 90 days Active Omeprazole 20 MG TAKE 1 CAPSULE ONCE DAILY 30 MINUTES BEFORE MORNING MEAL for 90 Active ProAir HFA 108 (90 Base) MCG/ACT INHALE 2 PUFFS ORALLY FOUR TIMES DAILY NEEDED ( EVERY FOUR HOURS ) Inhalation every 6 hrs for 90 Not-Taking Fluticasone Propionate 50 MCG/ACT 1 spray in each nostril Nasally Once a day for 30 day(s) 11/22/2022 Not-Taking valACYclovir HCl 1 GM TAKE 2 TABLETS PARAM RY 12 HOURS FOR 3 DAYS. for 90 Not-Taking Montelukast Sodium 10 MG TAKE 1 TABLET O NCE DAILY for 90 Active Atorvastatin Calcium 40 MG TAKE 1 TABLET ONCE DAILY for 90 Active EpiPen 2-Epifanio 0.3 MG/0.3ML as directed In jection once for 1 dose 04/12/2017 Active Problems Problem Type SNOMED Code ICD Code Onset Dates Problem Status W/U Status Risk Notes Problem Type II diabetes mellitus without complication (037503723) Type 2 diabetes mellitus without complications (E11.9) Active confirmed Vital Signs Blood pressure systolic 152 mm Hg 11/21/19 25 Blood pressure diastolic 76 mm Hg 025 Height 73 in 11/20/2024 Weight 225 lbs 11/20/2024 BMI 29.68 kg/m2 11/20/2024 Encounters Encounter Location Date Provider Diagnosis Venancio Betancourt MD [address] [place] [address] [place] [phone] 11/20/2024 Venancio Betancourt Type 2 diabetes mellitus without complications E11.9 ; Mild intermittent asthma without complication J45.20 and Essential hypertension I10 Assessments Encounter Date Diagnosis (ICD Code) Assessment Notes Treatment Notes Treatment Clinical Notes Section Notes 11/20/2024 Type 2 diabetes mellitus without complications (ICD-10 - E11.9) discussed diet , will continue to monitor 11/20/2024 Mild intermittent asthma without complication (ICD-10 - J45.20) to use symbicort 11/20/2024 Essential hypertension (ICD-10 - I10) stable, will continue current regiment Plan Of Treatment Medication Medication Name Sig Start Date Stop Date Notes Spironolactone 25 MG 1 tablet Orally amLODIPine Besylate 10 MG 1 tab Orally Once a day Spironolactone 50 MG 1tablet Orally Once a day Treatment Notes Assessment Notes Type 2 diabetes mellitus wit hout complications discussed diet , will continue to monitor Mild intermittent asthma without complic ation to use symbicort Essential hypertension stable, will cont inue current regiment Next Appt Details Follow Up: 3 Months, Reason: Provider Name:Venancio quintana, 05/24/2025 09:30:00 AM, [address], [address], [place], [place], [phone], Progress Notes * Floyd WILLIAM SDOB:1955 (69 yo M)Acc No.[id number]:11/20/2024 Progress Notes Patient: Floyd PRIEST Provider: Shyann Betancourt MD :1955 A ge:69 Y S ex:Male Date:11/20/2024 Address:[address] [place] [address], [id number] Subjective: * Chief Complaints: * 6 MO F/U * HPI: S ymptom(s): patient os a 69 yp male here for 6 month follow up visit. * ROS: G eneral/Constitutional: Denies C hills. D enies F atigue. D enies F ever. E NT: Denies S ore throat. E ndocrine: Denies D ifficulty sleeping. D enies D izziness.?Denies E xcessive sweating. D enies E xcessive thirst. D enies F requent urination. R espiratory: Denies C ough. D enies S hortness of breath at rest. D enies S hortness of breath with exertion. G astrointestinal: Denies D iarrhea. D enies N ausea. * Medical History: * Surgical History: * Hospitalization/Major Diagno stic Procedure: * Medications: T akingSpironolactone 25 MG Tablet 1 tablet Orally EpiPen 2-Epifanio 0.3 MG/0.3ML Solution Auto-injector as directed Injection once Spironolactone 50 MG Tablet 1tablet Orally Once a day amLODIPine Besylate 10 MG Tablet 1 tab Orally Once a day Montelukast Sodium 10 MG Tablet TAKE 1 TABLET ONCE DAILY Atorvastatin Calcium 40 MG Tablet TAKE 1 TABLET ONCE DAILY Magnesium Oxide -Mg Supplement 400 (240 Mg) MG Tablet 1 tablet with food Orally twice a day Omeprazole 20 MG Capsule Delayed Release TAKE 1 CAPSULE ONCE DAILY 30 MINUTES BEFORE MORNING MEAL Taking Spironolactone 25 MG Tablet 1 tablet Orally Taking EpiPen 2-Epifanio 0.3 MG/0.3ML Solution Auto-injector as directed Injection once Taking Spironolactone 50 MG Tablet 1tablet Orally Once a day Taking amLODIPine Besylate 10 MG Tablet 1 tab Orally Once a day Taking Montelukast Sodium 10 MG Tablet TAKE 1 TABLET ONCE DAILY Taking Atorvastatin Calcium 40 MG Tablet TAKE 1 TABLET ONCE DAILY Taking Magnesium Oxide -Mg Supplement 400 (240 Mg) MG Tablet 1 tablet with food Orally twice a day Taking Omeprazole 20 MG Capsule Delayed Release TAKE 1 CAPSULE ONCE DAILY 30 MINUTES BEFORE MORNING MEAL Not-Taking/PRNFluticasone Propionate 50 MCG/ACT Suspension 1 spray in each nostril Nasally Once a day valACYclovir HCl 1 GM Tablet TAKE 2 TABLETS EVERY 12 HOURS FOR 3 DAYS. ProAir HFA 108 (90 Base) MCG/ACT Aerosol Solution INHALE 2 PUFFS ORALLY FOUR TIMES DAILY NEEDED ( EVERY FOUR HOURS ) Inhalation every 6 hrs Symbicort 160-4.5 MCG/ACT Aerosol 2 puffs Inhalation Twice a day Not-Taking/PRN Fluticasone Propionate 50 MCG/ACT Suspension 1 spray in each nostril Nasally Once a day Not-Taking/PRN valACYclovir HCl 1 GM Tablet TAKE 2 TABLETS EVERY 12 HOURS FOR 3 DAYS. Not-Taking/PRN ProAir HFA 108 (90 Base) MCG/ACT Aerosol Solution INHALE 2 PUFFS ORALLY FOUR TIMES DAILY NEEDED ( EVERY FOUR HOURS ) Inhalation every 6 hrs Not-Taking/PRN Symbicort 160-4.5 MCG/ACT Aerosol 2 puffs Inhalation Twice a day DiscontinuedIrbesartan 300 MG Tablet 1 tablet Orally Once a day Medication List reviewed and reconciled with the patientDiscontinued Irbesartan 300 MG Tablet 1 tablet Orally Once a day Medication List reviewed and reconciled with the patient * Allergies: N .K.D.A.yes[Allergies Verified] Objective: * Vitals: H t: 73, Wt: 225, BMI:29.68, BP:152/76, Repeat BP:120/76, Wt-k.06. * P ast Orders: L ab:Liver Panel (Order Date - 11/13/2024) (Collection Date & Time - 11/13/2024 07:00 AM) Value Reference Range Bilirubin Total 0.6 0.0-1.0 - mg/dL Bilirubin Direct 0.2 0.0-0.5 - mg/dL Aspartate Amino Transferase 31 5-37 - U/L Alanine Aminotransferase 67 H 0-40 - U/L Total Protein 7.8 6.5-8.0 - g/dL Albumin Level 4.4 3.5-5.0 - g/dL Alkaline Phosphatase 134 H 39-117 - U/L L ab:Glucose Fasting (Order Date - 11/13/2024) (Collection Date & Time - 11/13/2024 07:00 AM) Value Reference Range Glucose Fasting 131 H 60-99 - mg/dL L ab:Lipid Panel with Reflex (Order Date - 11/13/2024) (Collection Date & Time - 11/13/2024 07:00 AM) Value Reference Range Triglycerides 179 H <150 - mg/dL Cholesterol 178 <200 - mg/dL LDL Cholesterol Calculated 87 <100 - mg/dL HDL Cholesterol 56 >40 - mg/dL L ab:Hemoglobin A1c (Order Date - 11/13/2024) (Collection Date & Time - 11/13/2024 07:00 AM) Value Reference Range Hemoglobin A1c % 6.5 H <6.0 - % Estimated Average Glucose 140 - mg/dL * Examination: G eneral Examination: GENERAL APPEARANCE: a lert, well hydrated, in no distress.? HEAD: n ormocephalic. SKIN: g ood turgor. HEART: n o murmurs, rubs, gallops, regular rate and rhythm.? LUNGS: n o wheezes, rales, rhonchi, good air movement, clear to auscultation bilaterally. Assessment: * Assessment: 1. T ype 2 diabetes mellitus without complications - E11.9 (Primary) 2 . M ild intermittent asthma without complication - J45.20 3 . E ssential hypertension - I10 Plan: * Treatment: 2. M ild intermittent asthma without complication Notes: to use symbicort 3. E ssential hypertension Continue amLODIPine Besylate Tablet, 10 MG, 1 tab, Orally, Once a day; C ontinue Spironolactone Tablet, 50 MG, 1tablet, Orally, Once a day; C ontinue Spironolactone Tablet, 25 MG, 1 tablet, Orally. Notes: stable, will continue current regiment * Procedure Codes: * Follow Up: 3 Months * * Sign off status: Completed true * Provider: Shyann Betancourt MD Date: 0 11/20/2024 Generated for Reilly guerra/Aston/Sumeetsmitting on: 0 05/17/2025 12:46 PM EDT History and Physical Notes * HPI (History of Present Illness) Category Sub-Category Detail Notes Category Not es Symptom(s) patient os a 69 yp male here for 6 month follow up visit Examination Category Sub-Category Detail Notes Category Not es General Examination GENERAL APPEARANCE: alert, w ell hydrated, in no distress HEAD: normocephalic HEART: no murmurs, rubs, ga llops, regular rate and rhythm LUNGS: no wheezes, rales, r honchi, good air movement, clear to auscultation bilaterally SKIN: good turgor
--- OUTSIDE RECORDS SUMMARY | 2024-12-07 10:40 | XMS_ITS ---
Author Organization [facility] Address [address] [place] [address] Care Team Providers Care Deaf/Hard Of Hearing Specialist Name Role Phone Asia RODRIGUEZ, Venancio Primary Care Provider Juan Daniel Rdz [phone] REASON FOR VISIT screening,hx polyps Encounters Encounter Location Date Provider Diagnosis [facility] [place] [address] [place], [place] [phone] 12/07/2024 Juan Daniel Avila Colon cancer scree [...] Notes * PRETTY WILLIAMDOB: (69 yo M)Acc No.[id number]:12/07/2024 COLON WITH MAC Patient: Bassem BOYDPRETTY SANTOS Provider: Kboi Avila MD :1955 A ge:69 Y S ex:Male Date:12/07/2024 Address:[address], [facility] Pcp:Venancio Betancourt MD Subjective: * Chief Complaints: * 1 . Screening,hx polyps. * Medical History: Objective: * Vitals: Assessment: * Assessment: 1. C olon cancer screening - Z12.11 (Primary) 2 . P ersonal history of colonic polyps - Z86.0100 3 . D iverticulosis of large intestine without perforation or abscess without bleeding - K57.30 4 . O ther hemorrhoids - K64.8 ? Plan: * Treatment: * Procedure Codes: G 0105 COLOREC CANCR SCR; COLNSCPY HI RISK, 0529F INTRVL 3+YRS PTS CLNSCP DOCD, 0528F RCMND FLW-UP 10 YRS DOCD * * The named appointment provid er may or may not be the originator of this progress note, and it is not deemed complete until electronically signed by the appointment provider. Sign off status: Pending * Provider: Kobi Avila MD Date: 0 12/07/2024 Generated for Reilly guerra/Aston/Kierraitting on: 0 05/17/2025 12:45 PM EDT
--- OUTSIDE RECORDS SUMMARY | 2025-02-18 05:00 | XMS_ITS ---
Author Organization Venancio Betancourt MD Address [address] [place], [place] [id number] Care Team Providers Care Community Health Director Name Role Phone Venancio Betancourt Primary Care Provider [phone] Allergies No Known Allergies Results Component Value Reference Range Notes Hemoglobin A1c Reviewed date:02/18/2025 08:56:41 AM Interpretation: Performing Lab: Notes/Report: Hemoglobin A1c 6.8 Glucose, finger stick Reviewed date:02/18/2025 08:53:20 AM Interpretation: Performing Lab: Notes/Report: Value 136 Medications Medication SIG (Take, Route, Frequency, Duration) Notes Start Date End Date Status valACYclovir HCl 1 GM TAKE 2 TABLETS PARAM RY 12 HOURS FOR 3 DAYS. for 90 Not-Taking ProAir HFA 108 (90 Base) MCG/ACT INHALE 2 PUFFS ORALLY FOUR TIMES DAILY NEEDED ( EVERY FOUR HOURS ) Inhalation every 6 hrs for 90 Not-Taking Magnesium Oxide -Mg Supplement 400 (240 Mg) MG TAKE 1 TABLET BY MOUTH TWICE A DAY WITH FOOD FOR 90 DAYS for 90 Active Montelukast Sodium 10 MG TAKE 1 TABLET O NCE DAILY for 90 Active Fluticasone Propionate 50 MCG/ACT 1 spray in each nostril Nasally Once a day for 30 day(s) 11/22/2022 Not-Taking Atorvastatin Calcium 40 MG TAKE 1 TABLET ONCE DAILY for 90 Active Omeprazole 20 MG TAKE 1 CAPSULE ONCE DAILY 30 MINUTES BEFORE MORNING MEAL for 90 Active amLODIPine Besylate 10 MG 1 tab Orally O nce a day Active Spironolactone 50 MG 1tablet Orally Once a day Active Spironolactone 25 MG 1 tablet Orally Active EpiPen 2-Epifanio 0.3 MG/0.3ML as directed In jection once for 1 dose 04/12/2017 Active Symbicort 160-4.5 MCG/ACT 2 puffs Inhala tion Twice a day for 90 days Not-Taking Vital Signs Blood pressure systolic 138 mm Hg 02/19/20 25 Blood pressure diastolic 80 mm Hg 025 Height 73 in 02/18/2025 Weight 220 lbs 02/18/2025 BMI 29.02 kg/m2 02/18/2025 weight is down 5 pounds [facility] 11-20-24 Encounters Encounter Location Date Provider Diagnosis Venancio Betancourt MD [address] [place] [id number] 02/18/2025 Venancio Betancourt Bee sting allergy Z91.030 and Type 2 diabetes mellitus without complications E11.9 Assessments Encounter Date Diagnosis (ICD Code) Assessment Notes Treatment Notes Treatment Clinical Notes Section Notes 02/18/2025 Bee sting allergy (ICD-10 - Z91.030) has never had anaphylaxis just a severe local reaction day after the bee sting 02/18/2025 Type 2 diabetes mellitus without complications (ICD-10 - E11.9) has been losing weight and watching diet have gone over the guidelines for diabetes and discusssion about metformin early on. he wishes to continue on diet and observe Plan Of Treatment Treatment Notes Assessment Notes Bee sting allergy has never had anaphy laxis just a severe local reaction day after the bee sting Type 2 diabetes mellitus wit hout complications has been losing weight and watching diet have gone over the guidelines for diabetes and discusssion about metformin early on. he wishes to continue on diet and observe Next Appt Details Provider Name:Venancio quintana, 05/24/2025 09:30:00 AM, [address], [address], [place], [place], [id number], Progress Notes * Floyd WILLIAM SDOB:1955 (69 yo M)Acc No.[id number]:02/18/2025 Progress Notes Patient: Floyd PRIEST Provider: Shyann Betancourt MD :1955 A ge:69 Y S ex:Male Date:02/18/2025 Address:[address] [place] [address], [id number] Subjective: * Chief Complaints: * * HPI: S ymptom(s): patient is a 69 yo male here for follow up visit/ has been doing well on diet. * ROS: G eneral/Constitutional: Denies C hills. D enies F atigue. D enies F ever. D enies H eadache. E NT: Denies S ore throat. E ndocrine: Denies D ifficulty sleeping. D enies D izziness.?Denies E xcessive sweating. D enies E xcessive thirst. D enies F requent urination. R espiratory: Denies C ough. D enies S hortness of breath at rest. A dmits S hortness of breath with exertion. G astrointestinal: Denies D iarrhea. D enies N ausea. * Medical History: * Surgical History: * Hospitalization/Major Diagno stic Procedure: * Medications: T akingEpiPen 2-Epifanio 0.3 MG/0.3ML Solution Auto-injector as directed Injection once Atorvastatin Calcium 40 MG Tablet TAKE 1 TABLET ONCE DAILY Omeprazole 20 MG Capsule Delayed Release TAKE 1 CAPSULE ONCE DAILY 30 MINUTES BEFORE MORNING MEAL amLODIPine Besylate 10 MG Tablet 1 tab Orally Once a day Spironolactone 50 MG Tablet 1tablet Orally Once a day Spironolactone 25 MG Tablet 1 tablet Orally Magnesium Oxide - Mg Supplement 400 (240 Mg) MG Tablet TAKE 1 TABLET BY MOUTH TWICE A DAY WITH FOOD FOR 90 DAYS Montelukast Sodium 10 MG Tablet TAKE 1 TABLET ONCE DAILY Taking EpiPen 2- Epifanio 0.3 MG/0.3ML Solution Auto-injector as directed Injection once Taking Atorvastatin Calcium 40 MG Tablet TAKE 1 TABLET ONCE DAILY Taking Omeprazole 20 MG Capsule Delayed Release TAKE 1 CAPSULE ONCE DAILY 30 MINUTES BEFORE MORNING MEAL Taking amLODIPine Besylate 10 MG Tablet 1 tab Orally Once a day Taking Spironolactone 50 MG Tablet 1tablet Orally Once a day Taking Spironolactone 25 MG Tablet 1 tablet Orally Taking Magnesium Oxide -Mg Supplement 400 (240 Mg) MG Tablet TAKE 1 TABLET BY MOUTH TWICE A DAY WITH FOOD FOR 90 DAYS Taking Montelukast Sodium 10 MG Tablet TAKE 1 TABLET ONCE DAILY Not-Taking/PRNFluticasone Propionate 50 MCG/ACT Suspension 1 spray in each nostril Nasally Once a day valACYclovir HCl 1 GM Tablet TAKE 2 TABLETS EVERY 12 HOURS FOR 3 DAYS. ProAir HFA 108 (90 Base) MCG/ACT Aerosol Solution INHALE 2 PUFFS ORALLY FOUR TIMES DAILY NEEDED ( EVERY FOUR HOURS ) Inhalation every 6 hrs Symbicort 160-4.5 MCG/ACT Aerosol 2 puffs Inhalation Twice a day Medication List reviewed and reconciled with the patientNot-Taking/PRN Fluticasone Propionate 50 MCG/ACT Suspension 1 spray [...] Aerosol 2 puffs Inhalation Twice a day Medication List reviewed and reconciled with the patient * Allergies: N .K.D.A.yes[Allergies Verified] Objective: * Vitals: H t: 73, Wt: 220, BMI:29.02, BP:138/80, Wt-k.79. weight is down 5 pounds since 11-20-24. * Examination: G eneral Examination: GENERAL APPEARANCE: a lert, well hydrated, in no distress.? HEAD: n ormocephalic. SKIN: g ood turgor. HEART: n o murmurs, rubs, gallops, regular rate and rhythm.? LUNGS: c lear to auscultation bilaterally, good air movement, no wheezes, rales, rhonchi. Assessment: * Assessment: 1. T ype 2 diabetes mellitus without complications - E11.9 (Primary) 2 . B ee sting allergy - Z91.030 Plan: * Treatment: 2. B ee sting allergy Notes: has never had anaphylaxis just a severe local reaction day after the bee sting * Labs: * L ab: Hemoglobin A1c (Collection Date & Time - 02/18/2025) Value Reference Range H emoglobin A1c 6.8 ?Lab: Glucose, finger stick (Collection Date & Time - 02/18/2025)* Value Reference Range V alue 136 * Procedure Codes: 8 2947 ASSAY, GLUCOSE, BLOOD QUANT, Modifiers: QW 32295 GLYCATED HEMOGLOBIN TEST, Modifiers: QW * * Sign off status: Completed true * Provider: Shyann Betancourt MD Date: 0 02/18/2025 Generated for Reilly guerra/Aston/eTransmitting on: 0 05/17/2025 12:47 PM EDT History and Physical Notes * HPI (History of Present Illness) Category Sub-Category Detail Notes Category Not es Symptom(s) patient is a 69 yo male here for follow up visit/ has been doing well on diet Examination Category Sub-Category Detail Notes Category Not es General Examination GENERAL APPEARANCE: alert, w ell hydrated, in no distress HEAD: normocephalic HEART: no murmurs, rubs, ga llops, regular rate and rhythm LUNGS: clear to auscultatio n bilaterally, good air movement, no wheezes, rales, rhonchi SKIN: good turgor
--- OUTSIDE RECORDS SUMMARY | 2025-05-17 03:00 | XMS_ITS ---
Author Organization Venancio Betancourt MD Address [address] [place], [place] [id number] Care Team Providers Care Design Printer Balloon Name Role Phone Venancio Betancourt Primary Care Provider Results Component Value Reference Range Notes Complete Blood Count Auto Di ff (Not yet reviewed by provider) Interpretation: Performing Lab:[facility], [address] [place] [phone] Notes/Report: White Blood Count 7.9 4.8-10.8 X10*3/uL Red Blood Count 4.76 4.60-5.80 X10*6/uL Hemoglobin 15.3 14.0-18.0 g/dl Hematocrit 44.5 42.0-52.0 % Mean Corpuscular Volume 93.5 80.0-98.0 fL Mean Corpuscular Hemoglobin 32.1 27.0-33.0 pg Mean Corpuscular HGB Conc 34.4 31.0-36.0 g/dl Red Cell Distribution Width 12.0 11.0-16.0 % Platelet Count 255 160-400 X10*3/uL Mean Platelet Volume 10.0 9.4-12.4 fL Neutrophils Percent Auto 69.5 45-73 % Imm Gran Pct Auto 0.4 0.0-0.4 % Lymphocytes Percent Auto 18.1 20-40 % Monocytes Percent Auto 9.2 2-11 % Eosinophils Percent Auto 2.3 0-4 % Basophils Percent Auto 0.5 0-2 % NRBC Pct Auto 0.0 0.0-0.2 /100WBC Neutrophils Absolute Auto 5.5 2.0-8.3 x10*3/u L Imm Gran Abs Auto 0.03 0.00-0.03 X10*3/uL Lymphocytes Absolute Auto 1.4 1.2-4.9 X10*3/u L Monocytes Absolute Auto 0.7 0.1-1.2 X10*3/uL Eosinophils Absolute Auto 0.2 0.0-0.4 X10*3/u L Basophils Absolute Auto 0.0 0.0-0.2 X10*3/uL NRBC Abs Auto 0.000 0.0-0.012 X10*3/uL Comprehensive Walker. Panel Fa st (Not yet reviewed by provider) Interpretation: Performing Lab:[facility], [address] [place] [phone] Notes/Report: Sodium 135 135-145 mmol/L Potassium 4.5 3.3-5.1 mmol/L Chloride 103 96-108 mmol/L Carbon Dioxide 25 22-29 mmol/L Anion Gap 12 12-20 Blood Urea Nitrogen 23 9-16 mg/dL Creatinine 1.38 0.5-1.4 mg/dL Estimated Glomerular Filt Rate 51 Chronic Kidney Disease: Estimated GFR < 60 mL/min/1.73m2 Severe Kidney Disease: Estimated GFR < 15 mL/min/1.73m2 Glucose Fasting 143 60-99 mg/dL A fasting glucose of 126 mg/dl or greater on more than one occasion is considered diagnostic of diabetes. Calcium 9.8 8.4-10.2 mg/dL Bilirubin Total 0.8 0.0-1.0 mg/dL Aspartate Amino Transferase 31 5-37 U/L Alanine Aminotransferase 48 0-40 U/L Total Protein 7.1 6.5-8.0 g/dL Albumin Level 4.6 3.5-5.0 g/dL Alkaline Phosphatase 142 39-117 U/L Microalbumin, Random (Not ye t reviewed by provider) Interpretation: Performing Lab:[facility], [address] [place] [phone] Notes/Report: Creatinine Urine 49.11 Microalbumin Urine < 5.0 Microalbum/Creatinine Ratio Ur TNP <30 ug/mg cr Unable to calculate albumin/creatinine ratio due to low microalbumin or creatinine result. UA ClnCatch+Micro w/rflx Cul t (Not yet reviewed by provider) Interpretation: Performing Lab:[facility], [address] [place] [phone] Notes/Report: Urine, Clean Catch Color Urine Yellow Appearance Urine Clear PH 5.5 5.0-9.0 Glucose Urine UA Negative Negative mg/dL Urine Blood Negative Negative Specific Frazer - Urine 1.010 1.005-1.025 Urine Protein Negative Neg-Trace mg/dL Urine Ketones Negative Negative mg/dL Nitrite Urine Negative Negative Leukocyte Esterase Urine Negative Negative RBC Urine 0-2 0-2 /HPF WBC Urine 0-5 0-5 /HPF Squamous Epithelial Cell Urine 0-2 0-2 /HPF Bacteria Urine None Seen None Seen Hyaline Casts Urine 0-2 0-2 /LPF Lipid Panel Reviewed date:05/17/2025 12:32:06 PM Interpretation: Performing Lab:[facility], [address] [place] [phone] Notes/Report: Triglycerides 162 <150 mg/dL Desirable Triglyceride: less than 150 mg/dL Borderline High Triglyceride 150-199 mg/dL High Triglyceride: 200-499 mg/dL Very High Triglyceride: greater than or equal to 5OO mg/dL Cholesterol 168 <200 mg/dL Desirable Cholesterol: less than 200 mg/dL Borderline High Cholesterol: 200-239 mg/dL High Cholesterol: greater than 239 mg/dL LDL Cholesterol Calculated 84 <100 mg/dL Desirable LDL: less than 100 mg/dL Near Optimal/Above Optimal LDL: 110-129 mg/dL Borderline High LDL: 130-159 mg/dL High LDL: 160-189 mg/dL Very High LDL: greater than or equal to 190 mg/dL HDL Cholesterol 52 >40 mg/dL Desirable HDL: greater than 40 mg/dL Note: This HDL assay may give artificially low results in patients with liver disease. PSA,Total (Free>4and<10) Reviewed date:05/17/2025 12:31:57 PM Interpretation: Performing Lab:[address] [phone] Notes/Report: PSA,Total (Free>4and<10) 11.72 0.00-4.00 ng/mL A Free PSA was not [...] Chauhan Alinity i Chemiluminescent Microparticle Immunoassay (CMIA) Hemoglobin A1c Reviewed date:05/17/2025 11:15:57 AM Interpretation: Performing Lab:[address] [phone] Notes/Report: Hemoglobin A1c % 7.0 <6.0 % Hemoglobin A1C Reference Range Adults: 4.8 - 6.0 % Non diabetic: < 6.0 % Goal: < 7.0 % Additional Action Suggested: > 8.0 % Note: Hemoglobin A1c results are invalid for patients with abnormal amounts of HbF. Blood transfusions may impact the HbA1c concentration in the patient sample. Estimated Average Glucose 154 eAG = Estimated average glucose which is %A1C expressed as average glucose, using the formula of the [id number] Average Glucose study (ADAG), Diabetes Care, Vol.31,#8, Mar. 2007 REASON FOR VISIT FASTING LABS Immunizations Vaccine Route Administration Date Status Comme nts Fluarix Quadrivalent - 150 IM Intramuscular 05/17/2025 Adm inistered Encounters Encounter Location Date Provider Diagnosis Veanncio Betancourt MD [address] [place] [address] Drive [address] [place], [place] [phone] 05/17/2025 Venancio Betancourt Essential hypertensi on I10 ; Hypokalemia E87.6 ; Type 2 diabetes mellitus without complications E11.9 ; Pure hypercholesterolemia E78.00 and Encounter for administration of vaccine Z23 Assessments Encounter Date Diagnosis (ICD Code) Assessment Notes Treatment Notes Treatment Clinical Notes Section Notes 05/17/2025 Essential hypertensi on (ICD-10 - I10) 05/17/2025 Hypokalemia (ICD-10 - E87.6) 05/17/2025 Type 2 diabetes bia itus without complications (ICD-10 - E11.9) 05/17/2025 Pure hypercholesterolemia (ICD-10 - E78.00) 05/17/2025 Encounter for administration of vaccine (ICD-10 - Z23) Plan Of Treatment Pending Test Test Name Order Date Complete Blood Count Auto Diff 5 Comprehensive Walker. Panel Fast 5 Microalbumin, Random 05/17/2025 UA ClnCatch+Micro w/rflx Cult 05/17/2025 Next Appt Details Provider Name:Venancio Ritter ier, 05/24/2025 09:30:00 AM, [address] [place] [address], [address], [place], [place], [phone], Progress Notes * NATALIIA Floyd SDOB:1955 (69 yo M)Acc No.[id number]:05/17/2025 Progress Note Patient: Floyd PRIEST Provider: Shyann Betancourt MD :1955 A ge:69 Y S ex:Male Date:05/17/2025 Address:[address] [place], [place] [id number] Subjective: * Chief Complaints: * 1 . FASTING LABS. * Medical History: Objective: * Vitals: Assessment: * Assessment: 1. E ssential hypertension - I10 (Primary) 2 . H ypokalemia - E87.6 ? 3 . T ype 2 diabetes mellitus without complications - E11.9 4 . P ure hypercholesterolemia - E78.00 5 . E ncounter for administration of vaccine - Z23 Plan: * Treatment: 2. H ypokalemia L AB: Complete Blood Count Auto Diff (Collection Date & Time - 05/17/2025 07:00 AM) L AB: Comprehensive Walker. Panel Fast (Collection Date & Time - 05/17/2025 07:00 AM) L AB: Microalbumin, Random (Collection Date & Time - 05/17/2025 07:00 AM) L AB: UA ClnCatch+Micro w/rflx Cult (Collection Date & Time - 05/17/2025 07:00 AM) L AB: Lipid Panel (Collection Date & Time - 05/17/2025 07:00 AM) L AB: PSA,Total (Free>4and<10) (Collection Date & Time - 05/17/2025 07:00 AM) L AB: Hemoglobin A1c (Collection Date & Time - 05/17/2025 07:00 AM) 3. T ype 2 diabetes mellitus without complications L AB: Complete Blood Count Auto Diff (Collection Date & Time - 05/17/2025 07:00 AM) L AB: Comprehensive Walker. Panel Fast (Collection Date & Time - 05/17/2025 07:00 AM) L AB: Microalbumin, Random (Collection Date & Time - 05/17/2025 07:00 AM) L AB: UA ClnCatch+Micro w/rflx Cult (Collection Date & Time - 05/17/2025 07:00 AM) L AB: Lipid Panel (Collection Date & Time - 05/17/2025 07:00 AM) L AB: PSA,Total (Free>4and<10) (Collection Date & Time - 05/17/2025 07:00 AM) L AB: Hemoglobin A1c (Collection Date & Time - 05/17/2025 07:00 AM) 4. P ure hypercholesterolemia L AB: Complete Blood Count Auto Diff (Collection Date & Time - 05/17/2025 07:00 AM) L AB: Comprehensive Walker. Panel Fast (Collection Date & Time - 05/17/2025 07:00 AM) L AB: Microalbumin, Random (Collection Date & Time - 05/17/2025 07:00 AM) L AB: UA ClnCatch+Micro w/rflx Cult (Collection Date & Time - 05/17/2025 07:00 AM) L AB: Lipid Panel (Collection Date & Time - 05/17/2025 07:00 AM) L AB: PSA,Total (Free>4and<10) (Collection Date & Time - 05/17/2025 07:00 AM) L AB: Hemoglobin A1c (Collection Date & Time - 05/17/2025 07:00 AM) * Immunizations: Fluarix Quadrivalent - 150 : 0.5 mL (Dose No:1) (Route: Intramuscular) given by Raquel Olmos , Office Staff on Left Deltoid * Procedure Codes: 3 6415 VENIPUNCT, ROUTINE*, 40378 FLU VACCINE NO PRESERV 3 & >, G0008 ADMN FLU VAC NO FEE SCHED SAME DAY * * The named appointment provid er may or may not be the originator of this progress note, and it is not deemed complete until electronically signed by the appointment provider. Sign off status: Pending * Provider: Shyann Betancourt MD Date: 05/17/2025 Generated for Reilly guerra/Aston/Kierraitting on: 05/17/2025 12:46 PM EDT
[2025-05-17 10:33] LABS: MANUAL DIFF FLAG NO
[2025-05-17 10:57] LABS: Appearance Urine Clear; Glucose Urine UA Negative (Negative); Hematocrit 44.5 % (42.0-52.0); Hemoglobin 15.3 g/dl (14.0-18.0); Imm Gran Abs Auto 0.03 X10*3/uL (0.00-0.03); Imm Gran Pct Auto 0.4 % (0.0-0.4); Lymphocytes Absolute Auto 1.4 X10*3/uL (1.2-4.9); Mean Corpuscular HGB Conc 34.4 g/dl (31.0-36.0); Mean Corpuscular Hemoglobin 32.1 pg (27.0-33.0); Mean Corpuscular Volume 93.5 fL (80.0-98.0); NRBC Abs Auto 0.000 X10*3/uL (0.0-0.012); NRBC Pct Auto 0.0 /100WBC (0.0-0.2); PH 5.5 (5.0-9.0); Platelet Count 255 X10*3/uL (160-400); Red Blood Count 4.76 X10*6/uL (4.60-5.80); Specific Gravity - Urine 1.010 (1.005-1.025); White Blood Count 7.9 X10*3/uL (4.8-10.8)
[2025-05-17 11:11] LABS: Hemoglobin A1C 213.4838 umol/L; Total Hemoglobin (HGBA1C) 4025.0877 umol/L
[2025-05-17 11:18] LABS: Alanine Aminotransferase 48 U/L (0-40); Albumin Level 4.6 g/dL (3.5-5.0); Alkaline Phosphatase 142 U/L (39-117); Anion Gap 12 (12-20); Aspartate Amino Transferase 31 U/L (5-37); Blood Urea Nitrogen 23 mg/dL (9-16); Calcium 9.8 mg/dL (8.4-10.2); Carbon Dioxide 25 mmol/L (22-29); Chloride 103 mmol/L (96-108); Cholesterol 168 mg/dL (<200); Estimated Glomerular Filt Rate 51; HDL Cholesterol 52 mg/dL (>40); Potassium 4.5 mmol/L (3.3-5.1); Sodium 135 mmol/L (135-145); Total Protein 7.1 g/dL (6.5-8.0); Triglycerides 162 mg/dL (<150)
[2025-05-17 11:31] LABS: PSA,Total (Free>4and<10) 11.72 ng/mL (0.00-4.00)
--- OUTSIDE RECORDS SUMMARY | 2025-05-17 12:46 | XMS_ITS | Clinical Summary ---
Author Organization [facility] Address [address] [facility] [address] [place] [address] Phone Care Team Providers Care Pan Pusher Name Role Phone Venancio Betancourt MD Primary [...] Benign essential hypertension 10/05/2020 Hypokalemia 10/05/2020 Immunizations Immunization Administration Dates Next Due Influenza (IM) Preservative [...] Colorectal Cancer Screening: Sigmoidoscopy 2004 Pneumococcal Vaccine: 50+ Years (3 of 3 - PCV20 or PCV21) 10/15/2022 10/27/2018, 10/15/2017 Influenza Vaccine (#1) 2025 2, 05/09/2021, 05/11/2020, Additional history exists Pneumococcal Vaccine: Peds (0 to 5 Years) and At-Risk Patients (6 to 49 Years) Discontinued 10/27/2018, 10/15/2017 Hepatitis B Vaccine Aged Out No longe r eligible based on patient's age to complete this topic Insurance [facility] Care Teams Pan Pusher Relationship Specialty Start Date End Date Venancio Betancourt MD [address] [place] [address] [id number] [place], [place] PCP - General 09/05/20
--- OUTSIDE RECORDS SUMMARY | 2025-05-17 12:46 | XMS_ITS | Clinical Summary ---
Author Organization 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 2 Active atorvastatin (LIPITOR) 40 MG tablet Take 1 tablet by mouth daily. Active budesonide-form oterol (SYMBICORT) 160-4.5 mcg/actuation inhaler 2 puffs. Active irbesartan (AVAPRO) 300 MG tablet 1 tablet. 2 Active montelukast (SINGULAIR) 10 mg tablet Take 1 tablet by mouth daily. 2 Active omeprazole (PRILOSEC) 20 MG capsule TAKE 1 CAPSULE ONCE DAILY 30 MINUTES BEFORE MORNING MEAL Active spironolactone (ALDACTONE) 50 MG tablet Take 50 mg by mouth daily. Take 50 mg along with 25 mg tablet to equal daily total of 75 mg daily. 3 Active valACYclovir (VALTREX) 1000 MG tablet 3 Active naproxen (NAPROSYN) 500 MG tablet Take 1 tablet (500 mg total) by mouth 2 (two) times a day for 3 days. Then twice daily as needed for pain, inflammation 20 tablet 3 Active cyclobenzaprine (FLEXERIL) 10 MG tablet Take 1 tablet (10 mg total) by mouth 3 (three) times a day as needed (muscle). 15 tablet 3 Active Additional Information Patient not taking.Reported on 12/05/2023 spironolactone (ALDACTONE) 25 MG tablet Take 25 mg by mouth daily. Take along with 50 mg tablet to equal daily dose of 75 mg daily. Active Medication-Free Text Take 400 mg by mouth daily. Magnesium Oxide 400 mg tablet Active multivit-minera ls/FA/lycopene (ONE-A-DAY MEN'S 50 PLUS ORAL) Take 1 tablet by mouth daily. Active Medication-Free Text [place]-450 mg tablet- 1 daily Active Medication-Free Text Osteo-Biflex triple strength- 1 tablet daily. Active EPINEPHrine 0.3 mg/0.3 mL auto-injector 4 Active magnesium oxide (MAG-OX) 400 mg (241.3 mg elemental) tablet TAKE 1 TABLET BY MOUTH EVERY DAY WITH FOOD FOR 90 DAYS 4 Active mupirocin (BACTROBAN) 2 % ointment 1 Application. 4 Active Active Problems Problem Noted Date Diagnosed Date Hypomagnesemia 10/23/2023 Assessment & Plan (10/23/2023 12:56 PM EST): The patient was found to have low serum calcium of 7.7 mg/dL which prompted workup including magnesium and this was found to be deficient. The patient does have hypomagnesemia I believe that this is from the use of spironolactone that causes hypomagnesemia. Currently he is on magnesium supplementation but magnesium levels were deficient based on last lab work. It is unclear to me if the dose of magnesium was increased. But he should to have levels repeated and if still deficient either that spironolactone should be stopped or the decrease in dose or the magnesium supplementation should be increased. Hypocalcemia 10/23/2023 Assessment & Plan (10/23/2023 12:57 PM EST): He was found to have hypocalcemia due to magnesium deficiency. As long as the magnesium is low the serum calcium would not normalize. Alkaline phosphatase was also elevated and I suspect it could have been due to low calcium levels. As far as intact PTH is in the reference range. PTH related peptide was a point below the reference range but I am not concerned with this. I will be more concerned with elevated PTH related peptide which could be a sign of malignancy. At this point I would suggest just normalizing the magnesium to prevent hypocalcemia. 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 Encounters Date Type Department Care Team Description 04/20/2025 Telephone [facility] Medicine [address] [place] [address] Pcp, Unknown Appointment (CARLOS Clemens ) from Last 3 Months Family History Medical History Relation Comments Hypertension Father Prostate cancer Father Hypertension Mother Relation Status Comments Father Mother Social History Tobacco Use Types Packs/Day Years Used Date Smoking Tobacco: Never Smokeless Tobacco: Never Tobacco Cessation:Counseling Given: Not Answered Alcohol Use Standard Drinks/Week Comments Yes 0 (1 standard drink = 0.6 oz pur e alcohol) On Ocassion Education Answer Date Recorded Are you interested in more education? Not on william e 04/04/2023 Are you concerned about learning? Not on file 04/04/2023 No 04/04/2023 No 04/04/2023 Digital Access Answer Date Recorded No 04/04/2023 No 04/04/2023 Reliable internet access at home? Not on file 04/04/2023 Device with a working camera? Not on file Sex and Gender Information Value Date Recorded Sex Assigned at Not on file Legal Sex Male 3:44 PM EDT Gender Identity Not on file Sexual Orientation Not on file Last Filed Vital Signs Vital Sign Reading Time Taken Comments Blood Pressure 123/74 12/05/2023 10:55 AM EDT Pulse 90 12/05/2023 10:55 AM EDT Temperature 37.1 C (98.7 F) 12/05/2023 10:55 AM EDT Respiratory Rate 22 12/05/2023 10:55 AM EDT Oxygen Saturation 97% 12/05/2023 10:55 AM EDT Inhaled Oxygen Concentration - - Weight 103.4 kg (228 lb) 12/05/2023 10:55 AM EDT per pt Height 180.3 cm (5' 11 ) 10/23/2023 12:30 PM EST Body Mass Index 31.8 10/23/2023 12:30 PM EST Plan of Treatment Upcoming Encounters Date Type Department Care Team (Late st Contact Info) Description 06/15/2025 10:00 AM EDT Office Visit [facility] [address] [place] [address] Radha Clemens, ASHISH [address] [place] [address] Health Maintenance Due Date Last Done Comments CREATININE LEVEL 1955 LIPID PANEL 1955 POTASSIUM LEVEL 1955 DEPRESSION SCREENING 1967 HEPATITIS C SCREENING 1973 SCREENING FOR DIABETES 1990 COLOGUARD 2000 COLONOSCOPY 2000 COLORECTAL CANCER SCREENING 2000 FIT TEST 2000 FOBT 2000 SIGMOIDOSCOPY 2000 VIRTUAL COLONOSCOPY 2000 INFLUENZA VACCINE (#1) 2025 , 04/27/2022, 05/09/2021, Additional history exists COVID-19 VACCINE ( season) 2025 08/17/2021, 11/29/2020, 11/08/2020 Adult Td,Tdap Booster 08/13/2027 08/13/2017 , 07/23/2017, 10/16/2012 RSV VACCINE (1 - 1-dose 75+ series) 2030 ZOSTER VACCINES Completed 09/09/2018, 05/01/2018 PNEUMOCOCCAL VACCINES (50+ years) Completed 11/22/2022, 10/27/2018, 10/15/2017 SMOKING STATUS SCREENING (Once After 26 Yrs) Completed 12/05/2023 HEPATITIS A VACCINES Aged Out No long er eligible based on patient's age to complete this topic HIB VACCINES Aged Out No longer eligi ble based on patient's age to complete this topic MENINGOCOCCAL VACCINES (ACWY) Aged Out No longer eligible based on patient's age to complete this topic MENINGOCOCCAL VACCINES (B) Aged Out N o longer eligible based on patient's age to complete this topic Medical Devices Not on file Insurance MEDICARE PART A & B [employer] SUPPLEMENT MEDICARE PART A & B [employer] MEDICARE PART A & B [employer] SU[employer]MENT MEDICARE PART A & B [employer] SUPP[employer]MENT MEDICARE PART A & B [facility] MEDEX SUPPLEMENT MEDICARE PART A & B [employer] MEDEX SUPPLEMENT Care Teams Speech And Drama Teacher Relationship Specialty Start Date End Date Venancio Betancourt MD [address] [place] [address] [place] [id number] PCP - General Internal Medicine 04/04/23 Rafael Crook MD [address] [place] [address] [place] [id number] Nephrology 09/23/23 Additional Source Comments The information contained in this document represents components of the legal health record. It is not the complete legal health record.[facility]
--- OUTSIDE RECORDS SUMMARY | 2025-05-17 12:46 | XMS_ITS | Patient Health Record ---
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 Name Role Phone Venancio Betancourt Primary Care Provider [phone] Allergies No Known Allergies Results Component Value Reference Range Notes Hemoglobin A1c Reviewed date:02/18/2025 08:56:41 AM Interpretation: Performing Lab: Notes/Report: Hemoglobin A1c 6.8 Liver Panel Reviewed date:11/16/2024 12:55:07 PM Interpretation: Performing Lab:[facility], [address] [place] [phone] Notes/Report: Bilirubin Total 0.6 0.0-1.0 mg/dL Bilirubin Direct 0.2 0.0-0.5 mg/dL Aspartate Amino Transferase 31 5-37 U/L Alanine Aminotransferase 67 0-40 U/L Total Protein 7.8 6.5-8.0 g/dL Albumin Level 4.4 3.5-5.0 g/dL Alkaline Phosphatase 134 39-117 U/L Glucose Fasting Reviewed date:11/14/2024 06:17:01 PM Interpretation: Performing Lab:[facility], [address] [place] [phone] Notes/Report: Glucose Fasting 131 60-99 mg/dL A fasting glucose of 126 mg/dl or greater on more than one occasion is considered diagnostic of diabetes. Lipid Panel with Reflex Reviewed date:11/16/2024 12:54:57 PM Interpretation: Performing Lab:[facility], [address] [place] [phone] Notes/Report: Triglycerides 179 <150 mg/dL Desirable Triglyceride: [...] A1c Reviewed date:11/14/2024 06:16:54 PM Interpretation: Performing Lab:[facility], [address] [place] [phone] Notes/Report: Hemoglobin A1c % 6.5 <6.0 % [...] average glucose, using the formula of the Q6W-Iykrioo Average Glucose study (ADAG), Diabetes Care, Vol.31,#8, 2007 Complete Blood Count Auto Di ff (Not yet reviewed by provider) Interpretation: Performing Lab:[facility], [address] [place] [phone] Notes/Report: White Blood Count 7.9 4.8-10.8 X10*3/uL [...] NRBC Abs Auto 0.000 0.0-0.012 X10*3/uL Comprehensive [place]. Panel Fa st (Not yet reviewed by provider) Interpretation: Performing Lab:[facility], [address] [place] [address] Notes/Report: Sodium 135 135-145 mmol/L Potassium 4.5 [...] ye t reviewed by provider) Interpretation: Performing Lab:[address] [phone] Notes/Report: Creatinine Urine 49.11 Microalbumin Urine < 5.0 Microalbum/Creatinine Ratio Ur TNP <30 ug/mg cr Unable to calculate albumin/creatinine ratio due to low microalbumin or creatinine result. UA ClnCatch+Micro w/rflx Cul t (Not yet reviewed by provider) Interpretation: Performing Lab:[address] [address] Notes/Report: Urine, Clean Catch Color Urine Yellow Appearance Urine Clear PH 5.5 5.0-9.0 Glucose Urine UA Negative Negative mg/dL Urine Blood Negative Negative Specific [place] - Urine 1.010 1.005-1.025 Urine Protein Negative Neg-Trace mg/dL Urine Ketones Negative Negative mg/dL Nitrite Urine Negative Negative Leukocyte Esterase Urine Negative Negative RBC Urine 0-2 0-2 /HPF WBC Urine 0-5 0-5 /HPF Squamous Epithelial Cell Urine 0-2 0-2 /HPF Bacteria Urine None Seen None Seen Hyaline Casts Urine 0-2 0-2 /LPF Lipid Panel Reviewed date:05/17/2025 12:32:06 PM Interpretation: Performing Lab:[address] [phone] Notes/Report: Triglycerides 162 <150 mg/dL Desirable Triglyceride: [...] (Free>4and<10) Reviewed date:05/17/2025 12:31:57 PM Interpretation: Performing Lab:[address] [phone] Notes/Report: PSA,Total (Free>4and<10) 11.72 0.00-4.00 ng/mL A [...] A1c Reviewed date:05/17/2025 11:15:57 AM Interpretation: Performing Lab:[address] [address] Notes/Report: Hemoglobin A1c % 7.0 <6.0 % [...] average glucose, using the formula of the R7S-Kulprur Average Glucose study (ADAG), Diabetes Care, Vol.31,#8, 2007 Magnesium Reviewed date:05/22/2024 07:28:07 AM Interpretation: Performing Lab:[facility], [address] [place] [phone] Notes/Report: Magnesium 1.5 1.6-2.6 mg/dL Magnesium Reviewed date:06/22/2024 12:57:26 PM Interpretation: Performing Lab:[facility], [address] [place] [phone] Notes/Report: Magnesium 1.9 1.6-2.6 mg/dL Glucose, finger stick Reviewed date:02/18/2025 08:53:20 AM Interpretation: Performing Lab: Notes/Report: Value 136 Electrolytes Reviewed date:06/15/2024 01:01:08 PM Interpretation: Performing Lab:[facility], [address] [place] [phone] Notes/Report: Sodium 133 135-145 mmol/L Potassium 5.0 3.3-5.1 mmol/L Chloride 100 96-108 mmol/L Carbon Dioxide 26 22-29 mmol/L Anion Gap 12 12-20 Blood Urea Nitrogen Reviewed date:07/21/2024 02:00:20 PM Interpretation:High Performing Lab:[facility], [address] [place] [phone] Notes/Report: Blood Urea Nitrogen 32 9-16 mg/dL Creatinine Reviewed date:06/15/2024 12:58:50 PM Interpretation: Performing Lab:[facility], [address] [place] [phone] Notes/Report: Creatinine 1.57 0.5-1.4 mg/dL Estimated Glomerular Filt Rate 44 NOTE: For -Swazi individuals, multiply the result by 1.210. Chronic Kidney Disease: Estimated GFR < 60 mL/min/1.73m2 Severe Kidney Disease: Estimated GFR < 15 mL/min/1.73m2 Protein Creatinine Ratio, Ur Reviewed date:06/15/2024 01:01:53 PM Interpretation: Performing Lab:[facility], [address] [place] [phone] Notes/Report: Creatinine Urine 51.89 Total Protein Urine Random < 7 <12 mg/dL Protein/Creatinine Ratio, Ur TNP <0.2 Unable to calculate urine protein creatinine ratio due to low creatinine or protein result. Electrolytes Reviewed date:07/29/2024 07:16:34 PM Interpretation: Performing Lab:[facility], [address] [place] [phone] Notes/Report: Sodium 134 135-145 mmol/L Potassium 5.3 3.3-5.1 mmol/L Chloride 101 96-108 mmol/L Carbon Dioxide 25 22-29 mmol/L Anion Gap 13 12-20 Blood Urea Nitrogen Reviewed date:07/29/2024 07:16:10 PM Interpretation: Performing Lab:[facility], [address] [place] [phone] Notes/Report: Blood Urea Nitrogen 32 9-16 mg/dL Creatinine Reviewed date:07/29/2024 07:16:00 PM Interpretation: Performing Lab:[facility], [address] [place] [phone] Notes/Report: Creatinine 1.88 0.5-1.4 mg/dL Estimated Glomerular Filt Rate 36 Chronic Kidney Disease: Estimated GFR < 60 mL/min/1.73m2 Severe Kidney Disease: Estimated GFR < 15 mL/min/1.73m2 Electrolytes Reviewed date:08/13/2024 12:21:46 PM Interpretation: Performing Lab:[facility], [address] [place] [phone] Notes/Report: Sodium 135 135-145 mmol/L Potassium 4.7 3.3-5.1 mmol/L Chloride 101 96-108 mmol/L Carbon Dioxide 25 22-29 mmol/L Anion Gap 14 12-20 Blood Urea Nitrogen Reviewed date:08/13/2024 12:21:11 PM Interpretation: Performing Lab:[facility], [address] [place] [phone] Notes/Report: Blood Urea Nitrogen 27 9-16 mg/dL Creatinine Reviewed date:08/13/2024 12:21:23 PM Interpretation: Performing Lab:[facility], [address] [place] [phone] Notes/Report: Creatinine 1.62 0.5-1.4 mg/dL Estimated Glomerular Filt Rate 43 Chronic Kidney Disease: Estimated GFR < 60 mL/min/1.73m2 Severe Kidney Disease: Estimated GFR < 15 mL/min/1.73m2 Electrolytes Reviewed date:09/22/2024 02:30:55 PM Interpretation: Performing Lab:[facility], [address] [place] [phone] Notes/Report: Sodium 136 135-145 mmol/L Potassium 4.9 3.3-5.1 mmol/L Chloride 102 96-108 mmol/L Carbon Dioxide 25 22-29 mmol/L Anion Gap 14 12-20 Blood Urea Nitrogen Reviewed date:09/22/2024 02:30:45 PM Interpretation: Performing Lab:[facility], [address] [place] [phone] Notes/Report: Blood Urea Nitrogen 23 9-16 mg/dL Creatinine Reviewed date:09/22/2024 02:30:37 PM Interpretation: Performing Lab:[facility], [address] [place] [phone] Notes/Report: Creatinine 1.43 0.5-1.4 mg/dL Estimated Glomerular Filt Rate 49 Chronic Kidney Disease: Estimated GFR < 60 mL/min/1.73m2 Severe Kidney Disease: Estimated GFR < 15 mL/min/1.73m2 Electrolytes Reviewed date:10/29/2024 12:16:19 PM Interpretation: Performing Lab:[facility], [address] [place] [phone] Notes/Report: Sodium 135 135-145 mmol/L Potassium 5.0 3.3-5.1 mmol/L Chloride 102 96-108 mmol/L Carbon Dioxide 23 22-29 mmol/L Anion Gap 15 12-20 Blood Urea Nitrogen Reviewed date:10/29/2024 12:13:46 PM Interpretation: Performing Lab:[facility], [address] [place] [phone] Notes/Report: Blood Urea Nitrogen 24 9-16 mg/dL Creatinine Reviewed date:10/29/2024 12:13:35 PM Interpretation: Performing Lab:[facility], [address] [place] [phone] Notes/Report: Creatinine 1.48 0.5-1.4 mg/dL Estimated Glomerular Filt Rate 47 Chronic Kidney Disease: Estimated GFR < 60 mL/min/1.73m2 Severe Kidney Disease: Estimated GFR < 15 mL/min/1.73m2 Timbo Lewis Reviewed date:11/13/2024 12:29:30 PM Interpretation: Performing Lab:[facility], [address] [place] [phone] Notes/Report: Hold Gold See Note Specimen held untested for 24 hours; Call to request Chemistry testing. Electrolytes Reviewed date:01/12/2025 12:33:00 PM Interpretation: Performing Lab:[facility], [address] [place] [phone] Notes/Report: Sodium 134 135-145 mmol/L Potassium 4.6 3.3-5.1 mmol/L Chloride 100 96-108 mmol/L Carbon Dioxide 24 22-29 mmol/L Anion Gap 15 12-20 Blood Urea Nitrogen Reviewed date:01/12/2025 12:33:08 PM Interpretation: Performing Lab:[facility], [address] [place] [phone] Notes/Report: Blood Urea Nitrogen 23 9-16 mg/dL Creatinine Reviewed date:01/12/2025 12:32:50 PM Interpretation: Performing Lab:[facility], [address] [place] [phone] Notes/Report: Creatinine 1.34 0.5-1.4 mg/dL Estimated Glomerular [...] Spironolactone 25 MG 1 tablet Orally Active Magnesium Oxide -Mg Supplement 400 (240 Mg) MG TAKE 1 TABLET BY MOUTH TWICE A DAY WITH FOOD FOR 90 DAYS for 90 Active Montelukast Sodium 10 MG TAKE 1 TABLET O NCE DAILY for 90 Active Fluticasone Propionate 50 MCG/ACT 1 spray in each nostril Nasally Once a day for 30 day(s) 11/22/2022 Not-Taking Immunizations Vaccine Route Administration Date Status [...] IM Intramuscular 05/14/2024 Adm inistered Fluarix Quadrivalent - 150 IM Intramuscular 05/17/2025 Adm inistered Fluarix Quadrivalent Unknown 10/27/2018 Refused [...] Problem Type II diabetes mellitus without complication (991265426) Type 2 diabetes mellitus without complications (E11.9) Active confirmed Problem 42472886 Hypokalemia (E87.6) Active confirmed Problem 13221994 Anxiety (F41.9) Active confirmed Problem Disorder of parathyroid gland (64823240) Disorder of parathyroid gland, unspecified (E21.5) Active confirmed Problem 591360570 Hypomagnesemia (E83.42) Active confirmed Problem 9917082 Hypocalcemia (E83.51) Active confirmed Problem 23416497 Lumbar disc dise ase (M51.9) Active confirmed Problem 01598366 Essential hypert ension (I10) Active confirmed Problem 875513003 Mild intermitten t asthma without complication (J45.20) Active confirmed Problem 010715239 Erectile dysfunc tion, unspecified erectile dysfunction type (N52.9) Active confirmed Problem 051942992 Environmental allergies (Z91.09) Active confirmed Problem 236801308168033 Carpal tunnel sy ndrome of left wrist (G56.02) Active confirmed Problem 028354369 Anxiety disorder , unspecified type (F41.9) Active confirmed Problem 647961713 History of cold sores (Z86.19) Active confirmed Problem 752682207 Pure hypercholesterolemia (E78.00) Active confirmed Problem 695092948 Elevated PSA (R97.20) Active confirme d Problem Body mass index 30+ - obesity (325093739) BMI 30.0-30.9,adult (Z68.30) Active confirmed Problem Hypocalcemia (0525760) Low calcium levels (E83.51) Active confirmed Problem Abnormal level of blood mineral (396489397) Low blood magnesium (R79.0) Active confirmed Problem 435513766 Bee sting allerg y (Z91.030) Active confirmed Vital Signs Blood pressure diastolic 80 mm Hg 02/18/2025 qasim ght is down 5 pounds since 11-20-24 Height 73 in 02/18/2025 weight is down 5 pounds since 11-20-24 Blood pressure systolic 138 mm Hg 02/18/2025 weig ht is down 5 pounds since 11-20-24 Weight 220 lbs 02/18/2025 weight is down 5 pounds since 11-20-24 BMI 29.02 kg/m2 02/18/2025 weight is down 5 pounds since 11-20-24 Encounters Encounter Location Date Provider Diagnosis Venancio Betancourt MD [address] [place] [id number] 11/13/2024 Venancio Betancourt Prediabetes R73.09 a nd Pure hypercholesterolemia E78.00 Venancio Betancourt MD [address] [place] [address] Drive [address] [place] [id number] 05/17/2025 Venancio Betancourt Essential hypertensi on I10 ; Hypokalemia E87.6 ; Type 2 diabetes mellitus without complications E11.9 ; Pure hypercholesterolemia E78.00 and Encounter for administration of vaccine Z23 Venancio Betancourt MD [address] [place] [id number] 05/21/2024 Venancio Betancourt Low back pain, unspe cified M54.50 ; Essential hypertension I10 ; Pure hypercholesterolemia E78.00 ; Hypomagnesemia E83.42 ; Prediabetes R73.09 and Elevated PSA R97.20 Venancio Betancourt MD [address] [place] [address] Drive [address] [place] [id number] 06/22/2024 Venancio Betancourt Hypomagnesemia E83.4 2 Venancio Betanc[address] [place] [id number] 11/20/2024 Venancio Betancourt Type 2 diabetes bia itus without complications E11.9 ; Mild intermittent asthma without complication J45.20 and Essential hypertension I10 Venancio Betancourt MD 10 [facility] [address] [place] [id number] 02/18/2025 Venancio Betancourt Bee sting allergy Z9 1.030 and Type 2 diabetes mellitus without complications E11.9 Venancio Betancourt MD [address] [place] [id number] 08/28/2024 Venancio Betancourt MD [address] [place] [id number] 09/03/2024 Venancio Betancourt MD [address] [id number] 09/07/2024 Venancio Betancourt Assessments Encounter Date Diagnosis (ICD Code) Assessment Notes Treatment Notes Treatment Clinical Notes Section Notes 11/13/2024 Prediabetes (ICD-10 - R73.09) 05/17/2025 Essential hypertensi on (ICD-10 - I10) 05/17/2025 Hypokalemia (ICD-10 - E87.6) 05/21/2024 Low back pain, unspecified (ICD-10 - [...] complication (ICD-10 - J45.20) to use symbicort 02/18/2025 Bee sting allergy (ICD-10 - Z91.030) has never had anaphylaxis just a severe local reaction day after the bee sting 02/18/2025 Type 2 diabetes mellitus without complications (ICD-10 - E11.9) has been losing weight and watching diet have gone over the guidelines for diabetes and discusssion about metformin early on. he wishes to continue on diet and observe 11/13/2024 Pure hypercholesterolemia (ICD-10 - E78.00) 05/17/2025 Type 2 diabetes mellitus without complications (ICD-10 - E11.9) 05/21/2024 Pure hypercholesterolemia (ICD-10 - E78.00) doing well on meds, will continue current regiment 11/20/2024 Essential hypertensi on (ICD-10 - I10) stable, will continue current regiment 05/17/2025 Pure hypercholesterolemia (ICD-10 - E78.00) 05/21/2024 Hypomagnesemia (ICD- 10 - E83.42) 05/17/2025 Encounter for administration of vaccine (ICD-10 - Z23) 05/21/2024 Prediabetes (ICD-10 - R73.09) stable, no need for medication at this time 05/21/2024 Elevated PSA (ICD-10 - R97.20) will continue to monitor, followed bu Urology Plan Of Treatment Pending Test Test Name Order Date Electrocardiogram (EKG) 04/24/2018 Electrocardiogram (EKG) 03/30/2016 Electrocardiogram (EKG) 05/08/2019 Electrocardiogram (EKG) 04/12/2017 [facility] 02/11/20 18 US BREAST RIGHT ([facility]) 018 Complete Blood Count Auto Diff 5 Comprehensive [place]. Panel Fast 5 Microalbumin, Random 05/17/2025 UA ClnCatch+Micro w/rflx Cult 05/17/2025 Next Appt Details Provider Name:Venancio hendersonr, 05/24/2025 09:30:00 AM, [address] [place] [address], [address], [place], [place], [id number], Insurance Providers Payer Name Payer Address Payer Phone Subscriber Number Group Number Insured Name Patient Relationship to Insured Coverage Start Date Coverage End Date MEDICARE FLIC [address] [place] [address] [id number] Floyd Lama Self - patient is the insured [place] [address] [place] [address] [id number] Floyd Lama Self - patient is the insured Medical (General) History Medical History History ICD Code colonoscopy 2008 due in 10; colonoscopy done 03/02/[address] Avila - repeat due 02/2024: 12/07/24 Colonoscopy repeat 5y Prediabetes R73.09
--- OUTSIDE RECORDS SUMMARY | 2025-05-17 12:46 | XMS_ITS | Encounter Summary ---
Author Organization [facility] Address [address] [place] [address] Phone Care Team Providers Care Solar Energy Consultant And Designer Name Role Phone Venancio Betancourt MD Primary Care Provider Rafael Crook MD Unavailable Reason for Visit * Reason Onset Date Comments Appointment 04/20/2025 NPV Radha sutherland Encounter Details Date Type Department Care Team (Late st Contact Info) Description 04/20/2025 Telephone [facility] [address] [place] [address] Pcp, Unknown Appointment (NPV Radha Clemens ) Social History Tobacco Use Types Packs/Day Years Used Date Smoking Tobacco: Never Smokeless Tobacco: Never Alcohol Use Standard Drinks/Week Comments Yes 0 [...] on file Sexual Orientation Not on file documented as of this encounter Progress Notes * Radha Clemens CNP - 04/21/2025 2:13 PM EDT Yes, I have approved this. Can schedule on a Saturday when I do not have another NPV. Can be booked in a established patient new practice slot. * Kathie Reynolds - 04/20/2025 10:36 AM EDT Pt called in stating he missed a call from [facility] to schedule NPV with Radha Clemens. Please contact and advise. 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 documented in this encounter Plan of Treatment Upcoming Encounters Date Type Department Care Team (Late st Contact Info) Description 06/15/2025 10:00 AM EDT Office Visit [address] [place] [address] Radha Clemens CNP [address] [place] [address], [address] [place] [address] [email or web address] documented as of this encounter Visit Diagnoses Not on filedocumented in this encounter Care Teams Solar Energy Consultant And Designer Relationship Specialty Start Date End Date Venancio Betancourt MD [address] [place] [address] Dr BUTLER [address] [place] [id number] PCP - General Internal Medicine 04/04/23 Rafael Crook MD [address] [place] [address] Dr BUTLER [address] [place] [address] Nephrology 09/23/23 documented as of this encounter Additional Source Comments The information contained in this document represents components of the legal health record. It is not the complete legal health record.[facility]
--- OUTSIDE RECORDS SUMMARY | 2025-05-17 12:46 | XMS_ITS | Patient Health Record ---
Author Organization [facility] Address [address] [place] [address] Care Team Providers Care Teacher Of The Deaf Name Role Phone Venancio Betancourt MD Primary Care Provider Juan Daniel Rdz Unavailable [phone] Allergies Allergen (clinical drug ingredient) Drug/Non Drug [...] St - as directed Orally Active Saw [place] 450 MG as directed Orally Active Mens [...] Status Risk Notes Problem Colon cancer screening (411549112) Colon cancer screening (Z12.11) Active confirmed Problem 082643613 Encounter for screening for malignant neoplasm of colon (Z12.11) Active confirmed Problem History of polyp of colon (situation) (401963643) Personal history of colonic polyps (Z86.010) Active confirmed Problem Gastroesophageal reflux disease (190431195) GERD (gastroesophag eal reflux disease) (K21.9) Active confirmed Problem 622649104196605 Pre-procedural examination (Z01.818) Active confirmed Vital Signs Blood pressure diastolic 11 mm Hg 11/03/2024 Height 73 in 11/03/2024 Blood pressure systolic 111 mm Hg 11/03/2024 Weight 223 lbs 11/03/2024 BMI 29.42 kg/m2 11/03/2024 Procedures Procedure Date Ordered Date Performed Result Body Sit e COLONOSCOPY 11/03/2024 N/A Encounters Encounter Location Date Provider Diagnosis [facility] [address] [place], [place] [id number] 12/07/2024 Juan Daniel Avila Colon cancer screeni ng Z12.11 ; Personal history of colonic polyps Z86.0100 ; Diverticulosis of large intestine without perforation or abscess without bleeding K57.30 and Other hemorrhoids K64.8 [facility] [address] [place] [address] 11/03/2024 Juan Daniel Avila Personal history of colonic polyps Z86.010 ; GERD (gastroesophageal reflux disease) K21.9 and Colon cancer screening Z12.11 Assessments Encounter Date Diagnosis (ICD Code) Assessment Notes Treatment Notes Treatment Clinical Notes Section Notes 12/07/2024 Colon cancer screening (ICD-10 - Z12.11) 12/07/2024 Personal history of colonic polyps (ICD-10 - Z86.0100) 11/03/2024 Personal history of colonic polyps (ICD-10 [...] you advised of his progress. 11/03/2024 GERD (gastroesophageal reflux disease) (ICD-10 - K21.9) Overall, Jonathan [...] to keep you advised of his progress. 12/07/2024 Diverticulosis of large intestine without perforation or abscess without bleeding (ICD-10 - K57.30) 11/03/2024 Colon cancer screening (ICD-10 - Z12.11) [...] to keep you advised of his progress. 12/07/2024 Other hemorrhoids (ICD-10 - K64.8) Plan Of Treatment Pending Test Test Name Order Date COLONOSCOPY 11/03/2024 Future Test Test Name Order Date COLONOSCOPY 01/16/2019 Insurance Providers Payer Name Payer Address Payer Phone Subscriber Number Group Number Insured Name Patient Relationship to Insured Coverage Start Date Coverage End Date MEDICARE OF [place] [address] [place]ene [place] [address] [phone] [id number] PRETTY WILLIAM Self - patient is the insured 1 MEDEX ATTN CLAIMS [address] [place] [address] [id number] PRETTY WILLIAM Self - patient is the insured Medical (General) History Medical History History ICD Code Asthma Hypertension Hypercholesterolemia Anxiety Denies [place],DM,CVA,,renal disease Neg. colonoscopy in 08/2008 except for an inflammatory polyp GERD-Neg. EGD in 08/2008 except for gastr itis-bx neg for Hpylori Screening colonoscopy 2018 with removal of a small tubular adenoma Surgical History Surgery Date(Month/Year) Left shoulder
--- OUTSIDE RECORDS SUMMARY | 2025-05-17 12:47 | XMS_ITS | Encounter Summary ---
Author Organization [facility] Address [address] [facility] [address] [place] [address] Phone Care Team Providers Care Sneller Hand Name Role Phone Venancio Betancourt MD Primary Care Provider Rafael rCook MD Unavailable Encounter Details Date Type Department Care Team (Late st Contact Info) Description 11/13/2023 Transcribe Orders [facility] Specimen Processing [address] [place] [address] Rhoda Tello MD [address] [place] [address] Impetigo (Primary Dx) Social History Tobacco Use Types Packs/Day Years [...] on file documented as of this encounter Plan of Treatment Upcoming Encounters Date Type Department Care Team (Late Contact Info) Description 06/15/2025 10:00 AM EDT Office Visit [address] [place] [address] Radha Clemens, ASHISH [address], [address] [place] [address] [email or web address] documented as of this encounter Procedures Procedure Name Priority Date/Time Associated Diagnosis Comments WOUND CULTURE/SMEAR Routine 11/13/2023 3 :30 PM EDT Impetigo documented in this encounter Results * (ABNORMAL) Wound culture/smear (11/13/2023 3:30 PM EDT) Special Requests None 11/13/2023 3:51 PM EDT [facility] GRAM STAIN NO ORGANISMS SEEN 024 8:42 AM EDT [facility] Wound Culture/Smear Few STAPHYLOCOCCUS AUREUS(A) 11/15/2023 8:52 AM EDT [facility] Wound Culture/Smear Rare MIXED ORGANISMS RESEMBLING CUTANEOUS BLADIMIR(A) 11/15/2023 8:52 AM EDT [facility] Other (Nasal) 11/13/2023 3:3 0 PM EDT 11/13/2023 4:17 PM EDT Comment:RIGHT NARIS Narrative Organism Antibiotic Method Susceptibility Staphylococcus aureus Penicillin G TAYLOR METHOD >=0.5: Resistant Staphylococcus aureus Clindamycin TAYLOR METHOD <=0.25: Susceptible Staphylococcus aureus Erythromycin TAYLOR METHOD >=8: Resistant Staphylococcus aureus Gentamicin TAYLOR METHOD <=0.5: Susceptible Staphylococcus aureus inducible clindamycin TAYLOR METHOD Negative Staphylococcus aureus Levofloxacin TAYLOR METHOD 0.25: Susceptible Staphylococcus aureus Oxacillin(methicillin) TAYLOR METHO D <=0.25: Susceptible Staphylococcus aureus Rifampin TAYLOR METHOD <=0.5: Susceptible Staphylococcus aureus Tetracycline TAYLOR METHOD <=1: Susceptible Staphylococcus aureus Trimethoprim/sulfamethoxazole IN C METHOD <=10: Susceptible Staphylococcus aureus Vancomycin TAYLOR METHOD <=0.5: Susceptible Staphylococcus aureus Cefoxitin TAYLOR METHOD Negative Staphylococcus aureus Amoxicillin + Clavulanate TAYLOR ME THOD Susceptible Staphylococcus aureus Ampicillin + Sulbactam TAYLOR METHO D Susceptible Staphylococcus aureus Cefuroxime TAYLOR METHOD Susceptible Staphylococcus aureus Cefotaxime TAYLOR METHOD Susceptible Staphylococcus aureus Ceftriaxone TAYLOR METHOD Susceptible Comment: Rhoda Tello MD MICROBIOLOGY - GENERAL PURNIMA MEZA Final Result [address] [address] documented in this encounter Visit Diagnoses Diagnosis Impetigo- Primary documented in this encounter Additional Health Concerns Infection Onset Date Last Indicated Resolved Time CoV-Risk 12/05/2023 12/05/2023 12/16/2023 1:22 AM EDT documented as of this encounter Care Teams Sneller Hand Relationship Specialty Start Date End Date Venancio Betancourt MD [address] [place] [address] [place] [address] PCP - General Internal Medicine 04/04/23 Rafael Crook MD [address] [place] [address] [place] [address] Nephrology 09/23/23 documented as of this encounter Additional Source Comments The information contained in this document represents components of the legal health record. It is not the complete legal health record.[facility]
--- OUTSIDE RECORDS SUMMARY | 2025-05-17 12:47 | XMS_ITS | Patient Health Record ---
Author Organization [facility] Address [address] [place] [address] Care Team Providers Care Engine Dispatcher Name Role Phone Venancio Betancourt MD Primary Care Provider [place] Unavailable [phone] Reason For Referral No Information Medications Medication SIG (Take, Route, Frequency, Duration) Notes Start Date End Date Status Atorvastatin Calcium 40 MG 1 tablet Oral ly Once a day Active Mens One Daily Activ e amLODIPine Besylate 10 MG 1 tablet Orall y Once a day Active Symbicort 10.2 gm 160/4.5 spray Active Omeprazole 20 MG 1 capsule Orally Onc e a day Active Spironolactone 75MG Active Viagra 100 MG Orally Active Loratadine Active ProAir HFA Active Fluticasone Propionate 50 MCG/ACT Nasally Active Saw [place] Active Valsartan 320 MG 1 tablet Orally Once a day Active Glucosamine Chond MSM Formula Active Social History Tobacco Use: Social History Observation Description Date Details (start date - stop date) Never Smoker NA - NA Tobacco Use/Smoking Question Answer Notes Are you a: nonsmoker Alcohol Screen Question Answer Notes Did you have a drink contain ing alcohol in the past year? Yes How often did you have a dri nk containing alcohol in the past year? 4 or more times a week (4 points) How many drinks did you have on a typical day when you were drinking in the past year? 3 or 4 drinks (1 point) How often did you have 6 or more drinks on one occasion in the past year? Less than monthly (1 point) Points 6 Interpretation Positive Tobacco use other than smoking: Question Answer Notes Are you an other tobacco user? No Plan Of Treatment No Information Insurance Providers Payer Name Payer Address Payer Phone Subscriber Number Group Number Insured Name Patient Relationship to Insured Coverage Start Date Coverage End Date [place] [address] [place], [place] [address] [id number] Floyd Lama Self - patient is the insured 7 Medical (General) History Medical History History ICD Code asthma CAD (Cholesterol) High blood pressure Joint implants/screws Reflux Surgical History Surgery Date(Month/Year) Left Shoulder 2007
== END 2025-05-17 07:01 | disposition home or self-care (01) ==
LOC: HO.LNP 07:00
PROVIDERS: Visit Provider Internal Medicine
DX: Z12.5 Encounter for screening for malignant neoplasm of prostate (principal); I10 Essential (primary) hypertension; E87.6 Hypokalemia; E11.9 Type 2 diabetes mellitus without complications; E78.00 Pure hypercholesterolemia, unspecified
CPT/HCPCS: 80053; 80061; 81001; 82043; 82570; 83036; 84153; 85025

== ENCOUNTER 2025-07-19 08:04 | Outpatient (REF) | payer MEDICARE, SELFPAY ==
--- OUTSIDE RECORDS SUMMARY | 2024-12-07 09:40 | XMS_ITS ---
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 Name Role Phone Asia RODRIGUEZ, Venancio Primary Care Provider Juan Daniel Rdz [phone] REASON FOR VISIT screening,hx polyps Encounters Encounter Location Date Provider Diagnosis [facility] [place] [address] [place], [place] [phone] 12/07/2024 Juan Daniel Avila Colon cancer scree [...] Notes * PRETTY WILLIAMDOB: (69 yo M)Acc No.[id number]:12/07/2024 COLON WITH MAC Patient: Bassem BOYDPRETTY SANTOS Provider: Kobi Avila MD :1955 A ge:69 Y S ex:Male Date:12/07/2024 Address:[address], [facility] Pcp:Venancio Betancourt MD Subjective: * Chief Complaints: [...] G 0105 COLOREC CANCR SCR; COLNSCPY HI [id number] INTRVL 3+YRS PTS CLNSCP [id number] RCMND FLW-UP 10 YRS DOCD Billing Information: [...] 0 12/07/2024 Generated for Reilly guerra/Aston/Kierraitting on: 09/18/2024 08:10 AM EST
--- OUTSIDE RECORDS SUMMARY | 2025-07-19 08:10 | XMS_ITS | Encounter Summary ---
Author Organization [facility] Address [address] [facility] [address] [place] [address] Phone Care Team Providers Care Service Order Dispatcher Chief Name Role Phone Venancio Betancourt MD Primary Care Provider Rafael Crook MD Unavailable Radha Clemens CNP Primary Care Provider [phone] Vidal Desir MD Unavailable [phone] Reason for Visit * Reason Onset Date Comments Appointment 04/20/2025 NPV Radha sutherland Encounter Details Date Type Department Care Team (Late st Contact Info) Description 04/20/2025 Telephone [facility] [place] [address] Pcp, Unknown Appointment (NPV Radha Clemens ) [...] Information Value Date Recorded Sex Assigned at Male 06/16/2025 8:59 AM EDT Legal Sex Male 3:44 PM EDT Gender Identity Male 06/16/2025 8:59 AM EDT Sexual Orientation Straight 06/16/2025 8: 59 AM EDT documented as of this encounter Progress Notes * Radha Clemens CNP - 04/21/2025 2:13 PM EDT Yes, I have approved this. Can schedule on a Saturday when I do not have another NPV. Can be booked in a established patient new practice slot. * Kathie Reynolds - 04/20/2025 10:36 AM EDT Pt called in stating he missed a call from [facility] to schedule NPV with Radha Clemens. Please contact and advise. Central Support Manager [employer] (Please do not reply to this user; this inbox is not monitored.) Thank you. documented in this encounter Plan of Treatment Upcoming Encounters Date Type Department Care Team (Late st Contact Info) Description 12/06/2025 8:30 AM EDT Office Visit [address] [place] [address] Radha Clemens CNP [address] [place] [address], [address] [place] [address] [email or web address] documented as of this encounter Visit Diagnoses Not on filedocumented in this encounter Care Teams Service Order Dispatcher Chief Relationship Specialty Start Date End Date Venancio Betancourt MD [address] [place] [address] [place] [address] PCP - General Internal Medicine 04/04/23 06/14/25 Radha Clemens CNP [address] [place] [address], [address] [place] [address] [email or web address] PCP - General Nurse Practitioner 06/15/25 Rafael Crook MD [address] [place] [address] [place] [address] Nephrology 09/23/23 Vidal Desir MD [address] [place] [address], [address] [place] [address] [email or web address] Internal Medicine 06/15/25 [facility] 06/15/25 documented as of this encounter Additional Source Comments The information contained in this document represents components of the legal health record. It is not the complete legal health record.[facility]
--- OUTSIDE RECORDS SUMMARY | 2025-07-19 08:10 | XMS_ITS | Clinical Summary ---
Author Organization [facility] Address [address] [facility] [address] [place] [address] Phone Care Team Providers Care Repairer Helper Name Role Phone Rafael Crook MD Unavailable Radha Clemens CNP Primary Care Provider [phone] Vidal Desir MD Unavailable [phone] Allergies No known active allergies Medications albuterol (PROAIR HFA) 90 mcg/actuation inhaler INHALE 2 PUFFS ORALLY FOUR TIMES DAILY NEEDED ( EVERY FOUR HOURS ) Active amLODIPine (NORVASC) 10 MG tablet Take 10 mg by mouth daily. 08/02/20 22 Active atorvastatin (LIPITOR) 40 MG tablet Take 1 tablet by mouth daily. Active budesonide-for moterol (SYMBICORT) 160-4.5 mcg/actuation inhaler 2 puffs. Active montelukast (SINGULAIR) 10 mg tablet Take 1 tablet by mouth daily. 06/11/20 22 Active omeprazole (PRILOSEC) 20 MG capsule TAKE 1 CAPSULE ONCE DAILY 30 MINUTES BEFORE MORNING MEAL Active spironolactone (ALDACTONE) 50 MG tablet Take 50 mg by mouth daily. Take 50 mg along with 25 mg tablet to equal daily total of 75 mg daily. 02/01/20 23 Active valACYclovir (VALTREX) 1000 MG tablet 02/05/20 23 Active naproxen (NAPROSYN) 500 MG tablet Take 1 tablet (500 mg total) by mouth 2 (two) times a day for 3 days. Then twice daily as needed for pain, inflammation 20 tablet 04/04/20 Active spironolactone (ALDACTONE) 25 MG tablet Take 25 mg by mouth daily. Take along with 50 mg tablet to equal daily dose of 75 mg daily. Active multivit-billet examiner als/FA/lycopen e (ONE-A-DAY MEN'S 50 PLUS ORAL) Take 1 tablet by mouth daily. Active magnesium oxide (MAG-OX) 400 mg (241.3 mg elemental) tablet TAKE 1 TABLET BY MOUTH EVERY DAY WITH FOOD FOR 90 DAYS 11/18/19 24 Active glucosam/nisha- msm1/C/aldo/claudette sw (OSTEO BI-FLEX TRIPLE STRENGTH ORAL) Take by mouth. Active saw palmetto 450 mg Cap Take by mouth. Acti ve cyanocobalamin , vitamin B-12, (VITAMIN B-12) 1000 MCG tablet Take 1,000 mcg by mouth daily. Active ascorbic acid, vitamin C, (VITAMIN C) 500 mg Chew Take by mouth 2 (two) times a day. Active sildenafiL (VIAGRA) 100 mg tablet Take 100 mg by mouth daily as needed for erectile dysfunction. 025 Discontinued Active Problems Problem Noted Date Diagnosed Date Type 2 diabetes mellitus wit hout complication, without long-term current use of insulin 07/06/2025 Stage 3a chronic kidney disease 07/06/2025 Mild intermittent asthma without complication Assessment & Plan (06/15/2025 12:23 PM EDT): Lungs are clear today. He takes montelukast daily and uses inhalers only as needed. We reviewed symptoms that would warrant urgent evaluation. Heartburn 06/15/2025 Assessment & Plan (06/15/2025 12:23 PM EDT): Generally well controlled on daily PPI. Try reducing to every other day and monitor for break through symptoms. If he tolerates, try reducing further. Await GI records. Hypomagnesemia 10/23/2023 Assessment & Plan (06/15/2025 12:23 PM EDT): Await labs. He is supplementing twice daily. Per endocrinology consult, this was felt to be related to spironolactone use. Assessment & Plan (10/23/2023 12:56 PM EST): [...] following with his primary care physician or licensed dispensing optician. High prostate specific antigen (PSA) 11/05/2022 Assessment & Plan (06/15/2025 12:23 PM EDT): Managed through urology with upcoming appointment. Last biopsy was years ago. He has declined prescription medications in the past. 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/05/2022 Other allergy, initial encounter 11/05/2022 Pure hypercholesterolemia 11/05/2022 Benign essential hypertension 10/05/2020 Assessment & Plan (06/15/2025 12:23 PM EDT): Blood pressure is a bit above goal but he is followed by nephrology. Await labs and clear medication list. He notes that his BP is often higher at the doctor's office but he is not checking regularly at home. Encounters Date Type Department Care Team Description 07/14/2025 Orders Only [facility] [address] [place] [address] Provider, MD Lilliana 07/13/2025 Orders Only [address] [place] [address] ProviderLilliana MD 07/06/[address] [place] [address] Radha Clemens CNP Request For Records 07/06/2025 Orders Only [address] [place] [address] Radha Clemens CNP 06/15/2025 10:00 AM EDT Office Visit [address] [place] [address] Radha Clemens CNP Encounter to establish care with new provider (Primary Dx); Benign essential hypertension; Hypomagnesemia; Heartburn; High prostate specific antigen (PSA); Mild intermittent asthma without complication; Immunization counseling 04/20/[address] [place] [address] Pcp, Unknown Appointment (CARLOS Clemens ) from Last 3 Months Immunizations Immunization Administration Dates Next Due COVID-19 (Pre-06/17) Pfizer Vaccine, mRNA, PF 04/27/2022 INFLUENZA, SPLIT VIRUS, TRIVALENT PF ,05/14/2024,05/11/2020,04/28,06/17/2017,10/19/2016 Influenza High-Dose Quadriva lent Preservative Free IM 04/27/2022 Influenza High-Dose Trivalen t Preservative Free IM 04/27/2022,05/09/2021 Influenza Quadrivalent Prese rvative Free IM 05/03/2023 Pneumococcal conjugate PCV13 10/27/2018 Pneumococcal polysaccharide PPSV23 11/22/2022, Td (adult) 5 Lf Tetanus Toxo id, PF, Adsorbed 10/16/2012 Tdap 08/13/2017,07/23/2017 Zoster recombinant 09/09/2018,05/01/2018 Family History Medical History Relation Comments Benign prostatic hyperplasia Brother 1 Retinal detachment Brother 1 No Known Problems Brother 2 Murder Dementia Father Hypertension Father Prostate cancer Father Diagnosed age 60 s Arthritis Mother Breast cancer Mother Dementia Mother Hypertension Mother Oral cancer Mother non-smoker Heart attack Sister 1 No Known Problems Sister 2 Colon cancer Neg Hx Diabetes Neg Hx Stroke Neg Hx Relation Status Comments Brother 1 Alive Brother 2 (Age 50) Father (Age 90) Maternal Grandfather Maternal Grandmother Mother (Age 87) Paternal Grandfather Paternal Grandmother Sister 1 Alive Sister 2 Alive Social History Tobacco Use Types Packs/Day Years Used Date Smoking Tobacco: Never Passive Smoke Exposure: Never Smokeless Tobacco: Never Tobacco Cessation:Counseling Given: Not Answered Alcohol Use Standard Drinks/Week Comments Yes 0 (1 standard drink = 0.6 oz pure alcohol) 2-3 drinks/night at dinner (2024) Education Answer Date Recorded Are you interested in more education? Not on william e 04/04/2023 Are you concerned about learning? Not on file 04/04/2023 No 04/04/2023 No 04/04/2023 Digital Access Answer Date Recorded No 04/04/2023 No 04/04/2023 Reliable internet access at home? Not on file 04/04/2023 Device with a working camera? Not on file Intimate Partner Violence Answer Date R ecorded Denied Basic Needs Not on file 06/15/2025 In the past 12 months have y ou been in a relationship with a person who hurts, threatens, or tries to control you? No 06/15/2025 Worried food would run out Not on file 06/15 In the past 12 months have y ou been in a relationship with a person who hurts, threatens, or tries to control you? No 06/15/2025 Sex and Gender Information Value Date Recorded Sex Assigned at Male 06/16/2025 8:59 AM EDT Legal Sex Male 3:44 PM EDT Gender Identity Male 06/16/2025 8:59 AM EDT Sexual Orientation Straight 06/16/2025 8: 59 AM EDT Last Filed Vital Signs Vital Sign Reading Time Taken Comments Blood Pressure 138/68 06/15/2025 10:09 AM EDT Pulse 81 06/15/2025 9:30 AM EDT Temperature 36.6 C (97.9 F) 06/15/2025 9:30 AM EDT Respiratory Rate 22 12/05/2023 10:55 AM EDT Oxygen Saturation 97% 06/15/2025 9:30 AM EDT Inhaled Oxygen Concentration - - Weight 97.5 kg (215 lb) 06/15/2025 9:30 AM EDT Height 181.5 cm (5' 11.46 ) 06/15/2025 9:30 AM E DT Body Mass Index 29.6 06/15/2025 9:30 AM EDT Plan of Treatment Upcoming Encounters Date Type Department Care Team (Late st Contact Info) Description 12/06/2025 8:30 AM EDT Office Visit [address] [place] [address] Radha Clemens, PASTING MACHINE OFFBEARER [address] [facility], [address] [place] [address] [email or web address] Health Maintenance Due Date Last Done Comments HEPATITIS C SCREENING 1973 COLOGUARD 2000 FIT TEST 2000 FOBT 2000 SIGMOIDOSCOPY 2000 VIRTUAL COLONOSCOPY 2000 RSV VACCINE (1 - Risk 50-74 years 1-dose series) 2005 COVID-19 VACCINE ( season) 2025 04/27/2022, 08/17/2021, 11/29/2020, Additional history exists DIABETIC EYE EXAM 11/10/2025 11/10/2024, 11/10/2024 HEMOGLOBIN A1C 11/14/2025 05/17/2025 BLOOD PRESSURE 12/14/2025 06/15/2025 POTASSIUM LEVEL 05/17/2026 05/17/2025 DEPRESSION SCREENING 06/15/2026 06/15/2025 Adult Td,Tdap Booster 08/13/2027 08/13/2017 , 07/23/2017, 10/16/2012 COLONOSCOPY 12/07/2029 12/07/2024 COLORECTAL CANCER SCREENING 12/07/2029 ZOSTER VACCINES Completed 09/09/2018, 05/01/2018 PNEUMOCOCCAL VACCINES (50+ years) Completed 11/22/2022, 10/27/2018, 10/15/2017 INFLUENZA VACCINE Completed 05/17/2025, , 05/03/2023, Additional history exists SMOKING STATUS SCREENING (Once After 26 Yrs) Completed 06/15/2025 HEPATITIS A VACCINES Aged Out No long [...] this topic Medical Devices Not on file Procedures Procedure Name Priority Date/Time Associated Diagnosis Comments HEMOGLOBIN A1C Routine 05/17/2025 CBC AND DIFFERENTIAL Routine 05/17/2025 PSA Routine 05/17/2025 MICROALBUMIN, RANDOM URINE Routine 05/17/2025 LIPID PANEL Routine 05/17/2025 COMPREHENSIVE METABOLIC PANEL (CMP) Routine 05/17/2025 COLONOSCOPY FOR RESULT ENTRY ONLY Routine 12/07/2024 2:46 PM EDT DIABETES EYE EXAM FOR RESULT ENTRY ONLY Routine 11/10/2024 11:39 AM EDT from Last 3 Months or Most Recently Relevant to Health Maintenance Results * Microalbumin, Random Urine (05/17/2025) Microalbumin, urine - External unable to calculate ratio 05/17/2025 us Historical Provider URINE ORDERABLES Final Re sult * PSA (05/17/2025) Pathologist [facility] PSA - External 11.72 05/17/2025 Result [facility] Provider MD LAB BLOOD BKR ORDERABLES Final Result * Comprehensive Metabolic Panel (CMP) (05/17/2025) Pathologist [facility] Sodium - External 135 Potassium - External 4.5 Chloride - External 103 CO2 - External 25 BUN - External 23 Creatinine - External 1.38 Glucose - External 143 Albumin - External 4.6 Protein - External 7.1 Calcium - External 9.8 Alkaline Phosphatase - External 142 Bilirubin, total - External 0.8 AST - External 31 ALT - External 48 Globulin - External eGFR - External 51 Anion Gap - External 12 Blood (Blood) 05/17/2025 Result [facility] Provider MD LAB BLOOD BKR ORDERABLES Final Result * CBC and Differential (05/17/2025) Pathologist [facility] WBC - External 7.9 RBC - External 4.76 HGB - External 15.3 HCT - External 44.5 Platelets - External 255 MCV - External 93.5 MCH - External 32.1 MCHC - External 34.4 RDW - External 12.0 MPV - External 10.0 NRBC - External 0 Absolute NRBC - External 0.00 Neuts - External 69.5 Lymphs - External 18.1 Monos - External 9.2 Eos - External 2.3 Basos - External 0.5 % Immature Grans - External Absolute Neuts - External 5.5 Absolute Lymphs - External 1.4 Absolute Monos - External 0.7 Absolute Eos - External 0.2 Absolute Basos - External 0.0 Abs Immature Grans - External 0.03 Other Cells - External Blood (Blood) 05/17/2025 Result [facility] Provider MD LAB BLOOD BKR ORDERABLES Final Result * Hemoglobin A1c (05/17/2025) Pathologist [facility] Hemoglobin A1c - External 7.0 Blood (Blood) 05/17/2025 Historical Provider LAB BLOOD BKR ORDERABLES Final Result * Lipid Panel (05/17/2025) HDL - External 52 Cholesterol, Total - External 168 Triglycerides - External 162 LDL, calculated - External 84 Cardiac Risk Ratio - External Non-HDL Cholesterol - External Blood (Blood) 05/17/2025 Historical Provider MD LAB BLOOD BKR ORDERABLES Final Result * COLONOSCOPY FOR RESULT ENTRY ONLY (12/07/2024 2:46 PM EDT) [facility] Provider HEALTH MAINTENANCE Final Result * DIABETES EYE EXAM FOR RESULT ENTRY ONLY (11/10/2024 11:39 AM EDT) [facility] Provider HEALTH MAINTENANCE Final Result from Last 3 Months or Most Recently Relevant to Health Maintenance Insurance MEDICARE PART A & B [employer] SUPPLEMENT MEDICARE PART A & B [employer] MEDEX SUPPLEMENT MEDICARE PART A & B [employer] MEDEX SUPPLEMENT [employer] MEDEX SUPPLEMENT MEDICARE PART A & B [employer] CROSS MEDEX SUPPLEMENT MEDICARE PART A & B [employer] MEDEX SUPPLEMENT Care Teams Repairer Helper Relationship Specialty Start Date End Date Radha Clemens CNP [address] [place], [place] [id number] [place] [address] [email or web address] PCP - General Nurse Practitioner 06/15/25 Rafael Crook MD Nephrology 09/23/23 Vidal Desir MD [address] [place] [address], [address] [place] [address] [email or web address] Internal Medicine 06/15/25 [facility] 06/15/25 Additional Source Comments The information contained in this document represents components of the legal health record. It is not the complete legal health record.[facility]
--- OUTSIDE RECORDS SUMMARY | 2025-07-19 08:10 | XMS_ITS | Clinical Summary ---
Author Organization [facility] Address [address] [facility] [address] [place] [address] Phone Care Team Providers Care Supervisor Metal Furniture Fabrication Name Role Phone Venancio Betancourt MD Primary [...] Colonoscopy 2004 Colorectal Cancer Screening: Sigmoidoscopy 2004 Diabetes: Hemoglobin A1C 07/06/2025 11/05/2019 Diabetes: Ophthalmology Exam 07/06/2025 Diabetes: Pedal Pulse Checked 07/06/2025 Diabetes: Sensory Foot Exam 07/06/2025 Diabetes: Visual Foot Exam 07/06/2025 Pneumococcal Vaccine: 50+ Years Completed 11/22/2022, 10/27/2018, 10/15/2017 Pneumococcal Vaccine: Peds (0 to 5 Years) and At-Risk Patients (6 to 49 Years) Discontinued 11/22/2022, 10/27/2018, 10/15/2017 Influenza Vaccine Completed 05/17/2025, , 05/03/2023, Additional history exists Hepatitis B Vaccine Aged Out No longe r eligible based on patient's age to complete this topic Procedures Procedure Name Priority Date/Time Associated Diagnosis Comments BLOOD PANEL (HC) Routine 11/05/2019 12:0 0 AM EDT from Last 3 Months or Most Recently Relevant to Health Maintenance Results * (ABNORMAL) Blood Panel (11/05/2019 12:00 AM EDT) Triglycerides 107 <150 mg/dl [facility] HDL 50 >40 mg/dl [facility] Hemoglobin A1C 5.7(H) <5 % [facility] Cholesterol 152 <200 mg/dl [facility] LDL,Direct 81 <130 mg/dl [facility] 11/05/2019 us Rtama Conversion LAB [id number] LICITED RESULTS Final Result [facility] from Last 3 Months or Most Recently Relevant to Health Maintenance Insurance Medicare [facility] Medicare [facility] Care Teams Supervisor Metal Furniture Fabrication Relationship Specialty Start Date End Date Venancio Betancourt MD [id number] [place], [place] PCP - General 09/05/20
--- OUTSIDE RECORDS SUMMARY | 2025-07-19 08:11 | XMS_ITS | Patient Health Record ---
Author Organization [facility] Address [address] [place] [address] Care Team Providers Care Divisional Human Resources Director Name Role Phone Venancio Betancourt MD Primary Care Provider Juan Daniel Rdz Unavailable [phone] Allergies Allergen (clinical drug ingredient) Drug/Non Drug Allergy documented on EMR Reaction Allergy Type Onset Date Status pets,perfumes,pollen s, dust,grasses,arias hayfever (uncoded) Unknown Allergy Active Reason For Referral No Information Medications Medication SIG (Take, Route, Frequency, Duration) Notes Start Date End Date Status Atorvastatin Calcium 40 MG Tablet 1 tablet Orally Once a day; Duration: 30 day(s) Active amLODIPine Besylate 10 MG Tablet 1 tablet Orally Once a day; Duration: 30 day(s) Active Symbicort 160-4.5 MCG/ACT Aerosol 2 puffs Inhalation Twice a day Not-Taking/PRN ProAir HFA 108 (90 Base) MCG/ACT Aerosol Solution 2 puffs as needed Inhalation every 6 hrs Not-Taking/PRN Viagra 100 MG Tablet 1 tablet as needed Orally Once a day; Duration: 30 day(s) Active Osteo Bi-Flex Adv Double St - Tablet as directed Orally Active Saw Lakeside 450 MG Capsule as directed Orally Active Mens 50+ Advanced - Capsule as directed Orally Active Omeprazole 20 MG Capsule Delayed Release 1 capsule Orally Once a day Active Spironolactone 50 MG Tablet Takes 75 mg Orally Once a day Active Singulair 10 MG Tablet 1 tablet Orally O nce a day; Duration: 30 day(s) Active Immunizations Vaccine Route Administration Date Status Comme nts Influenza Unknown 01/16/2019 Administered Social History Tobacco Use: Social History Observation Description Date Details (start date - stop date) Never Smoker NA - NA Social History Drugs/Alcohol: Social Info Question Answer Notes Alcohol Screen Did you have a drink containing alcohol in the past year? Yes How often did you have a drink containing alcohol in the past year? 2 to 3 times a week (3 points) How many drinks did you have on a typical day when you were drinking in the past year? 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 Section Notes: Nonsmoker; no sig alcohol Nonsmoker; no sig alcohol Problems Problem Type SNOMED Code ICD Code Onset Dates Problem Status W/U Status Risk Notes Problem Colon cancer screening (605792658) Colon cancer screening (Z12.11) Active confirmed Problem Screening for malignant neoplasm of colon (075653561) Encounter for screening for malignant neoplasm of colon (Z.) Active confirmed Problem History of polyp of colon (situation) (109258279) Personal history of colonic polyps (Z86.010) Active confirmed Problem Gastroesophageal reflux disease (383905669) GERD (gastroesophag eal reflux disease) (K21.9) Active confirmed Problem Pre-procedure evaluation check (898907379) Pre-procedural examination (Z01.818) Active confirmed Vital Signs Blood pressure diastolic 11 mm Hg 11/03/2024 Height 73 in 11/03/2024 Blood pressure systolic 111 mm Hg 11/03/2024 Weight 223 lbs 11/03/2024 BMI 29.42 kg/m2 11/03/2024 Procedures Procedure Date Ordered Date Performed Result Body Sit e COLONOSCOPY 11/03/2024 N/A Encounters Encounter Location Date Provider Diagnosis [facility] [address] [place], [place] [id number] 12/07/2024 Juan Daniel Avila Colon cancer screeni ng Z12.11 ; Personal history of colonic polyps Z86.0100 ; Diverticulosis of large intestine without perforation or abscess without bleeding K57.30 and Other hemorrhoids K64.8 [facility] [address] [place] [address] 11/03/2024 Juan Daniel Avila Personal history of colonic polyps Z86.010 ; GERD (gastroesophageal reflux disease) K21.9 and Colon cancer screening Z12.11 [facility] [address] [place] [address] 11/03/2024 Juan Daniel Avila [facility] [address] [place] [address] 12/07/2024 Juan Daniel Avila Assessments Encounter Date Diagnosis (ICD Code) Assessment [...] Date MEDICARE OF [place] [address] [place] [address] [id number] PRETTY WILLIAM Self - patient is the insured 1 [employer] ATTN CLAIMS [address] [place] [address] [phone] [id number] PRETTY WILLIAM Self - patient is the insured Medical (General) History Medical History History ICD Code Asthma Hypertension Hypercholesterolemia Anxiety Denies KS,DM,CVA,,renal disease Neg. colonoscopy in 08/2008 except for an inflammatory polyp GERD-Neg. EGD in 08/2008 except for gastr itis-bx neg for Hpylori Screening colonoscopy 2018 with removal of a small tubular adenoma Surgical History Surgery Date(Month/Year) Left shoulder
--- OUTSIDE RECORDS SUMMARY | 2025-07-19 08:11 | XMS_ITS | Encounter Summary ---
Author Organization [facility] Address [address] [place] [address] Phone Care Team Providers Care Spout Worker Name Role Phone Rafael Crook MD Unavailable Radha Clemens CNP Primary Care Provider [phone] Vidal Desir MD Unavailable [phone] Reason for Visit * Reason Onset Date Comments Request For Records 07/06/2025 Encounter Details Date Type Department Care Team (Late st Contact Info) Description 07/06/2025 Telephone [facility] [address] [place] [address] Radha Clemens CNP [address] [facility] [place] [address] [email or web address] Request For Records Social History Tobacco Use Types Packs/Day Years Used Date Smoking Tobacco: Never Passive Smoke Exposure: Never Smokeless Tobacco: Never Alcohol Use Standard [...] Progress Notes * Radha Clemens CNP - 07/14/2025 7:30 AM EST Thanks. * Earnestine Barrientos CMA - 07/13/2025 4:59 PM EST Called [facility] and spoke with RAMON informed pt has a DX of Diabetes but after PCP review of eye exam report from October there was no notation of diabetes. Asked that RJ place a note on pt chart so that next Eye Exam will be done as DM eye exam. RAMON informs me a notation will be made re Diabetes DX. * Radha Clemens CNP - 07/13/2025 11:[address] [facility] Note reviewed - no notation of diabetic exam/diabetes diagnosis. Would you let them know that he has this diagnosis for his next appointment? * Earnestine Barrientos CMA - 07/13/2025 11:40 AM EST Received [facility] Note from 11/10/2024, scanned and sent to PCP. * Earnestine Barrientos CMA - 07/13/2025 11:00 AM EST [facility] spoke with Tayler informed that we have not received recent DM Eye Exam that was requested on 07/06/25. Tayler will fax to back fax [phone] * Earnestine Barrientos CMA - 07/06/2025 3:55 PM EST Received [facility] Notes from 2024. Scanned and sent to PCP. * Earnestine Barrientos CMA - 07/06/2025 2:45 PM EST Received [facility] [place] Report, Scanned, and sent to PCP * Earnestine Barrientos CMA - 07/06/2025 10:23 AM EST Notes from [facility] received and scanned and sent PCP. Notes from [facility] Received scanned and sent to PCP. * Earnestine Barrientos CMA - 07/06/2025 9:37 AM EST Request for colo faxed via Booster to [facility] Called Nephrology Spoke with Heide draper appt scheduled this year but was not seen. States pt was seen last in 2022 will fax note to back fax. Called [facility], Office closed will call back later. Called pt and informed of Fasting lab to be done in October pt would like a mailed reminder.( Placed in mail today 07/06/25) Pt states he sees [facility] [place] office currently closed will call later [phone]. Pt states he sees Dr Wallace for Nephrology who has moved to his own practice in [facility]#[phone]. Pt states he also see Urology through [facility] he will have his MRI next week. Sees Dr Loera. No records on [facility]. Called Nephrology Dr Wallace Office to request records states needs request faxed to [phone] request faxed via Wayin Called [facility] and requested records be faxed to back fax Called [facility] Saleem they will fax to back fax. * Radha Clemens CNP - 07/06/2025 8:31 AM EST Medical records reviewed from prior PCP. Labs entered. Jonathan has a diagnosis of DM II. Most recent A1c was 7.0% treated with lifestyle modifications. LDL was 84 on atorvastatin 40 mg daily. Goal LDL <70. I placed orders for him to do fasting labs prior to his visit in November. Please ask him to have these drawn in October. I did not receive any records from nephrology or from his GI procedure. Please try to get these. Colonoscopy was done at [facility] this year. I will also need his last eye exam. Because of his diagnosis of DM II he qualifies for RSV vaccine at the pharmacy. documented in this encounter Plan of Treatment Upcoming Encounters Date Type Department Care Team (Late st Contact Info) Description 12/06/2025 8:30 AM EDT Office Visit [facility] Medicine [address] [place] [address] [place] [address] Radha Clemens CNP [address] [place] [address], [address] [place] [address] Scheduled Orders Name Type Priority Associated Diagnoses Orde r Schedule CBC Lab Routine Type 2 diabetes mellitus without complication, without long-term current use of insulin Expected: 10/24/2025, Expires: 12/24/2025 Comprehensive Metabolic Panel (CMP) Lab Routine Type 2 diabetes mellitus without complication, without long-term current use of insulin Expected: 10/24/2025, Expires: 12/24/2025 Lipid Panel Lab Routine Type 2 diabetes mellitus without complication, without long-term current use of insulin Expected: 10/24/2025, Expires: 12/24/2025 Hemoglobin A1c Lab Routine Type 2 diabetes mellitus without complication, without long-term current use of insulin Expected: 10/24/2025, Expires: 12/24/2025 Hepatitis C Antibody Microbiology Routine Need for hepatitis C screening test Expected: 10/06/2025, Expires: 04/05/2026 documented as of this encounter Visit Diagnoses Diagnosis Type 2 diabetes mellitus without complication, without long-term current use of insulin- Primary Need for hepatitis C screening test Special screening examination for other specified viral diseases documented in this encounter Additional Health Concerns Assessment Noted Time PHQ-2 Depression Total Score: 0 06/15/20 9:39 AM EDT documented as of this encounter Care Teams Spout Worker Relationship Specialty Start Date End Date Radha Clemens CNP [address] [place] [address], [address] [place] [address] [email or web address] PCP - General Nurse Practitioner 06/15/25 Rafael Crook MD Nephrology 09/23/23 Vidal Desir MD [address] [place] [address], [address] [place] [address] [email or web address] Internal Medicine 06/15/25 [facility] 06/15/25 documented as of this encounter Additional Source Comments The information contained in this document represents components of the legal health record. It is not the complete legal health record.[facility]
--- OUTSIDE RECORDS SUMMARY | 2025-07-19 08:11 | XMS_ITS | Encounter Summary ---
Author Organization [facility] Address [address] [facility] [facility] [place] [address] Phone Care Team Providers Care Dot Etcher Name Role Phone Venancio Betancourt MD Primary Care Provider Rafael Crook MD Unavailable Radha Clemens CNP Primary Care Provider [phone] Vidal Desir MD Unavailable [phone] Encounter Details Date Type Department Care Team (Late st Contact Info) Description 11/13/2023 Transcribe Orders [facility] [address] [place] [address] Rhoda Tello MD [address] [place] [address] Impetigo (Primary Dx) Social History Tobacco Use [...] AM EDT documented as of this encounter Plan of Treatment Upcoming Encounters Date Type Department Care Team (Late st Contact Info) Description 12/06/2025 8:30 AM EDT Office Visit [facility] [address] [place] [address] Radha Clemens, ASHISH [address] [facility] [place], [place] [id number] [email or web address] documented as of this encounter Procedures Procedure Name Priority Date/Time Associated Diagnosis Comments WOUND CULTURE/SMEAR Routine 11/13/2023 3 :30 PM EDT Impetigo documented in this encounter Results * (ABNORMAL) Wound culture/smear (11/13/2023 3:30 PM EDT) Special Requests None 11/13/2023 3:51 PM EDT [facility] GRAM STAIN NO ORGANISMS SEEN 024 8:42 AM EDT [facility] Wound Culture/Smear Few STAPHYLOCOCCUS AUREUS(A) 11/15/2023 8:52 AM EDT [facility] Wound Culture/Smear Rare MIXED ORGANISMS RESEMBLING CUTANEOUS BLADIMIR(A) 11/15/2023 8:52 AM EDT [facility] Other (Nasal) 11/13/2023 3:3 0 PM EDT [...] TAYLOR METHOD <=1: Susceptible Staphylococcus aureus Trimethoprim/sulfamethoxazole ND C METHOD <=10: Susceptible Staphylococcus aureus Vancomycin TAYLOR METHOD <=0.5: Susceptible Staphylococcus aureus Cefoxitin TAYLOR METHOD Negative Staphylococcus aureus Amoxicillin + Clavulanate TAYLOR ME THOD Susceptible Staphylococcus aureus Ampicillin + Sulbactam TAYLOR METHO D Susceptible Staphylococcus aureus Cefuroxime TAYLOR METHOD Susceptible Staphylococcus aureus Cefotaxime TAYOLR METHOD Susceptible Staphylococcus aureus Ceftriaxone TAYLOR METHOD Susceptible Comment: us Rhoda Tello MD LAB MICROBIOLOGY CULTURE OR DERABLES Final Result [facility] [address] [place], [place] [id number] documented in this encounter Visit Diagnoses Diagnosis Impetigo- Primary documented in this encounter Additional Health Concerns Infection Onset Date Last Indicated Resolved Time CoV-Risk 12/05/2023 12/05/2023 12/16/2023 1:22 AM EDT documented as of this encounter Care Teams Dot Etcher Relationship Specialty Start Date End Date Venancio Betancourt MD [address] [place] [address] [place] [address] PCP - General Internal Medicine 04/04/23 06/14/25 Radha Clemens CNP [address] [place] [address], [address] [place] [address] [email or web address] PCP - General Nurse Practitioner 06/15/25 Rafael Crook MD [address] [place] [address] [place] [address] Nephrology 09/23/23 Vidal Desir MD [address] [place] [address], [address] [place] [address] Internal Medicine 06/15/25 [facility] 06/15/25 documented as of this encounter Additional Source Comments The information contained in this document represents components of the legal health record. It is not the complete legal health record.[facility]
--- OUTSIDE RECORDS SUMMARY | 2025-07-19 08:11 | XMS_ITS | Encounter Summary ---
Author Organization [facility] Address [address] [facility] [address] [place] [address] Phone Care Team Providers Care Chemical Plant Operator Name Role Phone Rafael Crook MD Unavailable Radha Clemens CNP Primary Care Provider [phone] Vidal Desir MD Unavailable [phone] Encounter Details Date Type Department Care Team (Late st Contact Info) Description 07/06/2025 Orders Only [facility] Medicine [address] [place] [address] Radha Clemens CNP [address] [facility] [place] [address] [email or web address] Social History Tobacco Use Types Packs/Day Years [...] Description 12/06/2025 8:30 AM EDT Office Visit [facility] [address] [place] [address] Radha Clemens, ASHISH [address] [facility] [place] [address] [email or web address] documented as of this encounter Procedures Procedure Name Priority Date/Time Associated Diagnosis Comments MICROALBUMIN, RANDOM URINE Routine 05/17/2025 PSA Routine 05/17/2025 COMPREHENSIVE METABOLIC PANEL (CMP) Routine 05/17/2025 CBC AND DIFFERENTIAL Routine 05/17/2025 HEMOGLOBIN A1C Routine 05/17/2025 LIPID PANEL Routine 05/17/2025 HM COLONOSCOPY FOR RESULT ENTRY ONLY Routine 12/07/2024 2:46 PM EDT documented in this encounter Results * Hemoglobin A1c (05/17/2025) Pathologist [facility] Hemoglobin A1c - External 7.0 Blood (Blood) 05/17/2025 Result [facility] Provider MD LAB BLOOD BKR ORDERABLES Final Result * CBC and Differential (05/17/2025) [facility] WBC - External 7.9 RBC - External [...] Cells - External Blood (Blood) 05/17/2025 Result [facility] Provider LAB BLOOD BKR ORDERABLES Final Result * PSA (05/17/2025) Pathologist [facility] PSA - External 11.72 05/17/2025 Result [facility] Provider LAB BLOOD BKR ORDERABLES Final Result * Microalbumin, Random Urine (05/17/2025) Pathologist [facility] Microalbumin, urine - External unable to calculate ratio 05/17/2025 Result [facility] Provider URINE ORDERABLES Final Re sult * Lipid Panel (05/17/2025) Pathologist [facility] HDL - External 52 Cholesterol, Total - External 168 Triglycerides - External 162 LDL, calculated - External 84 Cardiac Risk Ratio - External Non-HDL Cholesterol - External Blood (Blood) 05/17/2025 Historical Provider LAB BLOOD BKR ORDERABLES Final Result * Comprehensive Metabolic Panel (CMP) (05/17/2025) Sodium - External 135 Potassium - External [...] Gap - External 12 Blood (Blood) 05/17/2025 [facility] Provider LAB BLOOD BKR ORDERABLES Final Result * COLONOSCOPY FOR RESULT ENTRY ONLY (12/07/2024 2:46 PM EDT) [facility] Provider HEALTH MAINTENANCE Final Result documented in this encounter Visit Diagnoses Not on filedocumented in this encounter Additional Health Concerns Assessment Noted Time PHQ-2 Depression Total Score: 0 06/15/20 25 9:39 AM EDT documented as of this encounter Care Teams Chemical Plant Operator Relationship Specialty Start Date End Date Radha Clemens CNP [address] [place] [address], [address] [place] [address] [email or web address] PCP - General Nurse Practitioner 06/15/25 Rafael Crook MD Nephrology 09/23/23 Vidal Desir MD [address] [place] [address], [address] [place] [address] [email or web address] Internal Medicine 06/15/25 [facility] 06/15/25 documented as of this encounter Additional Source Comments The information contained in this document represents components of the legal health record. It is not the complete legal health record.[facility]
--- OUTSIDE RECORDS SUMMARY | 2025-07-19 08:11 | XMS_ITS | Patient Health Record ---
Author Organization [facility] Address [address] [place] [address] Care Team Providers Care Appointment Setter Name Role Phone Venancio Betancourt MD Primary Care Provider [place] Unavailable [phone] Reason For Referral No Information Medications Medication [...] Fluticasone Propionate 50 MCG/ACT Nasally Active [place] Active Valsartan 320 MG 1 tablet Orally [...] Date Coverage End Date MELVIN [address] [place], [place] [address] [id number] Floyd Lama Self - patient is the insured 7 Medical (General) History Medical History History ICD Code asthma CAD (Cholesterol) High blood pressure Joint implants/screws Reflux Surgical History Surgery Date(Month/Year) Left Shoulder 2007
--- OUTSIDE RECORDS SUMMARY | 2025-07-19 08:11 | XMS_ITS | Encounter Summary ---
Author Organization [facility] Address [address] [place] [address] Phone Care Team Providers Care Strainer Cleaner Name Role Phone Rafael Crook MD Unavailable Radha Clemens CNP Primary Care Provider [phone] Vidal Desir MD Unavailable [phone] Encounter Details Date Type Department Care Team (Late st Contact Info) Description 07/14/2025 Orders Only [facility] [address] [place] [address] Provider, MD Lilliana [address] [place] [address] Social History Tobacco Use Types Packs/Day Years [...] Description 12/06/2025 8:30 AM EDT Office Visit [address] [place] [address] Radha Clemens CNP [address] [place] [address], [address] [place] [address] [email or web address] documented as of this encounter Procedures Procedure Name Priority Date/Time Associated Diagnosis Comments DIABETES EYE EXAM FOR RESULT ENTRY ONLY Routine 11/10/2024 8:37 AM EDT documented in this encounter Results * DIABETES EYE EXAM FOR RESULT ENTRY ONLY (11/10/2024 8:37 AM EDT) us Historical Provider HEALTH MAINTENANCE Edited Result - Final documented in this encounter Visit Diagnoses Not on filedocumented in this encounter Additional Health Concerns Assessment Noted Time PHQ-2 Depression Total Score: 0 06/15/20 25 9:39 AM EDT documented as of this encounter Care Teams Strainer Cleaner Relationship Specialty Start Date End Date Radha Clemens CNP [address] [place] [address], [address] [place] [address] PCP - General Nurse Practitioner 06/15/25 Rafael Crook MD Nephrology 09/23/23 Vidal Desir MD [address] [place] [address], [address] [place] [address] [email or web address] Internal Medicine 06/15/25 [facility] 06/15/25 documented as of this encounter Additional Source Comments The information contained in this document represents components of the legal health record. It is not the complete legal health record.[facility]
--- OUTSIDE RECORDS SUMMARY | 2025-07-19 08:11 | XMS_ITS | Encounter Summary ---
Author Organization [facility] Address [address] [place] [address] Phone Care Team Providers Care Surgical Device Sales Representative Name Role Phone Rafael Crook MD Unavailable Radha Clemens CNP Primary Care Provider [phone] Vidal Desir MD Unavailable [phone] Encounter Details Date Type Department Care Team (Late st Contact Info) Description 07/13/2025 Orders Only [facility] Medical [facility] [address] [place] [address] Provider, MD Lilliana [address] [place] [address] Social History Tobacco Use Types Packs/Day [...] Description 12/06/2025 8:30 AM EDT Office Visit [address] [place] [address] Radha Clemens CNP [address] [place] [address], [address] [place] [address] documented as of this encounter Procedures Procedure Name Priority Date/Time Associated Diagnosis Comments DIABETES EYE EXAM FOR RESULT ENTRY ONLY Routine 11/10/2024 11:39 AM EDT documented in this encounter Results * DIABETES EYE EXAM FOR RESULT ENTRY ONLY (11/10/2024 11:39 AM EDT) Historical Provider HEALTH MAINTENANCE Final Result documented in this encounter Visit Diagnoses Not on filedocumented in this encounter Additional Health Concerns Assessment Noted Time PHQ-2 Depression Total Score: 0 06/15/20 9:39 AM EDT documented as of this encounter Care Teams Surgical Device Sales Representative Relationship Specialty Start Date End Date Radha Clemens CNP [address] [place] [address], [address] [place] [address] [email or web address] PCP - General Nurse Practitioner 06/15/25 Rafael Crook MD Nephrology 09/23/23 Vidal Desir MD [address] [place] [address], [address] [place] [address] Internal Medicine 06/15/25 [facility] 06/15/25 documented as of this encounter Additional Source Comments The information contained in this document represents components of the legal health record. It is not the complete legal health record.[facility]
[2025-07-19 09:23] LABS: Anion Gap 14 (12-20); Blood Urea Nitrogen 28 mg/dL (9-16); Carbon Dioxide 26 mmol/L (22-29); Chloride 100 mmol/L (96-108); Estimated Glomerular Filt Rate 46; Potassium 4.4 mmol/L (3.3-5.1); Sodium 136 mmol/L (135-145)
== END 2025-07-19 08:05 | disposition home or self-care (01) ==
LOC: HO.LAB 08:04
PROVIDERS: PCP Nurse Practitioner Adult Health; Visit Provider Internal Medicine Nephrology
DX: I12.9 Hypertensive chronic kidney disease with stage 1 through stage 4 chronic kidney disease, or unspecified chronic kidney disease (principal); N18.31 Chronic kidney disease, stage 3a
CPT/HCPCS: 36415; 80051; 82565; 84520

== ENCOUNTER 2025-07-28 09:32 | Outpatient (AMB) | payer MEDICARE, SELFPAY ==
--- NOTE | 2025-07-28 09:45 | HO.NEPHOV_ITS ---
Vital Signs 07/28/25 09:47 Height 6 ft 1 in Weight 225 lb BMI 29.7 BP 142/62 H Blood Pressure Location Rt brachial Position Sitting Pulse 90 Pulse Source Pulse Oximeter Pulse Oximetry (%) 96 Oxygen Delivery Method Room Air Intake Visit Reasons: 6mon follow-up w/labs-Conf Industrial Relations Counselor Required: No Accompanied by: Self / Same As Patient Allergies environmental allergies Allergy (Intermediate, Verified 07/28/25 09:47) hayfever symptoms HPI Comments Details: Jonathan was seen in follow-up of his CKD as well as hypertension. He has a new diagnosis of DM. He had Raynaud's disease without any systemic symptoms. His ARB has been on hold . He does not have any orthostatic symptoms. He denies any chest pain, shortness of breath, pedal edema, proximal nocturnal dyspnea or urinary symptoms. His BP @ home has been at goal. There were no new active complaints at the time of this office visit [facility] Medical History Raynaud's disease Anxiety Asthma Hyperlipidemia Chronic renal insufficiency GERD (gastroesophageal reflux disease) Hypertension Surgical History History of esophagogastroduodenoscopy (EGD) H/O colonoscopy H/O rotator cuff surgery Social History Are you a primary rn complex care to a significant other at home: No Do you presently have visiting nurse or other home services: No Patient Tobacco Use Status: Never used Tobacco Review of Systems Const All systems reviewed & are unremarkable except as noted in HPI and below Physical Exam Vital Signs: Last Vital Signs Pulse 90 07/28/25 09:47 BP 142/62 H 07/28/25 09:47 Pulse Ox 96 07/28/25 09:47 Oxygen Delivery Method Room Air 07/28/25 09:47 BMI result Body Mass Index 29.7 Const General: comfortable and no acute distress Orientation/consciousness: patient oriented x3 HEENT Head: Yes normocephalic Mouth: Normal oral and palatal mucosa present Eyes EOM: EOMs intact bilaterally Neck Neck: Yes supple Resp Auscultation: clear to auscultation bilaterally Cardio Jugular venous distension: no JVD Rate: regular rate GI Palpation (GI): Soft to palpation Auscultation: normal bowel sounds General: Yes no CVA tenderness Back/Spine/Pelvis Back: no CVA tenderness Skin General skin exam: no rashes or lesions noted Neuro General: patient oriented x3 and moves all extremities Extrem General: Yes no pedal edema Results Reviewed Nephrology Results: Sodium, (135-145) 136 mmol/L 07/19/25 Potassium, (3.3-5.1) 4.4 mmol/L 07/19/25 Chloride, (96-108) 100 mmol/L 07/19/25 Carbon Dioxide, (22-29) 26 mmol/L 07/19/25 BUN, (9-16) 28 mg/dL H 07/19/25 Creatinine, (0.5-1.4) 1.52 mg/dL H 07/19/25 Calcium, (8.4-10.2) 9.8 mg/dL 05/17/25 Urine Protein, (Neg-Trace) Negative mg/dL 05/17/25 Urine Creatinine 49.11 mg/dL 05/17/25 Assessment & Plan Assessment & Plan (1) CKD stage 3a, GFR 45-59 ml/min: Code(s): N18.31 - Chronic kidney disease, stage 3a Category: Medical (2) Hypertension: Code(s): I10 - Essential (primary) hypertension Category: Medical Qualifiers: Hypertension type: primary hypertension Qualified Code(s): I10 - Essential (primary) hypertension Plan Jonathan has hypertension long time. He has been having Raynaud's disease without any systemic symptoms. His serum creatinine had gone up likely due to tubular injury. (His BP and serum creatinine is better after holding Irbesartan). Doppler of his renal arteries along with extensive workup done in the past to delineate a secondary etiology for his hypertension had been negative. His BP is at goal at home. I am planning to initiate him on Jardiance at next visit( labs ordered).He was encouraged to increase his fluid intake.Answered all questions. Follow-up given Orders: Orders Hemoglobin A1c 3 Weeks I10 - Essential (primary) hypertension, N18.31 - Chronic kidney disease, stage 3a Electrolytes 3 Weeks I10 - Essential (primary) hypertension, N18.31 - Chronic kidney disease, stage 3a Blood Urea Nitrogen 3 Weeks I10 - Essential (primary) hypertension, N18.31 - Chronic kidney disease, stage 3a Creatinine 3 Weeks I10 - Essential (primary) hypertension, N18.31 - Chronic kidney disease, stage 3a Coding Level of Care Code Est Pt Level 4 (88847) Diagnoses CKD stage 3a, GFR 45-59 ml/min N18.31 Primary hypertension I10 Hypertension type: primary hypertension
[2025-07-28 09:47] VITALS: BP 142/62; PULSE 90; O2SAT 96; BMI 29.7
--- OUTSIDE RECORDS SUMMARY | 2025-07-28 10:28 | XMS_ITS | Encounter Summary ---
Author Organization Formerly [facility] Address [address] [facility] [address] [place] [address] Phone Care Team Providers Care Culture Room Worker Name Role Phone Venancio Betancourt MD Primary Care Provider Rafael Crook MD Unavailable Radha Clemens CNP Primary Care Provider [phone] Vidal Desir MD Unavailable [phone] Encounter Details Date Type Department Care Team (Late st Contact Info) Description 11/13/2023 Transcribe Orders [facility] [address] [place] [address] Rhoda Tello MD [address] [place] [address] Impetigo (Primary Dx) Social History Tobacco Use [...] Description 12/06/2025 8:30 AM EDT Office Visit [facility] [address] [place] [address] Radha Clemens, ASHISH [address] [facility], [address] [place], [place] [id number] [email or web address] documented as of this encounter Procedures Procedure Name Priority Date/Time Associated Diagnosis Comments WOUND CULTURE/SMEAR Routine 11/13/2023 3 :30 PM EDT Impetigo documented in this encounter Results * (ABNORMAL) Wound culture/smear (11/13/2023 3:30 PM EDT) Special Requests None 11/13/2023 3:51 PM EDT [facility] GRAM STAIN NO ORGANISMS SEEN 024 8:42 AM EDT [facility] Wound Culture/Smear Few STAPHYLOCOCCUS AUREUS(A) 11/15/2023 8:52 AM EDT [facility] Wound Culture/Smear Rare MIXED ORGANISMS RESEMBLING CUTANEOUS BLADIMIR(A) 11/15/2023 8:52 AM EDT [facility] Other (Nasal) 11/13/2023 3:3 0 PM EDT 11/13/2023 4:17 PM EDT Comment:RIGHT NARIS Narrative Organism Antibiotic Method Susceptibility Staphylococcus aureus Penicillin G TALYOR METHOD >=0.5: Resistant Staphylococcus aureus Clindamycin TAYLOR METHOD <=0.25: Susceptible Staphylococcus aureus Erythromycin TAYLOR METHOD >=8: Resistant Staphylococcus aureus Gentamicin TAYLOR METHOD <=0.5: Susceptible Staphylococcus aureus inducible clindamycin TAYLOR METHOD Negative Staphylococcus aureus Levofloxacin TAYLOR METHOD 0.25: Susceptible Staphylococcus aureus Oxacillin(methicillin) TAYLOR METHO D <=0.25: Susceptible Staphylococcus aureus Rifampin TAYLOR METHOD <=0.5: Susceptible Staphylococcus aureus Tetracycline TAYLOR METHOD <=1: Susceptible Staphylococcus aureus Trimethoprim/sulfamethoxazole AR C METHOD <=10: Susceptible Staphylococcus aureus Vancomycin [...] LAB MICROBIOLOGY CULTURE OR DERABLES Final Result [facility] [address] [place], [place] [id number] documented in this encounter Visit Diagnoses Diagnosis Impetigo- Primary documented in this encounter Additional Health Concerns Infection Onset Date Last Indicated Resolved Time CoV-Risk 12/05/2023 12/05/2023 12/16/2023 1:22 AM EDT documented as of this encounter Care Teams Culture Room Worker Relationship Specialty Start Date End Date Venancio Betancourt MD [address] [place] [address] [place] [address] PCP - General Internal Medicine 04/04/23 06/14/25 Radha Clemens CNP [address] [place] [address], [address] [place] [address] [email or web address] PCP - General Nurse Practitioner 06/15/25 Rafael Crook MD [address] [place] [address] [place] [address] Nephrology 09/23/23 Vidal Desir MD [address] [place] [address], [address] [place] [address] Internal Medicine 06/15/25 [facility] 06/15/25 documented as of this encounter Additional Source Comments The information contained in this document represents components of the legal health record. It is not the complete legal health record.[facility]
--- OUTSIDE RECORDS SUMMARY | 2025-07-28 10:28 | XMS_ITS | Encounter Summary ---
Author Organization [facility] Address [address] [place] [address] Phone Care Team Providers Care Welcome Desk Agent Name Role Phone Rafael Crook MD Unavailable Radha Clemens CNP Primary Care Provider [phone] Vidal Desir MD Unavailable [phone] Encounter Details Date Type Department Care Team (Late st Contact Info) Description 07/14/2025 Orders Only [facility] [address] [place] [address] Provider, MD Lilliana [address] [place] [address] Social History Tobacco Use Types Packs/Day [...] Description 12/06/2025 8:30 AM EDT Office Visit [address] [place] [address] Radha Clemens CNP [address] [place] [address], [address] [place] [address] [email or web address] documented as of this encounter Procedures Procedure [...] documented as of this encounter Care Teams Welcome Desk Agent Relationship Specialty Start Date End Date Radha Clemens CNP [address] [place] [address], [address] [place] [address] [email or web address] PCP - General Nurse Practitioner 06/15/25 Rafael Crook MD Nephrology 09/23/23 Vidal Desir MD [address] [place] [address], [address] [place] [address] [email or web address] Internal Medicine 06/15/25 [facility] 06/15/25 documented as of this encounter Additional Source Comments The information contained in this document represents components of the legal health record. It is not the complete legal health record.[facility]
--- OUTSIDE RECORDS SUMMARY | 2025-07-28 10:28 | XMS_ITS | Encounter Summary ---
Author Organization [facility] Address [address] [place] [address] Phone Care Team Providers Care Senior Program Analyst Name Role Phone Rafael Crook MD Unavailable Radha Clemens CNP Primary Care Provider [phone] Vidal Desir MD Unavailable [phone] Encounter Details Date Type Department Care Team (Late st Contact Info) Description 07/13/2025 Orders Only [facility] [address] [place] [address] Provider, MD Lilliana [address] [place] [address] Social History Tobacco Use Types Packs/Day [...] Description 12/06/2025 8:30 AM EDT Office Visit [address] [place] [address] Radha Clemens CNP [address] [place] [address], [address] [place] [address] [email or web address] documented as of this encounter Procedures Procedure [...] documented as of this encounter Care Teams Senior Program Analyst Relationship Specialty Start Date End Date Radha Clemens CNP [address] [place] [address], [address] [place] [address] PCP - General Nurse Practitioner 06/15/25 Rafael Crook MD Nephrology 09/23/23 Vidal Desir MD [address] [place] [address], [address] [place] [address] Internal Medicine 06/15/25 [facility] 06/15/25 documented as of this encounter Additional Source Comments The information contained in this document represents components of the legal health record. It is not the complete legal health record.[facility]
--- OUTSIDE RECORDS SUMMARY | 2025-07-28 10:28 | XMS_ITS | Encounter Summary ---
Author Organization [facility] Address [address] [place] [address] Phone Care Team Providers Care Sheet Rock Installation Helper Name Role Phone Rafael Crook MD Unavailable Radha Clemens CNP Primary Care Provider [phone] Vidal Desir MD Unavailable [phone] Encounter Details Date Type Department Care Team (Late st Contact Info) Description 07/23/2025 Orders Only [facility] [address] [place] [address] Provider, MD Lilliana [address] [place] [address] Social History Tobacco Use Types Packs/Day [...] Description 12/06/2025 8:30 AM EDT Office Visit [address] [address] Radha Clemens CNP [address] [place] [address], [address] [place] [address] documented as of this encounter Procedures Procedure Name Priority Date/Time Associated Diagnosis Comments OUTSIDE LAB Routine 07/19/2025 1:34 PM EST documented in this encounter Results * Outside Lab (Non-MGB) (07/19/2025 1:34 PM EST) us Historical Provider LAB BLOOD BKR ORDERABLES Edited Result - Final documented in this encounter Visit Diagnoses Not on filedocumented in this encounter Additional Health Concerns Assessment Noted Time PHQ-2 Depression Total Score: 0 06/15/20 25 9:39 AM EDT documented as of this encounter Care Teams Sheet Rock Installation Helper Relationship Specialty Start Date End Date Radha Clemens CNP [address] [place] [address], [address] [place] [address] [email or web address] PCP - General Nurse Practitioner 06/15/25 Rafael Crook MD Nephrology 09/23/23 Vidal Desir MD [address] [place] [address], [address] [place] [address] [email or web address] Internal Medicine 06/15/25 [facility] 06/15/25 documented as of this encounter Additional Source Comments The information contained in this document represents components of the legal health record. It is not the complete legal health record.[facility]
--- OUTSIDE RECORDS SUMMARY | 2025-07-28 10:28 | XMS_ITS | Encounter Summary ---
Author Organization [facility] Address [address] [facility] [address] [place] [address] Phone Care Team Providers Care Assembly Machine Set Up Mechanic Name Role Phone Rafael Crook MD Unavailable Radha Clemens CNP Primary Care Provider [phone] Vidal Desir MD Unavailable [phone] Encounter Details Date Type Department Care Team (Late st Contact Info) Description 07/06/2025 Orders Only [facility] Medicine [address] [place] [address] Radha Clemens CNP [address] [place] [address] [email or web address] Social History Tobacco Use Types Packs/Day Years [...] 12/06/2025 8:30 AM EDT Office Visit [facility] [address] [place] [address] Radha Clemens, ASHISH [address] [place] [address] [email or web address] documented as of this encounter Procedures Procedure Name Priority Date/Time Associated Diagnosis Comments MICROALBUMIN, RANDOM URINE Routine 05/17/2025 PSA Routine 05/17/2025 COMPREHENSIVE METABOLIC PANEL (CMP) Routine 05/17/2025 CBC AND DIFFERENTIAL Routine 05/17/2025 HEMOGLOBIN A1C Routine 05/17/2025 LIPID PANEL Routine 05/17/2025 HM COLONOSCOPY FOR RESULT ENTRY ONLY Routine 12/07/2024 2:46 PM EDT documented in this encounter Results * Hemoglobin A1c (05/17/2025) Pathologist [facility] Hemoglobin A1c - External 7.0 Blood (Blood) 05/17/2025 Result [facility] Provider MD LAB BLOOD BKR ORDERABLES Final Result * CBC and Differential (05/17/2025) [facility] WBC - External 7.9 RBC [...] Cells - External Blood (Blood) 05/17/2025 Result [facility] Provider LAB BLOOD BKR ORDERABLES Final Result * PSA (05/17/2025) Pathologist [facility] [place] PSA - External 11.72 05/17/2025 Result [facility] Provider LAB BLOOD BKR ORDERABLES Final Result * Microalbumin, Random Urine (05/17/2025) Pathologist [facility] Microalbumin, urine - External unable to calculate ratio 05/17/2025 Result [facility] Provider URINE ORDERABLES Final Re sult * Lipid Panel (05/17/2025) Pathologist [facility] HDL - External 52 Cholesterol, Total - [...] Gap - External 12 Blood (Blood) 05/17/2025 [facility] Provider LAB BLOOD BKR ORDERABLES Final Result * COLONOSCOPY FOR RESULT ENTRY ONLY (12/07/2024 2:46 PM EDT) [facility] Provider HEALTH MAINTENANCE Final Result documented in this encounter Visit Diagnoses Not on filedocumented in this encounter Additional Health Concerns Assessment Noted Time PHQ-2 Depression Total Score: 0 06/15/20 25 9:39 AM EDT documented as of this encounter Care Teams Assembly Machine Set Up Mechanic Relationship Specialty Start Date End Date Radha Clemens CNP [address] [place] [address], [address] [place] [address] [email or web address] PCP - General Nurse Practitioner 06/15/25 Rafael Crook MD Nephrology 09/23/23 Vidal Desir MD [address] [place] [address], [address] [place] [address] [email or web address] Internal Medicine 06/15/25 [facility] 06/15/25 documented as of this encounter Additional Source Comments The information contained in this document represents components of the legal health record. It is not the complete legal health record.[facility]
--- OUTSIDE RECORDS SUMMARY | 2025-07-28 10:28 | XMS_ITS | Clinical Summary ---
Author Organization [facility] Address [address] [facility] [address] [place] [address] Phone Care Team Providers Care Sander Wooden Pencils Name Role Phone Rafael Crook MD Unavailable Radha Clemens CNP Primary Care Provider [phone] Vidal Desir MD Unavailable [phone] Allergies No known active allergies Medications albuterol [...] daily dose of 75 mg daily. Active multivit-efficiency miner als/FA/lycopen e (ONE-A-DAY MEN'S 50 PLUS ORAL) [...] following with his primary care physician or make up operator. High prostate specific antigen (PSA) 11/05/2022 Assessment [...] Encounters Date Type Department Care Team Description 07/23/2025 Orders Only [facility] [address] [facility] [place] [address] ProviderLilliana MD 07/14/2025 Orders Only [facility] [address] [place] [address] Lilliana Negron MD 07/13/2025 Orders Only [address] [place] [address] Lilliana Negron MD 07/06/[address] [place] [address] Radha Clemens CNP Request For Records 07/06/2025 Orders Only [address] [place] [address] Radha Clemens CNP 06/15/2025 10:00 AM EDT Office Visit [address] [place] [address] Radha Clemens CNP Encounter to establish care with new provider (Primary Dx); Benign essential hypertension; Hypomagnesemia; Heartburn; High prostate specific antigen (PSA); Mild intermittent asthma without complication; Immunization counseling from Last 3 Months Immunizations Immunization Administration [...] Description 12/06/2025 8:30 AM EDT Office Visit [facility] [address] [place] [address] Radha Clemens, ASHISH [address] [facility] [place] [address] Health Maintenance Due Date Last Done Comments [...] OUTSIDE LAB Routine 07/19/2025 1:34 PM EST HEMOGLOBIN A1C Routine 05/17/2025 CBC AND DIFFERENTIAL Routine 05/17/2025 PSA Routine 05/17/2025 MICROALBUMIN, RANDOM URINE Routine 05/17/2025 LIPID PANEL Routine 05/17/2025 COMPREHENSIVE METABOLIC PANEL (CMP) Routine 05/17/2025 COLONOSCOPY FOR RESULT ENTRY ONLY Routine 12/07/2024 2:46 PM EDT DIABETES EYE EXAM FOR RESULT ENTRY ONLY Routine 11/10/2024 11:39 AM EDT from Last 3 Months or Most Recently Relevant to Health Maintenance Results * Outside Lab (Non-MGB) (07/19/2025 1:34 PM EST) us Historical Provider LAB BLOOD BKR ORDERABLES Edited Result - Final * Microalbumin, Random Urine (05/17/2025) Microalbumin, urine - External unable to calculate ratio 05/17/2025 Result [facility] Provider URINE ORDERABLES Final Re sult * PSA (05/17/2025) Pathologist [facility] PSA - External 11.72 05/17/2025 Result [facility] Provider MD LAB BLOOD BKR ORDERABLES Final Result * Comprehensive Metabolic Panel (CMP) (05/17/2025) Pathologist [facility] Sodium - External 135 Potassium - External [...] - External 12 Blood (Blood) 05/17/2025 Result [facility] Provider MD LAB BLOOD BKR ORDERABLES Final Result * CBC and Differential (05/17/2025) Pathologist [facility] WBC - External 7.9 RBC - External [...] Other Cells - External Blood (Blood) 05/17/2025 us Historical Provider MD LAB BLOOD BKR ORDERABLES Final Result * Hemoglobin A1c (05/17/2025) Hemoglobin A1c - External 7.0 Blood (Blood) 05/17/2025 Result [facility] Provider MD LAB BLOOD BKR ORDERABLES Final Result * Lipid Panel (05/17/2025) HDL - External 52 Cholesterol, Total - External 168 Triglycerides - External 162 LDL, calculated - External 84 Cardiac Risk Ratio - External Non-HDL Cholesterol - External Blood (Blood) 05/17/2025 Result [facility] Provider MD LAB BLOOD BKR ORDERABLES Final Result * COLONOSCOPY FOR RESULT ENTRY ONLY (12/07/2024 2:46 PM EDT) Result [facility] Provider HEALTH MAINTENANCE Final Result * DIABETES EYE EXAM FOR RESULT ENTRY ONLY (11/10/2024 11:39 AM EDT) Historical Provider HEALTH MAINTENANCE Final Result from Last 3 Months or Most Recently Relevant to Health Maintenance Insurance MEDICARE PART A & B BLUE [employer]OSS MEDEX SUPPLEMENT MEDICARE PART A & B [id number] Occasion MEDEX SUPPLEMENT MEDICARE PART A & B dilitronics CROSS MEDEX SUPPLEMENT MEDICARE PART A & B [employer]ics CROSS MEDEX SUPPLEMENT MEDICARE PART A & B BLUE CROSS MEDEX SUPPLEMENT [employer] Address: [facility] [id number] [place] [address] [employer]ronics CROSS MEDEX SUPPLEMENT [employer] Address: [facility] [id number] [place] [address] Care Teams Sander Wooden Pencils Relationship Specialty Start Date End Date Radha Clemens CNP [address] [place] [address], [address] [place] [id number] [email or web address] PCP - General Nurse Practitioner 06/15/25 Rafael Crook MD Nephrology 09/23/23 Vidal Desir MD [address] [place] [address], [address] [place] [address] [email or web address] Medicine 06/15/25 [facility] 06/15/25 Additional Source Comments The information contained in this document represents components of the legal health record. It is not the complete legal health record.[facility]
== END 2025-07-28 12:43 | disposition home or self-care (01) ==
LOC: HO.HKA 09:33
PROVIDERS: PCP Internal Medicine; Visit Provider Internal Medicine Nephrology
DX: N18.31 Chronic kidney disease, stage 3a (principal); I10 Essential (primary) hypertension
CPT/HCPCS: 99214

== ENCOUNTER → 2025-07-28 09:32 | Outpatient (BNVA) | payer MEDICARE, SELFPAY | PROVIDERS: PCP Internal Medicine; Visit Provider Internal Medicine Nephrology | DX: I12.9 Hypertensive chronic kidney disease with stage 1 through stage 4 chronic kidney disease, or unspecified chronic kidney disease (principal); N18.31 Chronic kidney disease, stage 3a | CPT/HCPCS: 99212 ==

== ENCOUNTER 2025-08-20 08:17 | Outpatient (REF) | payer MEDICARE, SELFPAY ==
--- OUTSIDE RECORDS SUMMARY | 2024-12-07 09:40 | XMS_ITS ---
Author Organization [facility] Address [address] [place] [address] Care Team Providers Care Phone Technician Name Role Phone Asia RODRIGUEZ, Venancio Primary Care Provider Juan Daniel Rdz [phone] REASON FOR VISIT screening,hx polyps Encounters Encounter Location Date Provider Diagnosis [facility] Outpatient [address] [place], [place] [phone] 12/07/2024 Juan Daniel Avila Colon cancer scree alyse Z12.11 ; Personal history of colonic polyps Z86.0100 ; Diverticulosis of large intestine without perforation or abscess without bleeding K57.30 and Other hemorrhoids K64.8 Assessments Encounter Date Diagnosis (ICD Code) Assessment Notes Treatment Notes Treatment Clinical Notes Section Notes 12/07/2024 Colon cancer screening (ICD-10 - Z12.11) 12/07/2024 Personal history of colonic polyps (ICD-10 - Z86.0100) 12/07/2024 Diverticulosis of large intestine without perforation or abscess without bleeding (ICD-10 - K57.30) 12/07/2024 Other hemorrhoids (ICD-10 - K64.8) Plan Of Treatment No Information Progress Notes * PRETTY WILLIAMDOB: (69 yo M)Acc No.[id number]:12/07/2024 COLON WITH MAC Patient: Bassem BOYDPRETTY SANTOS Provider: Kobi Avila MD :1955 A ge:69 Y S ex:Male Date:12/07/2024 Address:[address], [facility] Pcp:Venancio Betancourt MD Subjective: * Chief Complaints: * S creening,hx polyps Assessment: * Assessment: 1. C olon cancer screening - Z12.11 (Primary) 2 . P ersonal history of colonic polyps - Z86.0100 3 . D iverticulosis of large intestine without perforation or abscess without bleeding - K57.30 4 . O ther hemorrhoids - K64.8 ? Plan: * Procedure Codes: G 0105 COLOREC CANCR SCR; COLNSCPY HI [id number] INTRVL 3+YRS PTS CLNSCP [id number] RCMND FLW-UP 10 YRS DOCD Billing Information: * Procedure Codes: G0105 COLOREC CANCR SCR; COLNSCPY HI RISK. 0529F INTRVL 3+YRS PTS CLNSCP DOCD. 0528F RCMND FLW-UP 10 YRS DOCD. * The named appointment provid er may or may not be the originator of this progress note, and it is not deemed complete until electronically signed by the appointment provider. Sign off status: Pending * Provider: Kobi Avila MD Date: 0 12/07/2024 Generated for Reilly guerra/Aston/Kierraitting on: 1 10/21/2024 08:19 AM EST
--- OUTSIDE RECORDS SUMMARY | 2025-08-20 08:19 | XMS_ITS | Patient Health Record ---
Author Organization [facility] Address [address] [place] [address] Care Team Providers Care Liquor Rectifier Name Role Phone Venancio Betancourt MD Primary Care Provider [place] Unavailable [phone] Reason For Referral No Information Medications Medication [...] Fluticasone Propionate 50 MCG/ACT Nasally Active [place] Active Valsartan 320 MG 1 tablet Orally [...] Date Coverage End Date [place] [address] [place], [place] [address] [phone] [id number] Floyd Lama Self - patient is the insured 7 Medical (General) History Medical History History ICD Code asthma CAD (Cholesterol) High blood pressure Joint implants/screws Reflux Surgical History Surgery Date(Month/Year) Left Shoulder 2007
--- OUTSIDE RECORDS SUMMARY | 2025-08-20 08:19 | XMS_ITS | Encounter Summary ---
Author Organization [facility] Address [address] [place] [address] Phone Care Team Providers Care Airconditioning Plant Operator Name Role Phone Rafael Crook MD Unavailable Radha Clemens CNP Primary Care Provider [phone] Vidal Desir MD Unavailable [phone] Encounter Details Date Type Department Care Team (Late st Contact Info) Description 07/23/2025 Orders Only [facility] [address] [place] [address] Provider, MD Lilliana [address] [place] [address] Social History Tobacco Use Types Packs/Day [...] Description 12/06/2025 8:30 AM EDT Office Visit [facility] Primary Care [address] [address] Radha Clemens CNP [address] [place] [address], [address] [place] [address] documented as of this encounter Procedures Procedure [...] documented as of this encounter Care Teams Airconditioning Plant Operator Relationship Specialty Start Date End Date Radha Clemens CNP [address] [place] [address], [address] [place] [address] PCP - General Nurse Practitioner 06/15/25 Rafael Crook MD Nephrology 09/23/23 Vidal Desir MD [address] [place] [address], [address] [place] [address] [email or web address] Internal Medicine 06/15/25 [facility] 06/15/25 documented as of this encounter Additional Source Comments The information contained in this document represents components of the legal health record. It is not the complete legal health record.[facility]
--- OUTSIDE RECORDS SUMMARY | 2025-08-20 08:19 | XMS_ITS | Encounter Summary ---
Author Organization [facility] Address [address] [facility] [address] [place] [address] Phone Care Team Providers Care Hide Examiner Name Role Phone Venancio Betancourt MD Primary Care Provider Rafael Crook MD Unavailable Radha Clemens CNP Primary Care Provider [phone] Vidal Desir MD Unavailable [phone] Encounter Details Date Type Department Care Team (Late st Contact Info) Description 11/13/2023 Transcribe Orders [facility] Spec[facility] Processing [address] [place] [address] Rhoda Tello MD [address] [place] [address] Impetigo (Primary Dx) Social History Tobacco Use [...] 12/06/2025 8:30 AM EDT Office Visit [facility] Primary Care [facility] [address] [place] [address] Radha Clemens, ASHISH [address] [facility], [address] [place], [place] [id number] [email or web address] documented as of this encounter Procedures Procedure Name Priority Date/Time Associated Diagnosis Comments WOUND CULTURE/SMEAR Routine 11/13/2023 3 :30 PM EDT Impetigo documented in this encounter Results * (ABNORMAL) Wound culture/smear (11/13/2023 3:30 PM EDT) Special Requests None 11/13/2023 3:51 PM EDT [facility] GRAM STAIN NO ORGANISMS SEEN 024 8:42 AM EDT [facility] Wound Culture/Smear Few STAPHYLOCOCCUS AUREUS(A) 11/15/2023 8:52 AM EDT [facility] Wound Culture/Smear Rare MIXED ORGANISMS RESEMBLING CUTANEOUS BLADIMIR(A) 11/15/2023 8:52 AM EDT [facility] Other (Nasal) 11/13/2023 3:3 0 PM EDT [...] TAYLOR METHOD <=1: Susceptible Staphylococcus aureus Trimethoprim/sulfamethoxazole OR C METHOD <=10: Susceptible Staphylococcus aureus Vancomycin [...] LAB MICROBIOLOGY CULTURE OR DERABLES Final Result [facility] [address] [place] [address] documented in this encounter Visit Diagnoses Diagnosis Impetigo- Primary documented in this encounter Additional Health Concerns Infection Onset Date Last Indicated Resolved Time CoV-Risk 12/05/2023 12/05/2023 12/16/2023 1:22 AM EDT documented as of this encounter Care Teams Hide Examiner Relationship Specialty Start Date End Date Venancio Betancourt MD [address] [place] [address] [place] [address] PCP - General Internal Medicine 04/04/23 06/14/25 Radha Clemens CNP [address] [place] [address], [address] [place] [address] [email or web address] PCP - General Nurse Practitioner 06/15/25 Rafael Crook MD [address] [place] [address] Dr [address] Roger [place] [address] Nephrology 09/23/23 Vidal Desir MD [address] [place] [address], [address] [place] [address] Internal Medicine 06/15/25 [facility] 06/15/25 documented as of this encounter Additional Source Comments The information contained in this document represents components of the legal health record. It is not the complete legal health record.[facility]
--- OUTSIDE RECORDS SUMMARY | 2025-08-20 08:19 | XMS_ITS | Clinical Summary ---
Author Organization [facility] Address [address] [facility] [address] [place] [address] Phone Care Team Providers Care Anesthetist Name Role Phone Rafael Crook MD Unavailable Radha Clemens CNP Primary Care Provider [phone] Vidal Desir MD Unavailable [phone] Allergies No known active allergies Medications albuterol (PROAIR HFA) 90 mcg/actuation inhaler INHALE 2 PUFFS ORALLY FOUR TIMES DAILY NEEDED ( EVERY FOUR HOURS ) Active amLODIPine (NORVASC) 10 MG tablet Take 10 mg by mouth daily. 2 Active budesonide-for moterol (SYMBICORT) 160-4.5 mcg/actuation inhaler [...] for pain, inflammation 20 tablet 3 Active spironolactone (ALDACTONE) 25 MG tablet Take 25 mg by mouth daily. Take along with 50 mg tablet to equal daily dose of 75 mg daily. 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 Active glucosam/nisha- msm1/C/aldo/claudette sw (OSTEO BI-FLEX TRIPLE STRENGTH ORAL) Take by mouth. Active saw palmetto 450 mg Cap Take by mouth. Acti ve cyanocobalamin , vitamin B-12, (VITAMIN B-12) 1000 MCG tablet Take 1,000 mcg by mouth daily. Active ascorbic acid, vitamin C, (VITAMIN C) 500 mg Chew Take by mouth 2 (two) times a day. Active atorvastatin (LIPITOR) 40 MG tablet Take 1 tablet (40 mg total) by mouth daily. 90 tablet 3 5 Active magnesium oxide (MAG-OX) 400 mg (241.3 mg elemental) tablet Take 1 tablet (400 mg total) by mouth 2 (two) times a day. 180 tablet 3 5 Active atorvastatin (LIPITOR) 40 MG tablet Take 1 tablet by mouth daily. 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 High prostate specific antigen (PSA) 11/05/2022 [...] Encounters Date Type Department Care Team Description 08/02/[address] [place] [address] Radha Clemens CNP Medication Refill 07/23/2025 Orders Only [facility] [address] [place] [address] Lilliana Negron MD 07/14/2025 Orders Only [facility] [address] [place] [address] Lilliana Negron MD 07/13/2025 Orders Only [address] [place] [address] Lilliana Negron MD 07/06/[address] [place] [address] Radha Clemens CNP Request For Records 07/06/2025 Orders Only [address] [place] [address] Radha Clemens CNP 06/15/2025 10:00 AM EDT Office Visit [address] [place] [address] Radha Clemens CNP Encounter to establish care [...] 12/06/2025 8:30 AM EDT Office Visit [facility] [address] [place] [address] Radha Clemens CNP [address] [place] [address], [address] [place] [address] [email or web address] Health Maintenance Due Date Last Done Comments HEPATITIS C SCREENING 1973 COLOGUARD 2000 FIT TEST 2000 FOBT 2000 SIGMOIDOSCOPY 2000 VIRTUAL COLONOSCOPY 2000 RSV VACCINE (1 - Risk 50-74 years 1-dose series) 2005 COVID-19 VACCINE ( season) 2025 04/27/2022, 08/17/2021, 11/29/2020, Additional history exists DIABETIC EYE EXAM 11/10/2025 11/10/2024, 11/10/2024 BLOOD PRESSURE 12/14/2025 06/15/2025 HEMOGLOBIN A1C 02/14/2026 08/16/2025, 05/17/2025 POTASSIUM LEVEL 05/17/2026 05/17/2025 DEPRESSION SCREENING 06/15/2026 [...] Procedure Name Priority Date/Time Associated Diagnosis Comments MAGNESIUM Routine 08/16/2025 8:52 AM EST Hypomagnesemia HEMOGLOBIN A1C Routine 08/16/2025 8:52 AM EST Type 2 diabetes mellitus without complication, without long-term current use of insulin OUTSIDE LAB Routine 07/19/2025 1:34 PM EST COMPREHENSIVE METABOLIC PANEL (CMP) Routine 05/17/2025 COLONOSCOPY FOR RESULT ENTRY ONLY Routine 12/07/2024 2:46 PM EDT DIABETES EYE EXAM FOR RESULT ENTRY ONLY Routine 11/10/2024 11:39 AM EDT from Last 3 Months or Most Recently Relevant to Health Maintenance Results * Magnesium (08/16/2025 8:52 AM EST) Magnesium 2.0 1.7 - 2.6 mg/dL 08/16/2025 11:40 AM [facility] Blood (Blood) Venipuncture / Unknown 08/16/2025 8:52 AM EST 08/16/2025 8:52 AM EST [facility] BLOOD BKR ORDERABLES Final Result Performing Organization Address [facility] Co de Phone Number [address] [address] * (ABNORMAL) Hemoglobin A1c (08/16/2025 8:52 AM EST) [facility] Hemoglobin A1c 7.0(H) 4.3 - 5.6 % 08/16/2025 10:56 AM [facility] Calculated Mean Blood Glucose 154 mg/dL 08/16/2025 10:56 AM [facility] Comment:There is no [facility] normal range for the Estimated Average Glucose (EAG). However, a HbA1c of 5.6% (upper limit of normal) represents an EAG of 114 mg/dL. The diagnostic HbA1c level for diabetes is greater than or equal to 6.5%, which represents an EAG greater than or equal to 140 mg/dL. Blood (Blood) Venipuncture / Unknown 08/16/2025 8:52 AM EST 08/16/2025 8:52 AM EST Radha Clemens [facility] LAB BLOOD BKR ORDERABLES Final Result Performing Organization Address [facility] Co de Phone Number [address] [address] * Outside Lab (Non-MGB) (07/19/2025 1:34 PM EST) [facility] Provider LAB BLOOD BKR ORDERABLES Edited Result - Final * Comprehensive Metabolic Panel (CMP) (05/17/2025) Pathologist [facility] Sodium - External 135 Potassium - External [...] Gap - External 12 Blood (Blood) 05/17/2025 Historical Provider MD LAB BLOOD BKR ORDERABLES Final Result * COLONOSCOPY FOR RESULT ENTRY ONLY (12/07/2024 2:46 PM EDT) Historical Provider MD HEALTH MAINTENANCE Final Result * DIABETES EYE EXAM FOR RESULT ENTRY ONLY (11/10/2024 11:39 AM EDT) Historical Provider HEALTH MAINTENANCE Final Result from Last 3 Months or Most Recently Relevant to Health Maintenance Insurance MEDICARE PART A & B [employer] SUPPLEMENT MEDICARE PART A & B [employer] SUPPLEMENT MEDICARE PART A & B [employer] SUPPLEMENT [employer] SUPPLEMENT MEDICARE PART A & B [employer] SUPPLEMENT MEDICARE PART A & B [employer] SUPPLEMENT Care Teams Anesthetist Relationship Specialty Start Date End Date Radha Clemens CNP [address] [place], [place] [address] [place] [address] [email or web address] PCP - General Nurse Practitioner 06/15/25 Rafael Crook MD Nephrology 09/23/23 Vidal Desir MD [address] [place] [address], [address] [place] [address] [email or web address] Internal Medicine 06/15/25 [facility] 06/15/25 Additional Source Comments The information contained in this document represents components of the legal health record. It is not the complete legal health record.[facility]
--- OUTSIDE RECORDS SUMMARY | 2025-08-20 08:19 | XMS_ITS | Patient Health Record ---
Author Organization [facility] Address [address] [place] [address] Care Team Providers Care Electro Mechanic Name Role Phone Asia RODRIGUEZ, Venancio Primary Care Provider Juan Daniel Rdz Unavailable [phone] Allergies Allergen (clinical drug ingredient) Drug/Non Drug Allergy documented on EMR Reaction Allergy Type Onset Date Status pets,perfumes,pollen s, dust,grasses,arias hayfever (uncoded) Unknown Allergy Active Reason For Referral No Information Medications Medication SIG (Take, Route, Frequency, Duration) Notes Start Date End Date Status ProAir HFA 108 (90 Base) MCG/ACT Aerosol Solution 2 puffs as needed Inhalation every 6 hrs Unknown Viagra 100 MG Tablet 1 tablet as needed Orally Once a day; Duration: 30 day(s) Unknown Osteo Bi-Flex Adv Double St - Tablet as directed Orally Unknown Saw Decatur 450 MG Capsule as directed Orally Unknown Mens 50+ Advanced - Capsule as directed Orally Unknown Omeprazole 20 MG Capsule Delayed Release 1 capsule Orally Once a day Unknown Spironolactone 50 MG Tablet Takes 75 mg Orally Once a day Unknown Singulair 10 MG Tablet 1 tablet Orally O nce a day; Duration: 30 day(s) Unknown Atorvastatin Calcium 40 MG Tablet 1 tablet Orally Once a day; Duration: 30 day(s) Unknown amLODIPine Besylate 10 MG Tablet 1 tablet Orally Once a day; Duration: 30 day(s) Unknown Symbicort 160-4.5 MCG/ACT Aerosol 2 puffs Inhalation Twice a day Unknown Immunizations Vaccine Route Administration Date Status Comme [...] Info Options Details Miscellaneous: Marital status: 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 Section Notes: Nonsmoker; no sig alcohol Nonsmoker; no sig alcohol Problems Problem Type SNOMED Code ICD Code Onset Dates Problem Status W/U Status Risk Notes Problem Colon cancer screening (363595527) Colon cancer screening (Z12.11) Active confirmed Problem Screening for malignant neoplasm of colon (118315700) Encounter for screening for malignant neoplasm of colon (Z12.11) Active confirmed Problem History of polyp of colon (situation) (231761100) Personal history of colonic polyps (Z86.010) Active confirmed Problem Gastroesophageal reflux disease (577438532) GERD (gastroesophag eal reflux disease) (K21.9) Active confirmed Problem Pre-procedure evaluation check (527381787) Pre-procedural examination (Z01.818) Active confirmed Vital Signs Blood pressure diastolic 11 mm Hg 11/03/2024 Height 73 in 11/03/2024 Blood pressure systolic 111 mm Hg 11/03/2024 Weight 223 lbs 11/03/2024 BMI 29.42 kg/m2 11/03/2024 Procedures Procedure Date Ordered Date Performed Result Body Sit e COLONOSCOPY 11/03/2024 N/A Encounters Encounter Location Date Provider Diagnosis [facility] Outpatient [address] [place], [place] [id number] 12/07/2024 Juan Daniel Avila Colon cancer screeni ng Z12.11 ; Personal history of colonic polyps Z86.0100 ; Diverticulosis of large intestine without perforation or abscess without bleeding K57.30 and Other hemorrhoids K64.8 [facility] [address] [place] [address] 11/03/2024 Juan Daniel Avila Personal history of colonic polyps Z86.010 ; GERD (gastroesophageal reflux disease) K21.9 and Colon cancer screening Z12.11 [facility] [address] [place] [address] 11/03/2024 Juan Daniel Avila [facility] [address] [place] [address] 11/03/2024 Juan Daniel Avila [facility] [address] [place] [address] 12/07/2024 Juan Daniel Avila Assessments Encounter Date [...] Date MEDICARE OF [place] [address] [place] [address] [id number] PRETTY WILLIAM Self - patient is the insured 1 MEDEX ATTN CLAIMS [address] [place] [address] [id number] PRETTY WILLIAM Self - patient is the insured Medical (General) History Medical History History ICD Code Asthma Hypertension Hypercholesterolemia Anxiety Denies OR,DM,CVA,,renal disease Neg. colonoscopy in 08/2008 except for an inflammatory polyp GERD-Neg. EGD in 08/2008 except for gastr itis-bx neg for Hpylori Screening colonoscopy 2018 with removal of a small tubular adenoma Surgical History Surgery Date(Month/Year) Left shoulder
--- OUTSIDE RECORDS SUMMARY | 2025-08-20 08:19 | XMS_ITS | Clinical Summary ---
Author Organization [facility] Address [address] [facility] [address] [place] [address] Phone Care Team Providers Care Car Rental Agent Name Role Phone Venancio Betancourt MD Primary [...] mg/dl PVNMA 11/05/2019 us Rtama Conversion LAB [id number] LICITED RESULTS Final Result PVNMA from Last 3 Months or Most Recently Relevant to Health Maintenance Insurance Medicare [facility] Medicare [facility] Care Teams Car Rental Agent Relationship Specialty Start Date End Date Venancio Betancourt MD [address] [place], [place] PCP - General 09/05/20
[2025-08-20 10:10] LABS: Anion Gap 15 (12-20); Blood Urea Nitrogen 26 mg/dL (9-16); Carbon Dioxide 25 mmol/L (22-29); Chloride 102 mmol/L (96-108); Estimated Glomerular Filt Rate 50; Potassium 4.7 mmol/L (3.3-5.1); Sodium 137 mmol/L (135-145)
== END 2025-08-20 08:18 | disposition home or self-care (01) ==
LOC: HO.LAB 08:17
PROVIDERS: PCP Nurse Practitioner Adult Health; Visit Provider Internal Medicine Nephrology
DX: I12.9 Hypertensive chronic kidney disease with stage 1 through stage 4 chronic kidney disease, or unspecified chronic kidney disease (principal); N18.31 Chronic kidney disease, stage 3a; Z13.1 Encounter for screening for diabetes mellitus
CPT/HCPCS: 36415; 80051; 82565; 83036; 84520